=== PATIENT | female | born 1970 | race Caucasian/White ===

== ENCOUNTER → 2020-03-16 13:47 | Outpatient (CLI) | payer OTHER, SELFPAY ==
[2018-09-03 11:28] VITALS: BMI 31.0
--- NOTE | 2020-03-16 14:00 | US_ITS ---
STUDY: SUPERFICIAL ULTRASOUND - LEFT GROIN REASON FOR EXAM: Female, 49 years old. LEFT GROIN LYMPH NODE BIOPSY TECHNIQUE: A superficial ultrasound was performed with real-time and static angeles-scale imaging. COMPARISON: None. FINDINGS: The palpable abnormality corresponds to a 1.6 cm x 1.4 cm x 2.3 cm cyst. This may represent a postoperative seroma US/Ext Non Vasc Limited/Soft Tiss IMPRESSION: Findings suggest only 1.6 cm x 1.4 cm x 2.3 cm seroma at the operative site corresponding to the palpable abnormality. Electronically Signed: Anthony Jones, at 15:22 EDT , Service support ,
== END ==
PROVIDERS: PCP Family Medicine
DX: Z85.820 Personal history of malignant melanoma of skin (principal)
CPT/HCPCS: 76882

== ENCOUNTER 2020-05-28 19:18 | Emergency (ER) | payer OTHER, SELFPAY ==
[2018-09-03 11:28] VITALS: BMI 31.0
[2020-05-28 19:18] VITALS: BP 135/76; PULSE 87; RESP 18; TEMP 36.6; O2SAT 99; BMI 32.4
--- NOTE | 2020-05-28 19:25 | ED.DCSUM_ITS ---
History of Present Illness Chief Complaint: Laceration Informant: Patient Onset: Today Context: Sudden Onset Timing: Continuous Current Severity: Moderate Maximum Severity: Moderate Narrative: The patient is a 49-year-old female who is right-hand dominant that presents to the emergency department laceration to her right index finger. The patient was using a rock. She states with holding, she ended up incising the finger over the dorsal aspect of the right PIP joint. She went to urgent care, but due to concern for tendon injury, she was sent here for further evaluation. The patient is unsure of her last tetanus. She is otherwise been in her normal state of health. Prior similar symptoms: No Recent Illness/Hospitalization: No Past Medical History - Allergies and Home Meds Allergies/Adverse Reactions: Allergies benzoyl peroxide Allergy (Verified 05/28/20 19:20) Swelling clindamycin Allergy (Verified 05/28/20 19:20) Hives Sulfa (Sulfonamide Antibiotics) Allergy (Verified 05/28/20 19:20) Hives ferrous sulfate Adverse Reaction (Verified 05/28/20 19:20) Other NOT ABLE TO TAKE DUE TO GASTRIC BYPASS Primary Care Physician: Nancy Petty MD [NON-STAFF] - As soon as possible Prior records reviewed: Yes Surgical History: noncontributory Smoking Status: Never smoker Review of Systems General: Denies: Chills, Fever, Sweats Eyes: Denies: Visual changes - bilaterally, Diplopia ENT: Denies: Rhinorrhea, Sore throat Cardiovascular: Denies: Chest pain, Palpitations Respiratory: Denies: Dyspnea, Cough, Dyspnea on exertion Gastrointestinal: Denies: Abdominal pain, Nausea, Vomiting, Diarrhea, Melena, Hematochezia Genitourinary: Denies: Dysuria, Hematuria, Frequency Musculoskeletal: Denies: Back pain, Extremity Pain Skin: Denies: Rash, Wounds Neurological: Denies: Headache, Weakness, Numbness Physical Exam Vital Signs/Narrative: Vital Signs Temp Pulse Resp BP Pulse Ox 05/28/20 19:18 97.9 F 87 18 135/76 H 99 Inital Vital Signs reviewed: Yes General: Well nourished, Well developed, No Acute Distress Head: Normocephalic, Atraumatic Eyes: Perrl, EOMI ENT: Moist mucous membranes, No rhinorrhea Cardiovascular: Regular rate, Regular rhythm, No murmurs Respiratory: No distress Abdomen: Soft, Nontender, Nondistended Extremities: No edema, Tenderness - Patient has a 2 cm C shaped laceration over the DIP of the right index. She does have weakness with full extension. Two- point discrimination is preserved. Skin: Normal color, No rash Neurological: Alert, Oriented x3, Cranial nerves II-XII grossly intact, Normal Strength, Normal Sensation Psychological: Normal affect, Normal Mood Diagnostic/Tx/Re-eval - Medical Decision Making The patient presents with laceration on the dorsum of the right index. Her extension is limited. Plain films were obtained. There is no evidence of bony disruption. Digital block was performed with a total of 8 cc of bupivacaine under sterile conditions. Turnicot was applied to the finger. The laceration was copiously irrigated and cleaned with chlorhexidine. Under bloodless field, I could see the distal end of the tendon, but the proximal end was retracted. I cannot see the end of the tendon in order to bring it into the field. There is no evidence of vascular injury. I did close the skin loosely with 3 simple 6-0 interrupted suture and the wound was dressed with bacitracin dressing. The patient has seen Dr. Moreno in the past. I was able to speak with her physician assistant signal maintainer, but he was not definitively sure that she would be able to follow-up for operative fixation. The patient is also been established with [facility]. I have reached out to ensure follow-up with hand specialist Dr. Maynard. The patient will be placed on doxycycline and kept in an extension splint. She will follow-up with [facility] as soon as possible. Impression 1. 2 cm right index finger laceration with extensor tendon disruption ED Disposition - Plan for ED Patient: Disposition: Home or Assisted Living Instructions: ED Laceration Hand, ED TENDON LACERATION Prescriptions: Doxycycline 100 mg PO BID #20 cap Prescription Printed Referrals: Nancy Petty MD [NON-STAFF] - As soon as possible
--- NOTE | 2020-05-28 19:45 | RAD_ITS ---
STUDY: X-RAY - RIGHT HAND REASON FOR EXAM: Female, 49 years old. SLICED RIGHT INDEX FINGER ON A VEGETABLE SLICER, LACERATION TECHNIQUE: 3 view(s) of the hand. COMPARISON: None. FINDINGS: Normal radiocarpal articulation. Normal distal radioulnar joint. Normal visualized carpal bones. Normal carpal articulations Normal carpometacarpal articulation of the thumb. Normal second through fifth carpometacarpal joints. Normal metacarpi. Normal metacarpophalangeal joint of the thumb. Normal interphalangeal joint of the thumb. Normal proximal and distal phalanges of the thumb. Normal metacarpophalangeal joints of the second through fifth fingers. Normal proximal and distal interphalangeal joints of the second through fifth fingers. Normal phalanges of the second through fifth fingers. The soft tissue structures are unremarkable. RAD/Hand Min 3 Views IMPRESSION: Normal x-ray examination of the hand. Electronically Signed: Shelly Rice MD at 20:54 EDT Tel , Service support ,
[2020-05-28] MEDS: Bupivacaine Mpf 0.5% 30 ML VIAL INFILT (19:53)
[2020-05-28] MEDS: Diphth,Pertuss(Acell),Tet Vac 0.5 ML Vial IM (19:53)
[2020-05-28] MEDS: Doxycycline 100 MG CAPSULE PO (20:57)
[2020-05-28 21:05] VITALS: RESP 18
== END 2020-05-28 21:05 | disposition home or self-care (01) ==
LOC: ED 19:41
PROVIDERS: Emergency Provider Emergency Medicine; PCP Family Medicine
DX: S66.320A Laceration of extensor muscle, fascia and tendon of right index finger at wrist and hand level, initial encounter (principal); S61.210A Laceration without foreign body of right index finger without damage to nail, initial encounter; W27.4XXA Contact with kitchen utensil, initial encounter; Y93.9 Activity, unspecified; Y92.9 Unspecified place or not applicable; Y99.9 Unspecified external cause status
CPT/HCPCS: 12001; 73130; 90715; 99284

== ENCOUNTER → 2021-07-18 09:59 | Outpatient (CLI) | payer OTHER, SELFPAY ==
--- NOTE | 2021-07-18 10:02 | US_ITS ---
STUDY: SUPERFICIAL ULTRASOUND - LEFT GROIN. REASON FOR EXAM: Female, 50 years old. LEFT GROIN -- HX CA . History of prior biopsy of the left groin lymph nodes. TECHNIQUE: A superficial ultrasound was performed with real-time and static angeles-scale imaging. COMPARISON: Comparison is made with prior study 03/16/2020. FINDINGS: There are 3 benign appearing lymph nodes in the left groin. The largest measures 1.5 cm x 0.6 cm x 0.3 cm. US/Ext Non Vasc Limited/Soft Tiss IMPRESSION: 3 small benign-appearing lymph nodes are seen in the left groin. Electronically Signed: Anthony Jones MD at 14:31 EST , Service support ,
== END ==
PROVIDERS: PCP Nurse Practitioner Family
DX: C43.72 Malignant melanoma of left lower limb, including hip (principal)
CPT/HCPCS: 76882

== ENCOUNTER → 2025-05-01 | Outpatient (CLI) | payer OTHER, SELFPAY ==
--- NOTE | 2025-05-01 15:19 | US_ITS ---
PROCEDURE: PELVIC W/ TRANSVAGINAL 05/01/2025 REASON FOR EXAM: PELVIC AND PERINEAL PAIN TECHNIQUE: PELVIC W/ TRANSVAGINAL COMPARISON: none FINDINGS: Uterus is surgically removed. Bilateral ovaries are not well seen. No free fluid within the cul de sac. Distended urinary bladder to 480mL. US/Pelvic w/ Transvaginal IMPRESSION: Uterus is surgically removed. Bilateral ovaries are not well seen. No acute process. Reading Location: [facility]
--- OUTSIDE RECORDS SUMMARY | 2025-05-01 17:11 | XMS RPT_ITS | CCD ---
Author Organization [facility] Care Team Providers Care Esthetician Makeup Artist Name Role Phone Unavailable Primary Care Provider Unavailabl e Perry CLINICAL TRANSFORMATION SPECIALIST.RECORDS ANALYSIS MANAGER, [facility] Primary Care Provider Perry CLINICAL TRANSFORMATION SPECIALIST.RECORDS ANALYSIS MANAGER, [facility] Primary Care Provider Perry CLINICAL TRANSFORMATION SPECIALIST.RECORDS ANALYSIS MANAGER, [facility] Primary Care Provider Perry CLINICAL TRANSFORMATION SPECIALIST.[facility], [facility] Primary Care Provider Perry CLINICAL TRANSFORMATION SPECIALIST.[facility], [facility] Primary Care Provider PERRY, LENY Referring Unavailable PERRY, LENY Primary Care Unavailable PERRY, LENY Referring Unavailable PERRY, LENY Primary Care Unavailable PERRY, LENY Primary Care Unavailable PERRY, LENY Referring Unavailable ELEUTERIO MONREAL~[id number], ELEUTERIO ROWE V Admitting Unavailable ELEUTERIO MONREAL~[id number], ELEUTERIO ROWE V Attending Unavailable NONE, NONE Primary Care Unavailable NONE, NONE Consulting Unavailable NONE, NONE Consulting Unavailable JAE MCCLELLAN MD, V Consulting Unavailable JAE MCCLELLAN MD, V Consulting Unavailable Flex CLINICAL TRANSFORMATION SPECIALIST.RECORDS ANALYSIS MANAGER, Cara Govea Unavailable Hayden Romero DO Unavailable PERRY, LENY Primary Care Unavailable TESTRARONAN PETERSENEW Attending Unavailable PERRY, LENY Primary Care Unavailable TESTMAGNUS MARY Referring Unavailable PERRY, LENY Attending Unavailable PERRY, LENY Primary Care Unavailable PERRY, LENY Referring Unavailable PERRY, LENY Primary Care Unavailable PERRY, LENY Referring Unavailable PERRY, LENY Primary Care Unavailable PERRY, LENY Attending Unavailable PERRY, LENY Primary Care Unavailable ARYA ROSALES JR Referring Unavailable PERRY, LENY Primary Care Unavailable MICHEAL JOHNSON Attending Unavailable PERRY, LENY Primary Care Unavailable TESTRANICOLA, MARY Referring Unavailable MICHEAL JOHNSON Attending Unavailable PERRY, LENY Primary Care Unavailable TESTMARY AGUDELO Referring Unavailable PERRY, LENY Primary Care Unavailable MICHEAL JOHNSON Attending Unavailable MARY NEVILLE Referring Unavailable ARYA ROSALES JR Attending Unavailable PERRY, LENY Primary Care Unavailable Assessment, Health Risk Referring Unavaila ble Assessment, Health Risk Attending Unavaila ble Perry AGRICULTURAL EXTENSION AGENT, Leny Primary Care Unavailable Perry AGRICULTURAL EXTENSION AGENT, Leny Primary Care Unavailable Perry AGRICULTURAL EXTENSION AGENT, Leny Referring Unavailable Perry AGRICULTURAL EXTENSION AGENT, Leny Attending Unavailable Allergies Allergy Classification Reported Allergen(s) Allergy Type Date of Onset Reaction(s) Facility (20 sources) Clindamycin; Translations: [CLINDAMYCIN] Drug Allergy 5 [facility] Work Phone: (20 sources) Sulfonamides (Antibiotic); Translations: [SULFA (SULFONAMIDE ANTIBIOTICS)] Propensity to adverse reactions 5 Hives [facility] Work Phone: (20 sources) benzoil peroxide [Other] Propensity to adverse reactions 5 Intolerance [facility] Work Phone: (20 sources) Benzoyl Peroxide; Translations: [BENZOYL PEROXIDE] Drug Allergy 4 [facility] (1 source) Benzoyl Peroxide Drug Allergy 0 [facility] (1 source) Clindamycin Drug Allergy 0 [facility] (1 source) ferrous sulfate Drug Allergy 0 [facility] (1 source) Sulfonamides (Antibiotic) Drug allergy (disorder) 0 [facility] Medications Current Medications Medication Drug Class(es) Dates Sig (Normalized) Sig (Original) acetaminophen 500 mg oral tablet (20 sources) Start: 05-05-2018 take 2 tablets by mouth every eight hours for pain acetaminophen (TYLENOL) 500 mg tablet take 2 tablets by mouth every 8 hours if needed for pain OR FEVER 100 tablet 2 05/05/2018 Active Comment on above: take 2 tablets by mo [facility] every 8 hours if needed for pain OR FEVER amoxicillin 875 mg / clavulanate 125 mg oral tablet (1 source) Penicillin-class Antibacterial Start: 10-09-2022 End: 10-19-2022 take 1 tablet by mouth twice daily amoxicillin-clavul anic acid (AUGMENTIN) 875-125 mg per tablet Indications: Bacterial sinusitis Take 1 tablet by mouth twice daily for 10 days. 20 tablet 0 10/09/2022 10/19/2022 Active Comment on above: [facility]. armodafinil 250 mg oral tablet (20 sources) Start: 09-28-2023 End: 01-09-2025 armodafinil (NUVIGIL) 250 mg tab Indications: Hypersomnia Take 1/2 to 1 tab in AM as directed. 90 tablet 1 10/10/2024 Active Start: 05-08-2022 End: 04-05-2023 armodafinil (NUVIGIL) 250 mg tab Indications: Hypersomnia due to medical condition , Shift work sleep disorder Take 1/2 to 1 tab in AM as directed. 90 tablet 1 05/08/2022 10/06/2022 Discontinued Start: 08-13-2021 End: 05-08-2022 take 1 tablet by mouth once daily armodafinil (NUVIGIL) 150 mg tab Indications: Hypersomnia due to medical condition Take 1 tablet by mouth once daily for 90 days. 30 tablet 2 08/13/2021 05/08/2022 Discontinued Comment on above: Take 1 tablet by [facility] once daily for 90 days. Take 1/2 to 1 tab in AM as directed. 60 actuat budesonide 0.09 mg/actuat dry powder inhaler (20 sources) Corticosteroid Start: 2020 End: 2024 take 2 puff(s) by inhalation twice daily as needed budesonide (PULMICORT FLEXHALER) 90 mcg/actuation aepb Inhale 2 puffs as instructed two times a day as needed. 1 each 3 02/15/2025 05/16/2025 Active Comment on above: Inhale 2 Puffs as in structed twice daily as needed. 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 TAKE 1/2 TABLET BY M OUTH EVERY THURSDAY AND THURSDAY Take 1 tablet by maría elena th every Thursday and Thursday. clobetasol propionate 0.5 mg/ml topical solution (20 sources) Corticosteroid Clobetasol Propi diogo (TEMOVATE) 0.05 % external solution Apply to affected area twice daily. Active Comment on above: Apply to affected ar ea twice daily. COMPOUNDED PRESCRIPTION (20 sources) Start: COMPOUNDED PRESCRIPTION Journey 3+3 Bariatric Multivitamin Take 3 capsules in am and Take 3 capsules in PM 180 capsule 11 10/26/2017 Active Comment on above: Journey 3+3 Bariatri c Multivitamin Take 3 capsules in am and Take 3 capsules in PM enteric contrast (will be provided with radiology test) (4 sources) Start: End: enteric contrast (will be provided with radiology test) Indications: Gastroesophageal reflux disease, unspecified whether esophagitis present , Epigastric pain , Nausea , Decreased appetite , Acute LUQ pain , Hx of gastric bypass , Jaw pain For CT ABD/PEL W IVCON Routine order Administer, As Directed One Time Only, via Oral, Rectal, both Oral and Rectal, Enteric Tube, Stoma or Indwelling Catheter, Enteric Contrast as designated per enteric contrast guidelines 1 Each 0 03/30/2024 03/31/2024 Active estradiol 1 mg oral tablet (20 sources) Estrogen Start: End: take 1 tablet by mouth once daily estradiol (ESTRACE) 1 mg tablet Take 1 tablet by mouth once daily. 90 tablet 1 01/19/2025 Active Comment on above: TAKE 1 TABLET BY MARÍA ELENA TH EVERY DAY Take 1 tablet by maría elena th once daily. ferrous sulfate (20 sources) FERROUS SULFATE ORAL Take by mouth. Active FERROUS SULFATE ORAL Take by mouth. 0 Active Comment on above: Take by mouth. FLUoxetine 40 mg oral capsule (20 sources) Serotonin Reuptake Inhibitor Start: 05-06-2023 End: 06-13-2025 take 1 capsule by mouth once daily FLUoxetine (PROZAC) 40 mg capsule Indications: Depression with anxiety Take 1 capsule by mouth once daily. 90 capsule 1 12/15/2024 06/13/2025 Active Start: 04-07-2022 End: 05-06-2023 take 1 capsule by mouth once daily FLUoxetine (PROZAC) 20 mg capsule Indications: Depression with anxiety TAKE 1 CAPSULE BY MOUTH ONCE DAILY 90 capsule 1 05/28/2022 11/17/2022 Discontinued Comment on above: Take 1 capsule by mo uth once daily. TAKE 1 CAPSULE BY MO UTH ONCE DAILY Take 1 capsule by mo uth once daily. Patient taking 40 mg daily gabapentin 300 mg oral capsule (11 sources) Anti-epileptic Agent Start: 02-06-2025 End: 05-07-2025 take 1 capsule by mouth twice daily gabapentin (NEURONTIN) 300 mg capsule Indications: Spinal stenosis of cervical region , Cervicalgia , Pain in both upper extremities , Paresthesia of skin Take 1 capsule by mouth two times a day for 90 days. 60 capsule 2 02/06/2025 05/07/2025 Active Start: 10-10-2024 End: 01-08-2025 take 1 capsule by mouth twice daily gabapentin (NEURONTIN) 300 mg capsule Indications: Spinal stenosis of cervical region , Cervicalgia , Pain in both upper extremities , Paresthesia of skin Take 1 capsule by mouth two times a day for 90 days. 60 capsule 2 10/10/2024 Active GEMTESA 75 mg tablet (20 sources) Start: 12-16-2024 take 1 tablet by mouth once GEMTESA 75 mg tablet Indications: OAB (overactive bladder) Take 1 tablet by mouth every afternoon. 12/16/2024 Active Start: 07-20-2023 End: 12-16-2024 take 1 tablet by mouth once GEMTESA 75 mg tablet Take 1 tablet by mouth every afternoon. 07/20/2023 12/16/2024 Discontinued Start: 07-20-2023 take 1 tablet by mouth once GE MTESA 75 mg tablet Take 1 tablet by mouth every afternoon. 07/20/2023 Active Start: 07-20-2023 take 1 tablet by mouth once GE MTESA 75 mg tablet Take 1 tablet by mouth every afternoon. 0 07/20/2023 Active Comment on above: Take 1 tablet by maría elena every afternoon. iv contrast (will be provided with radiology test) (4 sources) Start: 03-30-2024 End: 03-31-2024 iv contrast (will be provided with radiology test) Indications: Gastroesophageal reflux disease, unspecified whether esophagitis present , Epigastric pain , Nausea , Decreased appetite , Acute LUQ pain , Hx of gastric bypass , Jaw pain CT ABD/PEL -Inject, intravenously, once for 1 dose.No IV access, insert saline lock prior to the beginning of sedation, infusion, injection of imaging exam. Discontinue saline lock post exam. If Pt. has a central line or IVAD, may access for administration according to line specific nursing protocol. Once exam is complete flush line and de-access according to line specific nursing protocol in the CT contrast administration guidelines link. 1 Each 0 03/30/2024 03/31/2024 Active ketoconazole 20 mg/ml medicated shampoo (20 sources) Azole Antifungal Start: 05-19-2022 ketoconazole (NIZORAL) 2 % shampoo Apply 1 application to affected area once daily as needed. 120 mL 3 05/19/2022 Active Start: 08-22-2021 End: 05-16-2022 ketoconazole (NIZORAL) 2 % s hampoo Apply 1 application to affected area once daily as needed. 120 mL 3 08/22/2021 05/16/2022 Discontinued Comment on above: Apply 1 application to affected area once daily as needed. loratadine 10 mg oral tablet (20 sources) Start: 1 End: 5 take 1 tablet by mouth once daily loratadine (CLARITIN) 10 mg tablet Indications: Well adult exam Take 1 tablet by mouth once daily. 30 tablet 02/15/2025 Active Comment on above: Take 1 tablet by maría elena once daily. mometasone furoate 1 mg/ml topical cream (20 sources) Corticosteroid Start: End: 5 mometasone (ELOCON) 0.1 % cream Indications: Eczema, unspecified type apply bid prn 45 g 1 02/15/2025 Active Comment on above: apply bid prn OTC PRODUCT (20 sources) OTC PRODUCT Immu ne Defend - 2 capsules daily Active OTC PRODUCT Immu ne Defend - 2 capsules daily 0 Active Comment on above: Immune Defend - 2 ca psules daily pantoprazole 40 mg delayed release oral tablet (20 sources) Proton Pump Inhibitor Start: 11-03-19 End: 12-15-19 take 1 tablet by mouth once daily before breakfast pantoprazole DR (PROTONIX) 40 mg tablet Indications: GERD with esophagitis Take 1 tablet by mouth daily before breakfast. Take on empty stomach, 1/2 hr before meal. 30 tablet 11 12/14/2024 Active Comment on above: Take 1 tablet by maría elena th daily before breakfast. Take on empty stomach, 1/2 hr before meal. sucralfate 1000 mg oral tablet (13 sources) Aluminum Complex Start: 05-03-20 End: 06-02-20 take 1 tablet by mouth at bedtime sucralfate (CARAFATE) 1 gram tablet Indications: Gastroesophageal reflux disease, unspecified whether esophagitis present , Epigastric pain , Nausea , Decreased appetite , Acute LUQ pain , Hx of gastric bypass Take 1 tablet by mouth before meals and at bedtime. 120 tablet 05/03/2024 06/02/2024 Active Start: 03-30-2024 End: 04-29-2024 take 1 tablet by mouth at bedtime sucralfate (CARAFATE) 1 gram tablet Indications: Gastroesophageal reflux disease, unspecified whether esophagitis present , Epigastric pain , Nausea , Decreased appetite , Acute LUQ pain , Hx of gastric bypass Take 1 tablet by mouth before meals and at bedtime. 120 tablet 0 03/30/2024 04/29/2024 Active ubidecarenone 100 mg oral tablet (20 sources) ubidecarenone (C OENZYME Q10) 100 mg tab Take by mouth once daily. Active Comment on above: Take by mouth once d aily. Completed/Discontinued Medications Medication Drug Class(es) Dates Sig (Normalized) Sig (Original) 24 hr mirabegron 50 mg extended release oral tablet (1 source) beta3-Adrenergic Agonist Start: 11-04-2024 End: 12-16-2024 take 1 tablet by mouth once daily mirabegron (MYRBETRIQ) 50 mg Tb24 Take 1 tablet by mouth once daily. 11/04/2024 12/16/2024 Discontinued valACYclovir 1000 mg oral tablet (1 source) Herpesvirus Nucleoside Analog DNA Polymerase Inhibitor, Herpes Simplex Virus Nucleoside Analog DNA Polymerase Inhibitor, Herpes Zoster Virus Nucleoside Analog DNA Polymerase Inhibitor Start: 12-08-2024 End: 12-16-2024 valACYclovir (VALTREX) 1 gram tablet Take 1,000 mg by mouth three times a day. 12/08/2024 12/16/2024 Discontinued Problems Active Problems Problem Classification Problem Date Documented Date Episodic/Chronic Abdominal pain (20 sources) Epigastric pain; Translations: [Epigastric pain] Onset: 6 Resolved: 7 03-30-2024 Episodic Adjustment disorders (20 sources) Mixed anxiety and depressive disorder; Translations: [Adjustment disorder with mixed anxiety and depressed mood] Onset: 7 02-05-2017 Chronic Administrative/socia l admission (3 sources) Encounter for pre-employment examination; Translations: [ENCOUNTER FOR PRE-EMPLOYMENT EXAM] Onset: Episodic Allergic reactions (1 source) Eczema; Translations: [Dermatitis, unspecified] 02-14-2025 Episodic Attention-deficit, conduct, and disruptive behavior disorders (20 sources) Adult attention deficit hyperactivity disorder ; Translations: [Attention-deficit hyperactivity disorder, unspecified type] Onset: 1 09-27-2020 Chronic Disorders of lipid metabolism (20 sources) Hyperlipidemia; Translations: [Hyperlipidemia, unspecified] Onset: 1 09-27-2020 Chronic Disorders of teeth and jaw (3 sources) Jaw pain; Translations: [Jaw pain] Onset: 4 03-30-2024 Episodic Esophageal disorders (20 sources) Gastro-esophageal reflux disease with esophagitis; Translations: [GERD with esophagitis] Onset: 0 11-01-2019 Chronic Genitourinary symptoms and ill-defined conditions (20 sources) Mixed urinary incontinence; Translations: [Mixed incontinence] Onset: 8 09-27-2020 Chronic Immunizations and screening for infectious disease (1 source) Contact with and (suspected) exposure to other viral communicable diseases; Translations: [Contact with or exposure to other viral diseases] 10-14-2023 Episodic Influenza (1 source) Influenza-like illness; Translations: [Influenza due to unidentified influenza virus with other respiratory manifestations] 10-14-2023 Episodic Intestinal obstruction without hernia (2 sources) Intussusception of intestine; Translations: [Intussusception] 04-06-2024 Episodic Melanomas of skin (20 sources) Malignant melanoma of lower limb ; Translations: [Malignant melanoma of left lower limb, including hip] Onset: 0 12-15-2019 Chronic Mood disorders (20 sources) Depressive disorder; Translations: [Depression] Onset: 2 01-29-2012 Chronic Nausea and vomiting (10 sources) Nausea; Translations: [Nausea] Onset: 4 03-30-2024 Episodic Nutritional deficiencies (1 source) Vitamin D deficiency; Translations: [Vitamin D deficiency, unspecified] 05-04-2023 Chronic Other aftercare (1 source) Long-term current use of stimulant; Translations: [Other penitentiary (current) drug therapy] 10-10-2024 Episodic Other connective tissue disease (2 sources) Pain in right foot; Translations: [Pain in right foot] 06-03-2024 Episodic Other connective tissue disease (2 sources) Pain of bilateral upper limbs; Translations: [Pain in right arm] 10-10-2024 Episodic Other diseases of bladder and urethra (1 source) Overactive bladder; Translations: [Overactive bladder] 12-16-2024 Chronic Other endocrine disorders (20 sources) 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; Translations: [Hyperprolactinemia] Onset: 4 12-27-2013 Chronic Other infections; including parasitic (5 sources) 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; Translations: [[id number] syndrome] Onset: 1 09-27-2020 Chronic Other infections; including parasitic (20 sources) Post-viral disorder; Translations: [[id number] syndrome] Onset: 1 09-27-2020 Chronic Other liver diseases (20 sources) Steatosis of liver; Translations: [Fatty (change of) liver, not elsewhere classified] Onset: 0 02-07-2010 Chronic Other nervous system disorders (1 source) Circadian rhythm sleep disorder of shift work type; Translations: [Circadian rhythm sleep disorder, shift work type] Chronic Other nervous system disorders (2 sources) Paresthesia; Translations: [Paresthesia of skin] 10-10-2024 Episodic Other non-traumatic joint disorders (4 sources) Joint pain; Translations: [Pain in unspecified joint] 12-16-2024 Episodic Other nutritional; endocrine; and metabolic disorders (20 sources) Obese class I; Translations: [Obesity, unspecified] Onset: 4 09-16-2023 Chronic Other nutritional; endocrine; and metabolic disorders (8 sources) Decrease in appetite; Translations: [Anorexia] 03-30-2024 Episodic Other nutritional; endocrine; and metabolic disorders (1 source) Anorexia; Translations: [Decreased appetite] Onset: 4 Episodic Other upper respiratory infections (1 source) Bacterial sinusitis; Translations: [Chronic sinusitis, unspecified] Chronic Residual codes; unclassified (20 sources) Hypersomnia disorder related to a known organic factor; Translations: [Hypersomnia due to medical condition] Onset: 4 Chronic Residual codes; unclassified (20 sources) Upper airway resistance syndrome; Translations: [Other sleep disorders] Onset: 4 Chronic Residual codes; unclassified (1 source) Hypersomnia; Translations: [Hypersomnia, unspecified] 10-10-2024 Chronic Residual codes; unclassified (1 source) Hypersomnia, unspecified; Translations: [Hypersomnia] Onset: 5 Chronic Residual codes; unclassified (1 source) Other sleep disorders; Translations: [UARS (upper airway resistance syndrome)] Onset: 4 Chronic Residual codes; unclassified (4 sources) Generalized acute body pains; Translations: [Pain, unspecified] 12-16-2024 Episodic Past or Other Problems Problem Classification Problem Date Documented Da te Episodic/Chronic Deficiency and other anemia (20 sources) Acquired pancytopenia; Translations: [Other pancytopenia] Onset: 12-27-2013 Resolved: 03-23-2017 03-23-2017 Chronic Deficiency and other anemia (20 sources) Iron deficiency anemia due to dietary causes; Translations: [Other iron deficiency anemias] Onset: 12-27-2013 Resolved: 03-23-2017 03-23-2017 Episodic Malaise and fatigue (5 sources) Asthenia; Translations: [Weakness] Onset: 01-20-2025 12-16-2024 Episodic Nutritional deficiencies (20 sources) Iron deficiency; Translations: [Iron deficiency] Onset: 01-11-2014 Resolved: 02-15-2014 02-15-2014 Episodic Other aftercare (1 source) Other penitentiary (current) drug therapy; Translations: [Long-term current use of stimulant] Onset: 10-10-2024 Episodic Other and unspecified benign neoplasm (20 sources) Prolactinoma; Translations: [Benign neoplasm of pituitary gland] Onset: 02-09-2018 02-09-2018 Episodic Other connective tissue disease (20 sources) Right achilles tendonitis; Translations: [Achilles tendinitis, right leg] Onset: 06-28-2024 06-07-2024 Episodic Other connective tissue disease (1 source) Pain in right arm; Translations: [Pain in both upper extremities] Onset: 10-10-2024 Episodic Other connective tissue disease (1 source) Pain in left arm; Translations: [Pain in both upper extremities] Onset: 10-10-2024 Episodic Other connective tissue disease (1 source) Achilles tendinitis, right leg; Translations: [Tendonitis, Achilles, right] Onset: 06-27-2024 Episodic Other connective tissue disease (1 source) Pain in right foot; Translations: [Pain in right foot] Onset: 06-07-2024 Episodic Other gastrointestinal disorders (20 sources) History of bypass of stomach; Translations: [Bariatric surgery status] Onset: 03-18-2017 03-18-2017 Episodic Other gastrointestinal disorders (2 sources) Bariatric surgery status; Translations: [Hx of gastric bypass] Onset: 03-30-2024 Episodic Other nervous system disorders (1 source) Paresthesia of skin; Translations: [Paresthesia of skin] Onset: 10-10-2024 Episodic Other non-traumatic joint disorders (1 source) Pain in unspecified joint; Translations: [Arthralgia, unspecified joint] Onset: 01-20-2025 Episodic Other nutritional; endocrine; and metabolic disorders (20 sources) Morbid obesity; Translations: [Morbid (severe) obesity due to excess calories] Onset: 09-28-2008 Resolved: 01-29-2012 01-29-2012 Chronic Other and delivery including normal (20 sources) Normal ; Translations: [Encounter for supervision of other normal , unspecified trimester] Onset: 03-19-2007 Resolved: 11-06-2007 03-17-2024 Episodic Other screening for suspected conditions (not mental disorders or infectious disease) (18 sources) Patient encounter status; Translations: [Encounter for screening mammogram for malignant neoplasm of breast] Onset: 12-24-2024 Episodic Residual codes; unclassified (1 source) Pain, unspecified; Translations: [Acute generalized body pain] Onset: 01-20-2025 Episodic Spondylosis; intervertebral disc disorders; other back problems (20 sources) Left cervical root neuropathy; Translations: [Radiculopathy, cervical region] Onset: 01-24-2013 01-24-2013 Episodic Sprains and strains (20 sources) Strain of neck muscle; Translations: [Strain of muscle, fascia and tendon at neck level, initial encounter] Onset: 01-24-2013 01-24-2013 Episodic Superficial injury; contusion (20 sources) Contusion of head; Translations: [Contusion of unspecified part of head, initial encounter] Onset: 01-24-2013 Resolved: 03-29-2014 03-29-2014 Episodic Unclassified (5 sources) Patient encounter status 10-25-2024 Unclassified (2 sources) 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 Performed By: #### L 3100.3400, L509.4006, L3400.1750 #### [facility] [address] [place] [address], [address] [facility] EMP Rubeola Titeron 06-0 RUBEOLA Ab, IgG 77.3 AU/mL Normal Immune >16.4 [facility] Comment on above: Result Comment: Nega tive <13.5 Equivocal 13.5 - 16.4 Positive >16.4 Presence of antibodies to Rubeola is presumptive evidence of immunity except when acute infection is suspected. Performed at: [address] [id number] [employer] Supervisor: Jose Hou PhD, Phone: [phone] Performed By: #### L 3100.3400, L509.4006, L3400.1750 #### [facility] [address] [place], [address] Hepatitis B Surface Antibody on 02-10-2025 HEP B Surf Ab REAC Normal [facility] Comment on above: Result Comment: <8.5 mIU/mL: Non-Reactive 8.5<= x <11.5 mIU/mL: Indeterminate >=11.5 mIU/mL: Reactive Non Reactive: Inconsistent with immunity less than <10 mIU/mL Reactive: Consistent with immunity greater than or equal to 10 mIU/mL Performed By: #### L 3890.6202 #### [facility] [address] [place] [place], [address] L509.4006on 02-10-2025 Rubella IgG REAC Normal Nonreactive [facility] Comment on above: Result Comment: Anti body Result: Interpretation Non-Reactive: Non-Immune Reactive: Immune The following results were obtained with the [employer] Rubella IgG assay. Results from assays of other manufacturers cannot be used interchangeably. Performed By: #### L 3100.3400, L509.4006, L3400.1750 #### [facility] [address] [place], [address] BD DXA - AXIAL SKELETONon BD DXA - AXIAL SKELETON * * *Final Report* * * DATE OF EXAM: Jan 20 2025 8:07AM [facility] 0804 - BD DXA - AXIAL SKELETON / PROCEDURE REASON: multiple diagnoses * * * * Physician Interpretation * * * * EXAMINATION: DXA BONE DENSITOMETRY BD DXA - AXIAL SKELETON PATIENT DEMOGRAPHICS: Age: 54 years, Gender: Female SCANNER INFORMATION: DXA Model: [employer] C [id number] Date Scanned: 01/20/2025 8:07 AM CLINICAL HISTORY: DIAGNOSTIC Encounter for screening for osteoporosis Generalized weakness Acute generalized body pain Arthralgia, unspecified joint. RISK FACTORS FOR OSTEOPOROSIS AND ASSOCIATED FRACTURES REPORTED BY THIS PATIENT: Please refer to Bone Health Questionnaire in the EMR CURRENT THERAPY: Please refer to Bone Health Questionnaire in the EMR TECHNICAL LIMITATIONS: None RESULTS: Lumbar spine (L1, L2, L3, L4): 0.934 g/cm2, T-score -1.0, Z-score 0.1 Left Femoral Neck: 0.740 g/cm2, T-score -1.0, Z-score 0.1 Left Total Hip: 1.035 g/cm2, T-score 0.8, Z-score 1.5 No comparison data - the patient has not had a previous bone density in the [facility] or the previous bone density was performed on a different DXA machine (new, updated model or different location) within the [facility]. VERTEBRAL FRACTURE ASSESSMENT Not performed. IMPRESSION: THE LOWEST T-SCORE IS -1.0 IN THE SPINE AND LEFT HIP 1) DIAGNOSIS (based on BMD alone): OSTEOPENIA Caution: Medical conditions other than osteoporosis may cause low bone density, such as osteomalacia or renal osteodystrophy. Clinical correlation is necessary. 2) FRACTURE RISK (based on FRAX): 10-year absolute fracture risk: - major osteoporotic fracture = 9.7 % - hip fracture = 0.5 % - A diagnosis of Osteoporosis, a 10 year probability of hip fracture greater than or equal to 3% or a 10 year probability of any major osteoporosis-related fracture greater than or equal to 20% should be considered for treatment. - DXA scanner generated FRAX calculations may slightly differ from online FRAX calculations due to differences in software versions. - All recommendations and calculations are to be considered as guidelines and should not replace sound clinical judgement - Caution: Fracture risk may be increased independent of BMD in patients with corticosteroid use, age greater than 65 years, or a history of prior fragility fracture. RECOMMENDATIONS: Follow-up in 2 years or as clinically indicated. Patients that are taking corticosteroids, are transplant recipients or have hyperparathyroidism should have annual follow-up. Follow-up scans should always be done on the same machine for accurate comparison. FOR MORE INFORMATION ABOUT DIAGNOSIS AND TREATMENT: [facility] Center for Osteoporosis and Metabolic Bone Disease:? www.ccf.org/arthritis/ osteo National Osteoporosis Foundation:? www.nof.org International Society of Clinical Densitometry www.iscd.org Ob Gyn Physician Assistant: KATHIE Transcribe Date/Time: Jan 20 2025 1:15P Dictated by : MARISELA REILLY MD This examination was interpreted and the report reviewed and electronically signed by: MARISELA REILLY MD on Jan 20 2025 1:17PM EST [id number] -1.0 Normal [facility] DXA Skeletal system.axial Vi ews for bone densityOrdered By: Ccf Provider on 01-20-2025 LOWEST T-SCORE -1 [facility] DXA Skeletal system.axial Vi ews for bone densityon 01-20-2025 IMPRESSION: THE LOWEST T-SCORE IS -1.0 IN THE SPINE AND LEFT HIP 1) DIAGNOSIS (based on BMD alone): OSTEOPENIA Caution: Medical conditions other than osteoporosis may cause low bone density, such as osteomalacia or renal osteodystrophy. Clinical correlation is necessary. 2) FRACTURE RISK (based on FRAX): 10-year absolute fracture risk: - major osteoporotic fracture = 9.7 % - hip fracture = 0.5 % - A diagnosis of Osteoporosis, a 10 year probability of hip fracture greater than or equal to 3% or a 10 year probability of any major osteoporosis-related fracture greater than or equal to 20% should be considered for treatment. - DXA scanner generated FRAX calculations may slightly differ from online FRAX calculations due to differences in software versions. - All recommendations and calculations are to be considered as guidelines and should not replace sound clinical judgement - Caution: Fracture risk may be increased independent of BMD in patients with corticosteroid use, age greater than 65 years, or a history of prior fragility fracture. RECOMMENDATIONS: Follow-up in 2 years or as clinically indicated. Patients that are taking corticosteroids, are transplant recipients or have hyperparathyroidism should have annual follow-up. Follow-up scans should always be done on the same machine for accurate comparison. FOR MORE INFORMATION ABOUT DIAGNOSIS AND TREATMENT: [facility] Center for Osteoporosis and Metabolic Bone Disease:? www.ccf.org/arthritis/ osteo National Osteoporosis Foundation:? www.nof.org International Society of Clinical Densitometry www.iscd.org Ob Gyn Physician Assistant: PSCB Transcribe Date/Time: Jan 20 2025 1:15P Dictated by : MARISELA REILLY MD This examination was interpreted and the report reviewed and electronically signed by: MARISELA REILLY MD on Jan 20 2025 1:17PM EST DIVISION OF RADIOLOGY * * *Final Report* * * DATE OF EXAM: Jan 20 2025 8:07AM [facility] 0804 - BD DXA - AXIAL SKELETON / PROCEDURE REASON: multiple diagnoses * * * * Physician Interpretation * * * * EXAMINATION: DXA BONE DENSITOMETRY BD DXA - AXIAL SKELETON PATIENT DEMOGRAPHICS: Age: 54 years, Gender: Female SCANNER INFORMATION: DXA Model: [employer] C [id number] Date Scanned: 01/20/2025 8:07 AM CLINICAL HISTORY: DIAGNOSTIC Encounter for screening for osteoporosis Generalized weakness Acute generalized body pain Arthralgia, unspecified joint. RISK FACTORS FOR OSTEOPOROSIS AND ASSOCIATED FRACTURES REPORTED BY THIS PATIENT: Please refer to Bone Health Questionnaire in the EMR CURRENT THERAPY: Please refer to Bone Health Questionnaire in the EMR TECHNICAL LIMITATIONS: None RESULTS: Lumbar spine (L1, L2, L3, L4): 0.934 g/cm2, T-score -1.0, Z-score 0.1 Left Femoral Neck: 0.740 g/cm2, T-score -1.0, Z-score 0.1 Left Total Hip: 1.035 g/cm2, T-score 0.8, Z-score 1.5 No comparison data - the patient has not had a previous bone density in the [facility] or the previous bone density was performed on a different DXA machine (new, updated model or different location) within the [facility]. VERTEBRAL FRACTURE ASSESSMENT Not performed. DIVISION OF RADIOLOGY Provider, [facility] - 01/20/2025 * * *Final Report* * * DATE OF EXAM: Jan 20 2025 8:07AM [facility] 0804 - BD DXA - AXIAL SKELETON / PROCEDURE REASON: multiple diagnoses * * * * Physician Interpretation * * * * EXAMINATION: DXA BONE DENSITOMETRY BD DXA - AXIAL SKELETON PATIENT DEMOGRAPHICS: Age: 54 years, Gender: Female SCANNER INFORMATION: DXA Model: [employer] C 22178 Date Scanned: 01/20/2025 8:07 AM CLINICAL HISTORY: DIAGNOSTIC Encounter for screening for osteoporosis Generalized weakness Acute generalized body pain Arthralgia, unspecified joint. RISK FACTORS FOR OSTEOPOROSIS AND ASSOCIATED FRACTURES REPORTED BY THIS PATIENT: Please refer to Bone Health Questionnaire in the EMR CURRENT THERAPY: Please refer to Bone Health Questionnaire in the EMR TECHNICAL LIMITATIONS: None RESULTS: Lumbar spine (L1, L2, L3, L4): 0.934 g/cm2, T-score -1.0, Z-score 0.1 Left Femoral Neck: 0.740 g/cm2, T-score -1.0, Z-score 0.1 Left Total Hip: 1.035 g/cm2, T-score 0.8, Z-score 1.5 No comparison data - the patient has not had a previous bone density in the [facility] or the previous bone density was performed on a different DXA machine (new, updated model or different location) within the [facility]. VERTEBRAL FRACTURE ASSESSMENT Not performed. IMPRESSION IMPRESSION: THE LOWEST T-SCORE IS -1.0 IN THE SPINE AND LEFT HIP 1) DIAGNOSIS (based on BMD alone): OSTEOPENIA Caution: Medical conditions other than osteoporosis may cause low bone density, such as osteomalacia or renal osteodystrophy. Clinical correlation is necessary. 2) FRACTURE RISK (based on FRAX): 10-year absolute fracture risk: - major osteoporotic fracture = 9.7 % - hip fracture = 0.5 % - A diagnosis of Osteoporosis, a 10 year probability of hip fracture greater than or equal to 3% or a 10 year probability of any major osteoporosis-related fracture greater than or equal to 20% should be considered for treatment. - DXA scanner generated FRAX calculations may slightly differ from online FRAX calculations due to differences in software versions. - All recommendations and calculations are to be considered as guidelines and should not replace sound clinical judgement - Caution: Fracture risk may be increased independent of BMD in patients with corticosteroid use, age greater than 65 years, or a history of prior fragility fracture. RECOMMENDATIONS: Follow-up in 2 years or as clinically indicated. Patients that are taking corticosteroids, are transplant recipients or have hyperparathyroidism should have annual follow-up. Follow-up scans should always be done on the same machine for accurate comparison. FOR MORE INFORMATION ABOUT DIAGNOSIS AND TREATMENT: [facility] Center for Osteoporosis and Metabolic Bone Disease:? www.ccf.org/arthritis/ osteo National Osteoporosis Foundation:? www.nof.org International Society of Clinical Densitometry www.iscd.org Ob Gyn Physician Assistant: KATHIE Transcribe Date/Time: Jan 20 2025 1:15P Dictated by : MARISELA REILLY MD This examination was interpreted and the report reviewed and electronically signed by: MARISELA REILLY MD on Jan 20 2025 1:17PM EST [facility] Radiology Study observation (narrative) [facility] CBC panel Auto (Bld)on 12-24 Erythrocyte distribution width (RBC) [Ratio] 13.5 % Normal 11.5-15.0 [facility] Comment on above: Order Comment: Speci men Type: BLOOD SPECIMENOrdering Facility: [facility] Address: [address] [place] [address] Performed By: #### 5 8410-2 ####[facility] LABCLIA [id number] [place] [address] [place] [facility] Hematocrit (Bld) [Volume fraction] 40.3 % Normal 36.0-46.0 [facility] Comment on above: Order Comment: Speci men Type: BLOOD SPECIMENOrdering Facility: [facility] Address: [address] [place] [address] Performed By: #### 5 8410-2 ####[facility] LABIA [id number] [address] [place] Hemoglobin (Bld) [Mass/Vol] 13.0 g/dL Normal 11.5-15.5 [facility] Comment on above: Order Comment: Speci men Type: BLOOD SPECIMENOrdering Facility: [facility] Address: [address] [place] [address] Performed By: #### 5 8410-2 ####[facility] LABIA [id number] [place] [address] [place] MCH (RBC) [Entitic mass] 31.6 pg Normal 26.0-34.0 [facility] Comment on above: Order Comment: Speci men Type: BLOOD SPECIMENOrdering Facility: [facility] Address: [address] [place] [address] Performed By: #### 5 8410-2 ####[facility] LABIA [id number] [place] [address] [place] MCHC (RBC) [Mass/Vol] 32.3 g/dL Normal 30.5-36.0 [facility] Comment on above: Order Comment: Speci men Type: BLOOD SPECIMENOrdering Facility: [facility] Address: [address] [place] [address] Performed By: #### 5 8410-2 ####[facility] [id number] [address] [address] [place] MCV (RBC) [Entitic vol] 98.1 fL Normal 80.0-100.0 [facility] Comment on above: Order Comment: Speci men Type: BLOOD SPECIMENOrdering Facility: [facility] Address: [address] [place] [address] Performed By: #### 5 8410-2 ####[facility] [id number] [place] [address] [place] Nucleated RBC (Bld) [#/Vol] 10*3/uL Normal <0.01 [facility] Comment on above: Order Comment: Speci men Type: BLOOD SPECIMENOrdering Facility: [facility] Address: [address] [place] [address] Performed By: #### 5 8410-2 ####[facility] [id number] [place] [address] [place] Platelet mean volume (Bld) [Entitic vol] 11.7 fL Normal 9.0-12.7 [facility] Comment on above: Order Comment: Speci men Type: BLOOD SPECIMENOrdering Facility: [facility] Address: [address] [place] [address] Performed By: #### 5 8410-2 ####[facility] LABIA [id number] [place] [id number] [place] Platelets (Bld) [#/Vol] 167 10*3/uL Normal 150-400 [facility] Comment on above: Order Comment: Speci men Type: BLOOD SPECIMENOrdering Facility: [facility] Address: [address] [place] [address] Performed By: #### 5 8410-2 ####[facility] LABCLIA [id number] [address] [address] [place] RBC (Bld) [#/Vol] 4.11 10*6/uL Normal 3.90-5.20 [facility] Comment on above: Order Comment: Speci men Type: BLOOD SPECIMENOrdering Facility: [facility] Address: [address] [place] [address] Performed By: #### 5 8410-2 ####[facility] LABCLIA [id number] [address] [address] [place] WBC (Bld) [#/Vol] 4.98 10*3/uL Normal 3.70-11.00 [facility] Comment on above: Order Comment: Speci men Type: BLOOD SPECIMENOrdering Facility: [facility] Address: [address] [place] [address] Performed By: #### 5 8410-2 ####[facility] LABCLIA [id number] [place] [id number] [place] Comprehensive metabolic 2000 panelon 12-24-2024 Albumin [Mass/Vol] 4.4 g/dL Normal 3.9-4.9 [facility] Comment on above: Order Comment: Speci men Type: BLOOD SPECIMENOrdering Facility: [facility] Address: [address] [place] [address] Performed By: #### 2 4331-1, 3015-3, 79676-7 ####[facility] LABCLIA [id number] [place] [id number] [place] ALP [Catalytic activity/Vol] 63 U/L Normal 34-123 [facility] Comment on above: Order Comment: Speci men Type: BLOOD SPECIMENOrdering Facility: [facility] Address: [address] [place] [address] Performed By: #### 2 4331-1, 3015-3, 85755-2 ####[facility] LABCLIA [id number] [facility] [address] [place] [address] [place] ALT [Catalytic activity/Vol] 56 U/L High 7-38 [facility] Comment on above: Order Comment: Speci men Type: BLOOD SPECIMENOrdering Facility: [facility] Address: [address] [place] [address] Performed By: #### 2 4331-1, 3015-3, 85902-8 ####[facility] LABCLIA [id number] [address] [address] [place] Anion gap [Moles/Vol] 7 mmol/L Low 8-15 [facility] Comment on above: Order Comment: Speci men Type: BLOOD SPECIMENOrdering Facility: [facility] Address: [address] [place] [address] Performed By: #### 2 4331-1, 3015-3, 24891-5 ####[facility] LABCLIA [id number] [place] [address] [place] AST [Catalytic activity/Vol] 44 U/L High 13-35 [facility] Comment on above: Order Comment: Speci men Type: BLOOD SPECIMENOrdering Facility: [facility] Address: [address] [place] [address] Performed By: #### 2 4331-1, 3015-3, 79979-2 ####[facility] LABCLIA [id number] [place] [id number] [place] Bilirubin [Mass/Vol] 0.3 mg/dL Normal 0.2-1.3 [facility] Comment on above: Order Comment: Speci men Type: BLOOD SPECIMENOrdering Facility: [facility] Address: [address] [place] [address] Performed By: #### 2 4331-1, 6-3, 57275-8 ####[facility] LABCLIA [id number] [address] [address] [place] Calcium [Mass/Vol] 9.4 mg/dL Normal 8.5-10.2 [facility] Comment on above: Order Comment: Speci men Type: BLOOD SPECIMENOrdering Facility: [facility] Address: [address] [place] [address] Performed By: #### 2 4331-1, 3015-3, ####[facility] LABCLIA [id number] [facility] [address] [address] [place] Chloride [Moles/Vol] 104 mmol/L Normal 98-107 [facility] Comment on above: Order Comment: Speci men Type: BLOOD SPECIMENOrdering Facility: [facility] Address: [address] [place] [address] Performed By: #### 2 4331-1, 3, ####[facility] LABCLIA [id number] [place] [id number] [place] CO2 [Moles/Vol] 26 mmol/L Normal 22-30 [facility] Comment on above: Order Comment: Speci men Type: BLOOD SPECIMENOrdering Facility: [facility] Address: [address] [place] [address] Performed By: #### 2 4331-1, 3, ####[facility] LABCLIA [id number] [address] [address] [place] Creatinine [Mass/Vol] 0.77 mg/dL Normal 0.58-0.96 [facility] Comment on above: Order Comment: Speci men Type: BLOOD SPECIMENOrdering Facility: [facility] Address: [address] [place] [address] Performed By: #### 2 4331-1, 3, 00679-5 ####[facility] LABCLIA [id number] [facility] [address] [address] [place] Creatinine and Glomerular filtration rate.predicted panel (S/P/Bld) 91 mL/min/1.73m??? Normal >=60 [facility] Comment on above: Order Comment: Stefano membreno Type: BLOOD SPECIMENOrdering Facility: [facility] Address: [address] [place] [address] Result Comment: Darlene mated Glomerular Filtration Rate (eGFR) is calculated using the 2020 CKD-EPI creatinine equation. This equation utilizes serum creatinine, sex, and age as parameters. The creatinine assay has traceable calibration to isotope dilution-mass spectrometry. Refer to KDIGO guidelines for clinical interpretation. In patients with unstable renal function, e.g. those with acute kidney injury, the eGFR may not accurately reflect actual GFR. Performed By: #### 2 4331-1, 3016-3, 20786-2 ####[facility] [id number] [address] [address] [place] Glucose [Mass/Vol] 108 mg/dL High 74-99 [facility] Comment on above: Order Comment: Stefano membreno Type: BLOOD SPECIMENOrdering Facility: [facility] Address: [address] [place] [address] Result Comment: The [place] [employer] (ADA) provides guidance for cutoff values for fasting glucose and random glucose. The ADA defines fasting as no caloric intake for at least 8 hours. Fasting plasma glucose results between 100 to 125 mg/dL indicate increased risk for diabetes (prediabetes). Fasting plasma glucose results greater than or equal to 126 mg/dL meet the criteria for diagnosis of diabetes. In the absence of unequivocal hyperglycemia, results should be confirmed by repeat testing. In a patient with classic symptoms of hyperglycemia or hyperglycemic crisis, random plasma glucose results greater than or equal to 200 mg/dL meet the criteria for diagnosis of diabetes. Reference: Standards of Medical Care in Diabetes 2016, [place] [employer]. Diabetes Care. 2016.39(Suppl 1). Performed By: #### 2 4331-1, 3016-3, 05281-6 ####[facility] LABIA [id number] [address] [address] [place] Potassium [Moles/Vol] 5.0 mmol/L Normal 3.7-5.1 [facility] Comment on above: Order Comment: Speci men Type: BLOOD SPECIMENOrdering Facility: [facility] Address: [address] [place] [address] Performed By: #### 2 4331-1, 3015-11, ####[facility] LABCLIA [id number] [facility] [address] [place] [address] [place] Protein [Mass/Vol] 7.0 g/dL Normal 6.3-8.0 [facility] Comment on above: Order Comment: Speci men Type: BLOOD SPECIMENOrdering Facility: [facility] Address: [address] [place], [place] [address] Performed By: #### 2 4331-1, 3015-11, ####[facility] LABCLIA [id number] [address] [address] [place] Sodium [Moles/Vol] 137 mmol/L Normal 136-144 [facility] Comment on above: Order Comment: Speci men Type: BLOOD SPECIMENOrdering Facility: [facility] Address: [address] [place] [address] Performed By: #### 2 4331-1, 3015-11, ####[facility] LABCLIA [id number] [address] [address] [place] Urea nitrogen [Mass/Vol] 14 mg/dL Normal 7-21 [facility] Comment on above: Order Comment: Speci men Type: BLOOD SPECIMENOrdering Facility: [facility] Address: [address] [place] [address] Performed By: #### 2 4331-1, 3015-11, ####[facility] LABCLIA [id number] [facility] [address] [address] [place] HbA1c (Bld)on 12-24-2024 Average glucose Estimated from glycated hemoglobin (Bld) [Mass/Vol] 111 mg/dL Normal [facility] Comment on above: Order Comment: Speci men Type: BLOOD SPECIMENOrdering Facility: [facility] Address: [address] [place] [address] Result Comment: eAG: (Estimated average glucose) is a calculated value from HgbA1c and is field service representative of the average blood glucose level in the last 2-3 month period. Performed By: #### 5 5454-3 ####[facility] LABCLIA [id number] [address] [address] [place] HbA1c (Bld) [Mass fraction] 5.5 % Normal 4.3-5.6 [facility] Comment on above: Order Comment: Speci men Type: BLOOD SPECIMENOrdering Facility: [facility] Address: [address] [place] [address] Result Comment: Amer ican Diabetes Association guidelines indicate that patients with HgbA1c in the range 5.7-6.4% are at increased risk for development of diabetes, and intervention by lifestyle modification may be beneficial. HgbA1c greater or equal to 6.5% is considered diagnostic of diabetes. Performed By: #### 5 5454-3 ####[facility] LABIA [id number] [place] [id number] [place] Lipid 1996 panelon 5 Cholesterol [Mass/Vol] 198 mg/dL Normal <200 [facility] Comment on above: Order Comment: Speci men Type: BLOOD SPECIMENOrdering Facility: [facility] Address: [address] [place] [address] Result Comment: <200 mg/dL, Desirable 200-239 mg/dL, Borderline high >239 mg/dL, High Performed By: #### 2 4331-1, 3016-3, 94350-3 ####[facility] LABIA [id number] [place] [id number] [place] Cholesterol in HDL [Mass/Vol] 103 mg/dL Normal >39 [facility] Comment on above: Order Comment: Speci men Type: BLOOD SPECIMENOrdering Facility: [facility] Address: [address] [place] [address] Result Comment: 40-5 9 mg/dL, Acceptable >59 mg/dL, High: Negative risk factor for coronary heart disease <40 mg/dL, Low: Positive risk factor for coronary heart disease Performed By: #### 2 4331-1, 3015-3, ####[facility] LABCLIA [id number] [facility] [place] [id number] [address] [place] Cholesterol in LDL [Mass/Vol] 69 mg/dL Normal <100 [facility] Comment on above: Order Comment: Speci men Type: BLOOD SPECIMENOrdering Facility: [facility] Address: [address] [place] [address] Result Comment: <100 mg/dL, Optimal 100-129 mg/dL, Near optimal/above optimal 130-159 mg/dL, Borderline high 160-189 mg/dL, High >189 mg/dL, Very high Secondary prevention optimal LDL Cholesterol levels are recommended to be < 70 mg/dL Performed By: #### 2 4331-1, 3, ####[facility] LABCLIA [id number] [address] [place] [address] [place] Cholesterol in LDL/Cholesterol in HDL [Mass ratio] 0.67 {ratio} Normal <2.54 [facility] Comment on above: Order Comment: Speci men Type: BLOOD SPECIMENOrdering Facility: [facility] Address: [address] [place] [address] Result Comment: Raymond burnett: 1. National Cholesterol Education Program ATP III Guideline At-A-Glance Quick Desk Reference: National Heart, Lung, and Blood [place]. National Institutes of Health. 2001: NIH Publication No. 01-3305. 2. An International Atherosclerosis Society position paper: global recommendations for the management of dyslipidemia: executive summary, Atherosclerosis. 2014: 232(2):410-413. Performed By: #### 2 4331-1, 3015-3, ####[facility] LABCLIA [id number] [address] [address] [place] Cholesterol in VLDL [Mass/Vol] 26 mg/dL Normal <30 [facility] Comment on above: Order Comment: Speci men Type: BLOOD SPECIMENOrdering Facility: [facility] Address: [address] [place] [id number] Performed By: #### 2 4331-1, 3, ####[facility] LABCLIA [id number] [facility] [address] [address] [place] Cholesterol non HDL [Mass/Vol] 95 mg/dL Normal <130 [facility] Comment on above: Order Comment: Speci men Type: BLOOD SPECIMENOrdering Facility: [facility] Address: [address] [place] [address] Result Comment: <130 mg/dL, Optimal 130-159 mg/dL, Near optimal/above optimal 160-189 mg/dL, Borderline high 190-219 mg/dL, High >219 mg/dL, Very high Secondary prevention optimal non HDL Cholesterol levels are recommended to be <100 mg/dL Performed By: #### 2 4331-1, 3015-11, ####[facility] LABCLIA [id number] [address] [address] [place] Cholesterol.total/Chol esterol in HDL [Mass ratio] 1.92 {ratio} Normal <5.10 [facility] Comment on above: Order Comment: Speci men Type: BLOOD SPECIMENOrdering Facility: [facility] Address: [address] [place] [address] Performed By: #### 2 4331-1, 3015-11, ####[facility] LABCLIA [id number] [facility] [address] [address] [place] FASTING TIME 12 hrs Normal [facility] Comment on above: Order Comment: Speci men Type: BLOOD SPECIMENOrdering Facility: [facility] Address: [address] [place] [address] Performed By: #### 2 4331-1, 3, ####[facility] LABCLIA [id number] [place] [id number] [place] Triglyceride [Mass/Vol] 132 mg/dL Normal <150 [facility] Comment on above: Order Comment: Speci men Type: BLOOD SPECIMENOrdering Facility: [facility] Address: [address] [place] [address] Result Comment: <150 mg/dL, Normal 150-199 mg/dL, Borderline high 200-499 mg/dL, High >499 mg/dL, Very high Performed By: #### 2 4331-1, 3016-3, 38830-6 ####[facility] LABCLIA [id number] [place] [address] [place] TSH SerPl-aCncon 12-24-2024 TSH Qn 1.960 m[IU]/L Normal 0.270-4.200 [facility] Comment on above: Order Comment: Speci men Type: BLOOD SPECIMENOrdering Facility: [facility] Address: [address] [place] [address] Performed By: #### 2 4331-1, 3016-3, 80689-3 ####[facility] LABCLIA [id number] [place] [id number] [place] [facility] DEEDEE MAR[facility] ([id number]) 1970 F Date Time Provider Department 12/19/24 JOSEFA ROMERO During your visit today, we recorded the following information about you: Josefa Romero, APPLICATIONS DEVELOPER 12/19/2024 2:28 PM Signed Sw spoke with patient regarding [employer] cost for medication. Patient notes that her new job the [employer] is not on the formulary. Sw did locate a [employer] Savings and Support number for savings card. Not sure how much it will be able to assist with cost, patient notes that she is open to calling and checking in to savings. [employer]is provided patient with the [employer] Savings Support ph. [phone]. Patient thanked [employer] for info and noted that she will give program a call. Patient notes that she will let LUIS Shi and or [employer] know if further assistance is needed. Leny Amador APRN.RECORDS ANALYSIS MANAGER 12/20/2024 7:43 AM Signed Noted, thank you. Leny Amador APRN.RECORDS ANALYSIS MANAGER Allergies As of Date: 12/19/2024 Noted Allergy Reaction BENZOYL PEROXIDE 09/16/2023 2 - Rash CLINDAMYCIN 08/21/2005 2 - Rash SULFA (SULFONAMIDE ANTIBIOTICS) 08/08/2005 4 - Hives Date Reviewed: 12/16/2024 Reviewed by: Leny Amador APRN.RECORDS ANALYSIS MANAGER - Fully Assessed Reason for Visit: Medication Problem [65] Prescriptions as of 12/20/2024 - GEMTESA 75 mg tablet Take 1 tablet by mouth every afternoon. - FLUoxetine (PROZAC) 40 mg capsule Take 1 capsule by mouth once daily. - loratadine (CLARITIN) 10 mg tablet Take 1 tablet by mouth once daily. - pantoprazole DR (PROTONIX) 40 mg tablet Take 1 tablet by mouth daily before breakfast. Take on empty stomach, 1/2 hr before meal. - cabergoline (DOSTINEX) 0.5 mg tablet Take 1 tablet by mouth every Thursday and Thursday. - gabapentin (NEURONTIN) 300 mg capsule Take 1 capsule by mouth two times a day for 90 days. - armodafinil (NUVIGIL) 250 mg tab Take 1/2 to 1 tab in AM as directed. - estradiol (ESTRACE) 1 mg tablet Take 1 tablet by mouth once daily. - ketoconazole (NIZORAL) 2 % shampoo Apply 1 application to affected area once daily as needed. - ubidecarenone (COENZYME Q10) 100 mg tab Take by mouth once daily. - OTC PRODUCT Immune Defend - 2 capsules daily - FERROUS SULFATE ORAL Take by mouth. - Clobetasol Propionate (TEMOVATE) 0.05 % external solution Apply to affected area twice daily. - mometasone (ELOCON) 0.1 % cream apply bid prn - budesonide (PULMICORT FLEXHALER) 90 mcg/actuation aepb Inhale 2 Puffs as instructed twice daily as needed. - acetaminophen (TYLENOL) 500 mg tablet take 2 tablets by mouth every 8 hours if needed for pain OR FEVER - COMPOUNDED PRESCRIPTION Journey 3+3 Bariatric Multivitamin Take 3 capsules in am and Take 3 capsules in PM Meds Comments as of 08/22/2021: Daily immune support-started with COVID pandemic Problem List As Of Date 12/19/2024 Noted Resolved Abdominal pain, unspecified site [R10.9] 07/04/2006 03/18/2017 SUPERVIS OTHER NORMAL PREG [Z34.80] 03/19/2007 11/06/2007 Morbid obesity [E66.01] 09/28/2008 01/29/2012 Hepatic Steatosis [K76.0] 02/07/2010 Depression [F32.A] 01/29/2012 Head contusion [S00.93XA] 01/24/2013 03/29/2014 Cervical muscle strain [S16.1XXA] 01/24/2013 Left cervical radiculopathy [M54.12] 01/24/2013 Secondary hyperprolactinemia due to prolactin-s*12/27/2013 Iron deficiency anemia due to dietary causes [D*12/27/2013 03/23/2017 Acquired pancytopenia (HCC) [D61.818] 12/27/2013 03/23/2017 Iron deficiency [E61.1] 01/11/2014 02/15/2014 Situational mixed anxiety and depressive disord*02/05/2017 History of gastric bypass [Z98.84] 03/18/2017 Prolactin secreting pituitary adenoma (HCC) [D3*02/09/2018 Mixed stress and urge urinary incontinence [N39*06/03/2018 GERD with esophagitis [K21.00] 11/01/2019 Malignant melanoma of left lower extremity incl*12/15/2019 Adult ADHD [F90.9] 09/27/2020 Hyperlipidemia with target LDL less than 130 [E*09/27/2020 Lumbar radiculopathy [M54.16] 09/27/2020 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] 09/27/2020 Encounter for gynecological examination (genera*11/05/2021 11/05/2021 Obesity, Class I, BMI 30-34.9 [E66.811] 09/16/2023 Hypersomnia due to medical condition [G47.14] 09/28/2023 UARS (upper airway resistance syndrome) [G47.8] 09/28/2023 Tendonitis, Achilles, right [M76.61] 06/28/2024 Encounter Status:Closed by JOSEFA ROMERO on 12/19/24 Normal [facility] CNCOon 12-16-2024 CNCO Letter Text Normal [facility] CNOVon 12-16-2024 CNOV Office Visit (XAVIWS ) DEEDEE MARKS ([id number]) 1970 F Date Time Provider Department 12/16/24 12:40 PM LENY AMADOR During your visit today, we recorded the following information about you: Pulse Respiration Blood pressure Weight 65/minute 16/minute 126/74 94.8 kg Leny Amador APRN.CNP 12/16/2024 3:21 PM Signed Chief Complaint Patient presents with: Release to return to work post Shingles: [facility] in urgent care 12/08/24 [facility] Deedee Hunt is a 54 year old female who presents here today for Above Complaints.. Was diagnosed with shingles 11/08/24 at workplace [facility] - has been taking valocyclovir. Lesion has crusted over, is still painful, tylenol and ibuprofen helps. Needs return to work form. All over body and joint aching has been going on for a long time. Patient has concern for bone density. Is worried she is not able to absorb nutrients well since having gastric bypass surgery. [employer] is the only thing that works for her OAB but her insurance stopped paying for it. She didn't tolerate Mirbitriq. Other OAB medications haven't been effective in the past. Past medical history, appointments, medications, allergies reviewed. Previous Medical History PAST MEDICAL HISTORY Diagnosis Date Acquired pancytopenia (HCC) 12/27/2013 Anemia Depression 01/29/2012 Hepatic steatosis 11/05/09 Iron deficiency anemia Morbid obesity (HCC) Pituitary tumor PMH - PAST MEDICAL HISTORY OF VARICOSE VEINS Prolactin secreting pituitary adenoma (HCC) 02/09/2018 diagnosed in 2010 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) 12/27/2013 Previous Surgical History PAST SURGICAL HISTORY Procedure Laterality Date DELIVERY ONLY 07/09/2005 DELIVERY ONLY 11/04/07 COLONOSCOPY FLX DX W/COLLJ SPEC WHEN PFRMD 04/10/14 Colonoscopy ESOPHAGOGASTRODUODENOS COPY TRANSORAL DIAGNOSTIC 04/10/14 EGD laproscopic roue-en-y gastric bypass 11/05/09 LAPS W/VAG HYSTERECT 250 GM/ANDRMVL TUBEAND/OVARIES 04/27/14 LAVH, bilateral salpingectomy, HMB, anemia LIG/TRNSXJ FLP TUBE ABDL/VAG APPR UNI/BI 11/04/07 done at PAST SURGICAL HISTORY OF 2002 [facility] cyst on back PAST SURGICAL HISTORY OF 2001 [facility] ABSESS OF FACE PAST SURGICAL HISTORY OF 2004 [facility] CYST ON POSTERIOR THIGH PAST SURGICAL HISTORY OF CRYOCAUTERY OF VAGINAL LESIONS PAST SURGICAL HISTORY OF Melanoma excision with LN biopsy TONSILLECTOMY PRIMARY/SECONDARY Family History FAMILY HISTORY Problem Relation Age of Onset Hypertension Mother Heart Mother other (lymphoma) Mother other (Melanoma) Mother Hypertension Father Heart Father COPD Father Emphysema Father other (congestive heart failure) Father other (pvd) Father Cancer Maternal Grandmother RECTAL Patient Allergies ALLERGIES Allergen Reactions Benzoyl Peroxide Rash Clindamycin Rash Sulfa (Sulfonamide * Hives Current Medications Current Outpatient Medications on File Prior to Visit Medication Sig FLUoxetine (PROZAC) 40 mg capsule Take 1 capsule by mouth once daily. loratadine (CLARITIN) 10 mg tablet Take 1 tablet by mouth once daily. pantoprazole DR (PROTONIX) 40 mg tablet Take 1 tablet by mouth daily before breakfast. Take on empty stomach, 1/2 hr before meal. cabergoline (DOSTINEX) 0.5 mg tablet Take 1 tablet by mouth every Thursday and Thursday. gabapentin (NEURONTIN) 300 mg capsule Take 1 capsule by mouth two times a day for 90 days. armodafinil (NUVIGIL) 250 mg tab Take 1/2 to 1 tab in AM as directed. estradiol (ESTRACE) 1 mg tablet Take 1 tablet by mouth once daily. GEMTESA 75 mg tablet Take 1 tablet by mouth every afternoon. ketoconazole (NIZORAL) 2 % shampoo Apply 1 application to affected area once daily as needed. ubidecarenone (COENZYME Q10) 100 mg tab Take by mouth once daily. OTC PRODUCT Immune Defend - 2 capsules daily FERROUS SULFATE ORAL Take by mouth. Clobetasol Propionate (TEMOVATE) 0.05 % external solution Apply to affected area twice daily. mometasone (ELOCON) 0.1 % cream apply bid prn budesonide (PULMICORT FLEXHALER) 90 mcg/actuation aepb Inhale 2 Puffs as instructed twice daily as needed. acetaminophen (TYLENOL) 500 mg tablet take 2 tablets by mouth every 8 hours if needed for pain OR FEVER COMPOUNDED PRESCRIPTION Journey 3+3 Bariatric Multivitamin Take 3 capsules in am and Take 3 capsules in PM No current facility-administered medications on file prior to visit. Social History Social History Tobacco Use Smoking status: Never Smokeless tobacco: Never Vaping Use Vaping status: Never Used Substance Use Topics Alcohol use: Yes Comment: OCCASIONALLY, NOT WHILE Drug use: No Review of Symptoms REVIEW OF SYSTEMS See HPI, otherwise negative EXAM: LMP 03/31/2014 General Appearance: Well appearing, aler (more content not included)... Normal [facility] CNOVon 10-10-2024 CNOV Office Visit (LYNNT ) DEEDEE MARKS ([id number]) 1970 F Date Time Provider Department 10/10/24 10:20 AM ROSALES JR, ARYA J SLEWST During your visit today, we recorded the following information about you: Pulse Blood pressure Weight 77/minute 137/84 95 kg Dajuan Hurst LPN 10/10/2024 11:14 AM Signed 10/08/2024 PROMIS Global Health Physical Health Summary Physical health: Fair Everyday physical activity, ability: Mostly Fatigue: Moderate Pain level: 7 General health: Good Social activities/roles, ability: Good Physical Health T-Score 37.4 (Fair) Physical Health Percentile 10 PROMIS Global Health Mental Health Summary Quality of life: Good Mental health (mood,thinking): Good Social satisfaction: Good Emotional problems (anxious,depressed): Sometimes Mental Health T-Score 43.5 (Good) Mental Health Percentile 26 PHQ-9 Score: 5(Mild Depression) PHQ-9 Self-Harm: Not at all Percentiles provide an indication of how a patient's score ranks in relation to the [place] general population. > 31st percentile is within normal limits or better *< 31st percentile is at least ? SD worse than population, which may be clinically relevant < 16th percentile is at least 1 SD worse than population and warrants attention Arya Rosales Jr., MD 10/10/2024 11:14 AM Signed ESTABLISHED PATIENT VISIT CHIEF COMPLAINT: Follow Up HISTORY OF PRESENT ILLNESS: Deedee Hunt is a 53 year old female, BMI 36.64 kg/m2 with a PMH significant for and per last visit with Mark Pryor on 03/2624 (distance visit): Hypersomnia due to medical condition (primary encounter diagnosis) Uars (upper airway resistance syndrome) Deedee Hunt is a 53 year old female with hypersomnia, UARS. 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 Armodafinil is effective at managing her excessive daytime sleepiness. Has UARS, sleeps on her side. PMH of obesity, hx gastric bypass, anxiety, depression, melanoma, mixed incontinence, GERD, hyperlipidemia. PLAN: - Continue taking armodafinil as directed. - Avoid driving when drowsy. - recovery collector for short naps (20-30 minutes) and use of caffeine if needed to help stay awake when driving. - Try to get at least 7-9 hours of sleep in a 24 hour period. Healthy diet and exercise can also promote better sleep. Patient has changed jobs and not really working shifts anymore - typical work schedule is 8-430AM. Has to drive 1 hour to get there - [facility]. Still taking Armodafinil daily - but only taking 250mg 3 times per week and 125mg the other 4 days of the week. ESS is improving. Biggest problem with sleep at present is chronic cervical spine issue that is progressively worsening. When lies down at night, the raoul UEs can go numb. Also notices discomfort in arms and fingers when typing on a computer. But both activities are associate with neck pain (posterior cervical that patient feels radiate into the arm as well as C3-4. Symptoms progressively worsening since trauma over 10 years ago. No recent imaging. Patient has undergone stints of physical therapy with no improvement. Pt also knows history of CTS. History of UARS - pt trying to sleep off-supine. No new symptoms to suggest worsening of disease. PHQ 9 Data More data exists 10/08/2024 04/01/2024 03/25/2024 PHQ-9 All Questions Little interest or pleasure in doing things: 0 0 0 Feeling down, depressed, or hopeless: 0 0 0 Trouble falling or staying asleep, or sleeping too much 1 2 2 Feeling tired or having little energy 3 3 3 Poor appetite or overeating 0 2 2 Feeling bad about yourself - or that you are a failure or have let yourself or your family down 0 0 0 Trouble concentrating on things, such as reading the newspaper or watching television 1 1 1 Moving or speaking so slowly that other people could have noticed. Or the opposite - being so fidgety or restless that you have been moving around a lot more than usual 0 1 1 Thoughts that you would be better off , or of hurting yourself in some way 0 0 0 PHQ-9 Score 5 9 9 Details KOLE 7 Data 05/03/2023 KOLE-7 All Questions Feeling nervous, anxious, or on edge Several days Not being able to stop or control worrying Nearly Everyday Worrying too much about different things More than half the days Trouble relaxing Several days Being so restless that it is hard to sit still Not at all Becoming easily annoyed or irritable Several days Feeling afraid, as if something awful might happen Several days KOLE-7 Score 9 Details PROMIS-10 More data exists PROMIS Global Health - (T-Scores - the mean of general population = 50. Five points is a clinically meaningful difference.) Physical T-Score Mental T-Score 10/08/2024 37.4 43.5 06/27/2024 47.7 45.8 04/01/2024 44.9 41.1 [address] [place] [address] (more content not included)... Normal [facility] FIL11da 10-10-2024 ECG01 Ventricular Rate : 7 3 BPM Atrial Rate : 73 BPM P-R Interval : 130 ms QRS Duration : 76 ms Q-T Interval : 396 ms QTC Calculation(Bazett) : 436 ms Calculated P [place] : 37 degrees Calculated R [place] : 5 degrees Calculated T [place] : 31 degrees NORMAL SINUS RHYTHM NORMAL ECG Confirmed by MD GRAY QARAB ([id number]) on 10/11/2024 11:50:57 AM NAME : DEEDEE MARKS PID : [id number] : 1970 Gender : Female Race : ORD : Procedure Date : Oct 10 2024 11:18:00 Edit Date : Oct 11 2024 11:51:01 Diagnosis: NORMAL SINUS RHYTHM NORMAL ECG Confirmed by MD GRAY QARAB ([id number]) on 10/11/2024 11:50:57 AM Test Reason : Location : 136 : [facility] Overread By : MD GRAY QARAB Edited By : MD GRAY QARAB Referred By : , Acquired by : Dajuan Hurst LPN, Normal [facility] TOXICOLOGY SCREEN, ROUTINE U RINEon 10-10-2024 Amphetamines Confirm (U) [Mass/Vol] Negative Normal Negative [facility] Comment on above: Order Comment: Speci men Type: URINE SPECIMENOrdering Facility: [facility] Address: [address] [place] [address] Result Comment: Cuto ff threshold at 1000 ng/mL. Performed By: #### U TOX2 ####[facility] LABCLIA [id number] [place] [address] [place] BARBITURATES, URINE Negative Normal Negative [facility] Comment on above: Order Comment: Speci men Type: URINE SPECIMENOrdering Facility: [facility] Address: [address] [place] [address] Result Comment: Cuto ff threshold at 200 ng/mL. Performed By: #### U TOX2 ####[facility] LABIA [id number] [place] [address] [place] BENZODIAZEPINES, UR Negative Normal Negative [facility] Comment on above: Order Comment: Speci men Type: URINE SPECIMENOrdering Facility: [facility] Address: [address] [place] [address] Result Comment: Cuto ff threshold at 200 ng/mL. Performed By: #### U TOX2 ####[facility] LABIA [id number] [place] [address] [place] Cannabinoids Screen Ql (U) Negative Normal Negative [facility] Comment on above: Order Comment: Speci men Type: URINE SPECIMENOrdering Facility: [facility] Address: [address] [place] [address] Result Comment: Cuto ff threshold at 50 ng/mL. Performed By: #### U TOX2 ####[facility] LABIA [id number] [place] [address] [place] Cocaine Ql (U) Negative Normal Negative [facility] Comment on above: Order Comment: Speci men Type: URINE SPECIMENOrdering Facility: [facility] Address: [address] [place] [address] Result Comment: Cuto ff threshold at 300 ng/mL. Performed By: #### U TOX2 ####[facility] LABCLIA [id number] [place] [address] [place] Ethanol (U) [Mass/Vol] <11 Normal <11 [facility] Comment on above: Order Comment: Speci men Type: URINE SPECIMENOrdering Facility: [facility] Address: [address] [place] [address] Performed By: #### U TOX2 ####[facility] LABIA [id number] [place] Opiates Screen Ql (U) Negative Normal Negative [facility] Comment on above: Order Comment: Speci men Type: URINE SPECIMENOrdering Facility: [facility] Address: [address] [place] [address] Result Comment: Cuto ff threshold at 300 ng/mL. Performed By: #### U TOX2 ####[facility] LABIA [id number] [address] OF [facility] oxyCODONE cutoff Screen (U) [Mass/Vol] Negative Normal Negative [facility] Comment on above: Order Comment: Speci men Type: URINE SPECIMENOrdering Facility: [facility] Address: [address] [place] [address] Result Comment: Cuto ff threshold at 100 ng/mL. Performed By: #### U TOX2 ####[facility] [id number] [address] [place] Phencyclidine Ql (U) Negative Normal Negative [facility] Comment on above: Order Comment: Speci men Type: URINE SPECIMENOrdering Facility: [facility] Address: [address] [place] [address] Result Comment: Cuto ff threshold at 25 ng/mL. Performed By: #### U TOX2 ####[facility] LABIA [id number] [address] [place] CNTHERAPYon 07-21-2024 CNTHERAPY OT/PT/Speech Visit (PTWS) DEEDEE MARKS ([id number]) 1970 F Date Time Provider Department 07/21/24 6:00 PM MICHEAL JOHNSON PTWS Date Time Provider Department Center 07/21/2024 6:00 PM [id number], COLIN PTWS Kenny Mayes Reason for Visit: Physical Therapy [503] PT Discharge [752] Primary Visit Diagnosis:Tendonitis, Achilles, right [M76.61] Allergies As of Date: 07/21/2024 Noted Allergy Reaction BENZOYL PEROXIDE 09/16/2023 2 - Rash CLINDAMYCIN 08/21/2005 2 - Rash SULFA (SULFONAMIDE ANTIBIOTICS) 08/08/2005 4 - Hives Date Reviewed: 06/07/2024 Reviewed by: Charlene Pearce LPN - Fully Assessed Prescriptions as of 09/12/2024 - estradiol (ESTRACE) 1 mg tablet Take 1 tablet by mouth once daily. - FLUoxetine (PROZAC) 40 mg capsule Take 1 capsule by mouth once daily. - armodafinil (NUVIGIL) 250 mg tab Take 1/2 to 1 tab in AM as directed. Do not start before May 08, 2024. - GEMTESA 75 mg tablet Take 1 tablet by mouth every afternoon. - cabergoline (DOSTINEX) 0.5 mg tablet Take 1 tablet by mouth every Thursday and Thursday. - ketoconazole (NIZORAL) 2 % shampoo Apply 1 application to affected area once daily as needed. - ubidecarenone (COENZYME Q10) 100 mg tab Take by mouth once daily. - OTC PRODUCT Immune Defend - 2 capsules daily - FERROUS SULFATE ORAL Take by mouth. - Clobetasol Propionate (TEMOVATE) 0.05 % external solution Apply to affected area twice daily. - mometasone (ELOCON) 0.1 % cream apply bid prn - budesonide (PULMICORT FLEXHALER) 90 mcg/actuation aepb Inhale 2 Puffs as instructed twice daily as needed. - loratadine (CLARITIN) 10 mg tablet Take 1 tablet by mouth once daily. - pantoprazole DR (PROTONIX) 40 mg tablet Take 1 tablet by mouth daily before breakfast. Take on empty stomach, 1/2 hr before meal. - acetaminophen (TYLENOL) 500 mg tablet take 2 tablets by mouth every 8 hours if needed for pain OR FEVER - COMPOUNDED PRESCRIPTION Journey 3+3 Bariatric Multivitamin Take 3 capsules in am and Take 3 capsules in PM Meds Comments as of 08/22/2021: Daily immune support-started with COVID pandemic Normal [facility] CNTHERAPYon 07-14-2024 CNTHERAPY OT/PT/Speech Visit (PTWS) DEEDEE MARKS ([id number]) 1970 F Date Time Provider Department 07/14/24 6:00 PM MICHEAL JOHNSON PTWS Date Time Provider Department Center 07/14/2024 6:00 PM [id number], COLIN PTWS Kenny Mayes Reason for Visit: Physical Therapy [503] Primary Visit Diagnosis:Tendonitis, Achilles, right [M76.61] Allergies As of Date: 07/14/2024 Noted Allergy Reaction BENZOYL PEROXIDE 09/16/2023 2 - Rash CLINDAMYCIN 08/21/2005 2 - Rash SULFA (SULFONAMIDE ANTIBIOTICS) 08/08/2005 4 - Hives Date Reviewed: 06/07/2024 Reviewed by: Charlene Pearce LPN - Fully Assessed Prescriptions as of 07/14/2024 - estradiol (ESTRACE) 1 mg tablet Take 1 tablet by mouth once daily. - FLUoxetine (PROZAC) 40 mg capsule Take 1 capsule by mouth once daily. - armodafinil (NUVIGIL) 250 mg tab Take 1/2 to 1 tab in AM as directed. Do not start before May 08, 2024. - GEMTESA 75 mg tablet Take 1 tablet by mouth every afternoon. - cabergoline (DOSTINEX) 0.5 mg tablet Take 1 tablet by mouth every Thursday and Thursday. - ketoconazole (NIZORAL) 2 % shampoo Apply 1 application to affected area once daily as needed. - ubidecarenone (COENZYME Q10) 100 mg tab Take by mouth once daily. - OTC PRODUCT Immune Defend - 2 capsules daily - FERROUS SULFATE ORAL Take by mouth. - Clobetasol Propionate (TEMOVATE) 0.05 % external solution Apply to affected area twice daily. - mometasone (ELOCON) 0.1 % cream apply bid prn - budesonide (PULMICORT FLEXHALER) 90 mcg/actuation aepb Inhale 2 Puffs as instructed twice daily as needed. - loratadine (CLARITIN) 10 mg tablet Take 1 tablet by mouth once daily. - pantoprazole DR (PROTONIX) 40 mg tablet Take 1 tablet by mouth daily before breakfast. Take on empty stomach, 1/2 hr before meal. - acetaminophen (TYLENOL) 500 mg tablet take 2 tablets by mouth every 8 hours if needed for pain OR FEVER - COMPOUNDED PRESCRIPTION Journey 3+3 Bariatric Multivitamin Take 3 capsules in am and Take 3 capsules in PM Meds Comments as of 08/22/2021: Daily immune support-started with COVID pandemic Normal [facility] CNTHERAPYon 06-27-2024 CNTHERAPY OT/PT/Speech Visit (PTWS) DEEDEE MARKS ([id number]) 1970 F Date Time Provider Department 06/27/24 3:45 PM MICHEAL JOHNSON PTWS Date Time Provider Department Center 06/27/2024 3:45 PM [id number], COLIN PTWS Kenny Mayes Reason for Visit: PT Eval [747] Primary Visit Diagnosis:Tendonitis, Achilles, right [M76.61] Allergies As of Date: 06/27/2024 Noted Allergy Reaction BENZOYL PEROXIDE 09/16/2023 2 - Rash CLINDAMYCIN 08/21/2005 2 - Rash SULFA (SULFONAMIDE ANTIBIOTICS) 08/08/2005 4 - Hives Date Reviewed: 06/07/2024 Reviewed by: Charlene Pearce LPN - Fully Assessed Prescriptions as of 06/28/2024 - estradiol (ESTRACE) 1 mg tablet Take 1 tablet by mouth once daily. - FLUoxetine (PROZAC) 40 mg capsule Take 1 capsule by mouth once daily. - armodafinil (NUVIGIL) 250 mg tab Take 1/2 to 1 tab in AM as directed. Do not start before May 08, 2024. - GEMTESA 75 mg tablet Take 1 tablet by mouth every afternoon. - cabergoline (DOSTINEX) 0.5 mg tablet Take 1 tablet by mouth every Thursday and Thursday. - ketoconazole (NIZORAL) 2 % shampoo Apply 1 application to affected area once daily as needed. - ubidecarenone (COENZYME Q10) 100 mg tab Take by mouth once daily. - OTC PRODUCT Immune Defend - 2 capsules daily - FERROUS SULFATE ORAL Take by mouth. - Clobetasol Propionate (TEMOVATE) 0.05 % external solution Apply to affected area twice daily. - mometasone (ELOCON) 0.1 % cream apply bid prn - budesonide (PULMICORT FLEXHALER) 90 mcg/actuation aepb Inhale 2 Puffs as instructed twice daily as needed. - loratadine (CLARITIN) 10 mg tablet Take 1 tablet by mouth once daily. - pantoprazole DR (PROTONIX) 40 mg tablet Take 1 tablet by mouth daily before breakfast. Take on empty stomach, 1/2 hr before meal. 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: Therapy (PT/OT/Speech/Resp) ID: [id number] 06/27/2024 4:25 PM Author: MICHEAL JOHNSON Signed by MICHEAL JOHNSON PT on 06/27/2024 at 4:26 PM Document text: Program_ID:[id number] Access Code: [email or web address] URL: [email or web address] Date: 06-27-2024 Prepared By: Micheal Johnson Program Notes Exercises - Standing Eccentric Heel Raise - 2 x daily - 7 x weekly - 2-3 sets - 10 reps - Long Sitting Calf Stretch with Strap - 2 x daily - 7 x weekly - 3-5 sets - reps - Long Sitting Soleus Stretch on Bolster with Strap - 2 x daily - 7 x weekly - 3-5 sets - reps - Isometric Heel Raise at Wall - 2 x daily - 7 x weekly - 2-3 sets - 10 reps -- Normal [facility] THERAPY NTon 06-27-2024 THERAPY NT HNO ID: [id number] Author: MICHEAL JOHNSON PT Service: ? Author Type: Physical Therapist Type: Therapy (PT/OT/Speech/Resp) Filed: 06/27/2024 16:26 Note Text: Program_ID:[id number] Access Code: [email or web address] URL: [email or web address]/ Date: 06-27-2024 Prepared By: Micheal Johnson Program Notes Exercises - Standing Eccentric Heel Raise - 2 x daily - 7 x weekly - 2-3 sets - 10 reps - Long Sitting Calf Stretch with Strap - 2 x daily - 7 x weekly - 3-5 sets - reps - Long Sitting Soleus Stretch on Bolster with Strap - 2 x daily - 7 x weekly - 3-5 sets - reps - Isometric Heel Raise at Wall - 2 x daily - 7 x weekly - 2-3 sets - 10 reps Normal [facility] CNOVon 06-07-2024 CNOV Office Visit (PODIWS ) DEEDEE MARKS ([id number]) 1970 F Date Time Provider Department 06/07/24 8:00 AM KELIN MARY CARREON During your visit today, we recorded the following information about you: Charlene Pearce LPN 06/07/2024 8:39 AM Signed AMB ROOMING INTAKE FLOWSHEET DATA Pain Pain Level: 8 Pain Location: Ankle-Right Description: Aching, Sharp, Stiffness Duration Amount of Time: 6 Duration Units: Months Frequency: Intermittent Intervention/Comfort measure: Relaxation, Other: See comment Comments: Kinetic tape Patient presents with: Right Foot - New, Pain, Swelling Charlene PearceCARL Mary Neville 06/07/2024 8:39 AM Signed Initial Podiatric Office Visit: Chief Complaint: This 53 year old female who presents with chief complaint:right achilles tendon pain HPI Patient presents to clinic for evaluation of right heel Complains of on/off pain to right posterior heel/achilles tendon. Complains of burning sensation to the heel. Has treated with rest, tylenol, taping. Had injections in the past by Dr. Case Patient is starting a new job where she will be more active. 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 FLUoxetine (PROZAC) 40 mg capsule Take 1 capsule by mouth once daily. armodafinil (NUVIGIL) 250 mg tab Take 1/2 to 1 tab in AM as directed. Do not start before May 08, 2024. GEMTESA 75 mg tablet Take 1 tablet by mouth every afternoon. cabergoline (DOSTINEX) 0.5 mg tablet Take 1 tablet by mouth every Thursday and Thursday. ketoconazole (NIZORAL) 2 % shampoo Apply 1 application to affected area once daily as needed. ubidecarenone (COENZYME Q10) 100 mg tab Take by mouth once daily. OTC PRODUCT Immune Defend - 2 capsules daily FERROUS SULFATE ORAL Take by mouth. Clobetasol Propionate (TEMOVATE) 0.05 % external solution Apply to affected area twice daily. mometasone (ELOCON) 0.1 % cream apply bid prn budesonide (PULMICORT FLEXHALER) 90 mcg/actuation aepb Inhale 2 Puffs as instructed twice daily as needed. loratadine (CLARITIN) 10 mg tablet Take 1 tablet by mouth once daily. pantoprazole DR (PROTONIX) 40 mg tablet Take 1 tablet by mouth daily before breakfast. Take on empty stomach, 1/2 hr before meal. acetaminophen (TYLENOL) 500 mg tablet take 2 tablets by mouth every 8 hours if needed for pain OR FEVER COMPOUNDED PRESCRIPTION Journey 3+3 Bariatric Multivitamin Take 3 capsules in am and Take 3 capsules in PM No current facility-administered medications for this visit. ALLERGIES Allergen Reactions Benzoyl Peroxide Rash Clindamycin Rash Sulfa (Sulfonamide * Hives PAST SURGICAL HISTORY Procedure Laterality Date DELIVERY ONLY 07/09/2005 DELIVERY ONLY 11/04/07 COLONOSCOPY FLX DX W/COLLJ SPEC WHEN PFRMD 04/10/14 Colonoscopy ESOPHAGOGASTRODUODENOS COPY TRANSORAL DIAGNOSTIC 04/10/14 EGD laproscopic roue-en-y gastric bypass 11/05/09 LAPS W/VAG HYSTERECT 250 GM/ANDRMVL TUBEAND/OVARIES 04/27/14 LAVH, bilateral salpingectomy, HMB, anemia LIG/TRNSXJ FLP TUBE ABDL/VAG APPR UNI/BI 11/04/07 done at PAST SURGICAL HISTORY OF 2002 I[facility] cyst on back PAST SURGICAL HISTORY OF 2001 I[facility] ABSESS OF FACE PAST SURGICAL HISTORY OF 2004 IANDD CYST ON POSTERIOR THIGH PAST SURGICAL HISTORY OF CRYOCAUTERY OF VAGINAL LESIONS PAST SURGICAL HISTORY OF Melanoma excision with LN biopsy TONSILLECTOMY PRIMARY/SECONDARY FAMILY HISTORY Problem Relation Age of Onset Hypertension Mother Heart Mother other (lymphoma) Mother other (Melanoma) Mother Hypertension Father Heart Father COPD Father Emphysema Father other (congestive heart failure) Father other (pvd) Father Cancer Maternal Grandmother RECTAL Social History Tobacco Use Smoking status: Never Smokeless tobacco: Never Vaping Use Vaping status: Never Used Substance Use Topics Alcohol use: Yes Comment: OCCASIONALLY, NOT WHILE Drug use: No REVIEW OF SYSTEMS GENERAL: Negative for Malaise, significant weight loss, fever (more content not included)... Normal [facility] XR FOOT 3V AP/LAT/OBL RTon 1 XR FOOT 3V AP/LAT/OBL RT * * *Final Report* * * DATE OF EXAM: Jun 07 2024 8:23AM WRX [id number] - XR FOOT 3V AP/LAT/OBL RT / PROCEDURE REASON: Pain in right foot * * * * Physician Interpretation * * * * PROCEDURE: Right foot INDICATION: Pain in right foot .PT STATES RIGHT HEEL PAIN FOR SEVERAL MONTHS TECHNIQUE: XR FOOT 3V AP/LAT/OBL RT COMPARISON: None FINDINGS: Partially threaded screw within the 5th metatarsal. No residual fracture. No acute fracture or dislocation. Joint spaces are maintained. Tiny plantar calcaneal spur. IMPRESSION: No acute abnormality Ob Gyn Physician Assistant: KATHIE Transcribe Date/Time: Jun 10 2024 7:10P Dictated by : DENNIS HAHN MD This examination was interpreted and the report reviewed and electronically signed by: DENNIS HAHN MD on Jun 10 2024 7:11PM EST [id number] Normal [facility] HEP B SURFACE Ab POST VACCIN Ned 05-12-2024 Hep B Surface Ab 27.3 mIU/mL Normal Immunity>10 [facility] Comment on above: Result Comment: Stat us of Immunity Anti-HBs Level Inconsistent with Immunity 0.0 - 10.0 Consistent with Immunity >10.0 Performed By: #### H BVSAB #### Performed for [facility] [address] [place], [place] [address] QUANTIFERON FOR TUBERCULOSIS INCUBATEDon 05-12-2024 QuantiFERON Criteria Comment Normal [facility] Comment on above: Result Comment: Farhan tiFERON-TB Gold Plus is a qualitative indirect test for M tuberculosis infection (including disease) and is intended for use in conjunction with risk assessment, radiography, and other medical and diagnostic evaluations. The QuantiFERON-TB Gold Plus result is determined by subtracting the Nil value from either TB antigen (Ag) value. The Mitogen tube serves as a control for the test. Performed By: #### Q UANT #### Performed for [facility] [address] [place], [place] [address] QuantiFERON Mitogen Value >10.00 Normal [facility] Comment on above: Performed By: #### Q UANT #### Performed for [facility] [address] [place], [place] [address] QuantiFERON Nil Value 0.00 IU/mL Normal [facility] Comment on above: Performed By: #### Q UANT #### Performed for [facility] [address] [place], [place] [address] QuantiFERON TB1 Ag Value 0.01 IU/mL Normal [facility] Comment on above: Performed By: #### Q UANT #### Performed for [facility] [address] [place], [place] [address] QuantiFERON TB2 Ag Value 0.06 IU/mL Normal [facility] Comment on above: Performed By: #### Q UANT #### Performed for [facility] [address] [place], [place] [address] QuantiFERON-TB Gold Plus Negative Normal Negative [facility] Comment on above: Result Comment: No r esponse to M tuberculosis antigens detected. Infection with M tuberculosis is unlikely, but high risk individuals should be considered for additional testing (ATS/IDSA/CDC Clinical Practice Guidelines, 2017). The reference range is an Antigen minus Nil result of <0.35 IU/mL. The specimen received for QuantiFERON testing was incubated by the ordering institution. Specific procedures outlined in our Directory of Services and in the package insert for the QuantiFERON Gold (In Tube) test must be followed to enable for proper stimulation of cells for the production of interferon gamma. Chemiluminescence immunoassay methodology Performed By: #### Q UANT #### Performed for [facility] [address] [place], [place] [address] MEASLES IgGon 05-10-2024 HMEASLES MEASLES IgG INTERPRETATION < 0.50 Negative >/= 0.50 to < 0.70 Equivocal >/= 0.[address] [facility] Comment on above: Performed By: #### M NITHYA EMMANUELPS, VARZOSG #### [facility] [address] [place] [address] Rail Car Repairer - [facility] CLIA [id number] MEASLES IgG 0.66 IU/mL Normal [facility] Comment on above: Performed By: #### M LIEN MUMPS, VARZOSG #### [facility] [address] [place] [address] [employer] Car [employer]r [facility] [id number] MUMPS IgGon 05-10-2024 HMUMPS MUMPS IgG INTERPRETATION < 0.35 Negative >/= 0.35 to < 0.50 Equivocal >/= 0.[address] [facility] Comment on above: Performed By: #### M ODALYS EMMANUEL, VARZOSG #### [facility] [address] [place] [address] [employer] Car [employer]r [facility] CLIA [id number] MUMPS IgG 0.21 IU/mL [facility] Comment on above: Performed By: #### M NITHYA EMMANUELPS, VARZOSG #### [facility] [address] [place] [address] [employer] Car Rep[employer]r - [facility] [id number] RUBELLA Ab IgGon 05-10-2024 Rubella virus IgG IA Ql 76.5 IU/mL [facility] Comment on above: Performed By: #### 4 0667-8 #### [facility] [address] [place] [address] Rail Car Repairer - [facility] CLIA [id number] Rubella virus IgG IA Qlon HRUBELLA RUBELLA IgG INTERPRETATION <5.0 IU/mL Non-immune 5.0-9.9 IU/mL Equivocal >10.0 IU/mL Immune [facility] Comment on above: Performed By: #### 4 0667-8 #### [facility] [address] [place], [place] [address] Rail Car Repairer - [employer] OBDULIA [id number] VARICELLA-ZOSTER IgGon 05-10 HVARZOSG VARICELLA-ZOSTER IgG INTERPRETATION TV < 0.60 Negative 0.60 /= 0.90 Positive Normal [facility] Comment on above: Performed By: #### M ODALYS EMMANUEL VARZOSG #### [facility] [address] [place] [address] Rail Car Repairer [facility] [id number] VARICELLA-ZOSTER IgG 2.03 IU/mL Normal [facility] Comment on above: Performed By: #### M ODALYS EMMANUEL VARZOSG #### [facility] [address] [place] [address] Rail Car Repairer - [facility] [id number] NM Biliary ducts and Gallbla dder Views for patency of biliary structures and ejection fraction W sincalide and W radionuclide Yunier 04-21-2024 IMPRESSION: Normal gallbladder ejection fraction. Patent cystic and common bile ducts. Ob Gyn Physician Assistant: KATHIE Transcribe Date/Time: Apr 21 2024 2:48P Dictated by : TODD PATEL MD This examination was interpreted and the report reviewed and electronically signed by: CHER DE JESUS MD on Apr 21 2024 2:57PM [facility] DIVISION OF RADIOLOGY * * *Final Report* * * DATE OF EXAM: Apr 21 2024 2:48PM WON 0021 - NM HEPATOBILIARY W EF AND/OR RX / PROCEDURE REASON: multiple diagnoses * * * * Physician Interpretation * * * * EXAM: HEPATOBILIARY SCAN WITH GALLBLADDER EJECTION FRACTION HISTORY: Right upper quadrant abdominal pain, nausea, decreased appetite. TECHNIQUE: 5.2 mCi Tc-99m Choletec administered IV followed by 60 minutes of dynamic abdominal imaging. CORRELATION: Right upper quadrant ultrasound 04/07/2024, CT abdomen/pelvis 03/30/2024 RESULTS: Liver: Prompt, homogeneous uptake with activity in the major bile ducts. Gallbladder: * Gallbladder activity present within 60 minutes, indicating cystic duct patency. * Ejection fraction: 71% (normal > 35% and < 80%) CBD: Proximal small bowel activity within 60 minutes, indicating patency. Other: No duodenogastric reflux. DIVISION OF RADIOLOGY Provider, Ector Velasquez [facility] - 04/21/2024 * * *Final Report* * * DATE OF EXAM: Apr 21 2024 2:48PM WON 0021 - NM HEPATOBILIARY W EF AND/OR RX / PROCEDURE REASON: multiple diagnoses * * * * Physician Interpretation * * * * EXAM: HEPATOBILIARY SCAN WITH GALLBLADDER EJECTION FRACTION HISTORY: Right upper quadrant abdominal pain, nausea, decreased appetite. TECHNIQUE: 5.2 mCi Tc-99m Choletec administered IV followed by 60 minutes of dynamic abdominal imaging. CORRELATION: Right upper quadrant ultrasound 04/07/2024, CT abdomen/pelvis 03/30/2024 RESULTS: Liver: Prompt, homogeneous uptake with activity in the major bile ducts. Gallbladder: * Gallbladder activity present within 60 minutes, indicating cystic duct patency. * Ejection fraction: 71% (normal > 35% and < 80%) CBD: Proximal small bowel activity within 60 minutes, indicating patency. Other: No duodenogastric reflux. IMPRESSION IMPRESSION: Normal gallbladder ejection fraction. Patent cystic and common bile ducts. Ob Gyn Physician Assistant: PSCB Transcribe Date/Time: Apr 21 2024 2:48P Dictated by : TODD PATEL MD This examination was interpreted and the report reviewed and electronically signed by: CHER DE JESUS MD on Apr 21 2024 2:57PM EST [facility] Radiology Study observation (narrative) [facility] NM Biliary ducts and Gallbla dder Views for patency of biliary structures and ejection fraction W sincalide and W radionuclide IVOrdered By: [facility] Provider on 04-21-2024 [facility] US ABD RIGHT UPPER QUADRANTo n 04-07-2024 US ABD RIGHT UPPER QUADRANT * * *Final Report* * * DATE OF EXAM: Apr 07 2024 10:30AM LDU 1032 - US ABD RIGHT UPPER QUADRANT / PROCEDURE REASON: multiple diagnoses * * * * Physician Interpretation * * * * EXAMINATION: RIGHT UPPER QUADRANT ULTRASOUND CLINICAL HISTORY: Right upper quadrant pain TECHNIQUE: Sonography of the right upper quadrant was performed. Images were obtained and stored in a permanent archive. MQ: [id number] COMPARISON: CT abdomen 03/30/2024 RESULT: Pancreas: Normal sonographic appearance. Portions obscured: tail Liver: Echotexture: Normal, homogeneous. Echogenicity: Normal Surface contour: Smooth Lesions: None. Main portal vein appears patent. Biliary: No intrahepatic biliary duct dilation. CBD: 0.5 cm at the hilum. Gallbladder: Gallbladder is mildly distended but otherwise unremarkable. No evidence of calculi or wall thickening. Right Kidney: No hydronephrosis. Ascites: None. IMPRESSION: 1. Mild distention of the gallbladder, nonspecific. No calculi, wall thickening or tenderness. The appearance is similar compared to CT from one week ago. 2. Otherwise unremarkable Ob Gyn Physician Assistant: [facility] Transcribe Date/Time: Apr 07 2024 10:42A Dictated by : BECK FERRER MD This examination was interpreted and the report reviewed and electronically signed by: BECK FERRER MD on Apr 07 2024 10:47AM EST [id number] Normal [facility] US Abdomen RUQon 04-07-2024 IMPRESSION: 1. Mild distention of the gallbladder, nonspecific. No calculi, wall thickening or tenderness. The appearance is similar compared to CT from one week ago. 2. Otherwise unremarkable Ob Gyn Physician Assistant: [facility] Transcribe Date/Time: Apr 07 2024 10:42A Dictated by : BECK FERRER MD This examination was interpreted and the report reviewed and electronically signed by: BECK FERRER MD on Apr 07 2024 10:47AM EST [facility] * * *Final Report* * * DATE OF EXAM: Apr 07 2024 10:30AM LDU 1032 - US ABD RIGHT UPPER QUADRANT / PROCEDURE REASON: multiple diagnoses * * * * Physician Interpretation * * * * EXAMINATION: RIGHT UPPER QUADRANT ULTRASOUND CLINICAL HISTORY: Right upper quadrant pain TECHNIQUE: Sonography of the right upper quadrant was performed. Images were obtained and stored in a permanent archive. MQ: URUQ_2 COMPARISON: CT abdomen 03/30/2024 RESULT: Pancreas: Normal sonographic appearance. Portions obscured: tail Liver: Echotexture: Normal, homogeneous. Echogenicity: Normal Surface contour: Smooth Lesions: None. Main portal vein appears patent. Biliary: No intrahepatic biliary duct dilation. CBD: 0.5 cm at the hilum. Gallbladder: Gallbladder is mildly distended but otherwise unremarkable. No evidence of calculi or wall thickening. Right Kidney: No hydronephrosis. Ascites: None. [facility] Provider, Ector Ron leong [place] - 04/07/2024 * * *Final Report* * * DATE OF EXAM: Apr 07 2024 10:30AM LDU 1032 - US ABD RIGHT UPPER QUADRANT / PROCEDURE REASON: multiple diagnoses * * * * Physician Interpretation * * * * EXAMINATION: RIGHT UPPER QUADRANT ULTRASOUND CLINICAL HISTORY: Right upper quadrant pain TECHNIQUE: Sonography of the right upper quadrant was performed. Images were obtained and stored in a permanent archive. MQ: URUQ_2 COMPARISON: CT abdomen 03/30/2024 RESULT: Pancreas: Normal sonographic appearance. Portions obscured: tail Liver: Echotexture: Normal, homogeneous. Echogenicity: Normal Surface contour: Smooth Lesions: None. Main portal vein appears patent. Biliary: No intrahepatic biliary duct dilation. CBD: 0.5 cm at the hilum. Gallbladder: Gallbladder is mildly distended but otherwise unremarkable. No evidence of calculi or wall thickening. Right Kidney: No hydronephrosis. Ascites: None. IMPRESSION IMPRESSION: 1. Mild distention of the gallbladder, nonspecific. No calculi, wall thickening or tenderness. The appearance is similar compared to CT from one week ago. 2. Otherwise unremarkable Ob Gyn Physician Assistant: [facility] Transcribe Date/Time: Apr 07 2024 10:42A Dictated by : BECK FERRER MD This examination was interpreted and the report reviewed and electronically signed by: BECK FERRER MD on Apr 07 2024 10:47AM EST [facility] Radiology Study observation (narrative) [facility] US Abdomen RUQOrdered By: Shirin f Provider on 04-07-2024 [facility] CBC panel Auto (Bld)on 03-30 Erythrocyte distribution width (RBC) [Ratio] 12.9 % 11.5 - 15.0 % [facility] Hematocrit (Bld) [Volume fraction] 43.3 % 36.0 - 46.0 % [facility] Hemoglobin (Bld) [Mass/Vol] 14.0 g/dL 11.5 - 15.5 g/dL [facility] Interpretation and review of laboratory results Normal [facility] MCH (RBC) [Entitic mass] 32.3 pg 26.0 - 34.0 pg [facility] MCHC (RBC) [Mass/Vol] 32.3 g/dL 30.5 - 36.0 g/dL [facility] MCV (RBC) [Entitic vol] 100.0 fL 80.0 - 100.0 fL [facility] Nucleated RBC (Bld) [#/Vol] NINF [facility] Platelet mean volume (Bld) [Entitic vol] 11.9 fL 9.0 - 12.7 fL [facility] Platelets (Bld) [#/Vol] 183 10*3/uL [facility] RBC (Bld) [#/Vol] 4.33 10*6/uL 3.90 - 5.2 0 m/uL [facility] WBC (Bld) [#/Vol] 6.52 10*3/uL [facility] CT ABD/PEL W IVCONon 24- 024 CT ABD/PEL W IVCON * * *Final Report* * * DATE OF EXAM: Mar 30 2024 4:20PM [facility] 0530 - CT ABD/PEL W IVCON / PROCEDURE REASON: multiple diagnoses * * * * Physician Interpretation * * * * EXAMINATION: CT ABDOMEN AND PELVIS WITH IV CONTRAST CLINICAL HISTORY: Abdominal pain TECHNIQUE: CT of the abdomen and pelvis was performed using standard technique, scanning from just above the dome of the diaphragm to the symphysis pubis. MQ: CTAP_3 Contrast: IV: 100 ml of Omnipaque 350 CT Radiation dose: Integrated Dose-length product (DLP) for this visit = 918.07 mGy*cm. CT Dose Reduction Employed: Automated exposure control(AEC) and iterative recon COMPARISON: CT abdomen/pelvis 10/26/2020 RESULT: Liver: No mass. Biliary: No bile duct dilation. Distended gallbladder, otherwise unremarkable. Spleen: No mass. No splenomegaly. Pancreas: No mass or duct dilation. Adrenals: No mass. Kidneys: Subcentimeter lesions that are too small to characterize. GI tract: Stable postsurgical changes of gastric bypass. No abnormally dilated small or large bowel. There is redemonstration of a short segment of jejunojejunal intussusception at the site of small bowel anastomosis. Normal appendix. Lymph nodes: No abdominal or pelvic lymphadenopathy. Mesentery/Peritoneum: No ascites or mass. Retroperitoneum: No mass. Vasculature: Unremarkable. Pelvis: No mass, ascites or fluid collection. Bones/Soft Tissues: No acute bony abnormality. Small fat-containing umbilical hernia. Lower thorax: Unremarkable. Localizer images: No additional findings. IMPRESSION: 1. No acute abnormality identified in the abdomen or pelvis. 2. Redemonstrated short segment of jejunojejunal intussusception at the site of small bowel anastomosis, indeterminate whether transient or fixed. No bowel obstruction. Ob Gyn Physician Assistant: [facility] Transcribe Date/Time: Mar 30 2024 5:13P Dictated by : JEAN PIERRE CARIAS MD This examination was interpreted and the report reviewed and electronically signed by: JEAN PIERRE CARIAS MD on Mar 30 2024 5:20PM EST [id number] Normal [facility] CT Abdomen and Pelvis W cont rast Yunier 03-30-2024 IMPRESSION: 1. No acute abnormality identified in the abdomen or pelvis. 2. Redemonstrated short segment of jejunojejunal intussusception at the site of small bowel anastomosis, indeterminate whether transient or fixed. No bowel obstruction. Ob Gyn Physician Assistant: [facility] Transcribe Date/Time: Mar 30 2024 5:13P Dictated by : JEAN PIERRE CARIAS MD This examination was interpreted and the report reviewed and electronically signed by: JEAN PIERRE CARIAS MD on Mar 30 2024 5:20PM EST [facility] * * *Final Report* * * DATE OF EXAM: Mar 30 2024 4:20PM [facility] 0530 - CT ABD/PEL W IVCON / PROCEDURE REASON: multiple diagnoses * * * * Physician Interpretation * * * * EXAMINATION: CT ABDOMEN AND PELVIS WITH IV CONTRAST CLINICAL HISTORY: Abdominal pain TECHNIQUE: CT of the abdomen and pelvis was performed using standard technique, scanning from just above the dome of the diaphragm to the symphysis pubis. MQ: CTAP_3 Contrast: IV: 100 ml of Omnipaque 350 CT Radiation dose: Integrated Dose-length product (DLP) for this visit = 918.07 mGy*cm. CT Dose Reduction Employed: Automated exposure control(AEC) and iterative recon COMPARISON: CT abdomen/pelvis 10/26/2020 RESULT: Liver: No mass. Biliary: No bile duct dilation. Distended gallbladder, otherwise unremarkable. Spleen: No mass. No splenomegaly. Pancreas: No mass or duct dilation. Adrenals: No mass. Kidneys: Subcentimeter lesions that are too small to characterize. GI tract: Stable postsurgical changes of gastric bypass. No abnormally dilated small or large bowel. There is redemonstration of a short segment of jejunojejunal intussusception at the site of small bowel anastomosis. Normal appendix. Lymph nodes: No abdominal or pelvic lymphadenopathy. Mesentery/Peritoneum: No ascites or mass. Retroperitoneum: No mass. Vasculature: Unremarkable. Pelvis: No mass, ascites or fluid collection. Bones/Soft Tissues: No acute bony abnormality. Small fat-containing umbilical hernia. Lower thorax: Unremarkable. Localizer images: No additional findings. [facility] Provider, [facility] - 03/30/2024 * * *Final Report* * * DATE OF EXAM: Mar 30 2024 4:20PM [facility] 0530 - CT ABD/PEL W IVCON / PROCEDURE REASON: multiple diagnoses * * * * Physician Interpretation * * * * EXAMINATION: CT ABDOMEN AND PELVIS WITH IV CONTRAST CLINICAL HISTORY: Abdominal pain TECHNIQUE: CT of the abdomen and pelvis was performed using standard technique, scanning from just above the dome of the diaphragm to the symphysis pubis. MQ: CTAP_3 Contrast: IV: 100 ml of Omnipaque 350 CT Radiation dose: Integrated Dose-length product (DLP) for this visit = 918.07 mGy*cm. CT Dose Reduction Employed: Automated exposure control(AEC) and iterative recon COMPARISON: CT abdomen/pelvis 10/26/2020 RESULT: Liver: No mass. Biliary: No bile duct dilation. Distended gallbladder, otherwise unremarkable. Spleen: No mass. No splenomegaly. Pancreas: No mass or duct dilation. Adrenals: No mass. Kidneys: Subcentimeter lesions that are too small to characterize. GI tract: Stable postsurgical changes of gastric bypass. No abnormally dilated small or large bowel. There is redemonstration of a short segment of jejunojejunal intussusception at the site of small bowel anastomosis. Normal appendix. Lymph nodes: No abdominal or pelvic lymphadenopathy. Mesentery/Peritoneum: No ascites or mass. Retroperitoneum: No mass. Vasculature: Unremarkable. Pelvis: No mass, ascites or fluid collection. Bones/Soft Tissues: No acute bony abnormality. Small fat-containing umbilical hernia. Lower thorax: Unremarkable. Localizer images: No additional findings. IMPRESSION IMPRESSION: 1. No acute abnormality identified in the abdomen or pelvis. 2. Redemonstrated short segment of jejunojejunal intussusception at the site of small bowel anastomosis, indeterminate whether transient or fixed. No bowel obstruction. Ob Gyn Physician Assistant: KATHIE Transcribe Date/Time: Mar 30 2024 5:13P Dictated by : JEAN PIERRE CARIAS MD This examination was interpreted and the report reviewed and electronically signed by: JEAN PIERRE CARIAS MD on Mar 30 2024 5:20PM EST [facility] Radiology Study observation (narrative) [facility] CT Abdomen and Pelvis W cont rast IVOrdered By: [facility] Provider on 03-30-2024 [facility] COVID & INFLUENZA A/B & RSV NAAT, ROUTINEon 10-14-2023 FLUAV RNA SAHARA+probe Ql (Unsp spec) Detected Abnormal Not Detected [facility] FLUBV RNA SAHARA+probe Ql (Unsp spec) Not detected Not Detected [facility] RSV A RNA SAHARA+probe Ql (Unsp spec) Not detected Not Detected [facility] SARS-CoV-2 (COVID-19) RNA SAHARA+probe Ql (Resp) Not detected See comment [facility] ACTH BLDon 05-05-2023 Corticotropin (P) [Mass/Vol] 4.7 pg/mL Low 7.2 - 63.3 pg/mL [facility] CBC panel Auto (Bld)on 05-05 Erythrocyte distribution width (RBC) [Ratio] 13.2 % 11.5 - 15.0 % [facility] Hematocrit (Bld) [Volume fraction] 41.4 % 36.0 - 46.0 % [facility] Hemoglobin (Bld) [Mass/Vol] 13.5 g/dL 11.5 - 15.5 g/dL [facility] MCH (RBC) [Entitic mass] 31.8 pg 26.0 - 34.0 pg [facility] MCHC (RBC) [Mass/Vol] 32.6 g/dL 30.5 - 36.0 g/dL [facility] MCV (RBC) [Entitic vol] 97.4 fL 80.0 - 100.0 fL [facility] Nucleated RBC (Bld) [#/Vol] <0.01 k/uL [facility] Platelet mean volume (Bld) [Entitic vol] 11.6 fL 9.0 - 12.7 fL [facility] Platelets (Bld) [#/Vol] 177 10*3/uL 150 - 400 k/uL [facility] RBC (Bld) [#/Vol] 4.25 10*6/uL 3.90 - 5.2 0 m/uL [facility] WBC (Bld) [#/Vol] 5.71 10*3/uL 3.70 - 11. 00 k/uL [facility] Comprehensive metabolic 2000 panelon 05-05-2023 Albumin [Mass/Vol] 4.6 g/dL 3.9 - 4.9 g/dL [facility] ALP [Catalytic activity/Vol] 65 U/L 34 - 123 U/L [facility] ALT [Catalytic activity/Vol] 37 U/L 7 - 38 U/L [facility] Anion gap [Moles/Vol] 9 mmol/L 9 - 18 mmol/L [facility] AST [Catalytic activity/Vol] 29 U/L 13 - 35 U/L [facility] Bilirubin [Mass/Vol] 0.4 mg/dL 0.2 - 1 .3 mg/dL [facility] Calcium [Mass/Vol] 9.8 mg/dL 8.5 - 10. 2 mg/dL [facility] Chloride [Moles/Vol] 104 mmol/L 97 - 10 5 mmol/L [facility] CO2 [Moles/Vol] 24 mmol/L 22 - 30 mmol/L [facility] Creatinine [Mass/Vol] 0.84 mg/dL 0.58 - 0.96 mg/dL [facility] Estimated Glomerular Filtration Rate 83 mL/min/1.73m >=60 mL/min/1.73m [facility] Glucose [Mass/Vol] 98 mg/dL 74 - 99 mg/dL [facility] Potassium [Moles/Vol] 4.2 mmol/L 3.7 - 5.1 mmol/L [facility] Protein [Mass/Vol] 6.7 g/dL 6.3 - 8.0 g/dL [facility] Sodium [Moles/Vol] 137 mmol/L 136 - 144 mmol/L [facility] Urea nitrogen [Mass/Vol] 18 mg/dL 7 - 21 mg/dL [facility] FERRITIN BLDon 05-05-2023 Ferritin [Mass/Vol] 187.0 ng/mL 14.7 - 2 05.1 ng/mL [facility] HbA1c (Bld)on 05-05-2023 Average glucose Estimated from glycated hemoglobin (Bld) [Mass/Vol] 108 mg/dL [facility] HbA1c (Bld) [Mass fraction] 5.4 % 4.3 - 5.6 % [facility] Iron and Iron binding [facility] 05-05-2023 Iron [Mass/Vol] 124 ug/dL 41 - 186 ug/dL [facility] Iron binding capacity [Mass/Vol] 356 ug/dL 232 - 386 ug/dL [facility] Iron/TIBC [Molar ratio] 34.8 % 15.0 - 57.0 % [facility] Lipid 1996 panelon Cholesterol [Mass/Vol] 188 mg/dL <200 mg/dL [facility] Cholesterol in HDL [Mass/Vol] 104 mg/dL >39 mg/dL [facility] Cholesterol in LDL [Mass/Vol] 50 mg/dL <100 mg/dL [facility] Cholesterol in LDL/Cholesterol in HDL [Mass ratio] 0.48 {ratio} <2.54 [facility] Cholesterol in VLDL [Mass/Vol] 34 mg/dL High <30 mg/dL [facility] Cholesterol non HDL [Mass/Vol] 84 mg/dL <130 mg/dL [facility] Cholesterol.total/Chol esterol in HDL [Mass ratio] 1.81 {ratio} <5.10 [facility] Fasting Time 12 hrs [facility] Triglyceride [Mass/Vol] 171 mg/dL High <150 mg/dL [facility] PROLACTIN [facility] 05-05-2023 Prolactin [Mass/Vol] 18.9 ng/mL 4.5 - 2 6.8 ng/mL [facility] TSH [facility] 05-05-2023 TSH Qn 1.440 m[IU]/L 0.270 - 4.200 mIU/L [facility] VITAMIN B12 BLOODon 05-05-20 Cobalamin (Vitamin B12) [Mass/Vol] 433 pg/mL 232 - 1,245 pg/mL [facility] VITAMIN D 25 HYDROXYon 05-05 25-hydroxyvitamin D3 [Mass/Vol] 39.9 ng/mL 31.0 - 80.0 ng/mL [facility] HONORIO DIAG W SADE LTon 022 [facility] US BREAST LTD LTon 2 [facility] NM LYMPHOSCINTIGRAMon 2019 Patient Name: EDEDEE MICHAEL ---Nuc Med--- Exam Date/Time 12/02/2019 08:51:32 EDT Exam NM Lymphatics - Lymph Glands Imaging Ordering Physician MD DELUCA LEWIS ARNOLD Accession Number [id number] CPT4 Codes 26885 () Reason For Exam melanoma lt calf Report Indication: Melanoma of the left lower extremity. The procedure, risks, benefits and alternatives were discussed with the patient. The area of biopsy on the left lower extremity was cleansed with alcohol. Under sterile technique, 4 intradermal injections were performed up to a total of 1 mCi of tech 99m sulfur colloid. Serial images over the pelvis and lower extremities were obtained for 30 minutes. Spot images of the pelvis were obtained at 30 minutes. There is a single focus of radiotracer migration into the left groin region. The patient tolerated the procedure well without immediate complications. Impression: 1. Successful sentinel node localization for melanoma of the left lower extremity. Report Dictated on --- Final --- Dictated: 12/02/2019 9:15 am Dictating Physician: DO SARAH ANTHONY Signed Date and Time: 12/02/2019 9:17 am Signed by: DO SARAH ANTHONY Transcribed Date and Time: 12/02/2019 9:15 [place], [place] Andrei, [facility] Radiology Results From [facility] - 12/02/2019 9:18 AM EDT Patient Name: DEEDEE MICHAEL ---Nuc Med--- Exam Date/Time 12/02/2019 08:51:32 EDT Exam NM Lymphatics - Lymph Glands Imaging Ordering Physician MD DELUCA LEWIS ARNOLD Accession Number [id number] CPT4 Codes 58467 () Reason For Exam melanoma lt calf Report Indication: Melanoma of the left lower extremity. The procedure, risks, benefits and alternatives were discussed with the patient. The area of biopsy on the left lower extremity was cleansed with alcohol. Under sterile technique, 4 intradermal injections were performed up to a total of 1 mCi of tech 99m sulfur colloid. Serial images over the pelvis and lower extremities were obtained for 30 minutes. Spot images of the pelvis were obtained at 30 minutes. There is a single focus of radiotracer migration into the left groin region. The patient tolerated the procedure well without immediate complications. Impression: 1. Successful sentinel node localization for melanoma of the left lower extremity. Report Dictated on --- Final --- Dictated: 12/02/2019 9:15 am Dictating Physician: DO SARAH ANTHONY Signed Date and Time: 12/02/2019 9:17 am Signed by: DO SARAH ANTHONY Transcribed Date and Time: 12/02/2019 9:15 [place], [place] NM Lymphatics - Lymph Glands Imagingon 12-02-2019 Lymphocytes (Bld) [#/Vol] Patient Name: DEEDEE MICHAEL Nuc Med Exam Date/Time 12/02/2019 08:51:32 EDT Exam NM Lymphatics - Lymph Glands Imaging Ordering Physician MD DELUCA LEWIS ARNOLD Accession Number [id number] CPT4 Codes 27776 () Reason For Exam melanoma lt calf Report Indication: Melanoma of the left lower extremity. The procedure, risks, benefits and alternatives were discussed with the patient. The area of biopsy on the left lower extremity was cleansed with alcohol. Under sterile technique, 4 intradermal injections were performed up to a total of 1 mCi of tech 99m sulfur colloid. Serial images over the pelvis and lower extremities were obtained for 30 minutes. Spot images of the pelvis were obtained at 30 minutes. There is a single focus of radiotracer migration into the left groin region. The patient tolerated the procedure well without immediate complications. Impression: 1. Successful sentinel node localization for melanoma of the left lower extremity. Report Dictated on Final Dictated: 12/02/2019 9:15 am Dictating Physician: DO SARAH ANTHONY Signed Date and Time: 12/02/2019 9:17 am Signed by: DO SARAH ANTHONY Transcribed Date and Time: 12/02/2019 9:15 [facility] Vital Signs Date Time Vital Sign Value Performing Clinician Faci lity 12-16-2024 13:09-0400 Body mass index (BMI) [Ratio] 36.57 kg/m2 Leny Perry CLINICAL TRANSFORMATION SPECIALIST.RECORDS ANALYSIS MANAGER Work Phone: [facility] 12-16-2024 13:09-0400 Body weight 94.8 kg Leny Perry CLINICAL TRANSFORMATION SPECIALIST.RECORDS ANALYSIS MANAGER Work Phone: [facility] 12-16-2024 13:09-0400 Diastolic blood pressure 74 mm[Hg] Leny Perry CLINICAL TRANSFORMATION SPECIALIST.RECORDS ANALYSIS MANAGER Work Phone: [facility] 12-16-2024 13:09-0400 Heart rate 65 /min Leny Perry CLINICAL TRANSFORMATION SPECIALIST.[facility] Work Phone: [facility] 12-16-2024 13:09-0400 Respiratory rate 16 /min Leny Perry CLINICAL TRANSFORMATION SPECIALIST.[facility] Work Phone: [facility] 12-16-2024 13:09-0400 SaO2% (BldA) [Mass fraction] 99 % Leny Perry CLINICAL TRANSFORMATION SPECIALIST.RECORDS ANALYSIS MANAGER Work Phone: [facility] 12-16-2024 13:09-0400 Systolic blood pressure 126 mm[Hg] Leny Perry CLINICAL TRANSFORMATION SPECIALIST.RECORDS ANALYSIS MANAGER Work Phone: [facility] 10-10-2024 10:24-0500 Body mass index (BMI) [Ratio] 36.64 kg/m2 Arya Rosales Jr., MD Work Phone: [facility] 10-10-2024 10:24-0500 Body weight 94.98 kg Arya Rosales Jr., MD Work Phone: [facility] 10-10-2024 10:24-0500 Diastolic blood pressure 84 mm[Hg] Arya Rosales Jr., MD Work Phone: [facility] 10-10-2024 10:24-0500 Heart rate 77 /min Arya Rosales Jr., MD Work Phone: [facility] 10-10-2024 10:24-0500 SaO2% (BldA) [Mass fraction] 99 % Arya Rosales Jr., MD Work Phone: [facility] 10-10-2024 10:24-0500 Systolic blood pressure 137 mm[Hg] Arya Rosales Jr., MD Work Phone: [facility] 04-06-2024 12:50-0400 Body mass index (BMI) [Ratio] 36.01 kg/m2 Leny Perry CLINICAL TRANSFORMATION SPECIALIST.RECORDS ANALYSIS MANAGER Work Phone: [facility] 04-06-2024 12:50-0400 Body temperature 98.29 [degF] Leny Perry CLINICAL TRANSFORMATION SPECIALIST.RECORDS ANALYSIS MANAGER Work Phone: [facility] 04-06-2024 12:50-0400 Body weight 93.35 kg Leny Perry CLINICAL TRANSFORMATION SPECIALIST.RECORDS ANALYSIS MANAGER Work Phone: [facility] 04-06-2024 12:50-0400 Diastolic blood pressure 76 mm[Hg] Leny Perry CLINICAL TRANSFORMATION SPECIALIST.RECORDS ANALYSIS MANAGER Work Phone: [facility] 04-06-2024 12:50-0400 Heart rate 74 /min Leny Perry CLINICAL TRANSFORMATION SPECIALIST.RECORDS ANALYSIS MANAGER Work Phone: [facility] 04-06-2024 12:50-0400 Respiratory rate 16 /min Leny Perry CLINICAL TRANSFORMATION SPECIALIST.RECORDS ANALYSIS MANAGER Work Phone: [facility] 04-06-2024 12:50-0400 SaO2% (BldA) [Mass fraction] 98 % Leny Perry CLINICAL TRANSFORMATION SPECIALIST.RECORDS ANALYSIS MANAGER Work Phone: [facility] 04-06-2024 12:50-0400 Systolic blood pressure 130 mm[Hg] Leny Perry CLINICAL TRANSFORMATION SPECIALIST.RECORDS ANALYSIS MANAGER Work Phone: [facility] 03-30-2024 12:09-0400 Body mass index (BMI) [Ratio] 35.42 kg/m2 Leny Perry CLINICAL TRANSFORMATION SPECIALIST.RECORDS ANALYSIS MANAGER Work Phone: [facility] 03-30-2024 12:09-0400 Body temperature 98.49 [degF] Leny Perry CLINICAL TRANSFORMATION SPECIALIST.RECORDS ANALYSIS MANAGER Work Phone: [facility] 03-30-2024 12:09-0400 Body weight 91.81 kg Leny Perry CLINICAL TRANSFORMATION SPECIALIST.RECORDS ANALYSIS MANAGER Work Phone: [facility] 03-30-2024 12:09-0400 Diastolic blood pressure 84 mm[Hg] Leny Perry CLINICAL TRANSFORMATION SPECIALIST.RECORDS ANALYSIS MANAGER Work Phone: [facility] 03-30-2024 12:09-0400 Heart rate 87 /min Leny Perry CLINICAL TRANSFORMATION SPECIALIST.RECORDS ANALYSIS MANAGER Work Phone: [facility] 03-30-2024 12:09-0400 Respiratory rate 16 /min Leny Perry CLINICAL TRANSFORMATION SPECIALIST.RECORDS ANALYSIS MANAGER Work Phone: [facility] 03-30-2024 12:09-0400 SaO2% (BldA) [Mass fraction] 100 % Leny Perry CLINICAL TRANSFORMATION SPECIALIST.RECORDS ANALYSIS MANAGER Work Phone: [facility] 03-30-2024 12:09-0400 Systolic blood pressure 126 mm[Hg] Leny Perry CLINICAL TRANSFORMATION SPECIALIST.RECORDS ANALYSIS MANAGER Work Phone: [facility] 10-14-2023 14:20-0500 Body temperature 100 [degF] Fred Miranda MD Work Phone: [facility] 10-14-2023 14:20-0500 Body weight 89.54 kg Fred Miranda MD Work Phone: [facility] 10-14-2023 14:20-0500 Diastolic blood pressure 80 mm[Hg] Fred Miranda MD Work Phone: [facility] 10-14-2023 14:20-0500 Heart rate 90 /min Fred Miranda MD Work Phone: [facility] 10-14-2023 14:20-0500 Respiratory rate 16 /min Fred Miranda MD Work Phone: [facility] 10-14-2023 14:20-0500 SaO2% (BldA) [Mass fraction] 98 % Fred Miranda MD Work Phone: [facility] 10-14-2023 14:20-0500 Systolic blood pressure 116 mm[Hg] Fred Miranda MD Work Phone: [facility] 05-04-2023 15:17-0400 Body height 161.5 cm Leny Perry CLINICAL TRANSFORMATION SPECIALIST.RECORDS ANALYSIS MANAGER Work Phone: [facility] 05-04-2023 15:17-0400 Body weight 91.9 kg Leny Perry CLINICAL TRANSFORMATION SPECIALIST.RECORDS ANALYSIS MANAGER Work Phone: [facility] 05-04-2023 15:17-0400 Diastolic blood pressure 76 mm[Hg] Leny Perry CLINICAL TRANSFORMATION SPECIALIST.RECORDS ANALYSIS MANAGER Work Phone: [facility] 05-04-2023 15:17-0400 Heart rate 76 /min Leny Perry CLINICAL TRANSFORMATION SPECIALIST.RECORDS ANALYSIS MANAGER Work Phone: [facility] 05-04-2023 15:17-0400 Respiratory rate 16 /min Leny Perry CLINICAL TRANSFORMATION SPECIALIST.RECORDS ANALYSIS MANAGER Work Phone: [facility] 05-04-2023 15:17-0400 SaO2% (BldA) [Mass fraction] 98 % Leny Perry CLINICAL TRANSFORMATION SPECIALIST.RECORDS ANALYSIS MANAGER Work Phone: [facility] 05-04-2023 15:17-0400 Systolic blood pressure 128 mm[Hg] Leny Perry CLINICAL TRANSFORMATION SPECIALIST.RECORDS ANALYSIS MANAGER Work Phone: [facility] 10-09-2022 12:48-0500 Body temperature 97.9 [degF] Cara Mccord CLINICAL TRANSFORMATION SPECIALIST.RECORDS ANALYSIS MANAGER Work Phone: [facility] 10-09-2022 12:48-0500 Body weight 93.62 kg Cara Mccord CLINICAL TRANSFORMATION SPECIALIST.RECORDS ANALYSIS MANAGER Work Phone: [facility] 10-09-2022 12:48-0500 Diastolic blood pressure 84 mm[Hg] Cara Mccord CLINICAL TRANSFORMATION SPECIALIST.RECORDS ANALYSIS MANAGER Work Phone: [facility] 10-09-2022 12:48-0500 Heart rate 70 /min Cara Mccord CLINICAL TRANSFORMATION SPECIALIST.RECORDS ANALYSIS MANAGER Work Phone: [facility] 10-09-2022 12:48-0500 SaO2% (BldA) [Mass fraction] 99 % Cara Mccord CLINICAL TRANSFORMATION SPECIALIST.RECORDS ANALYSIS MANAGER Work Phone: [facility] 10-09-2022 12:48-0500 Systolic blood pressure 132 mm[Hg] Cara Mccord CLINICAL TRANSFORMATION SPECIALIST.RECORDS ANALYSIS MANAGER Work Phone: [facility] 05-08-2022 15:48-0400 Body weight 89.81 kg Leny Perry CLINICAL TRANSFORMATION SPECIALIST.RECORDS ANALYSIS MANAGER Work Phone: [facility] 05-08-2022 15:48-0400 Diastolic blood pressure 78 mm[Hg] Leny Perry CLINICAL TRANSFORMATION SPECIALIST.RECORDS ANALYSIS MANAGER Work Phone: [facility] 05-08-2022 15:48-0400 Heart rate 77 /min Leny Perry CLINICAL TRANSFORMATION SPECIALIST.RECORDS ANALYSIS MANAGER Work Phone: [facility] 05-08-2022 15:48-0400 SaO2% (BldA) [Mass fraction] 98 % Leny Perry CLINICAL TRANSFORMATION SPECIALIST.RECORDS ANALYSIS MANAGER Work Phone: [facility] 05-08-2022 15:48-0400 Systolic blood pressure 122 mm[Hg] Leny Perry CLINICAL TRANSFORMATION SPECIALIST.RECORDS ANALYSIS MANAGER Work Phone: [facility] 05-08-2022 11:21-0400 Body weight 91.08 kg Arya Rosales Jr., MD Work Phone: [facility] 05-08-2022 11:21-0400 Diastolic blood pressure 79 mm[Hg] Arya Rosales Jr., MD Work Phone: [facility] 05-08-2022 11:21-0400 Heart rate 70 /min Arya Rosales Jr., MD Work Phone: [facility] 05-08-2022 11:21-0400 SaO2% (BldA) [Mass fraction] 98 % Arya Rosales Jr., MD Work Phone: [facility] 05-08-2022 11:21-0400 Systolic blood pressure 125 mm[Hg] Arya Rosales Jr., MD Work Phone: [facility] 04-07-2022 14:190400 Body weight 91.81 kg Leny Perry CLINICAL TRANSFORMATION SPECIALIST.RECORDS ANALYSIS MANAGER Work Phone: [facility] 04-07-2022 14:190400 Diastolic blood pressure 80 mm[Hg] Leny Perry CLINICAL TRANSFORMATION SPECIALIST.RECORDS ANALYSIS MANAGER Work Phone: [facility] 04-07-2022 14:190400 Heart rate 78 /min Leny Perry CLINICAL TRANSFORMATION SPECIALIST.RECORDS ANALYSIS MANAGER Work Phone: [facility] 04-07-2022 14:190400 Respiratory rate 16 /min Leny Perry CLINICAL TRANSFORMATION SPECIALIST.RECORDS ANALYSIS MANAGER Work Phone: [facility] 04-07-2022 14:190400 SaO2% (BldA) [Mass fraction] 98 % Leny Perry CLINICAL TRANSFORMATION SPECIALIST.RECORDS ANALYSIS MANAGER Work Phone: [facility] 04-07-2022 14:190400 Systolic blood pressure 118 mm[Hg] Leny Perry CLINICAL TRANSFORMATION SPECIALIST.RECORDS ANALYSIS MANAGER Work Phone: [facility] Encounters Encounter Date Encounter Type Care Provider Facility Start: 05-01-2025 ambulatory Leny Amador AGRICULTURAL EXTENSION AGENT Fac ility:[facility] Start: 04-27-2025 ambulatory LENYSHANTELLE AMADOR Facili ty:[facility] Start: 02-14-2025 End: 02-15-2025 Patient encounter status Leny Perry CLINICAL TRANSFORMATION SPECIALIST.RECORDS ANALYSIS MANAGER Work Phone: [facility] Start: 02-14-2025 End: 02-15-2025 Refill Leny Perry CLINICAL TRANSFORMATION SPECIALIST.RECORDS ANALYSIS MANAGER Work Phone: [facility] [place] Comment on above: Refill Request Start: 02-10-2025 ambulatory Health Risk Assessment Facility:[facility] Start: 02-05-2025 End: 02-06-2025 Refill Arya Rosales MD Work Phone: Neurology Comment on above: Refill Request Start: 01-20-2025 End: 03-22-2025 Follow-up encounter Roxanna Prescott APRN.RECORDS ANALYSIS MANAGER Work Phone: [facility] [place] Start: 01-20-2025 [facility] Start: 01-20-2025 Encounter for genera l adult medical examination without abnormal [facility] Start: 01-20-2025 End: 01-20-2025 Patient encounter status Bone Wstr Work Phone: [facility] Start: 01-20-2025 End: 01-20-2025 Subsequent hospital visit by physician Bone Density [facility] Work Phone: Radiology Comment on above: Encounter for screen ing for osteoporosis [Z13.820] Start: 01-18-2025 End: 01-19-2025 Refill Liyah Mooney MD Work Phone: OB/Gynecology Comment on above: Refill Request Start: 12-27-2024 End: 02-26-2025 Follow-up encounter Leny Amador APRN.RECORDS ANALYSIS MANAGER Work Phone: [facility] Start: 12-24-2024 End: 12-24-2024 ambulatory [facility] Facility:[facility] Start: 12-19-2024 End: 12-19-2024 Telephone encounter Josefa SAMUELS Navigation Comment on above: Medication Problem Start: 12-16-2024 End: 12-16-2024 ambulatory [facility] Facility:[facility] Start: 12-16-2024 End: 12-16-2024 Office outpatient visit 25 minutes Leny Amador APRN.RECORDS ANALYSIS MANAGER Work Phone: [facility] Comment on above: Encounter for screen ing for osteoporosis (Primary Dx); Generalized weakness; Acute generalized body pain; Arthralgia, unspecified joint; Well adult exam; Screening for diabetes mellitus; Screening for thyroid disorder; Screening for lipid disorders; Hx of gastric bypass; OAB (overactive bladder) Start: 12-16-2024 End: 12-16-2024 Patient encounter status Leny Amador CLINICAL TRANSFORMATION SPECIALIST.RECORDS ANALYSIS MANAGER Work Phone: [facility] Start: 12-15-2024 End: 12-15-2024 Refill Leny Amador CLINICAL TRANSFORMATION SPECIALIST.RECORDS ANALYSIS MANAGER Work Phone: [facility] Comment on above: Refill Request Start: 12-14-2024 End: 12-14-2024 Refill Lenyshantelle Norwoodman CLINICAL TRANSFORMATION SPECIALIST.RECORDS ANALYSIS MANAGER Work Phone: [facility] Comment on above: Refill Request Start: 12-13-2024 End: 12-14-2024 Patient encounter status Leny Amador CLINICAL TRANSFORMATION SPECIALIST.RECORDS ANALYSIS MANAGER Work Phone: [facility] Start: 12-13-2024 End: 12-14-2024 Refill Leny Amador CLINICAL TRANSFORMATION SPECIALIST.RECORDS ANALYSIS MANAGER Work Phone: [facility] Comment on above: Refill Request Start: 11-14-2024 End: 11-14-2024 Refill Liyah Mooney MD Work Phone: OB/Gynecology Comment on above: Refill Request Start: 10-25-2024 End: 11-25-2024 ambulatory Leny Amador CLINICAL TRANSFORMATION SPECIALIST.RECORDS ANALYSIS MANAGER Work Phone: [facility] Start: 10-10-2024 End: 10-10-2024 ambulatory ARYA ROSALES JR Facility:[facility] Start: 10-10-2024 End: 10-10-2024 ambulatory ARYA ROSALES JR Facility:[facility] Start: 10-10-2024 End: 10-10-2024 Patient encounter procedure Arya Rosales MD Work Phone: Neurology Comment on above: Hypersomnia (Primary Dx); UARS (upper airway resistance syndrome); Spinal stenosis of cervical region; Cervicalgia; Pain in both upper extremities; Paresthesia of skin; Long-term current use of stimulant Start: 07-21-2024 End: 07-22-2024 ambulatory Micheal Johnson PT Work Phone: [facility] Comment on above: Tendonitis, Achilles , right (Primary Dx) Start: 07-14-2024 End: 07-14-2024 ambulatory Micheal Johnson PT Work Phone: [facility] Comment on above: Tendonitis, Achilles , right (Primary Dx) Start: 06-27-2024 End: 06-27-2024 ambulatory Micheal Jackelyn PT Work Phone: [facility] Comment on above: Tendonitis, Achilles , right (Primary Dx) Start: 06-07-2024 End: 06-07-2024 ambulatory LENY AMADOR Facility:[facility] Start: 06-07-2024 End: 06-07-2024 Patient encounter procedure Mary Neville Work Phone: Podiatry Comment on above: Tendonitis, Achilles , right (Primary Dx) Start: 06-07-2024 End: 06-07-2024 Subsequent hospital visit by physician [facility] [place] Work Phone: Radiology Comment on above: Pain in right foot [ M79.671] Start: 06-03-2024 End: 06-03-2024 Orders Only Mary Kelin Work Phone: Podiatry Comment on above: Pain in right foot ( Primary Dx) Start: 05-10-2024 End: 05-10-2024 ambulatory ELEUTERIO MCCLELLAN MD~[id number] Facility:[facility] Start: 05-03-2024 End: 05-03-2024 Refill Leny Amador APRN.RECORDS ANALYSIS MANAGER Work Phone: [facility] [place] Comment on above: Refill Request Start: 04-30-2024 End: 05-02-2024 Refill Liyah Mooney MD Work Phone: OB/Gynecology Comment on above: Refill Request Start: 04-21-2024 Refill Leny bee CLINICAL TRANSFORMATION SPECIALIST.RECORDS ANALYSIS MANAGER Work Phone: [facility] [place] Comment on above: Med Change Request Start: 04-21-2024 Telephone encounter Leny Baxter APRN.RECORDS ANALYSIS MANAGER Work Phone: [facility] [place] Comment on above: Results Start: 04-21-2024 End: 04-21-2024 Subsequent hospital visit by physician [facility] Work Phone: Nuclear Medicine Comment on above: Right upper quadrant abdominal pain [R10.11] Start: 04-18-2024 Telephone encounter Leny Baxter RECORDS ANALYSIS MANAGER Work Phone: [facility] [place] Start: 04-12-2024 ambulatory Leny Douglas rohit CLINICAL TRANSFORMATION SPECIALIST.RECORDS ANALYSIS MANAGER Work Phone: [facility] [place] Comment on above: how are you feeling? Start: 04-12-2024 E-mail encounter fro m caregiver Leny Amador GONZALEZ.RECORDS ANALYSIS MANAGER Work Phone: [facility] [place] Start: 04-07-2024 ambulatory [facility]ELLE [facility] Start: 04-07-2024 End: 04-07-2024 Subsequent hospital visit by physician [facility] Comment on above: Right upper quadrant abdominal pain [R10.11] Start: 04-06-2024 End: 04-06-2024 Office outpatient visit 25 minutes Lenyshantelle Amador GONZALEZ.RECORDS ANALYSIS MANAGER Work Phone: [facility] [place] Comment on above: Right upper quadrant abdominal pain (Primary Dx); Gastroesophageal reflux disease, unspecified whether esophagitis present; Epigastric pain; Nausea; Decreased appetite; Acute LUQ pain; Hx of gastric bypass; Intussusception (HCC) Start: 04-01-2024 End: 04-01-2024 ambulatory Liyahmeenu Sanchezne CLINICAL TRANSFORMATION SPECIALIST.RECORDS ANALYSIS MANAGER Work Phone: Neurology Comment on above: 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); UARS (upper airway resistance syndrome) Start: 04-01-2024 End: 04-01-2024 Telemedicine consultation with patient Liyah Pryor GONZALEZ.ELIANE Work Phone: Neurology Start: 04-01-2024 Telephone encounter Liyah sarmiento APRN.RECORDS ANALYSIS MANAGER Work Phone: Neurology Start: 03-30-2024 End: 03-30-2024 ambulatory LENY PERRY Facility:[facility] Start: 03-30-2024 End: 03-30-2024 Subsequent hospital visit by physician [facility] Work Phone: [facility] Comment on above: Gastroesophageal ref lux disease, unspecified whether esophagitis present [K21.9] Arrived Start: 03-30-2024 Telephone encounter Lenynaomi Baxter CLINICAL TRANSFORMATION SPECIALIST.RECORDS ANALYSIS MANAGER Work Phone: [facility] [place] Comment on above: Results; Orders Start: 03-30-2024 End: 03-30-2024 Patient encounter procedure Lenynaomi Amador CLINICAL TRANSFORMATION SPECIALIST.RECORDS ANALYSIS MANAGER Work Phone: [facility] [place] Comment on above: Gastroesophageal ref lux disease, unspecified whether esophagitis present (Primary Dx); Epigastric pain; Nausea; Decreased appetite; Acute LUQ pain; Hx of gastric bypass; Jaw pain Start: 10-25-2023 Refill Leny bee CLINICAL TRANSFORMATION SPECIALIST.RECORDS ANALYSIS MANAGER Work Phone: [facility] [place] Comment on above: Refill Request Start: 10-15-2023 Telephone encounter Yanet SCHMIDT Work Phone: [place] [facility] Comment on above: Results Start: 10-14-2023 End: 10-14-2023 Patient encounter procedure Fred Miranda MD Work Phone: [place] [facility] Comment on above: Influenza-like illne ss (Primary Dx); Exposure to influenza Start: 06-16-2023 ambulatory Leny bee CLINICAL TRANSFORMATION SPECIALIST.RECORDS ANALYSIS MANAGER Work Phone: [facility] [place] Comment on above: Sinus symptoms Start: 05-08-2023 Telephone encounter Leny Baxter CLINICAL TRANSFORMATION SPECIALIST.RECORDS ANALYSIS MANAGER Work Phone: [facility] [place] Comment on above: Results Start: 05-06-2023 Refill Cara Mccord APRN.RECORDS ANALYSIS MANAGER Work Phone: [facility] [place] Comment on above: Med Change Request Start: 05-06-2023 Telephone encounter Leny Baxter CLINICAL TRANSFORMATION SPECIALIST.RECORDS ANALYSIS MANAGER Work Phone: [facility] Comment on above: Prescription Clarifi cation Request Start: 05-04-2023 End: 05-04-2023 Patient encounter procedure Leny Forteutzman CLINICAL TRANSFORMATION SPECIALIST.[facility] Work Phone: [facility] Comment on above: Well adult exam ([facility] Dx); 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); Prolactin secreting pituitary adenoma (HCC); Vitamin D deficiency; Screening for lipid disorders; Encounter for vitamin deficiency screening; Screening for thyroid disorder; Depression with anxiety Start: 05-04-2023 End: 05-04-2023 Patient encounter status Leny Foretutzman CLINICAL TRANSFORMATION SPECIALIST.[facility] Work Phone: [facility] Work Phone: Start: 05-04-2023 Refill Leny bee CLINICAL TRANSFORMATION SPECIALIST.[facility] Work Phone: [facility] Comment on above: Refill Request Start: 11-26-2022 Refill Leny bee CLINICAL TRANSFORMATION SPECIALIST.[facility] Work Phone: [facility] Comment on above: Med Change Request Start: 11-25-2022 Refill Leny bee CLINICAL TRANSFORMATION SPECIALIST.[facility] Work Phone: [facility] Comment on above: Refill Request Start: 11-17-2022 Refill Cara Mccord CLINICAL TRANSFORMATION SPECIALIST.[facility] Work Phone: [facility] Comment on above: Refill Request Start: 11-05-2022 Telephone encounter Arya Rosales MD Work Phone: Neurology Comment on above: Results Start: 10-09-2022 End: 10-09-2022 Patient encounter procedure Cara Mccord CLINICAL TRANSFORMATION SPECIALIST.[facility] Work Phone: [facility] Comment on above: Bacterial sinusitis (Primary Dx) Start: 07-08-2022 End: 07-08-2022 Subsequent hospital visit by physician Diagnostic Mammo [facility] Mammogram Comment on above: Abnormal mammogram [ R92.8] Start: 07-04-2022 Refill Liyah maki MD Work Phone: OB/Gynecology Comment on above: Refill Request Start: 05-27-2022 ambulatory Arya vick MD Work Phone: Neurology Comment on above: Prior Authorization for Nuvigil Start: 05-27-2022 Refill Cara Fongc k CLINICAL TRANSFORMATION SPECIALIST.RECORDS ANALYSIS MANAGER Work Phone: [facility] [place] Comment on above: Med Change Request Start: 05-16-2022 Refill Leny Stutzm an CLINICAL TRANSFORMATION SPECIALIST.RECORDS ANALYSIS MANAGER Work Phone: [facility] [place] Comment on above: Refill Request Start: 05-15-2022 Refill Leny Stutzm an CLINICAL TRANSFORMATION SPECIALIST.RECORDS ANALYSIS MANAGER Work Phone: [facility] [place] Comment on above: Refill Request Start: 05-08-2022 End: 05-08-2022 Patient encounter procedure Leny Perry CLINICAL TRANSFORMATION SPECIALIST.RECORDS ANALYSIS MANAGER Work Phone: [facility] Comment on above: Depression with anxi ety (Primary Dx) Start: 05-08-2022 End: 05-08-2022 Patient encounter procedure Arya Rosales MD Work Phone: Neurology Comment on above: 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); Shift work sleep disorder; Upper airway resistance syndrome Start: 05-02-2022 Refill Leny Stutzm an CLINICAL TRANSFORMATION SPECIALIST.RECORDS ANALYSIS MANAGER Work Phone: [facility] Comment on above: Refill Request Start: 04-25-2022 Documentation procedure Mammog aminah Coordinator [facility] Start: 04-25-2022 Letter encounter Mammography Coordinator [facility] Department Start: 04-25-2022 Orders Only Liyah maki MD Work Phone: OB/Gynecology Comment on above: Abnormal mammogram ( Primary Dx) Start: 04-24-2022 End: 04-24-2022 Subsequent hospital visit by physician Screen Mammo [facility] Mammogram Comment on above: Encounter for screen ing mammogram for malignant neoplasm of breast [Z12.31] Start: 04-07-2022 End: 04-07-2022 Office outpatient visit 15 minutes Leny Perry GONZALEZ.RECORDS ANALYSIS MANAGER Work Phone: [facility] [place] Comment on above: Depression with anxi ety (Primary Dx) Start: 01-29-2022 Refill Leny bee CLINICAL TRANSFORMATION SPECIALIST.RECORDS ANALYSIS MANAGER Work Phone: [facility] [place] Comment on above: Refill Request Start: 01-05-2022 Refill Leny Douglas rohit CLINICAL TRANSFORMATION SPECIALIST.RECORDS ANALYSIS MANAGER Work Phone: [facility] [place] Comment on above: Refill Request Start: 12-03-2021 ambulatory Arya vick Jr., MD Work Phone: [facility] Start: 12-03-2021 Patient encounter procedure Wi yesi Rosales MD Work Phone: Sleep Comment on above: Appointment reschedu le request Start: 12-02-2021 Refill Liyah maki MD Work Phone: OB/Gynecology Comment on above: Refill Request Start: 11-20-2021 Refill Arya vick MD Work Phone: Sleep Comment on above: Refill Request; Refi ll Request Start: 11-05-2021 End: 11-05-2021 Patient encounter status Leny Perry CLINICAL TRANSFORMATION SPECIALIST.RECORDS ANALYSIS MANAGER Work Phone: [facility] Start: 12-02-2019 End: 12-02-2019 Subsequent hospital visit by physician Shiva Deluca Work Phone: [facility] Nuclear Medicine Comment on above: Arrived Procedures Date Procedure Procedure Detail Performing Clinician Start: 01-20-2025 Dxa bone density suman dy 1/> sites axial skel Leny Amador CLINICAL TRANSFORMATION SPECIALIST.RECORDS ANALYSIS MANAGER Work Phone: Start: 12-24-2024 Lipid 1996 panel - S nayana or Plasma Liyah Mooney MD Work Phone: Start: 04-21-2024 Hepatobil syst imag inc gb w/pharma intervenj Leny Amador CLINICAL TRANSFORMATION SPECIALIST.RECORDS ANALYSIS MANAGER Work Phone: Start: 04-07-2024 Us abdominal real ti me w/image limited Leny Amador CLINICAL TRANSFORMATION SPECIALIST.RECORDS ANALYSIS MANAGER Work Phone: Start: 03-30-2024 Ct abdomen & pelvis w/contrast material Leny Amador CLINICAL TRANSFORMATION SPECIALIST.RECORDS ANALYSIS MANAGER Work Phone: Start: 10-14-2023 COVID & INFLUENZA A/ B & RSV NAAT, ROUTINE Fred Miranda MD Work Phone: Start: 05-05-2023 Lipid 1996 panel - S nayana or Plasma Leny Amador CLINICAL TRANSFORMATION SPECIALIST.RECORDS ANALYSIS MANAGER Work Phone: Start: 07-08-2022 Us breast uni real t heber with image limited Liyah Mooney MD Work Phone: Start: 07-08-2022 HONORIO DIAG W SADE LEFT Re acosta Mooney MD Work Phone: Start: 04-24-2022 Mammography Liyah whitehead MD Work Phone: Start: 04-20-2021 Mammography Liyah whitehead MD Work Phone: Start: 12-02-2019 Lymphatics & lymph n odes imaging Shiva Deluca Work Phone: Start: 04-10-2014 Colonoscopy Liyah whitehead MD Work Phone: Plan of Treatment Date Care Activity Detail Author Start: 12-24-2029 Lipid panel Lipid Screening [facility] Start: 05-05-2028 Lipid 1996 panel - Serum or Plasma Lipid Screening [facility] Start: 05-05-2028 Lipid panel Lipid Screening [facility] Start: 05-05-2028 LIPID SCREEN LIPID SCREEN [facility] Start: 12-25-2027 Diabetes Screening Diabetes Screening [facility] Start: 05-30-2027 LIPID SCREEN LIPID SCREEN [facility] Start: 03-30-2027 Diabetes Screening Diabetes Screening [facility] Start: 05-05-2026 DIABETES SCREEN DIABETES SCREEN [facility] Start: 05-05-2026 Diabetes Screening Diabetes Screening [facility] Start: 09-27-2025 LIPID SCREEN LIPID SCREEN [facility] Start: 06-26-2025 End: 06-26-2025 Patient encounter procedure 06/26/2025 10:20 AM EDT Office Visit Neurology [address] [place] [address] Arya Rosales Jr., MD [address] [facility] [place] [address] follow up Neurology Comment on above: follow up Start: 05-30-2025 DIABETES SCREEN DIABETES SCREEN [facility] Start: 05-08-2025 [facility] Start: 05-01-2025 End: 05-01-2025 Patient encounter procedure Neurology Comment on above: 6 month follow up Start: 01-20-2025 End: 01-20-2025 Patient encounter procedure 01/20/2025 7:45 AM EDT Appointment Radiology [address] [facility] [place] [id number] Encounter for screening for osteoporosis [Z13.820]; Generalized weakness [R53.1]; Acute generalized body pain [R52]; Arthralgia, unspecified joint [M25.50]; Well adult exam [Z00.00]; Hx of gastric bypass [Z98.84] Radiology Comment on above: Encounter for screening for osteoporosis [Z13.820]; Generalized weakness [R53.1]; Acute generalized body pain [R52]; Arthralgia, unspecified joint [M25.50]; Well adult exam [Z00.00]; Hx of gastric bypass [Z98.84] Start: 12-17-2024 End: 12-17-2024 ambulatory 12/17/2024 8:00 AM EDT Results Only [facility] [address] [facility] [place] [address] lab [facility] Comment on above: lab Start: 12-16-2024 End: 03-17-2025 CBC panel - Blood by Automated count COMPLETE BLOOD COUNT Lab Routine Well adult exam Expected: 12/16/2024, Expires: 03/17/2025 [facility] Comment on above: Expected: 12/16/2024, Expires: Start: 12-16-2024 End: 03-17-2025 Comprehensive metabolic 2000 panel - Serum or Plasma COMPREHENSIVE METABOLIC PANEL Lab Routine Well adult exam Screening for diabetes mellitus Expected: 12/16/2024, Expires: 03/17/2025 [facility] Comment on above: Expected: 12/16/2024, Expires: Start: 12-16-2024 End: 03-17-2025 Hemoglobin A1c in Blood HEMOGLOBIN A1C Lab Routine Well adult exam Screening for diabetes mellitus Expected: 12/16/2024, Expires: 03/17/2025 [facility] Comment on above: Expected: 12/16/2024, Expires: Start: 12-16-2024 End: 03-17-2025 Lipid 1996 panel - Serum or Plasma LIPID PANEL, FASTING Lab Routine Well adult exam Screening for lipid disorders Expected: 12/16/2024, Expires: 03/17/2025 [facility] Comment on above: Expected: 12/16/2024, Expires: Start: 12-16-2024 End: 03-17-2025 Thyrotropin [Units/volume] in Serum or Plasma THYROID STIMULATING HORMONE Lab Routine Well adult exam Screening for thyroid disorder Expected: 12/16/2024, Expires: 03/17/2025 [facility] Comment on above: Expected: 12/16/2024, Expires: Start: 12-16-2024 End: 12-16-2024 Patient encounter procedure 12/16/2024 12:40 PM EDT Office Visit Family [facility] [place] [address] [place] [address] Leny Amador APRN.RECORDS ANALYSIS MANAGER [address] [place] [address] Follow up and return to work for shingles via [facility] Comment on above: Follow up and return to work for shingle s via mychart Start: 10-10-2024 End: 01-09-2025 TOXICOLOGY SCREEN, ROUTINE URINE [facility] Comment on above: Expected: 10/10/2024, Expires: Start: 10-10-2024 End: 10-10-2024 Patient encounter procedure Neurology Comment on above: 6 month follow up Start: 09-16-2024 Screening for malignant neoplasm of breast Mammogram Screening [facility] Start: 08-01-2024 End: 08-01-2024 ambulatory 08/01/2024 6:00 PM EST OT/PT/Speech Visit [facility] [address] [place] [address] Micheal Johnson, PT [address] [facility] [place] [address] Associated Diagnoses [facility] Comment on above: Associated Diagnoses Start: 07-25-2024 End: 07-25-2024 ambulatory 07/25/2024 6:00 PM EST OT/PT/Speech Visit [facility] [address] [place] [address] Micheal Johnson, PT [address] [facility] [place] [address] Associated Diagnoses [facility] Comment on above: Associated Diagnoses Start: 07-21-2024 End: 07-21-2024 ambulatory 07/21/2024 6:00 PM EST OT/PT/Speech Visit [facility] [address] [place] [address] Micheal Johnson, PT [address] [facility] [place] [address] Associated Diagnoses [facility] Comment on above: Associated Diagnoses Start: 07-14-2024 End: 07-14-2024 ambulatory 07/14/2024 6:00 PM EST OT/PT/Speech Visit [facility] [address] [place] [address] Micheal Johnson, PT [address] [facility] [place] [address] Associated Diagnoses [facility] Comment on above: Associated Diagnoses Start: 06-27-2024 End: 06-27-2024 ambulatory 06/27/2024 3:45 PM EDT OT/PT/Speech Visit [facility] [address] [place], [place] [address] Micheal Johnson, PT [address] [facility] [place] [address] Tendonitis, Achilles, right [M76.61] [facility] Comment on above: Tendonitis, Achilles, right [M76.61] Start: 06-07-2024 End: 06-07-2024 Patient encounter procedure 06/07/2024 8:00 AM EDT Office Visit Podiatry [address] [place] [id number] Mary Neville [address] [place] [address] right foot pain Podiatry Comment on above: right foot pain Start: 05-08-2024 Covid-19 Vaccine ( season) Covid-19 Vaccine ( season) [facility] Start: 05-08-2024 Influenza vaccination Influenza Vaccine (#1) [facility] Start: 05-06-2024 COVID-19 VACCINE (4 - Pfizer series) COVID-19 VACCINE (4 - Pfizer series) [facility] Comment on above: Postponed from 08/13/2021 (Declined at t his time) Start: 04-21-2024 End: 04-21-2024 Patient encounter procedure 04/21/2024 1:00 PM EDT Appointment Nuclear Medicine [address] [place] [address] Right upper quadrant abdominal pain [R10.11] [facility] Medicine Comment on above: Right upper quadrant abdominal pain [R10 .11] Start: 04-10-2024 Colonoscopy COLONOSCOPY [facility] Start: 04-10-2024 COLORECTAL CANCER SCREENING COLORECTAL CANCER SCREENING [facility] Start: 04-10-2024 Screening for malignant neoplasm of colon [facility] Start: 04-07-2024 End: 04-07-2024 Patient encounter procedure 04/07/2024 10:00 AM EDT Appointment [facility] [address] [place] [address] Right upper quadrant abdominal pain [R10.11] [facility] Comment on above: Right upper quadrant abdominal pain [R10 .11] Start: 04-01-2024 End: 04-01-2024 Patient encounter procedure 04/01/2024 4:00 PM EDT Office Visit Neurology [address] [place] [address] Liyah Pryor, CLINICAL TRANSFORMATION SPECIALIST.RECORDS ANALYSIS MANAGER [address] [place] [address] 6 month follow up Neurology Comment on above: 6 month follow up Start: 03-30-2024 End: 06-29-2024 Comprehensive metabolic 2000 panel - Serum or Plasma [facility] Comment on above: Expected: 03/30/2024, Expires: Start: 03-30-2024 End: 06-29-2024 Lipase [Enzymatic activity/volume] in Serum or Plasma [facility] Comment on above: Expected: 03/30/2024, Expires: Start: 09-27-2023 DIABETES SCREEN DIABETES SCREEN [facility] Start: 06-07-2023 End: 08-07-2023 Corticotropin [Mass/volume] in Plasma ACTH BLD Lab Routine Prolactin secreting pituitary adenoma (HCC) 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) Low serum adrenocorticotrophic hormone (ACTH) Expected: 06/07/2023, Expires: 08/07/2023 [facility] Work Phone: Comment on above: Expected: 06/07/2023, Expires: 3 Start: 05-08-2023 Covid-19 Vaccine () Covid-19 Vaccine () [facility] Start: 05-08-2023 Influenza vaccination [facility] Start: 04-24-2023 Mammography [facility] Start: 08-22-2022 Urine microalbumin profile DTAP,TDAP,TD (1 - Tdap) [facility] Comment on above: Postponed from 12/10/1987 (Declined at t his time) Start: 05-08-2022 Influenza vaccination INFLUENZA (#1) [facility] Start: 04-20-2022 Mammography MAMMOGRAM [facility] Start: 10-19-2021 COVID-19 VACCINE (4 - Booster for Pfizer series) COVID-19 VACCINE (4 - Booster for Pfizer series) [facility] Start: 08-13-2021 COVID-19 VACCINE (4 - Booster for Pfizer series) COVID-19 VACCINE (4 - Booster for Pfizer series) [facility] Start: 08-13-2021 COVID-19 VACCINE (4 - Pfizer series) COVID-19 VACCINE (4 - Pfizer series) [facility] Start: 05-08-2019 Influenza vaccination Flu vaccine (#1) [place], [place] Start: 2018 Breast cancer screen Breast cancer screen [place], [place] Start: 2018 Colon cancer screen colonoscopy Colon cancer screen colonoscopy [place], [place] Start: 2018 Pneumococcal Vaccine: 50+ (1 of 1 - PCV) Pneumococcal Vaccine: 50+ (1 of 1 - PCV) [facility] Start: 2018 Shingles Vaccine (1 of 2) Shingles Vaccine (1 of 2) [place], [place] Start: 2018 SHINGRIX VACCINE (1 of 2) SHINGRIX VACCINE (1 of 2) [facility] Start: 2013 COLOGUARD (FIT-DNA) COLOGUARD (FIT-DNA) [facility] Start: [address] COLONOGRAPHY [facility] Start: 2013 FECAL OCCULT BLOOD FECAL OCCULT BLOOD [facility] Start: 2013 Screening for malignant neoplasm of colon [facility] Start: 2013 SIGMOIDOSCOPY SIGMOIDOSCOPY [facility] Start: 2008 Lipid screen Lipid screen [place], [place] Start: 1989 Cervical cancer screen Cervical cancer screen [place], [place] Start: 12-10-1987 ADULT PREVNAR-13 ADULT PREVNAR-13 [facility] Start: 12-10-1987 DTaP/Tdap/Td vaccine (1 - Tdap) DTaP/Tdap/Td vaccine (1 - Tdap) [place] Start: 12-10-1987 TWO PNEUMOVAX 5 YEARS APART PRIOR TO AGE 65 (#1) TWO PNEUMOVAX 5 YEARS APART PRIOR TO AGE 65 (#1) [facility] Start: 12-10-1987 Urine microalbumin profile [facility] Start: 12-10-1983 HIV screen HIV screen [place], [place] Start: 1974 PNEUMOCOCCAL (1 - PCV) PNEUMOCOCCAL (1 - PCV) [facility] End: 01-15-2026 BD DXA TRABECULAR BONE SCORE (TBS) BD DXA TRABECULAR BONE SCORE (TBS) Radiology Routine Encounter for screening for osteoporosis Generalized weakness Acute generalized body pain Arthralgia, unspecified joint Well adult exam Hx of gastric bypass 1 Occurrences starting 12/16/2024 until 01/15/2026 [facility] Comment on above: 1 Occurrences starting 12/16/2024 until 01/15/2026 End: 11-24-2025 DBT Breast - bilateral screening HONORIO SCREENING W SADE Radiology Routine Encounter for screening mammogram for breast cancer 1 Occurrences starting 10/25/2024 until 11/24/2025 [facility] Work Phone: Comment on above: 1 Occurrences starting 10/25/2024 until 11/24/2025 End: 05-25-2023 Diagnostic mammography computer-aided detcj uni HONORIO DIAGNOSTIC LT Radiology Routine Abnormal mammogram 1 Occurrences starting 04/25/2022 until 05/25/2023 [facility] Work Phone: Comment on above: 1 Occurrences starting 04/25/2022 until 05/25/2023 End: 01-15-2026 DXA Skeletal system.axial Views for bone density DXA-AXIAL SKELETON Radiology Routine Encounter for screening for osteoporosis Generalized weakness Acute generalized body pain Arthralgia, unspecified joint Well adult exam Hx of gastric bypass 1 Occurrences starting 12/16/2024 until 01/15/2026 [facility] Work Phone: Comment on above: 1 Occurrences starting 12/16/2024 until 01/15/2026 ECG COMPLETE ECG COMPLETE ECG Routine Gastroesophageal reflux disease, unspecified whether esophagitis present Epigastric pain Nausea Decreased appetite Acute LUQ pain Hx of gastric bypass Jaw pain Ordered: 03/30/2024 [facility] Work Phone: Comment on above: Ordered: 03/30/2024 Ecg routine ecg w/least 12 lds i&r only ECG INTERPRETATION & REPORT ONLY Cardiology Routine Hypersomnia Long-term current use of stimulant Ordered: 10/10/2024 [facility] Comment on above: Ordered: 10/10/2024 End: 04-24-2022 HONORIO SCREENING W SADE [facility] Work Phone: Comment on above: 1 Occurrences starting 04/24/2022 until 04/24/2022 End: 11-09-2025 MR Cervical spine WO contrast MRI CERVICAL SPINE WO IVCON Radiology Routine Spinal stenosis of cervical region Cervicalgia Pain in both upper extremities Paresthesia of skin 1 Occurrences starting 10/10/2024 until 11/09/2025 [facility] Work Phone: Comment on above: 1 Occurrences starting 10/10/2024 until 11/09/2025 End: 05-06-2025 NM Biliary ducts and Gallbladder Views for patency of biliary structures and ejection fraction W sincalide and W radionuclide IV NM HEPATOBILIARY W EF AND/OR RX Radiology Routine Right upper quadrant abdominal pain Gastroesophageal reflux disease, unspecified whether esophagitis present Epigastric pain Nausea Decreased appetite Acute LUQ pain Hx of gastric bypass 1 Occurrences starting 04/06/2024 until 05/06/2025 [facility] Comment on above: 1 Occurrences starting 04/06/2024 until 05/06/2025 End: 05-06-2025 US Abdomen RUQ US ABD RIGHT UPPER QUADRANT Radiology STAT Right upper quadrant abdominal pain Gastroesophageal reflux disease, unspecified whether esophagitis present Epigastric pain Nausea Decreased appetite Acute LUQ pain Hx of gastric bypass 1 Occurrences starting 04/06/2024 until 05/06/2025 [facility] Work Phone: Comment on above: 1 Occurrences starting 04/06/2024 until 05/06/2025 End: 05-25-2023 Us breast uni real time with image limited US BREAST LTD LT Radiology Routine Abnormal mammogram 1 Occurrences starting 04/25/2022 until 05/25/2023 [facility] Work Phone: Comment on above: 1 Occurrences starting 04/25/2022 until 05/25/2023 End: 07-03-2025 XR Foot - right AP and Lateral and oblique XR FOOT GENERAL 3V AP/LAT/OBL RIGHT Radiology Routine Pain in right foot 1 Occurrences starting 06/03/2024 until 07/03/2025 [facility] Work Phone: Comment on above: 1 Occurrences starting 06/03/2024 until 07/03/2025 XR Foot - right AP a nd Lateral and oblique XR FOOT GENERAL 3V AP/LAT/OBL RIGHT Radiology Routine Pain in right foot 06/07/2024 8:23 AM EDT [facility] Work Phone: [facility] Immunizations Immunization Date Immunization Notes Care Provider Fa [facility] 08-02-2024 influenza virus vacc ine, unspecified formulation Roxanna Prescott CLINICAL TRANSFORMATION SPECIALIST.RECORDS ANALYSIS MANAGER Work Phone: [facility] 07-07-2022 influenza virus vacc ine, unspecified formulation Leny Amador CLINICAL TRANSFORMATION SPECIALIST.RECORDS ANALYSIS MANAGER Work Phone: [facility] 06-07-2021 influenza, injectabl e, quadrivalent, preservative free Liyah Mooney MD Work Phone: [facility] 06-07-2021 influenza virus vacc ine, unspecified formulation Fred Miranda MD Work Phone: [facility] 09-19-2020 COVID-19 vaccine, ag e 12+ yr (PFIZER-BIONTECH - PURPLE TOP) Liyah Mooney MD Work Phone: [facility] 08-29-2020 COVID-19 vaccine, ag e 12+ yr (PFIZER-BIONTECH - PURPLE TOP) Liyah Mooney MD Work Phone: [facility] 05-14-2020 influenza, high dose seasonal, preservative-free Liyah Mooney MD Work Phone: [facility] 06-14-2019 influenza virus vacc ine, unspecified formulation Liyah Mooney MD Work Phone: [facility] 05-30-2018 influenza virus vacc ine, unspecified formulation Liyah Mooney MD Work Phone: [facility] 07-31-2015 influenza, injectabl e, quadrivalent, preservative free Liyah Mooney MD Work Phone: [facility] 07-06-2013 influenza, seasonal, injectable Liyah Mooney MD Work Phone: [facility] 07-01-2005 influenza virus vacc ine, whole virus Liyah Mooney MD Work Phone: [facility] 09-19-1992 hepatitis B vaccine, adult dosage Liyah Mooney MD Work Phone: [facility] 04-11-1992 hepatitis B vaccine, adult dosage Liyah Mooney MD Work Phone: [facility] 03-12-1992 hepatitis B vaccine, adult dosage Liyah Mooney MD Work Phone: [facility] Payers Date Payer Category Payer Private Health Insurance [id number] 2024 Private Health Insurance [id number] 2024 Unknown MMO MMO MHS [id number] 2024-Present [phone] [address] [place] [address] Indemnity [id number] 2024 Unknown [id number] 2023 Private Health Insurance [id number] 2018 Private Health Insurance AETNA AETNA CHOICE POS II [id number] 2018-Present [phone] [address] [place] [address] POS [id number] 2018 Private Health Insurance [id number] 1959 Self-pay Unknown [id number] Unknown [id number] Social History Date Type Detail Facility Tobacco smoking stat us NHIS Unknown if ever smoked [facility] Sex Assigned At Not on file [employer] [facility] Start: 01-11-2014 End: 05-08-2022 Tobacco smoking status NHIS Never smoked tobacco [facility] Start: 11-05-2021 End: 12-16-2024 Alcohol intake Current drinker of alcohol (finding) [facility] Start: 10-30-2019 End: 05-05-2022 History SDOH Alcohol Frequency 4 [facility] Start: 10-30-2019 End: 05-05-2022 History SDOH Alcohol Std Drinks 1 [facility] Start: 10-30-2019 End: 05-05-2022 History SDOH Alcohol Binge 3 [facility] Start: 03-19-2007 History SDOH Alcohol Comment OCCASIONALLY, NOT WHILE [facility] Start: 10-30-2019 History SDOH Social Connections Phone 5 [facility] Start: 10-30-2019 End: 05-05-2022 History SDOH Social Connections Get Together 2 [facility] Start: 10-30-2019 History SDOH Social Connections Anglican 98 [facility] Start: 10-29-2019 Education 16 [facility] Start: 1970 Sex Assigned At Female [facility] Start: 10-06-2021 End: 07-08-2022 Exposure to SARS-CoV-2 (event) Not sure [facility] Start: 01-11-2014 End: 05-08-2022 Tobacco use and exposure Smokeless tobacco non-user [facility] Start: 05-03-2023 End: 10-08-2024 History of Social function [facility] Start: 05-03-2023 End: 10-08-2024 Social connection and isolation panel [facility] Do you belong to any clubs or organizations such as zoroastrianism groups, unions, fraternal or athletic groups, or school groups? No [facility] Are you now , , , , never or living with a partner? [facility] How often to you hav e a drink containing alcohol? 2-3 time sa week [facility] How many standard dr inks containing alcohol do you have on a typical day? 3 or 4 [facility] How often do you hav e 6 or more drinks on 1 occasion? Weekly [facility] How hard is it for y ou to pay for the very basics like food, housing, medical care, and heating Not very hard [facility] Adult Depression Screening Assessment 2 [facility] Do you feel stress - tense, restless, nervous, or anxious, or unable to sleep at night because your mind is troubled all the time - these days [OSQ] Very much [facility] (I/We) worried christelle er (my/our) food would run out before (I/we) got money to buy more. Never true [facility] In the past 12 month s, was there a time when you were not able to pay the mortgage or rent on time? Yes [facility] Start: 10-10-2019 Gender identity Identifies as female gender (finding) [facility] Start: 10-10-2019 Sexual orientation Heterosexual (finding) [facility] How often do you hav e 6 or more drinks on 1 occasion? Less than monthly [facility] Do you feel stress - tense, restless, nervous, or anxious, or unable to sleep at night because your mind is troubled all the time - these days [OSQ] Rather much [facility] Functional Status Date Assessment Result Facility 11-05-2019 Are you deaf, or do you have serious difficulty hearing No 11/05/2019 4:12 PM Negro Ely III, MD No [facility] 11-05-2019 Are you blind, or do you have serious difficulty seeing, even when wearing glasses No 11/05/2019 4:12 PM Negro Ely III, MD No [facility] 11-05-2019 Do you have serious difficulty walking or climbing stairs No 11/05/2019 4:12 PM Negro Ely III, MD No [facility] 11-05-2019 Do you have difficul ty dressing or bathing No 11/05/2019 4:12 PM Negro Ely III, MD No [facility] 11-05-2019 Because of a physica l, mental, or emotional condition, do you have difficulty doing errands alone such as visiting a physician's office or shopping No 11/05/2019 4:12 PM Negro Ely III, MD No [facility] Mental Status Date Assessment Result Facility 11-05-2019 Because of a physica l, mental, or emotional condition, do you have serious difficulty concentrating, remembering, or making decisions No 11/05/2019 4:12 PM Negro Ely III, MD No [facility] Clinical Notes 05-15-2021 to 02-15-2025 Telephone Encounter - Cris Ware LPN - 02/15/2025 10:14 AM EDTTelephone Encounter - Cris Ware LPN - 02/15/2025 10:14 AM EDTCAnnita dietz RT(R) - 01/20/2025 7:45 AM EDT Note Date & Type Note Facility 02-15-2025 Telephone encounter Note Patient has been identified by name and date of : Patient phones for refill(s): Requested Prescriptions Pending Prescriptions Disp Refills mometasone (ELOCON) 0.1 % cream 45 g 1 Sig: apply bid prn budesonide (PULMICORT FLEXHALER) 90 mcg/actuation aepb Sig: Inhale 2 puffs as instructed two times a day as needed. loratadine (CLARITIN) 10 mg tablet 30 tablet 0 Sig: Take 1 tablet by mouth once daily. Date of last office visit in primary care: 12/16/2024 Date of next office visit in primary care: Visit date not found Please advise. Thank you. Cris Ware LPN. [facility] Work Phone: 02-15-2025 Miscellaneous Notes Patient has been identified by name and date of : Patient phones for refill(s): Requested Prescriptions Pending Prescriptions Disp Refills mometasone (ELOCON) 0.1 % cream 45 g 1 Sig: apply bid prn budesonide (PULMICORT FLEXHALER) 90 mcg/actuation aepb Sig: Inhale 2 puffs as instructed two times a day as needed. loratadine (CLARITIN) 10 mg tablet 30 tablet 0 Sig: Take 1 tablet by mouth once daily. Date of last office visit in primary care: 12/16/2024 Date of next office visit in primary care: Visit date not found Please advise. Thank you. Cris Ware LPN. documented in this encounter [facility] 02-06-2025 Telephone encounter Note PDMP website checked and validated. All prescriptions have been APPROPRIATELY filled. No suspicious activity was identified. 02/06/2025 by Arya Rosales MD [facility] 02-06-2025 Miscellaneous Notes PDMP website checked and validated. All prescriptions have been APPROPRIATELY filled. No suspicious activity was identified. 02/06/2025 by Arya Rosales MD Prescription Refill Information The patient has been identified by name and date of : Yes Caregiver verified no other encounters exist for this prescription request: Yes Caregiver confirmed with patient/requestor that no other refills are due, in the near future, with this provider at this time: Yes The last office visit in the department: 10/10/[address] Rosales Does the patient have a future office visit with this provider/department: Yes, 05/01/2025 Requested Prescriptions Pending Prescriptions Disp Refills gabapentin (NEURONTIN) 300 mg capsule [Pharmacy Med Name: gabapentin 300 mg capsule] 60 capsule 2 Sig: Take 1 capsule by mouth two times a day. CHARMAINE Eden February 06, 2025 8:14 AM documented in this encounter [facility] 02-06-2025 Telephone encounter Note Prescription Refill Information The patient has been identified by name and date of : Yes Caregiver verified no other encounters exist for this prescription request: Yes Caregiver confirmed with patient/requestor that no other refills are due, in the near future, with this provider at this time: Yes The last office visit in the department: 10/10/[address] Rosales Does the patient have a future office visit with this provider/department: Yes, 05/01/2025 Requested Prescriptions Pending Prescriptions Disp Refills gabapentin (NEURONTIN) 300 mg capsule [Pharmacy Med Name: gabapentin 300 mg capsule] 60 capsule 2 Sig: Take 1 capsule by mouth two times a day. CHARMAINE Eden February 06, 2025 8:14 AM [facility] 01-20-2025 History of Present illness Narrative Radiology Service Progress Note PATIENT NAME: Deedee Hunt DATE OF SERVICE: January 20, 2025 TIME: 7:50 AM PATIENT IDENTITY VERIFICATION COMPLETED USING TWO (2) IDENTIFIERS: Name and Date of confirmed by patient verbally. FALL SCREENING: Has the patient had 2 falls in the last year or 1 fall with injury or currently using an Ambulatory Assistive Device (Walker, Cane, Wheelchair, Crutches, etc.)? No PATIENT GENDER DATA: Assigned female at . status: : No status: NO. PATIENT RELEVANT IMPLANT DATA REVIEWED: Not Applicable PATIENT PRESENTS WITH AN IMPLANTABLE OR ATTACHED SENIOR LANDSCAPE ARCHITECT: No RADIOLOGY DEPARTMENT: Bone Density PERIPHERAL IV DATA: Not applicable SIGNED BY: AMANDA Chowdary) January 20, 2025 7:50 AM documented in this encounter [facility] 01-20-2025 Note HNO ID: [id number] Author: ANNITA WYATT RT(R) Service: ? Author Type: Technologist Type: Progress Notes Filed: 01/20/2025 07:59 Note Text: Radiology Service Progress Note PATIENT NAME: Deedee Hunt DATE OF SERVICE: January 20, 2025 TIME: 7:50 AM PATIENT IDENTITY VERIFICATION COMPLETED USING TWO (2) IDENTIFIERS: Name and Date of confirmed by patient verbally. FALL SCREENING: Has the patient had 2 falls in the last year or 1 fall with injury or currently using an Ambulatory Assistive Device (Walker, Cane, Wheelchair, Crutches, etc.)? No PATIENT GENDER DATA: Assigned female at . status: : No status: NO. PATIENT RELEVANT IMPLANT DATA REVIEWED: Not Applicable PATIENT PRESENTS WITH AN IMPLANTABLE OR ATTACHED SENIOR LANDSCAPE ARCHITECT: No RADIOLOGY DEPARTMENT: Bone Density PERIPHERAL IV DATA: Not applicable SIGNED BY: Annita Wyatt RT(R) January 20, 2025 7:50 AM [facility] 01-19-2025 Telephone encounter Note Last OV 09/16/23. [employer] message sent to Pt advising her to schedule an appt to be seen. Requested Prescriptions Pending Prescriptions Disp Refills estradiol (ESTRACE) 1 mg tablet 90 tablet 1 Sig: Take 1 tablet by mouth once daily. Kae Forman RN [facility] 01-19-2025 Miscellaneous Notes Last OV 09/16/23. [employer] message sent to Pt advising her to schedule an appt to be seen. Requested Prescriptions Pending Prescriptions Disp Refills estradiol (ESTRACE) 1 mg tablet 90 tablet 1 Sig: Take 1 tablet by mouth once daily. Kae Forman RN documented in this encounter [facility] 12-19-2024 Telephone encounter Note Ingris spoke with patient regarding [employer] cost for medication. Patient notes that her new job the [employer] is not on the formulary. Sw did locate a [employer] Savings and Support number for savings card. Not sure how much it will be able to assist with cost, patient notes that she is open to calling and checking in to savings. Ingris provided patient with the [employer] Savings Support ph. [phone]. Patient thanked Ingris for info and noted that she will give program a call. Patient notes that she will let LUIS Shi and or Ingris know if further assistance is needed. [facility] 12-19-2024 Miscellaneous Notes Sw spoke with patient regarding [employer] cost for medication. Patient notes that her new job the [employer] is not on the formulary. Sw did locate a [employer] Savings and Support number for savings card. Not sure how much it will be able to assist with cost, patient notes that she is open to calling and checking in to savings. Sw provided patient with the [employer] Savings Support ph. [phone]. Patient thanked Ingris for info and noted that she will give program a call. Patient notes that she will let LUIS Shi and or Ingr[employer] know if further assistance is needed. documented in this encounter [facility] 12-16-2024 Instructions Leny Amador APRN.RECORDS ANALYSIS MANAGER - 12/16/2024 1:49 PM EDT BONE MINERAL DENSITY PATIENT INSTRUCTIONS === Bone mineral density testing measures the amount of calcium in certain parts of your bones. This information determines how strong your bones are. The test is used to detect osteoporosis, a disease in which the bone's mineral content and density are low, increasing a person's risk of fractures. The lumbar spine (lower back) and the hip are the skeletal sites usually examined. For the test, remember that: 1. You cannot take this test if you are . 2. Eat a normal diet on the day of the test. 3. Take your medications as you normally would. 4. DO NOT take calcium supplements (such as Tums) for 24 hours before the test. 5. On the day of the test, leave valuables (jewelry or credit cards) at home. 6. The test should be performed prior to oral, rectal or IV contrast studies, or at least 7 days after any of these studies. For the test, you may be asked to wear a hospital gown. You will lie on your back, on a padded table, in a comfortable position. Generally, you can resume your usual activities immediately. documented in this encounter [facility] 12-16-2024 Note HNO ID: [id number] Author: LENY AMADOR APRN.RECORDS ANALYSIS MANAGER Service: ? Author Type: Nurse Practitioner Type: Progress Notes Filed: 12/16/2024 15:21 Note Text: Chief Complaint Patient presents with: Release to return to work post Shingles: [facility] in urgent care 12/08/24 HPI Deedee Hunt is a 54 year old female who presents here today for Above Complaints.. Was diagnosed with shingles 11/08/24 at workplace [facility] - has been taking valocyclovir. Lesion has crusted over, is still painful, tylenol and ibuprofen helps. Needs return to work form. All over body and joint aching has been going on for a long time. Patient has concern for bone density. Is worried she is not able to absorb nutrients well since having gastric bypass surgery. Gemtessa is the only thing that works for her OAB but her insurance stopped paying for it. She didn't tolerate Mirbitriq. Other OAB medications haven't been effective in the past. Past medical history, appointments, medications, allergies reviewed. Previous Medical History PAST MEDICAL HISTORY Diagnosis Date Acquired pancytopenia (HCC) 12/27/2013 Anemia Depression 01/29/2012 Hepatic steatosis 11/05/09 Iron deficiency anemia Morbid obesity (HCC) Pituitary tumor PMH - PAST MEDICAL HISTORY OF VARICOSE VEINS Prolactin secreting pituitary adenoma (HCC) 02/09/2018 diagnosed in 2010 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) 12/27/2013 Previous Surgical History PAST SURGICAL HISTORY Procedure Laterality Date DELIVERY ONLY 07/09/2005 DELIVERY ONLY 11/04/07 COLONOSCOPY FLX DX W/COLLJ SPEC WHEN PFRMD 04/10/14 Colonoscopy ESOPHAGOGASTRODUODENOSCOPY TRANSORAL DIAGNOSTIC 04/10/14 EGD laproscopic roue-en-y gastric bypass 11/05/09 LAPS W/VAG HYSTERECT 250 GM/ANDRMVL TUBEAND/OVARIES 04/27/14 LAVH, bilateral salpingectomy, HMB, anemia LIG/TRNSXJ FLP TUBE ABDL/VAG APPR UNI/BI 11/04/07 done at PAST SURGICAL HISTORY OF 2002 IANDD cyst on back PAST SURGICAL HISTORY OF 2001 IANDD ABSESS OF FACE PAST SURGICAL HISTORY OF 2004 IANDD CYST ON POSTERIOR THIGH PAST SURGICAL HISTORY OF CRYOCAUTERY OF VAGINAL LESIONS PAST SURGICAL HISTORY OF Melanoma excision with LN biopsy TONSILLECTOMY PRIMARY/SECONDARY Family History FAMILY HISTORY Problem Relation Age of Onset Hypertension Mother Heart Mother other (lymphoma) Mother other (Melanoma) Mother Hypertension Father Heart Father COPD Father Emphysema Father other (congestive heart failure) Father other (pvd) Father Cancer Maternal Grandmother RECTAL Patient Allergies ALLERGIES Allergen Reactions Benzoyl Peroxide Rash Clindamycin Rash Sulfa (Sulfonamide * Hives Current Medications Current Outpatient Medications on File Prior to Visit Medication Sig FLUoxetine (PROZAC) 40 mg capsule Take 1 capsule by mouth once daily. loratadine (CLARITIN) 10 mg tablet Take 1 tablet by mouth once daily. pantoprazole DR (PROTONIX) 40 mg tablet Take 1 tablet by mouth daily before breakfast. Take on empty stomach, 1/2 hr before meal. cabergoline (DOSTINEX) 0.5 mg tablet Take 1 tablet by mouth every Thursday and Thursday. gabapentin (NEURONTIN) 300 mg capsule Take 1 capsule by mouth two times a day for 90 days. armodafinil (NUVIGIL) 250 mg tab Take 1/2 to 1 tab in AM as directed. estradiol (ESTRACE) 1 mg tablet Take 1 tablet by mouth once daily. GEMTESA 75 mg tablet Take 1 tablet by mouth every afternoon. ketoconazole (NIZORAL) 2 % shampoo Apply 1 application to affected area once daily as needed. ubidecarenone (COENZYME Q10) 100 mg tab Take by mouth once daily. OTC PRODUCT Immune Defend - 2 capsules daily FERROUS SULFATE ORAL Take by mouth. Clobetasol Propionate (TEMOVATE) 0.05 % external solution Apply to affected area twice daily. mometasone (ELOCON) 0.1 % cream apply bid prn budesonide (PULMICORT FLEXHALER) 90 mcg/actuation aepb Inhale 2 Puffs as instructed twice daily as needed. acetaminophen (TYLENOL) 500 mg tablet take 2 tablets by mouth every 8 hours if needed for pain OR FEVER COMPOUNDED PRESCRIPTION Journey 3+3 Bariatric Multivitamin Take 3 capsules in am and Take 3 capsules in PM No current facility-administered medications on file prior to visit. Social History Social History Tobacco Use Smoking status: Never Smokeless tobacco: Never Vaping Use Vaping status: Never Used Substance Use Topics Alcohol use: Yes Comment: OCCASIONALLY, NOT WHILE Drug use: No Review of Symptoms REVIEW OF SYSTEMS See HPI, otherwise negative EXAM: LMP 03/31/2014 General Appearance: Well appearing, alert, in no acute distress, well-hydrated, well nourished.. Skin: lesion from shingles: left cheek dry, flaked lesion approximately [id number]. No break in skin or drainage noted. Lungs: Lungs clear to auscultation. No wheezing, rhonchi, rales.. Heart: RRR without mur (more content not included)... [facility] 12-16-2024 History of Present illness Narrative Chief Complaint Patient presents with: Release to return to work post Shingles: [facility] in urgent care 12/08/24 HPI Deedee Hunt is a 54 year old female who presents here today for Above Complaints.. Was diagnosed with shingles 11/08/24 at workplace [facility] - has been taking valocyclovir. Lesion has crusted over, is still painful, tylenol and ibuprofen helps. Needs return to work form. All over body and joint aching has been going on for a long time. Patient has concern for bone density. Is worried she is not able to absorb nutrients well since having gastric bypass surgery. [employer]essa is the only thing that works for her OAB but her insurance stopped paying for it. She didn't tolerate Mirbitriq. Other OAB medications haven't been effective in the past. Past medical history, appointments, medications, allergies reviewed. Previous Medical History PAST MEDICAL HISTORY Diagnosis Date Acquired pancytopenia (HCC) 12/27/2013 Anemia Depression 01/29/2012 Hepatic steatosis 11/05/09 Iron deficiency anemia Morbid obesity (HCC) Pituitary tumor PMH - PAST MEDICAL HISTORY OF VARICOSE VEINS Prolactin secreting pituitary adenoma (HCC) 02/09/2018 diagnosed in 2010 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) 12/27/2013 Previous Surgical History PAST SURGICAL HISTORY Procedure Laterality Date DELIVERY ONLY 07/09/2005 DELIVERY ONLY 11/04/07 COLONOSCOPY FLX DX W/COLLJ SPEC WHEN PFRMD 04/10/14 Colonoscopy ESOPHAGOGASTRODUODENOSCOPY TRANSORAL DIAGNOSTIC 04/10/14 EGD laproscopic roue-en-y gastric bypass 11/05/09 LAPS W/VAG HYSTERECT 250 GM/&RMVL TUBE&/OVARIES 04/27/14 LAVH, bilateral salpingectomy, HMB, anemia LIG/TRNSXJ FLP TUBE ABDL/VAG APPR UNI/BI 11/04/07 done at PAST SURGICAL HISTORY OF 2002 I&D cyst on back PAST SURGICAL HISTORY OF 2001 I&D ABSESS OF FACE PAST SURGICAL HISTORY OF 2004 I&D CYST ON POSTERIOR THIGH PAST SURGICAL HISTORY OF CRYOCAUTERY OF VAGINAL LESIONS PAST SURGICAL HISTORY OF Melanoma excision with LN biopsy TONSILLECTOMY PRIMARY/SECONDARY <AGE 10 1975 Family History FAMILY HISTORY Problem Relation Age of Onset Hypertension Mother Heart Mother other (lymphoma) Mother other (Melanoma) Mother Hypertension Father Heart Father COPD Father Emphysema Father other (congestive heart failure) Father other (pvd) Father Cancer Maternal Grandmother RECTAL Patient Allergies ALLERGIES Allergen Reactions Benzoyl Peroxide Rash Clindamycin Rash Sulfa (Sulfonamide * Hives Current Medications Current Outpatient Medications on File Prior to Visit Medication Sig FLUoxetine (PROZAC) 40 mg capsule Take 1 capsule by mouth once daily. loratadine (CLARITIN) 10 mg tablet Take 1 tablet by mouth once daily. pantoprazole DR (PROTONIX) 40 mg tablet Take 1 tablet by mouth daily before breakfast. Take on empty stomach, 1/2 hr before meal. cabergoline (DOSTINEX) 0.5 mg tablet Take 1 tablet by mouth every Thursday and Thursday. gabapentin (NEURONTIN) 300 mg capsule Take 1 capsule by mouth two times a day for 90 days. armodafinil (NUVIGIL) 250 mg tab Take 1/2 to 1 tab in AM as directed. estradiol (ESTRACE) 1 mg tablet Take 1 tablet by mouth once daily. GEMTESA 75 mg tablet Take 1 tablet by mouth every afternoon. ketoconazole (NIZORAL) 2 % shampoo Apply 1 application to affected area once daily as needed. ubidecarenone (COENZYME Q10) 100 mg tab Take by mouth once daily. OTC PRODUCT Immune Defend - 2 capsules daily FERROUS SULFATE ORAL Take by mouth. Clobetasol Propionate (TEMOVATE) 0.05 % external solution Apply to affected area twice daily. mometasone (ELOCON) 0.1 % cream apply bid prn budesonide (PULMICORT FLEXHALER) 90 mcg/actuation aepb Inhale 2 Puffs as instructed twice daily as needed. acetaminophen (TYLENOL) 500 mg tablet take 2 tablets by mouth every 8 hours if needed for pain OR FEVER COMPOUNDED PRESCRIPTION Journey 3+3 Bariatric Multivitamin Take 3 capsules in am and Take 3 capsules in PM No current facility-administered medications on file prior to visit. Social History Social History Tobacco Use Smoking status: Never Smokeless tobacco: Never Vaping Use Vaping status: Never Used Substance Use Topics Alcohol use: Yes Comment: OCCASIONALLY, NOT WHILE Drug use: No Review of Symptoms REVIEW OF SYSTEMS See HPI, otherwise negative EXAM: LMP 03/31/2014 General Appearance: Well appearing, alert, in no acute distress, well-hydrated, well nourished.. Skin: lesion from shingles: left cheek dry, flaked lesion approximately [id number]. No break in skin or drainage noted. Lungs: Lungs clear to auscultation. No wheezing, rhonchi, rales.. Heart: RRR without murmur, gallop, or rubs. No ectopy. Psychiatric: pleasant, cooperative Health Maintenance List DTaP,Tdap,Td Vaccine(1 - Tdap) Never done Shingrix Vaccine(1 of 2) Never done Pneumococcal Vaccine: 50+(1 of 1 - PCV) Never done Colorectal Cancer Screening due on 04/10/2024 Covid-19 Vaccine(2023- season) due on 05/08/2024 Mammogram Screening due on 09/16/2024 Diabetes Screening due on 03/30/2027 Lipid Screening due on 05/05/2028 Hepatitis B Vaccine Completed Influenza Vaccine Completed Hepatitis C Screening Completed HIV Screening Completed Cervical Cancer Screening Discontinued Data reviewed ASSESSMENT/PLAN: 1. Encounter for screening for osteoporosis - ICD9: V82.81, ICD10: Z13.820 (primary diagnosis) - encouraged her to take multivitamin with calcium /vitamin D3, and magnesium - DXA-AXIAL SKELETON - BD DXA TRABECULAR BONE SCORE (TBS) 2. Generalized weakness - ICD9: 780.79, ICD10: R53.1 - encouraged her to take multivitamin with calcium /vitamin D3, and magnesium - DXA-AXIAL SKELETON - BD DXA TRABECULAR BONE SCORE (TBS) 3. Acute generalized body pain - ICD9: 338.19, ICD10: R52 - encouraged her to take multivitamin with calcium /vitamin D3, and magnesium - DXA-AXIAL SKELETON - BD DXA TRABECULAR BONE SCORE (TBS) 4. Arthralgia, unspecified joint - ICD9: 719.40, ICD10: M25.50 - DXA-AXIAL SKELETON - BD DXA TRABECULAR BONE SCORE (TBS) 5. Well adult exam - ICD9: V70.0, ICD10: Z00.00 - Counseled on healthy diet and regular exercise - DXA-AXIAL SKELETON - BD DXA TRABECULAR BONE SCORE (TBS) - COMPLETE BLOOD COUNT - COMPREHENSIVE METABOLIC PANEL - HEMOGLOBIN A1C - THYROID STIMULATING HORMONE - LIPID PANEL, FASTING 6. Screening for diabetes mellitus - ICD9: V77.1, ICD10: Z13.1 - COMPREHENSIVE METABOLIC PANEL - HEMOGLOBIN A1C 7. Screening for thyroid disorder - ICD9: V77.0, ICD10: Z13.29 - THYROID STIMULATING HORMONE 8. Screening for lipid disorders - ICD9: V77.91, ICD10: Z13.220 - LIPID PANEL, FASTING 9. Hx of gastric bypass - ICD9: V45.86, ICD10: Z98.84 - DXA-AXIAL SKELETON - BD DXA TRABECULAR BONE SCORE (TBS) 10. OAB (overactive bladder) - ICD9: 596.51, ICD10: N32.81 - consult with social work coordinator to get gemtesa approved - GEMTESA 75 MG TABLET Follow-up as needed Bettie Molina Attending Note I have personally performed a face to face assessment of the patient and have reviewed the YANDY note and I agree. Other additions or changes: As edited Signature: Leny Amador Date: 12/16/2024 Time: 3:21 PM documented in this encounter [facility] 12-15-2024 Telephone encounter Note Prescription Refill Information The patient has been identified by name and date of : Yes Caregiver verified no other encounters exist for this prescription request: Yes Caregiver confirmed with patient/requestor that no other refills are due, in the near future, with this provider at this time: Yes The last office visit in the department: 04/06/24 Does the patient have a future office visit with this provider/department: Yes Requested Prescriptions Pending Prescriptions Disp Refills FLUoxetine (PROZAC) 40 mg capsule 90 capsule 1 Sig: Take 1 capsule by mouth once daily. Yenni Timmons LPN December 15, 2024 9:23 AM [facility] 12-15-2024 Miscellaneous Notes Prescription Refill Information The patient has been identified by name and date of : Yes Caregiver verified no other encounters exist for this prescription request: Yes Caregiver confirmed with patient/requestor that no other refills are due, in the near future, with this provider at this time: Yes The last office visit in the department: 04/06/24 Does the patient have a future office visit with this provider/department: Yes Requested Prescriptions Pending Prescriptions Disp Refills FLUoxetine (PROZAC) 40 mg capsule 90 capsule 1 Sig: Take 1 capsule by mouth once daily. Yenni Timmons LPN December 15, 2024 9:23 AM documented in this encounter [facility] 12-14-2024 Telephone encounter Note Prescription Refill Information The patient has been identified by name and date of : Yes Caregiver verified no other encounters exist for this prescription request: Yes Caregiver confirmed with patient/requestor that no other refills are due, in the near future, with this provider at this time: Yes The last office visit in the department: 04/06/2024 Does the patient have a future office visit with this provider/department: Yes Requested Prescriptions Pending Prescriptions Disp Refills pantoprazole DR (PROTONIX) 40 mg tablet 30 tablet 11 Sig: Take 1 tablet by mouth daily before breakfast. Take on empty stomach, 1/2 hr before meal. Evy Gomes MA December 14, 2024 7:36 AM [facility] 12-14-2024 Miscellaneous Notes Prescription Refill Information The patient has been identified by name and date of : Yes Caregiver verified no other encounters exist for this prescription request: Yes Caregiver confirmed with patient/requestor that no other refills are due, in the near future, with this provider at this time: Yes The last office visit in the department: 04/06/2024 Does the patient have a future office visit with this provider/department: Yes Requested Prescriptions Pending Prescriptions Disp Refills pantoprazole DR (PROTONIX) 40 mg tablet 30 tablet 11 Sig: Take 1 tablet by mouth daily before breakfast. Take on empty stomach, 1/2 hr before meal. Evy Gomes MA December 14, 2024 7:36 AM documented in this encounter [facility] 12-14-2024 Telephone encounter Note Prescription Refill Information The patient has been identified by name and date of : Yes Caregiver verified no other encounters exist for this prescription request: Yes Caregiver confirmed with patient/requestor that no other refills are due, in the near future, with this provider at this time: Yes The last office visit in the department: 04/06/2024 Does the patient have a future office visit with this provider/department: No Requested Prescriptions Pending Prescriptions Disp Refills loratadine (CLARITIN) 10 mg tablet 30 tablet 0 Sig: Take 1 tablet by mouth once daily. Evy Gomes MA December 14, 2024 7:31 AM [facility] 12-14-2024 Miscellaneous Notes Prescription Refill Information The patient has been identified by name and date of : Yes Caregiver verified no other encounters exist for this prescription request: Yes Caregiver confirmed with patient/requestor that no other refills are due, in the near future, with this provider at this time: Yes The last office visit in the department: 04/06/2024 Does the patient have a future office visit with this provider/department: No Requested Prescriptions Pending Prescriptions Disp Refills loratadine (CLARITIN) 10 mg tablet 30 tablet 0 Sig: Take 1 tablet by mouth once daily. Evy Gomse MA December 14, 2024 7:31 AM documented in this encounter [facility] 11-14-2024 Telephone encounter Note Last OV 09/16/23. Per last OV note with RR-continue cabergoline and consider trial off of it last year Requested Prescriptions Pending Prescriptions Disp Refills cabergoline (DOSTINEX) 0.5 mg tablet 16 tablet 1 Sig: Take 1 tablet by mouth every Thursday and Thursday. Kae Forman RN [facility] 11-14-2024 Miscellaneous Notes Last OV 09/16/23. Per last OV note with RR-continue cabergoline and consider trial off of it last year Requested Prescriptions Pending Prescriptions Disp Refills cabergoline (DOSTINEX) 0.5 mg tablet 16 tablet 1 Sig: Take 1 tablet by mouth every Thursday and Thursday. Kae Forman RN documented in this encounter [facility] 10-25-2024 Note Patient Outreach (FA MPWS) ---- DEEDEE MARKS ([id number]) 1970 F Date Time Provider Department 10/25/24 LENY AMADOR During your visit today, we recorded the following information about you: Allergies As of Date: 10/25/2024 Noted Allergy Reaction BENZOYL PEROXIDE 09/16/2023 2 - Rash CLINDAMYCIN 08/21/2005 2 - Rash SULFA (SULFONAMIDE ANTIBIOTICS) 08/08/2005 4 - Hives Date Reviewed: 10/10/2024 Reviewed by: Arya Rosales Jr., MD - Fully Assessed Visit Diagnosis:Encounter for screening mammogram for breast cancer [Z12.31] Order(s):[facility]CRE[facility] [[id number]] Order #: [id number] FUTURE Prescriptions as of 11/25/2024 - cabergoline (DOSTINEX) 0.5 mg tablet Take 1 tablet by mouth every Thursday and Thursday. - gabapentin (NEURONTIN) 300 mg capsule Take 1 capsule by mouth two times a day for 90 days. - armodafinil (NUVIGIL) 250 mg tab Take 1/2 to 1 tab in AM as directed. - estradiol (ESTRACE) 1 mg tablet Take 1 tablet by mouth once daily. - FLUoxetine (PROZAC) 40 mg capsule Take 1 capsule by mouth once daily. - GEMTESA 75 mg tablet Take 1 tablet by mouth every afternoon. - ketoconazole (NIZORAL) 2 % shampoo Apply 1 application to affected area once daily as needed. - ubidecarenone (COENZYME Q10) 100 mg tab Take by mouth once daily. - OTC PRODUCT Immune Defend - 2 capsules daily - FERROUS SULFATE ORAL Take by mouth. - Clobetasol Propionate (TEMOVATE) 0.05 % external solution Apply to affected area twice daily. - mometasone (ELOCON) 0.1 % cream apply bid prn - budesonide (PULMICORT FLEXHALER) 90 mcg/actuation aepb Inhale 2 Puffs as instructed twice daily as needed. - loratadine (CLARITIN) 10 mg tablet Take 1 tablet by mouth once daily. - pantoprazole DR (PROTONIX) 40 mg tablet Take 1 tablet by mouth daily before breakfast. Take on empty stomach, 1/2 hr before meal. - acetaminophen (TYLENOL) 500 mg tablet take 2 tablets by mouth every 8 hours if needed for pain OR FEVER - COMPOUNDED PRESCRIPTION Journey 3+3 Bariatric Multivitamin Take 3 capsules in am and Take 3 capsules in PM Meds Comments as of 08/22/2021: Daily immune support-started with COVID pandemic Problem List As Of Date 10/25/2024 Noted Resolved Abdominal pain, unspecified site [R10.9] 07/04/2006 03/18/2017 SUPERVIS OTHER NORMAL PREG [Z34.80] 03/19/2007 11/06/2007 Morbid obesity [E66.01] 09/28/2008 01/29/2012 Hepatic Steatosis [K76.0] 02/07/2010 Depression [F32.A] 01/29/2012 Head contusion [S00.93XA] 01/24/2013 03/29/2014 Cervical muscle strain [S16.1XXA] 01/24/2013 Left cervical radiculopathy [M54.12] 01/24/2013 Secondary hyperprolactinemia due to prolactin-s*12/27/2013 Iron deficiency anemia due to dietary causes [D*12/27/2013 03/23/2017 Acquired pancytopenia (HCC) [D61.818] 12/27/2013 03/23/2017 Iron deficiency [E61.1] 01/11/2014 02/15/2014 Situational mixed anxiety and depressive disord*02/05/2017 History of gastric bypass [Z98.84] 03/18/2017 Prolactin secreting pituitary adenoma (HCC) [D3*02/09/2018 Mixed stress and urge urinary incontinence [N39*06/03/2018 GERD with esophagitis [K21.00] 11/01/2019 Malignant melanoma of left lower extremity incl*12/15/2019 Adult ADHD [F90.9] 09/27/2020 Hyperlipidemia with target LDL less than 130 [E*09/27/2020 Lumbar radiculopathy [M54.16] 09/27/2020 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 Author Type: Physician Type: Progress Notes Filed: 10/10/2024 11:14 Note Text: ESTABLISHED PATIENT VISIT CHIEF COMPLAINT: Follow Up HISTORY OF PRESENT ILLNESS: Deedee Hunt is a 53 year old female, BMI 36.64 kg/m2 with a PMH significant for and per last visit with Mark Pryor on 03/2624 (distance visit): Hypersomnia due to medical condition (primary encounter diagnosis) Uars (upper airway resistance syndrome) Deedee Hunt is a 53 year old female with hypersomnia, UARS. 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 Armodafinil is effective at managing her excessive daytime sleepiness. Has UARS, sleeps on her side. PMH of obesity, hx gastric bypass, anxiety, depression, melanoma, mixed incontinence, GERD, hyperlipidemia. PLAN: - Continue taking armodafinil as directed. - Avoid driving when drowsy. - recovery collector for short naps (20-30 minutes) and use of caffeine if needed to help stay awake when driving. - Try to get at least 7-9 hours of sleep in a 24 hour period. Healthy diet and exercise can also promote better sleep. Patient has changed jobs and not really working shifts anymore - typical work schedule is 8-430AM. Has to drive 1 hour to get there - [facility]. Still taking Armodafinil daily - but only taking 250mg 3 times per week and 125mg the other 4 days of the week. ESS is improving. Biggest problem with sleep at present is chronic cervical spine issue that is progressively worsening. When lies down at night, the raoul UEs can go numb. Also notices discomfort in arms and fingers when typing on a computer. But both activities are associate with neck pain (posterior cervical that patient feels radiate into the arm as well as C3-4. Symptoms progressively worsening since trauma over 10 years ago. No recent imaging. Patient has undergone stints of physical therapy with no improvement. Pt also knows history of CTS. History of UARS - pt trying to sleep off-supine. No new symptoms to suggest worsening of disease. PHQ 9 Data More data exists 10/08/2024 04/01/2024 03/25/2024 PHQ-9 All Questions Little interest or pleasure in doing things: 0 0 0 Feeling down, depressed, or hopeless: 0 0 0 Trouble falling or staying asleep, or sleeping too much 1 2 2 Feeling tired or having little energy 3 3 3 Poor appetite or overeating 0 2 2 Feeling bad about yourself - or that you are a failure or have let yourself or your family down 0 0 0 Trouble concentrating on things, such as reading the newspaper or watching television 1 1 1 Moving or speaking so slowly that other people could have noticed. Or the opposite - being so fidgety or restless that you have been moving around a lot more than usual 0 1 1 Thoughts that you would be better off , or of hurting yourself in some way 0 0 0 PHQ-9 Score 5 9 9 Details KOLE 7 Data 05/03/2023 KOLE-7 All Questions Feeling nervous, anxious, or on edge Several days Not being able to stop or control worrying Nearly Everyday Worrying too much about different things More than half the days Trouble relaxing Several days Being so restless that it is hard to sit still Not at all Becoming easily annoyed or irritable Several days Feeling afraid, as if something awful might happen Several days KOLE-7 Score 9 Details PROMIS-10 More data exists PROMIS Global Health - (T-Scores - the mean of general population = 50. Five points is a clinically meaningful difference.) Physical T-Score Mental T-Score 10/08/2024 37.4 43.5 06/27/2024 47.7 45.8 04/01/2024 44.9 41.1 Details [place] Sleepiness Scale Scores More data exists 10/08/2024 04/01/2024 09/28/2023 [place] Sleepiness Scale Score 11 Abnormal 18 Abnormal 15 Abnormal Details Insomnia Severity Index Scores More data exists 10/08/2024 03/25/2024 10/02/2022 Insomnia Severity Index Score 12 12 12 REVIEW OF SYSTEMS GENERAL:No weight loss, malaise or fevers. HEENT:Negative for frequent or significant headaches, No changes in hearing or vision, no nose bleeds or other nasal problems NECK:Negative for lumps, goiter, pain and significant neck swelling RESPIRATORY: Negative for cough, wheezing or shortness of breath. CARDIOVASCULAR: Negative for chest pain, leg swelling or palpitations. GASTROINTESTINAL: Negative for abdominal discomfort, blood in stools or black stools or change in bowel habits GENITOURINARY: No history of dysuria, frequency or incontinence MUSCULOSKELETAL: Negative for joint pain or swelling, back pain or muscle pain. NEUROLOGIC:Negative for focal numbness or weakness, headaches and dizziness or syncope, vision changes, speech/languag changes - EXCEPT that as per HPI above. SKIN:Negative for lesions, rash, and itching. LAB/IMAGING: Those performed since patient's last visit have been reviewed. WBC (k/uL) Date Value (more content not included)... [facility] 10-10-2024 History of Present illness Narrative Images from the original note were not included. ESTABLISHED PATIENT VISIT CHIEF COMPLAINT: Follow Up HISTORY OF PRESENT ILLNESS: Deedee Hunt is a 53 year old female, BMI 36.64 kg/m2 with a PMH significant for and per last visit with Mark Pryor on 03/2624 (distance visit): Hypersomnia due to medical condition (primary encounter diagnosis) Uars (upper airway resistance syndrome) Deedee Hunt is a 53 year old female with hypersomnia, UARS. 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 Armodafinil is effective at managing her excessive daytime sleepiness. Has UARS, sleeps on her side. PMH of obesity, hx gastric bypass, anxiety, depression, melanoma, mixed incontinence, GERD, hyperlipidemia. PLAN: - Continue taking armodafinil as directed. - Avoid driving when drowsy. - recovery collector for short naps (20-30 minutes) and use of caffeine if needed to help stay awake when driving. - Try to get at least 7-9 hours of sleep in a 24 hour period. Healthy diet and exercise can also promote better sleep. Patient has changed jobs and not really working shifts anymore - typical work schedule is 8-430AM. Has to drive 1 hour to get there - [facility]. Still taking Armodafinil daily - but only taking 250mg 3 times per week and 125mg the other 4 days of the week. ESS is improving. Biggest problem with sleep at present is chronic cervical spine issue that is progressively worsening. When lies down at night, the raoul UEs can go numb. Also notices discomfort in arms and fingers when typing on a computer. But both activities are associate with neck pain (posterior cervical that patient feels radiate into the arm as well as C3-4. Symptoms progressively worsening since trauma over 10 years ago. No recent imaging. Patient has undergone stints of physical therapy with no improvement. Pt also knows history of CTS. History of UARS - pt trying to sleep off-supine. No new symptoms to suggest worsening of disease. PHQ 9 Data More data exists 10/08/2024 04/01/2024 03/25/2024 PHQ-9 All Questions Little interest or pleasure in doing things: 0 0 0 Feeling down, depressed, or hopeless: 0 0 0 Trouble falling or staying asleep, or sleeping too much 1 2 2 Feeling tired or having little energy 3 3 3 Poor appetite or overeating 0 2 2 Feeling bad about yourself - or that you are a failure or have let yourself or your family down 0 0 0 Trouble concentrating on things, such as reading the newspaper or watching television 1 1 1 Moving or speaking so slowly that other people could have noticed. Or the opposite - being so fidgety or restless that you have been moving around a lot more than usual 0 1 1 Thoughts that you would be better off , or of hurting yourself in some way 0 0 0 PHQ-9 Score 5 9 9 Details KOLE 7 Data 05/03/2023 KOLE-7 All Questions Feeling nervous, anxious, or on edge Several days Not being able to stop or control worrying Nearly Everyday Worrying too much about different things More than half the days Trouble relaxing Several days Being so restless that it is hard to sit still Not at all Becoming easily annoyed or irritable Several days Feeling afraid, as if something awful might happen Several days KOLE-7 Score 9 Details PROMIS-10 More data exists PROMIS Global Health - (T-Scores - the mean of general population = 50. Five points is a clinically meaningful difference.) Physical T-Score Mental T-Score 10/08/2024 37.4 43.5 06/27/2024 47.7 45.8 04/01/2024 44.9 41.1 Details [place] Sleepiness Scale Scores More data exists 10/08/2024 04/01/2024 09/28/2023 [place] Sleepiness Scale Score 11 Abnormal 18 Abnormal 15 Abnormal Details Insomnia Severity Index Scores More data exists 10/08/2024 03/25/2024 10/02/2022 Insomnia Severity Index Score 12 12 12 REVIEW OF SYSTEMS GENERAL:No weight loss, malaise or fevers. HEENT:Negative for frequent or significant headaches, No changes in hearing or vision, no nose bleeds or other nasal problems NECK:Negative for lumps, goiter, pain and significant neck swelling RESPIRATORY: Negative for cough, wheezing or shortness of breath. CARDIOVASCULAR: Negative for chest pain, leg swelling or palpitations. GASTROINTESTINAL: Negative for abdominal discomfort, blood in stools or black stools or change in bowel habits GENITOURINARY: No history of dysuria, frequency or incontinence MUSCULOSKELETAL: Negative for joint pain or swelling, back pain or muscle pain. NEUROLOGIC:Negative for focal numbness or weakness, headaches and dizziness or syncope, vision changes, speech/languag changes - EXCEPT that as per HPI above. SKIN:Negative for lesions, rash, and itching. LAB/IMAGING: Those performed since patient's last visit have been reviewed. WBC (k/uL) Date Value 03/30/2024 6.52 RBC (m/uL) Date Value 03/30/2024 4.33 Hemoglobin (g/dL) Date Value 03/30/2024 14.0 Hematocrit (%) Date Value 03/30/2024 43.3 MCV (fL) Date Value 03/30/2024 100.0 MCH (pg) Date Value 03/30/2024 32.3 MCHC (g/dL) Date Value 03/30/2024 32.3 RDW-CV (%) Date Value 03/30/2024 12.9 Platelet Count (k/uL) Date Value 03/30/2024 183 MPV (fL) Date Value 03/30/2024 11.9 Glucose (mg/dL) Date Value 03/30/2024 101 (H) BUN (mg/dL) Date Value 03/30/2024 14 Creatinine (mg/dL) Date Value 03/30/2024 0.86 Sodium (mmol/L) Date Value 03/30/2024 137 Potassium (mmol/L) Date Value 03/30/2024 4.5 Chloride (mmol/L) Date Value 03/30/2024 104 CO2 (mmol/L) Date Value 03/30/2024 26 Protein, Total (g/dL) Date Value 03/30/2024 6.8 Albumin (g/dL) Date Value 03/30/2024 4.6 Calcium, Total (mg/dL) Date Value 03/30/2024 9.6 Alkaline Phosphatase (U/L) Date Value 03/30/2024 60 Bilirubin, Total (mg/dL) Date Value 03/30/2024 0.4 AST (U/L) Date Value 03/30/2024 26 ALT (U/L) Date Value 03/30/2024 35 MEDICATIONS: estradiol (ESTRACE) 1 mg tablet Take 1 tablet by mouth once daily. FLUoxetine (PROZAC) 40 mg capsule Take 1 capsule by mouth once daily. armodafinil (NUVIGIL) 250 mg tab Take 1/2 to 1 tab in AM as directed. Do not start before May 08, 2024. GEMTESA 75 mg tablet Take 1 tablet by mouth every afternoon. cabergoline (DOSTINEX) 0.5 mg tablet Take 1 tablet by mouth every Thursday and Thursday. ketoconazole (NIZORAL) 2 % shampoo Apply 1 application to affected area once daily as needed. ubidecarenone (COENZYME Q10) 100 mg tab Take by mouth once daily. OTC PRODUCT Immune Defend - 2 capsules daily FERROUS SULFATE ORAL Take by mouth. Clobetasol Propionate (TEMOVATE) 0.05 % external solution Apply to affected area twice daily. mometasone (ELOCON) 0.1 % cream apply bid prn budesonide (PULMICORT FLEXHALER) 90 mcg/actuation aepb Inhale 2 Puffs as instructed twice daily as needed. loratadine (CLARITIN) 10 mg tablet Take 1 tablet by mouth once daily. pantoprazole DR (PROTONIX) 40 mg tablet Take 1 tablet by mouth daily before breakfast. Take on empty stomach, 1/2 hr before meal. 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) 12/27/2013 FAMILY HISTORY Problem Relation Age of Onset Hypertension Mother Heart Mother other (lymphoma) Mother other (Melanoma) Mother Hypertension Father Heart Father COPD Father Emphysema Father other (congestive heart failure) Father other (pvd) Father Cancer Maternal Grandmother RECTAL SOCIAL HISTORY Social History Tobacco Use Smoking status: Never Smokeless tobacco: Never Vaping Use Vaping status: Never Used Substance Use Topics Alcohol use: Yes Comment: OCCASIONALLY, NOT WHILE Drug use: No PHYSICAL EXAMINATION BP 137/84 (BP Site: Left Arm, BP Position: Sitting) Pulse 77 Wt 95 kg (209 lb 6.4 oz) LMP 03/31/2014 SpO2 99% BMI 36.64 kg/m GENERAL EXAM: General appearance: NAD, pleasant. HEENT: NC/AT, nasal congestion absent, no oral lesions, membranes moist. NECK: No masses, supple. Lungs: CTA bilaterally. CV: RRR nl S1, S2 Extr: No cyanosis, clubbing or edema. Skin: Cool to touch. NEUROLOGICAL EXAM: General: Awake, alert, oriented x3 (person,place,time), fluent, no dysarthria; comprehension, naming, repetition intact. Fund of knowledge grossly normal. CN: PERRL, EOMI and without nystagmus, VFF to confrontation, facial sensation and strength are normal and symmetric, hearing is intact to finger rub bilaterally, palate and tongue movements are intact and symmetric. SCM and trapezius strength normal. Motor: Normal tone, bulk and strength (5/5) bilaterally (throughout extremities x4). Coordination: FNF, RAEGAN, HTS intact. No tremors. Sensation: Light touch intact throughout. No evidence of neglect. Gait: Stable with normal stride and arm swing. Assessment and Plan: ASSESSMENT/PLAN: 1. Hypersomnia - ICD9: 780.54, ICD10: G47.10 (primary diagnosis) Stable as above, with change in work schedule and continued use of Armodafinil 125 to 250mg daily. No side effects or ADRs. Will continue meds given pt's perceived benefit. BP and HR stable. Does need ECG and UDS -- annual -- and will be ordered today. Advised pt not to drive or operate heavy machinery if sleepy. 2. UARS (upper airway resistance syndrome) - ICD9: 327.8, ICD10: G47.8 Stable with pt noting no change in symptoms. Continue to sleep in the off-supine position. Encouraged weight loss. 3. Spinal stenosis of cervical region - ICD9: 723.0, ICD10: M48.02 4. Cervicalgia - ICD9: 723.1, ICD10: M54.2 5. Pain in both upper extremities - ICD9: 729.5, ICD10: M79.601, M79.602 6. Paresthesia of skin - ICD9: 782.0, ICD10: R20.2 Chronic cervicalgia that is progressing over time and resulting in multiple awakenings at night with pain radiating into upper extremities with numbness as well. History of CTS but symptoms originating in neck and radiating distal to the hands. PT provided no relief in the past. No neck imaging in years. Will proceed with MRI C spine to evaluate for C spine stenosis. If MRI unremarkable, then to consider EMG/NCV for peripheral source (less likely based on history). For discomfort will place on trial of gabapentin 300mg BID. SE and ADRs d/w pt. 7. Long-term current use of stimulant/wake promoting agent - ICD9: V58.69, ICD10: Z79.899 - ECG INTERPRETATION & REPORT ONLY - TOXICOLOGY SCREEN, ROUTINE URINE Arya Rosales MD PDMP website checked and validated. All prescriptions have been APPROPRIATELY filled. No suspicious activity was identified. 10/10/2024 by Arya Rosales MD I spent a total of 35 minutes on the date of the service which included preparing to see the patient, [id number] patient care, completing clinical documentation, obtaining and/or reviewing separately obtained history, performing a medically appropriate examination, counseling and educating the patient/family/caregiver, ordering medications, tests, or procedures, and communicating results to the patient/family/caregiver. Medical Decision Making: Problems: Moderate: 2+ stable chronic illnesses and New problem with uncertain prognosis Data: Unique test result(s) reviewed: 2 Unique test(s) ordered: 3+ Risk: Moderate: Drug management Medical Decision Making Level: 4 - Moderate 10/08/2024 PROMIS Global Health Physical Health Summary Physical health: Fair Everyday physical activity, ability: Mostly Fatigue: Moderate Pain level: 7 General health: Good Social activities/roles, ability: Good Physical Health T-Score 37.4 (Fair) Physical Health Percentile 10 PROMIS Global Health Mental Health Summary Quality of life: Good Mental health (mood,thinking): Good Social satisfaction: Good Emotional problems (anxious,depressed): Sometimes Mental Health T-Score 43.5 (Good) Mental Health Percentile 26 PHQ-9 Score: 5(Mild Depression) PHQ-9 Self-Harm: Not at all Percentiles provide an indication of how a patient's score ranks in relation to the [place] general population. > 31st percentile is within normal limits or better *< 31st percentile is at least SD worse than population, which may be clinically relevant < 16th percentile is at least 1 SD worse than population and warrants attention documented in this encounter [facility] 10-10-2024 Note HNO ID: [id number] Author: DAJUAN HURST LPN Service: ? Author Type: LICENSED NURSE Type: Progress Notes Filed: 10/10/2024 11:14 Note Text: 10/08/2024 PROMIS Global Health Physical Health Summary Physical health: Fair Everyday physical activity, ability: Mostly Fatigue: Moderate Pain level: 7 General health: Good Social activities/roles, ability: Good Physical Health T-Score 37.4 (Fair) Physical Health Percentile 10 PROMIS Global Health Mental Health Summary Quality of life: Good Mental health (mood,thinking): Good Social satisfaction: Good Emotional problems (anxious,depressed): Sometimes Mental Health T-Score 43.5 (Good) Mental Health Percentile 26 PHQ-9 Score: 5(Mild Depression) PHQ-9 Self-Harm: Not at all Percentiles provide an indication of how a patient's score ranks in relation to the [place] general population. > 31st percentile is within normal limits or better *< 31st percentile is at least ? SD worse than population, which may be clinically relevant < 16th percentile is at least 1 SD worse than population and warrants attention [facility] 09-12-2024 Note HNO ID: [id number] Author: MICHEAL JOHNSON, PT Service: ? Author Type: Physical Therapist Type: Progress Notes Filed: 09/12/2024 10:18 Note Text: 09/12/2024 [facility]ER[facility] PHYSICAL THERAPY DISCONTINUANCE OF CARE Plan of Care Period: Start of Care Date: 06/27/24 Last Visit Date: 07/21/2024 Therapy Program: The following is a summary of the interventions provided for this episode of care; Therapeutic exercise and Manual therapy Assessment: Based on most recent visit, patient was progressing as expected toward functional goals based on home exercise program compliance, documented subjective information on progress, and appointment compliance. Unable to formally assess goal achievement, as patient has not returned to therapy or scheduled additional follow-up appointments. Reason for Discontinuation of Care: Patient has not returned to therapy or scheduled additional follow-up appointments. Micheal Johnson PT [facility] 07-21-2024 Note HNO ID: [id number] Author: MICHEAL JOHNSON PT Service: ? Author Type: Physical Therapist Type: Progress Notes Filed: 07/21/2024 18:45 Note Text: Episode Visit Count: 3 Therapist That Will Accept/Oversee The Plan Of Care: Micheal Johnson PT. Start of Care Date: 06/27/24 Onset Date: 06/28/23 Patient Identified by Name and Date of : Yes REHABILITATION AND SPORTS THERAPY PHYSICAL THERAPY TREATMENT NOTE ASSESSMENT: Deedee Hunt tolerated the session with expected muscle soreness. She demonstrated difficulty with Eccentric Calf Control. The patient will continue to benefit from ongoing skilled physical therapy to progress toward set goals. PLAN FOR NEXT VISIT: Progress strength as tolerated; MT PRN SUBJECTIVE: States weather can worsened sxs in the Foot. Comes in with light symptoms today. States calf soreness following last session. At least 1x a day. Pain: Pain Pain Level: 3 Pain Location: Ankle - Right Description: Sore Post Treatment Pain Post Treatment Pain Level: Better Post Treatment Pain Location: Ankle - Right OBJECTIVE MEASURES WITH LEVEL OF FUNCTION: Inc Difficulty with R SL Heel Raise Iso Holds TREATMENT: Therapeutic Exercise: 1: Prostretch Gastroc: 3x30 RLE. 2: Prostretch Soleus: 3x30. 3: R Heel Drop: 2x15, 6inch Step. 4: 2:1 R Ankle Eccentric Lowers: 2x10, 3-sec lower. 5: Seated B Soleus Raises: 2x15, BTB around thighs. 6: Seated B Soleus Raise Iso Hold, with ABD: 2x15, BTB around thighs. 7: Wall R Calf Raise Iso Hold: 1x15, 5-sec hold. Skilled Intervention: Patient was educated in proper exercise technique and purpose for exercises. Skilled judgment was used in selection of appropriate interventions. Manual Therapy: Soft Tissue Mobilization: IaSTM to R Achilles Tendon: Push to tolerance. Skilled Intervention: Manual skills to improve joint mobility, ROM, and decrease pain. Utilized anatomy knowledge of the therapist, and assessment of patient's response to intervention. Billing Therapeutic Exercise Treatment Minutes: 29 Manual TherapyTreatment Minutes: 10 Skilled Treatment Time Minutes (timed and untimed codes): 39 Total Session Time (minutes): 39 Session Start Time : 180 Session Stop Time : 1840 Micheal Johnson PT [facility] 07-21-2024 History of Present illness Narrative Episode Visit Count: 3 Therapist That Will Accept/Oversee The Plan Of Care: Micheal Johnson PT. Start of Care Date: 06/27/24 Onset Date: 06/28/23 Patient Identified by Name and Date of : Yes REHABILITATION AND SPORTS THERAPY PHYSICAL THERAPY TREATMENT NOTE ASSESSMENT: Deedee Hunt tolerated the session with expected muscle soreness. She demonstrated difficulty with Eccentric Calf Control. The patient will continue to benefit from ongoing skilled physical therapy to progress toward set goals. PLAN FOR NEXT VISIT: Progress strength as tolerated; MT PRN SUBJECTIVE: States weather can worsened sxs in the Foot. Comes in with light symptoms today. States calf soreness following last session. At least 1x a day. Pain: Pain Pain Level: 3 Pain Location: Ankle - Right Description: Sore Post Treatment Pain Post Treatment Pain Level: Better Post Treatment Pain Location: Ankle - Right OBJECTIVE MEASURES WITH LEVEL OF FUNCTION: Inc Difficulty with R SL Heel Raise Iso Holds TREATMENT: Therapeutic Exercise: 1: Prostretch Gastroc: 3x30 RLE. 2: Prostretch Soleus: 3x30. 3: R Heel Drop: 2x15, 6inch Step. 4: 2:1 R Ankle Eccentric Lowers: 2x10, 3-sec lower. 5: Seated B Soleus Raises: 2x15, BTB around thighs. 6: Seated B Soleus Raise Iso Hold, with ABD: 2x15, BTB around thighs. 7: Wall R Calf Raise Iso Hold: 1x15, 5-sec hold. Skilled Intervention: Patient was educated in proper exercise technique and purpose for exercises. Skilled judgment was used in selection of appropriate interventions. Manual Therapy: Soft Tissue Mobilization: IaSTM to R Achilles Tendon: Push to tolerance. Skilled Intervention: Manual skills to improve joint mobility, ROM, and decrease pain. Utilized anatomy knowledge of the therapist, and assessment of patient's response to intervention. Billing Therapeutic Exercise Treatment Minutes: 29 Manual TherapyTreatment Minutes: 10 Skilled Treatment Time Minutes (timed and untimed codes): 39 Total Session Time (minutes): 39 Session Start Time : 1801 Session Stop Time : 1840 Micheal Johnson PT documented in this encounter [facility] 07-14-2024 Note HNO ID: [id number] Author: MICHEAL JOHNSON PT Service: ? Author Type: Physical Therapist Type: Progress Notes Filed: 07/14/2024 18:45 Note Text: Episode Visit Count: 2 Therapist That Will Accept/Oversee The Plan Of Care: Micheal Johnson PT. Start of Care Date: 06/27/24 Onset Date: 06/28/23 Patient Identified by Name and Date of : Yes REHABILITATION AND SPORTS THERAPY PHYSICAL THERAPY TREATMENT NOTE ASSESSMENT: Deedee Hunt tolerated the session with decreased symptoms. She demonstrated improvements in eccentric control of R Achilles. The patient will continue to benefit from ongoing skilled physical therapy to progress toward set goals. PLAN FOR NEXT VISIT: Progress strength as tolerated; MT PRN SUBJECTIVE: Patient reports the R Ankle is about the same; states understanding it takes time. Pain is better tonight than this morning with loosening it during work. HEP stretching feels really good, benjamin. soleus. Pain: Pain Pain Level: 3 Pain Location: Ankle - Right Description: Sore Post Treatment Pain Post Treatment Pain Level: Better Post Treatment Pain Location: Ankle - Right OBJECTIVE MEASURES WITH LEVEL OF FUNCTION: Demonstrates ability to complete and control R Achilles Eccentrics. TREATMENT: Therapeutic Exercise: 1: Prostretch Gastroc: 3x30 RLE. 2: Prostretch Soleus: 3x30. 3: *R Heel Drop: 2x10, 6inch Step. 4: 2:1 R Ankle Eccentric Lowers: 2x10, 3-sec lower. (Light Pain with Full ROM (patient reports near heel spur); However doable with less ROM into heel rise.) 5: R Soleus Isometrics: 10 x 30. Skilled Intervention: Patient was educated in proper exercise technique and purpose for exercises. Skilled judgment was used in selection of appropriate interventions. Manual Therapy: Soft Tissue Mobilization: IaSTM to R Achilles Tendon: Push to tolerance. Skilled Intervention: Manual skills to improve joint mobility, ROM, and decrease pain. Utilized anatomy knowledge of the therapist, and assessment of patient's response to intervention. Billing Therapeutic Exercise Treatment Minutes: 28 Manual TherapyTreatment Minutes: 12 Skilled Treatment Time Minutes (timed and untimed codes): 40 Total Session Time (minutes): 40 Session Start Time : 1800 Session Stop Time : 1840 Micheal Johnson PT [facility] 07-14-2024 History of Present illness Narrative Episode Visit Count: 2 Therapist That Will Accept/Oversee The Plan Of Care: Micheal Johnson PT. Start of Care Date: 06/27/24 Onset Date: 06/28/23 Patient Identified by Name and Date of : Yes REHABILITATION AND SPORTS THERAPY PHYSICAL THERAPY TREATMENT NOTE ASSESSMENT: Deedee Hunt tolerated the session with decreased symptoms. She demonstrated improvements in eccentric control of R Achilles. The patient will continue to benefit from ongoing skilled physical therapy to progress toward set goals. PLAN FOR NEXT VISIT: Progress strength as tolerated; MT PRN SUBJECTIVE: Patient reports the R Ankle is about the same; states understanding it takes time. Pain is better tonight than this morning with loosening it during work. HEP stretching feels really good, benjamin. soleus. Pain: Pain Pain Level: 3 Pain Location: Ankle - Right Description: Sore Post Treatment Pain Post Treatment Pain Level: Better Post Treatment Pain Location: Ankle - Right OBJECTIVE MEASURES WITH LEVEL OF FUNCTION: Demonstrates ability to complete and control R Achilles Eccentrics. TREATMENT: Therapeutic Exercise: 1: Prostretch Gastroc: 3x30 RLE. 2: Prostretch Soleus: 3x30. 3: *R Heel Drop: 2x10, 6inch Step. 4: 2:1 R Ankle Eccentric Lowers: 2x10, 3-sec lower. (Light Pain with Full ROM (patient reports near heel spur); However doable with less ROM into heel rise.) 5: R Soleus Isometrics: 10 x 30. Skilled Intervention: Patient was educated in proper exercise technique and purpose for exercises. Skilled judgment was used in selection of appropriate interventions. Manual Therapy: Soft Tissue Mobilization: IaSTM to R Achilles Tendon: Push to tolerance. Skilled Intervention: Manual skills to improve joint mobility, ROM, and decrease pain. Utilized anatomy knowledge of the therapist, and assessment of patient's response to intervention. Billing Therapeutic Exercise Treatment Minutes: 28 Manual TherapyTreatment Minutes: 12 Skilled Treatment Time Minutes (timed and untimed codes): 40 Total Session Time (minutes): 40 Session Start Time : 1800 Session Stop Time : 1840 Micheal Johnson PT documented in this encounter [facility] 06-27-2024 History of Present illness Narrative Program_ID:[id number] Access Code: [email or web address] URL: [email or web address] Date: 06-27-2024 Prepared By: Micheal Johnson Program Notes Exercises - Standing Eccentric Heel Raise - 2 x daily - 7 x weekly - 2-3 sets - 10 reps - Long Sitting Calf Stretch with Strap - 2 x daily - 7 x weekly - 3-5 sets - reps - Long Sitting Soleus Stretch on Bolster with Strap - 2 x daily - 7 x weekly - 3-5 sets - reps - Isometric Heel Raise at Wall - 2 x daily - 7 x weekly - 2-3 sets - 10 reps Images from the original note were not included. Episode Visit Count: 1 Therapist That Will Accept/Oversee The Plan Of Care: Micheal Johnson PT. Start of Care Date: 06/27/24 Onset Date: 06/28/23 Patient Identified by Name and Date of : Yes REHABILITATION AND SPORTS THERAPY PHYSICAL THERAPY EVALUATION PLAN OF CARE: Assessment: Deedee Hunt presents with chief complaint of R posterior ankle/lower leg pain that interferes with standing, walking . The patient presents with impairments in ADL's, flexibility, independence in exercise, overall function, strength, symptom management, and tissue tenderness. PROMIS (Patient-Reported Outcomes Measurement Information System) scores were reviewed and identified as a rehabilitation concern. Prognosis for therapy is Good due to: current objective clinical presentation, good overall health status . The patient will benefit from skilled therapy services to meet the goals established for this plan of care as noted below. Goals for Episode of Care: established 06/27/24 Patient reported outcome of physical function will increase T-score by a minimum 5 points. [place] in home exercise program. Patient will decrease pain rating by 2 points to meet minimal clinical important difference for numeric pain rating scale. Perform walking / standing with decreased report of symptoms/pain in 6 weeks for increased occupation tolerance. Perform 25 SL heels raises on the R without pain to demonstrate increase strength. Patient Goals: Alleviate Pain. Time Frame for Goals and Treatment : 08/23/24 Planned Interventions, Frequency, and Duration: Current Frequency: 1x/week Duration: 4 weeks Total Number of Visits Planned: 4 Planned Treatment Interventions: Therapeutic exercise (11691), Neuromuscular re-education (71191), Manual therapy (24017), Therapeutic activities (01120), Self-long-term management (23917), Patient/Family/Caregiver Education PLAN FOR NEXT VISIT: Review, correct and progress HEP to tolerance. Assess Foot Structure without shoe on. Look for Mobility or Motor Control Objectives. MT to Achilles. Patient demonstrates good understanding of plan of care and treatment. The above goals and plan of care were discussed and agreed upon by patient/family. SUBJECTIVE: Pain for the last 8-9 months, states no KATHYA, I have put just enough weight on which may be a cause, states 23 lbs from sedentary previous job. Most of the pain is on the lateral outside of the heel, and midline distal achilles at the heel. Pain is worse walking and standing, flip flops. Got inserts from Dr., putting them in regular tennis shoes, not really helping. Pain is worse at end of the day. Cortisone Injections in the area > 5 years ago, thinks 2011. Pain in the past was mid-achilles. Patient Goals: Alleviate Pain. 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 Intake Information: Prescription present Previous Treatment: NSAIDs , Ice , Topicals Falls Interview: No positive findings with falls interview Pain: Pain Pain Level: 3 Pain Location: Ankle - Right Description: Aching, Sore Frequency: With movement Post Treatment Pain Post Treatment Pain Level: No Change PROMIS Scales 06/27/2024 Higher is Better Phys Func - Score 43 (mild dysfunction) Phys Func - Percentile 24 Self-Eff Symptom - Score 48 (Average) Self-Eff Symptom - Percentile 42 T-scores: mean of general population = 50. 5 points is clinically meaningfully difference Percentiles provide an indication of how the patient's score ranks in relation to the general population. Higher percentile rankings indicate better function/quality of life. 50th percentile is the average of the general population and indicates half of respondents had a worse score. OBJECTIVE MEASURES WITH LEVEL OF FUNCTION: Ankle Observations R Ankle Palpation Tenderness: Achilles tendon, Comments R Ankle Palpation Tenderness Comments: Painful on the Lateral side of the R Ankle, most likely the calcaneal spur picked up on imaging. LE AROM R LE AROM: WNL Bilat. L LE AROM: WNL Bilat. LE Strength R LE Strength: Grossly 5/5 Ankle. Deficit in SL Heel Rise. Functional Strength R Single Leg Heel Raise: 15 L Single Leg Heel Raise: 25 Gait Weight Bearing Status: FWB Gait Observation: No Observable Findings. Education: Education Learning Preferences: Demonstration, Explanation, Printed Materials Barriers: None Learning/educational needs: Procedure / Surgery, Home exercise program, Safety, Plan of Care, Gait Training Education Provided: Yes, see treatment interventions for education provided Education Provided To: Patient Education Mode/Type: Demonstration, Explanation/Discussion, Literature/Printed Materials Response to Education/Teach Back: States/Identifies TREATMENT: PT Treatment Interventions: Therapeutic Exercise Evaluation Therapeutic Exercise: 1: *Double Calf Raises: x10, emphasis on = weight distribution. 2: *R Ankle Calf Raise Iso Holds at Wall: x10, 5-sec. 3: *Gastroc Stretch Longsit: x30. 4: *Soleus Stretch Longsit: x30. 5: Trialed 2:1 R Ankle Eccentric Lowers: Difficult and cause light pain, held for now. 6: Patient educated on evaluation findings, rehabilitation process, timeframe for goals, and anatomy relevant to diagnosis.Discussed treatment options, purpose of the HEP, how to perform properly and the HEP handout was provided to the pt. Skilled Intervention: Patient was educated in proper exercise technique and purpose for exercises. Reviewed and educated patient on additions/changes for home exercise program as above (*). Skilled judgment was used in selection of appropriate interventions. Provided written instruction for home exercise program to facilitate proper performance and compliance. Correct performance of therapeutic exercises was facilitated with verbal cuing. Billing * Evaluation Low Complexity: 1 Unit Therapeutic Exercise Treatment Minutes: 17 Skilled Treatment Time Minutes (timed and untimed codes): 37 Total Session Time (minutes): 37 Session Start Time : 1557 Session Stop Time : 1634 Decreased visit time due to patient arriving late to appointment. Micheal Johnson PT documented in this encounter [facility] 06-27-2024 Note HNO ID: [id number] Author: MICHEAL JOHNSON PT Service: ? Author Type: Physical Therapist Type: Progress Notes Filed: 06/28/2024 11:25 Note Text: Episode Visit Count: 1 Therapist That Will Accept/Oversee The Plan Of Care: Micheal Johnson PT. Start of Care Date: 06/27/24 Onset Date: 06/28/23 Patient Identified by Name and Date of : Yes REHABILITATION AND SPORTS THERAPY PHYSICAL THERAPY EVALUATION PLAN OF CARE: Assessment: Deedee Hunt presents with chief complaint of R posterior ankle/lower leg pain that interferes with standing, walking . The patient presents with impairments in ADL's, flexibility, independence in exercise, overall function, strength, symptom management, and tissue tenderness. PROMIS? (Patient-Reported Outcomes Measurement Information System) scores were reviewed and identified as a rehabilitation concern. Prognosis for therapy is Good due to: current objective clinical presentation, good overall health status . The patient will benefit from skilled therapy services to meet the goals established for this plan of care as noted below. Goals for Episode of Care: established 06/27/24 Patient reported outcome of physical function will increase T-score by a minimum 5 points. [place] in home exercise program. Patient will decrease pain rating by 2 points to meet minimal clinical important difference for numeric pain rating scale. Perform walking / standing with decreased report of symptoms/pain in 6 weeks for increased occupation tolerance. Perform 25 SL heels raises on the R without pain to demonstrate increase strength. Patient Goals: Alleviate Pain. Time Frame for Goals and Treatment : 08/23/24 Planned Interventions, Frequency, and Duration: Current Frequency: 1x/week Duration: 4 weeks Total Number of Visits Planned: 4 Planned Treatment Interventions: Therapeutic exercise (04826), Neuromuscular re-education (52409), Manual therapy (33674), Therapeutic activities (62139), Self-long-term management (55794), Patient/Family/Caregiver Education PLAN FOR NEXT VISIT: Review, correct and progress HEP to tolerance. Assess Foot Structure without shoe on. Look for Mobility or Motor Control Objectives. MT to Achilles. Patient demonstrates good understanding of plan of care and treatment. The above goals and plan of care were discussed and agreed upon by patient/family. SUBJECTIVE: Pain for the last 8-9 months, states no KATHYA, I have put just enough weight on which may be a cause, states 23 lbs from sedentary previous job. Most of the pain is on the lateral outside of the heel, and midline distal achilles at the heel. Pain is worse walking and standing, flip flops. Got inserts from , putting them in regular tennis shoes, not really helping. Pain is worse at end of the day. Cortisone Injections in the area > 5 years ago, thinks 2011. Pain in the past was mid-achilles. Patient Goals: Alleviate Pain. 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 Intake Information: Prescription present Previous Treatment: NSAIDs , Ice , Topicals Falls Interview: No positive findings with falls interview Pain: Pain Pain Level: 3 Pain Location: Ankle - Right Description: Aching, Sore Frequency: With movement Post Treatment Pain Post Treatment Pain Level: No Change PROMIS Scales 06/27/2024 Higher is Better Phys Func - Score 43 (mild dysfunction) Phys Func - Percentile 24 Self-Eff Symptom - Score 48 (Average) Self-Eff Symptom - Percentile 42 T-scores: mean of general population = 50. 5 points is clinically meaningfully difference Percentiles provide an indication of how the patient's score ranks in relation to the general population. Higher percentile rankings indicate better function/quality of life. 50th percentile is the average of the general population and indicates half of respondents had a worse score. OBJECTIVE MEASURES WITH LEVEL OF FUNCTION: Ankle Observations R Ankle Palpation Tenderness: Achilles tendon, Comments R Ankle Palpation Tenderness Comments: Painful on the Lateral side of the R Ankle, most likely the calcaneal spur picked up on imaging. LE AROM R LE AROM: WNL Bilat. L LE AROM: WNL Bilat. LE Strength R LE Strength: Grossly 5/5 Ankle. Deficit in SL Heel Rise. Functional Strength R Single Leg Heel Raise: 15 L Single Leg Heel Raise: 25 Gait Weight Bearing Status: FWB Gait Observation: No Observable Findings. Education: Education Learning Preferences: Demonstration, Explanation, Printed Materials Barriers: None Learning/educational needs: Procedure / Surgery, Home exercise program, Safety, Plan of Care, Gait Training Education Provided: Yes, see treatment interventions for education provided (more content not included)... [facility] 06-07-2024 Note HNO ID: [id number] Author: CHARLENE PEARCE LPN Service: ? Author Type: LICENSED NURSE Type: Progress Notes Filed: 06/07/2024 08:41 Note Text: Per Deedee Monroy was provided with powerstep original inserts, size 8, and instructed/educated in its application, wear, and care. All questions were answered, and patient was able to demonstrate competence with the necessary skills to utilize the above equipment. Charlene Pearce LPN [facility] 06-07-2024 History of Present illness Narrative Per Deedee Monroy was provided with powerstep original inserts, size 8, and instructed/educated in its application, wear, and care. All questions were answered, and patient was able to demonstrate competence with the necessary skills to utilize the above equipment. Charlene Pearce LPN Images from the original note were not included. Initial Podiatric Office Visit: Chief Complaint: This 53 year old female who presents with chief complaint:right achilles tendon pain HPI Patient presents to clinic for evaluation of right heel Complains of on/off pain to right posterior heel/achilles tendon. Complains of burning sensation to the heel. Has treated with rest, tylenol, taping. Had injections in the past by Dr. Case Patient is starting a new job where she will be more active. PAIN EVALUATION 06/05/20242030 Pain Level: 8 Pain Location: Ankle-Right Description: Aching;Sharp;Stiffness Duration Amount of Time: 6 Duration Units: Months Frequency: Intermittent Intervention/Comfort measure: Relaxation;Other: See comment Comments: Kinetic tape Hemoglobin A1C (%) Date Value 05/05/2023 5.4 PCP: Leny Amador APRN.ELIANE PAST MEDICAL HISTORY Diagnosis Date Acquired pancytopenia (HCC) 12/27/2013 Anemia Depression 01/29/2012 Hepatic steatosis 11/05/09 Iron deficiency anemia Morbid obesity (HCC) Pituitary tumor PMH - PAST MEDICAL HISTORY OF VARICOSE VEINS Prolactin secreting pituitary adenoma (HCC) 02/09/2018 diagnosed in 2010 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) 12/27/2013 Current Outpatient Medications Medication Sig estradiol (ESTRACE) 1 mg tablet Take 1 tablet by mouth once daily. FLUoxetine (PROZAC) 40 mg capsule Take 1 capsule by mouth once daily. armodafinil (NUVIGIL) 250 mg tab Take 1/2 to 1 tab in AM as directed. Do not start before May 08, 2024. GEMTESA 75 mg tablet Take 1 tablet by mouth every afternoon. cabergoline (DOSTINEX) 0.5 mg tablet Take 1 tablet by mouth every Thursday and Thursday. ketoconazole (NIZORAL) 2 % shampoo Apply 1 application to affected area once daily as needed. ubidecarenone (COENZYME Q10) 100 mg tab Take by mouth once daily. OTC PRODUCT Immune Defend - 2 capsules daily FERROUS SULFATE ORAL Take by mouth. Clobetasol Propionate (TEMOVATE) 0.05 % external solution Apply to affected area twice daily. mometasone (ELOCON) 0.1 % cream apply bid prn budesonide (PULMICORT FLEXHALER) 90 mcg/actuation aepb Inhale 2 Puffs as instructed twice daily as needed. loratadine (CLARITIN) 10 mg tablet Take 1 tablet by mouth once daily. pantoprazole DR (PROTONIX) 40 mg tablet Take 1 tablet by mouth daily before breakfast. Take on empty stomach, 1/2 hr before meal. acetaminophen (TYLENOL) 500 mg tablet take 2 tablets by mouth every 8 hours if needed for pain OR FEVER COMPOUNDED PRESCRIPTION Journey 3+3 Bariatric Multivitamin Take 3 capsules in am and Take 3 capsules in PM No current facility-administered medications for this visit. ALLERGIES Allergen Reactions Benzoyl Peroxide Rash Clindamycin Rash Sulfa (Sulfonamide * Hives PAST SURGICAL HISTORY Procedure Laterality Date DELIVERY ONLY 07/09/2005 DELIVERY ONLY 11/04/07 COLONOSCOPY FLX DX W/COLLJ SPEC WHEN PFRMD 04/10/14 Colonoscopy ESOPHAGOGASTRODUODENOSCOPY TRANSORAL DIAGNOSTIC 04/10/14 EGD laproscopic roue-en-y gastric bypass 11/05/09 LAPS W/VAG HYSTERECT 250 GM/&RMVL TUBE&/OVARIES 04/27/14 LAVH, bilateral salpingectomy, HMB, anemia LIG/TRNSXJ FLP TUBE ABDL/VAG APPR UNI/BI 11/04/07 done at PAST SURGICAL HISTORY OF 2002 I&D cyst on back PAST SURGICAL HISTORY OF 2001 I&D ABSESS OF FACE PAST SURGICAL HISTORY OF 2004 I&D CYST ON POSTERIOR THIGH PAST SURGICAL HISTORY OF CRYOCAUTERY OF VAGINAL LESIONS PAST SURGICAL HISTORY OF Melanoma excision with LN biopsy TONSILLECTOMY PRIMARY/SECONDARY <AGE 10 1976 FAMILY HISTORY Problem Relation Age of Onset Hypertension Mother Heart Mother other (lymphoma) Mother other (Melanoma) Mother Hypertension Father Heart Father COPD Father Emphysema Father other (congestive heart failure) Father other (pvd) Father Cancer Maternal Grandmother RECTAL Social History Tobacco Use Smoking status: Never Smokeless tobacco: Never Vaping Use Vaping status: Never Used Substance Use Topics Alcohol use: Yes Comment: OCCASIONALLY, NOT WHILE Drug use: No REVIEW OF SYSTEMS GENERAL: Negative for Malaise, significant weight loss, fever RESPIRATORY: Negative for cough, wheezing and shortness of breath CARDIOVASCULAR: Negative for chest pain, leg swelling and palpitations GI: Negative for abdominal discomfort, blood in stools or black stools and change in bowel habits : Negative for dysuria, frequency and incontinence MUSCULOSKELETAL: Negative for joint pain or swelling, back pain, and muscle pain. SKIN: Negative for lesions, rash, and itching. HEMATOLOGY/LYMPHOLOGY Negative for prolonged bleeding, bruising easily, and swollen nodes. ENDOCRINE: Negative for cold or heat intolerance, polyuria, polydipsia and goiter. NEURO: negative Physical Exam: Constitutional: Pt is a well developed 53 year old female who is alert, oriented and cooperative Eyes: Following during examination. No redness or drainage. Respiratory: RR normal and nonlabored. Even breathing. No evidence of distress or shortness of breath. Psychology: Patient is engaged during conversation. Normal affect and mood. Does not appear depressed or anxious during encounter. Vascular: Dorsalis pedis and posterior tibial pulses palpable as b/l Capillary Fill time < 5 seconds to digits 1-5 b/l Skin temperature warm to warm proximal to distal b/l Hair growth present to digits Neurological: intact light touch/epicritic sensation b/l intact protective sensation no significant neurological deficits Dermatological: Nails 1-5 b/l appear normal. Webspaces clean and dry 1-4 b/l. Skin appears well hydrated and supple. good color, texture, turgor. No open lesions present. No callosities present. Musculoskeletal/Orthopaedic: Patient has pain to palpation of right achilles tendon just proximal to insertion Thopson test produces plantarflexion No thickening is noted Foot type is neutral structurally AJ ROM is full with knee extended and flexed 1st MPJ is full when loaded and no pain or crepitus are noted with ROM. MTJ, STJ are full and free of pain and crepitus. +5/5 muscle strength dorsiflexion, plantarflexion, inversion, eversion b/l Radiographs: 3 views right foot ordered June 07, 2024: I have personally reviewed and interpreted these XR myself: no acute fracture. Intramedullary screw is noted to right 5th metatarsal ASSESSMENT: (M76.61) Tendonitis, Achilles, right (primary encounter diagnosis) PLAN: 1. History and physical examination performed. 2. XR reviewed with patient and interpreted today 3. Discussed pain in right achilles. Recommend referral to physical therapy. Will provide her with powerstep insert. Recommend good supportive shoes. 4. If pain fails to improve, call for follow-up Mary Neville DPM Podiatry [address] [facility] [id number] Dept: [phone] Dept AMB ROOMING INTAKE FLOWSHEET DATA Pain Pain Level: 8 Pain Location: Ankle-Right Description: Aching, Sharp, Stiffness Duration Amount of Time: 6 Duration Units: Months Frequency: Intermittent Intervention/Comfort measure: Relaxation, Other: See comment Comments: Kinetic tape Patient presents with: Right Foot - New, Pain, Swelling Charlene Pearce LPN documented in this encounter [facility] 06-07-2024 Instructions Mary Neville - 06/07/2024 8:36 AM EDT Powerstep Original Full length. Can purchase at [employer] and boots,shoes and more here in [place], [employer] in [place] or [place]. Also can find in [place] in [facility]. Powersteps can also be purchased online, starting around $45.00 If you have a metatarsal or dancer pad for your feet apply the pad directly to the insole so you can interchange between your shoes. Find a shoe with a removable insole and take this out and replace with your powerstep insole. Always bring powersteps with you when shopping for shoes so that you can make sure that everything fits well together Recommend good supportive lace up shoe, ie rodney, calderon or asics documented in this encounter [facility] 06-07-2024 Note HNO ID: [id number] Author: MARY NEVILLE, ? Service: ? Author Type: Physician Type: Progress Notes Filed: 06/07/2024 08:39 Note Text: Initial Podiatric Office Visit: Chief Complaint: This 53 year old female who presents with chief complaint:right achilles tendon pain HPI Patient presents to clinic for evaluation of right heel Complains of on/off pain to right posterior heel/achilles tendon. Complains of burning sensation to the heel. Has treated with rest, tylenol, taping. Had injections in the past by Dr. Case Patient is starting a new job where she will be more active. 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 FLUoxetine (PROZAC) 40 mg capsule Take 1 capsule by mouth once daily. armodafinil (NUVIGIL) 250 mg tab Take 1/2 to 1 tab in AM as directed. Do not start before May 08, 2024. GEMTESA 75 mg tablet Take 1 tablet by mouth every afternoon. cabergoline (DOSTINEX) 0.5 mg tablet Take 1 tablet by mouth every Thursday and Thursday. ketoconazole (NIZORAL) 2 % shampoo Apply 1 application to affected area once daily as needed. ubidecarenone (COENZYME Q10) 100 mg tab Take by mouth once daily. OTC PRODUCT Immune Defend - 2 capsules daily FERROUS SULFATE ORAL Take by mouth. Clobetasol Propionate (TEMOVATE) 0.05 % external solution Apply to affected area twice daily. mometasone (ELOCON) 0.1 % cream apply bid prn budesonide (PULMICORT FLEXHALER) 90 mcg/actuation aepb Inhale 2 Puffs as instructed twice daily as needed. loratadine (CLARITIN) 10 mg tablet Take 1 tablet by mouth once daily. pantoprazole DR (PROTONIX) 40 mg tablet Take 1 tablet by mouth daily before breakfast. Take on empty stomach, 1/2 hr before meal. acetaminophen (TYLENOL) 500 mg tablet take 2 tablets by mouth every 8 hours if needed for pain OR FEVER COMPOUNDED PRESCRIPTION Journey 3+3 Bariatric Multivitamin Take 3 capsules in am and Take 3 capsules in PM No current facility-administered medications for this visit. ALLERGIES Allergen Reactions Benzoyl Peroxide Rash Clindamycin Rash Sulfa (Sulfonamide * Hives PAST SURGICAL HISTORY Procedure Laterality Date DELIVERY ONLY 07/09/2005 DELIVERY ONLY 11/04/07 COLONOSCOPY FLX DX W/COLLJ SPEC WHEN PFRMD 04/10/14 Colonoscopy ESOPHAGOGASTRODUODENOSCOPY TRANSORAL DIAGNOSTIC 04/10/14 EGD laproscopic roue-en-y gastric bypass 11/05/09 LAPS W/VAG HYSTERECT 250 GM/ANDRMVL TUBEAND/OVARIES 04/27/14 LAVH, bilateral salpingectomy, HMB, anemia LIG/TRNSXJ FLP TUBE ABDL/VAG APPR UNI/BI 11/04/07 done at PAST SURGICAL HISTORY OF 2002 IANDD cyst on back PAST SURGICAL HISTORY OF 2001 IANDD ABSESS OF FACE PAST SURGICAL HISTORY OF 2004 IANDD CYST ON POSTERIOR THIGH PAST SURGICAL HISTORY OF CRYOCAUTERY OF VAGINAL LESIONS PAST SURGICAL HISTORY OF Melanoma excision with LN biopsy TONSILLECTOMY PRIMARY/SECONDARY FAMILY HISTORY Problem Relation Age of Onset Hypertension Mother Heart Mother other (lymphoma) Mother other (Melanoma) Mother Hypertension Father Heart Father COPD Father Emphysema Father other (congestive heart failure) Father other (pvd) Father Cancer Maternal Grandmother RECTAL Social History Tobacco Use Smoking status: Never Smokeless tobacco: Never Vaping Use Vaping status: Never Used Substance Use Topics Alcohol use: Yes Comment: OCCASIONALLY, NOT WHILE Drug use: No REVIEW OF SYSTEMS GENERAL: Negative for Malaise, significant weight loss, fever RESPIRATORY: Negative for cough, wheezing and shortness of breath CARDIOVASCULAR: Negative for chest pain, leg swelling and palpitations GI: Negative for abdominal discomfort, blood in stools or black stools and change in bowel habits : Negative for dysuria, frequency and incontinence MUSCULOSKELETAL: Negative for joint pain or swelling, back pain, and muscle pain. SKIN: Negative for lesions, rash, and itching. HEMATOLOGY/LYMPHOLOGY Negative for prolonged bleeding, bruising easily, and swollen nodes. ENDOCRINE: Negative for cold or heat intolerance, polyuria, polydipsia and goiter. NEURO (more content not included)... [facility] 06-07-2024 Note HNO ID: [id number] Author: CHARLENE PEARCE LPN Service: ? Author Type: LICENSED NURSE Type: Progress Notes Filed: 06/07/2024 08:39 Note Text: AMB ROOMING INTAKE FLOWSHEET DATA Pain Pain Level: 8 Pain Location: Ankle-Right Description: Aching, Sharp, Stiffness Duration Amount of Time: 6 Duration Units: Months Frequency: Intermittent Intervention/Comfort measure: Relaxation, Other: See comment Comments: Kinetic tape Patient presents with: Right Foot - New, Pain, Swelling Charlene Pearce LPN [facility] 06-07-2024 History of Present illness Narrative Radiology Service Progress Note PATIENT NAME: Deedee Hunt DATE OF SERVICE: June 07, 2024 TIME: 11:28 AM PATIENT IDENTITY VERIFICATION COMPLETED USING TWO (2) IDENTIFIERS: Name and Date of confirmed by patient verbally. FALL SCREENING: Has the patient had 2 falls in the last year or 1 fall with injury or currently using an Ambulatory Assistive Device (Walker, Cane, Wheelchair, Crutches, etc.)? No PATIENT GENDER DATA: Female. status: : No status: NO. PATIENT RELEVANT IMPLANT DATA REVIEWED: Not Applicable PATIENT PRESENTS WITH AN IMPLANTABLE OR ATTACHED SENIOR LANDSCAPE ARCHITECT: No RADIOLOGY DEPARTMENT: General X-ray: Exam(s) Completed: Lower Extremity X-Ray(s): Foot, Right and Wt. Bearing PERIPHERAL IV DATA: Not applicable SIGNED BY: RT Domenic(Mark) June 07, 2024 11:28 AM documented in this encounter [facility] 06-07-2024 Note HNO ID: [id number] Author: LARISSA MCKNIGHT RT(Mark) Service: ? Author Type: Technologist Type: Progress Notes Filed: 06/07/2024 11:29 Note Text: Radiology Service Progress Note PATIENT NAME: Deedee Hunt DATE OF SERVICE: June 07, 2024 TIME: 11:28 AM PATIENT IDENTITY VERIFICATION COMPLETED USING TWO (2) IDENTIFIERS: Name and Date of confirmed by patient verbally. FALL SCREENING: Has the patient had 2 falls in the last year or 1 fall with injury or currently using an Ambulatory Assistive Device (Walker, Cane, Wheelchair, Crutches, etc.)? No PATIENT GENDER DATA: Female. status: : No status: NO. PATIENT RELEVANT IMPLANT DATA REVIEWED: Not Applicable PATIENT PRESENTS WITH AN IMPLANTABLE OR ATTACHED SENIOR LANDSCAPE ARCHITECT: No RADIOLOGY DEPARTMENT: General X-ray: Exam(s) Completed: Lower Extremity X-Ray(s): Foot, Right and Wt. Bearing PERIPHERAL IV DATA: Not applicable SIGNED BY: RT Domenic(R) June 07, 2024 11:28 AM [facility] 05-03-2024 Telephone encounter Note Prescription Refill Information The patient has been identified by name and date of : Yes Caregiver verified no other encounters exist for this prescription request: Yes Caregiver confirmed with patient/requestor that no other refills are due, in the near future, with this provider at this time: Yes The last office visit in the department: 04/06/2024 Does the patient have a future office visit with this provider/department: No Requested Prescriptions Pending Prescriptions Disp Refills sucralfate (CARAFATE) 1 gram tablet 120 tablet 0 Sig: Take 1 tablet by mouth before meals and at bedtime. Vane Ge LPN May 03, 2024 12:26 PM [facility] 05-03-2024 Miscellaneous Notes Prescription Refill Information The patient has been identified by name and date of : Yes Caregiver verified no other encounters exist for this prescription request: Yes Caregiver confirmed with patient/requestor that no other refills are due, in the near future, with this provider at this time: Yes The last office visit in the department: 04/06/2024 Does the patient have a future office visit with this provider/department: No Requested Prescriptions Pending Prescriptions Disp Refills sucralfate (CARAFATE) 1 gram tablet 120 tablet 0 Sig: Take 1 tablet by mouth before meals and at bedtime. Vane Ge LPN May 03, 2024 12:26 PM documented in this encounter [facility] 05-03-2024 Telephone encounter Note Prescription Refill Information The patient has been identified by name and date of : Yes Caregiver verified no other encounters exist for this prescription request: Yes Caregiver confirmed with patient/requestor that no other refills are due, in the near future, with this provider at this time: Yes The last office visit in the department: 04/06/2024 Does the patient have a future office visit with this provider/department: No Requested Prescriptions Pending Prescriptions Disp Refills FLUoxetine (PROZAC) 40 mg capsule 90 capsule 1 Sig: Take 1 capsule by mouth once daily. Vane Ge LPN May 03, 2024 12:25 PM . Vane Ge LPN. [facility] 05-03-2024 Miscellaneous Notes Prescription Refill Information The patient has been identified by name and date of : Yes Caregiver verified no other encounters exist for this prescription request: Yes Caregiver confirmed with patient/requestor that no other refills are due, in the near future, with this provider at this time: Yes The last office visit in the department: 04/06/2024 Does the patient have a future office visit with this provider/department: No Requested Prescriptions Pending Prescriptions Disp Refills FLUoxetine (PROZAC) 40 mg capsule 90 capsule 1 Sig: Take 1 capsule by mouth once daily. Vane Ge LPN May 03, 2024 12:25 PM . Vane Ge LPN. documented in this encounter [facility] 05-03-2024 Telephone encounter Note Last annual 09/16/23. Requested Prescriptions Pending Prescriptions Disp Refills estradiol (ESTRACE) 1 mg tablet 90 tablet 1 Sig: Take 1 tablet by mouth once daily. Bibi Sharp RN [facility] 05-03-2024 Miscellaneous Notes Last annual 09/16/23. Requested Prescriptions Pending Prescriptions Disp Refills estradiol (ESTRACE) 1 mg tablet 90 tablet 1 Sig: Take 1 tablet by mouth once daily. Bibi Sharp RN documented in this encounter [facility] 04-22-2024 Telephone encounter Note Pt informed via message Evy Gomes MA [facility] 04-22-2024 Miscellaneous Notes Pt informed via message Evy Gomes MA Please let her know that I received the results of her hida scan. Overall it is functioning well. Per Dr. Andino recommendation as we had discussed, he recommends she see a bariatric surgeon for further eval. Please assist her to schedule this appointment. Leny Amador APRN.CNP documented in this encounter [facility] 04-21-2024 Telephone encounter Note Please let her know that I received the results of her hida scan. Overall it is functioning well. Per Dr. Andino recommendation as we had discussed, he recommends she see a bariatric surgeon for further eval. Please assist her to schedule this appointment. Leny Amador APRN.CNP [facility] 04-21-2024 History of Present illness Narrative RADIOLOGY SERVICE PROGRESS NOTE SERVICE DATE: 04/21/2024 SERVICE TIME: 1:26 PM PATIENT IDENTITY VERIFICATION COMPLETED USING TWO (2) STANDARD IDENTIFIERS: Name and Date of confirmed by patient verbally FALL SCREENING: Has the patient had 2 falls in the last year or 1 fall with injury or currently using an Ambulatory Assistive Device (Walker, Cane, Wheelchair, Crutches, etc.)? No PATIENT GENDER DATA: .female : No ALLERGIES: Reviewed and unchanged MEDICATIONS REVIEWED: No PATIENT RELEVANT IMPLANT DATA REVIEWED: Not Applicable PATIENT PRESENTS WITH AN IMPLANTABLE OR ATTACHED SENIOR LANDSCAPE ARCHITECT: n/a CREATININE: Creatinine Date Value Ref Range Status 03/30/2024 0.86 0.58 - 0.96 mg/dL Final 05/05/2023 0.84 0.58 - 0.96 mg/dL Final 05/30/2022 0.94 0.58 - 0.96 mg/dL Final Estimated Glomerular Filtration Rate Date Value Ref Range Status 03/30/2024 80 >=60 mL/min/1.73m Final Comment: Estimated Glomerular Filtration Rate (eGFR) is calculated using the 2020 CKD-EPI creatinine equation. This equation utilizes serum creatinine, sex, and age as parameters. The creatinine assay has traceable calibration to isotope dilution-mass spectrometry. Refer to KDIGO guidelines for clinical interpretation. In patients with unstable renal function, e.g. those with acute kidney injury, the eGFR may not accurately reflect actual GFR. eGFR- Date Value Ref Range Status 09/27/2020 >60 Final P.O.C.T. RESULTS: N/A April 21, [address] PERFORMED: No IV SITE: Ambulatory: A peripheral IV was started in the Left antecubital site with a Angio cath: 22 gauge. POST EXAM PIV STATUS: Discontinued PROCEDURE TYPE: OK INJECT: HIDA. 5.2 mCi Tc99m CHOLETEC. CCK 1.9 micrograms intravenous at 1410. ADMINISTRATION TIME: 1320 PATIENT DISCHARGED TO: Ambulatory patient, left [place] department area. A Diagnostic radioactive procedure has taken place, with no further precautions necessary other than routine body substance precautions. More information regarding radiation safety can be found using this link: [email or web address] SIGNATURE: RT Sergio(R) PATIENT NAME: Deedee Hunt DATE: April 21, 2024 TIME: 1:26 PM PAGER/CONTACT #: documented in this encounter [facility] 04-19-2024 Telephone encounter Note FMLA faxed. Pt informed. Copy taken to med rec. Pt reports she will scrap picker tomorrow. Evy Gomes MA [facility] 04-19-2024 Miscellaneous Notes FMLA faxed. Pt informed. Copy taken to med rec. Pt reports she will scrap picker tomorrow. Evy Gomes MA Pt calls in stating FMLA paperwork needs faxed to her HR by tomorrow. [employer] message states it was placed in the office outbox, but there was a business card with the fax number. Please fax, then call pt when done and pt will scrap picker forms tomorrow morning (04/19). Thank you, Ivory Summers LPN documented in this encounter [facility] 04-18-2024 Telephone encounter Note Pt calls in stating FMLA paperwork needs faxed to her HR by tomorrow. [employer] message states it was placed in the office outbox, but there was a business card with the fax number. Please fax, then call pt when done and pt will scrap picker forms tomorrow morning (04/19). Thank you, Ivory Summers LPN [facility] 04-15-2024 Telephone encounter Note Completed and in the outbox in our office. Leny Amador APRN.RECORDS ANALYSIS MANAGER [facility] 04-15-2024 Miscellaneous Notes Completed and in the outbox in our office. Leny Amador APRN.CNP See pt update Evy Gomes MA documented in this encounter [facility] 04-15-2024 Telephone encounter Note See pt update Evy Gomes MA [facility] 04-07-2024 History of Present illness Narrative Radiology Service Progress Note PATIENT NAME: Deedee Hunt DATE OF SERVICE: April 07, 2024 TIME: 10:30 AM PATIENT IDENTITY VERIFICATION COMPLETED USING TWO (2) IDENTIFIERS: Name and Date of confirmed by patient verbally. FALL SCREENING: Has the patient had 2 falls in the last year or 1 fall with injury or currently using an Ambulatory Assistive Device (Walker, Cane, Wheelchair, Crutches, etc.)? No PATIENT GENDER DATA: Female. status: : No status: NO. PATIENT RELEVANT IMPLANT DATA REVIEWED: Yes PATIENT PRESENTS WITH AN IMPLANTABLE OR ATTACHED SENIOR LANDSCAPE ARCHITECT: No RADIOLOGY DEPARTMENT: Ultrasound PERIPHERAL IV DATA: Not applicable SIGNED BY: TECHNOLOGIST Solomon April 07, 2024 10:30 AM documented in this encounter [facility] 04-07-2024 Note HNO ID: [id number] Author: ANGELINE OGLESBY TECHNOLOGIST Service: ? Author Type: Technologist Type: Progress Notes Filed: 04/07/2024 10:30 Note Text: Radiology Service Progress Note PATIENT NAME: Deedee Hunt DATE OF SERVICE: April 07, 2024 TIME: 10:30 AM PATIENT IDENTITY VERIFICATION COMPLETED USING TWO (2) IDENTIFIERS: Name and Date of confirmed by patient verbally. FALL SCREENING: Has the patient had 2 falls in the last year or 1 fall with injury or currently using an Ambulatory Assistive Device (Walker, Cane, Wheelchair, Crutches, etc.)? No PATIENT GENDER DATA: Female. status: : No status: NO. PATIENT RELEVANT IMPLANT DATA REVIEWED: Yes PATIENT PRESENTS WITH AN IMPLANTABLE OR ATTACHED SENIOR LANDSCAPE ARCHITECT: No RADIOLOGY DEPARTMENT: Ultrasound PERIPHERAL IV DATA: Not applicable SIGNED BY: Angeline Oglesby, TECHNOLOGIST April 07, 2024 10:30 AM [facility] 04-06-2024 History of Present illness Narrative Chief Complaint Patient presents with: Follow Up: Abd pain, FMLA HPI Deedee Hunt is a 53 year old female who presents here today for Above Complaints. Per visit with myself on 03/30/2024: HPI Deedee Hunt is a 53 year old female who presents here today for Above Complaints. Epigastric pain intermittently for a while, but severe pain x4 days, moving into her left upper abdomen that is severe, sharp, doubles her over. Appetite is decreased. Is worse with eating. Is taking Prilosec which isn't helping. Some pain into her left jaw, but feels this is likely r/t reflux and some anxiety. Does have hx of gastric bypass in 2009. +nausea, no vomiting. General Appearance: ill-appearing, alert, in no acute distress, well-hydrated, well nourished. Lungs: Lungs clear to auscultation. No wheezing, rhonchi, rales.. Heart: RRR without murmur, gallop, or rubs. No ectopy. Abdomen: Abdomen soft bowel sounds normal. No masses, organomegaly. Painful with palpation of epigastric region and LUQ. Psychiatric: pleasant, cooperative. ASSESSMENT/PLAN: 1. Gastroesophageal reflux disease, unspecified whether esophagitis present - ICD9: 530.81, ICD10: K21.9 (primary diagnosis) - CT ABD/PEL W IVCON - IV CONTRAST (RADIOLOGY PROCEDURE) - ENTERIC CONTRAST (RADIOLOGY PROCEDURE) - ECG COMPLETE - COMPLETE BLOOD COUNT - COMPREHENSIVE METABOLIC PANEL - LIPASE 2. Epigastric pain - ICD9: 789.06, ICD10: R10.13 - CT ABD/PEL W IVCON - IV CONTRAST (RADIOLOGY PROCEDURE) - ENTERIC CONTRAST (RADIOLOGY PROCEDURE) - ECG COMPLETE - COMPLETE BLOOD COUNT - COMPREHENSIVE METABOLIC PANEL - LIPASE 3. Nausea - ICD9: 787.02, ICD10: R11.0 - CT ABD/PEL W IVCON - IV CONTRAST (RADIOLOGY PROCEDURE) - ENTERIC CONTRAST (RADIOLOGY PROCEDURE) - ECG COMPLETE - COMPLETE BLOOD COUNT - COMPREHENSIVE METABOLIC PANEL - LIPASE 4. Decreased appetite - ICD9: 783.0, ICD10: R63.0 - CT ABD/PEL W IVCON - IV CONTRAST (RADIOLOGY PROCEDURE) - ENTERIC CONTRAST (RADIOLOGY PROCEDURE) - ECG COMPLETE - COMPLETE BLOOD COUNT - COMPREHENSIVE METABOLIC PANEL - LIPASE 5. Acute LUQ pain - ICD9: 789.02, 338.19, ICD10: R10.12 - CT ABD/PEL W IVCON - IV CONTRAST (RADIOLOGY PROCEDURE) - ENTERIC CONTRAST (RADIOLOGY PROCEDURE) - ECG COMPLETE - COMPLETE BLOOD COUNT - COMPREHENSIVE METABOLIC PANEL - LIPASE 6. Hx of gastric bypass - ICD9: V45.86, ICD10: Z98.84 - CT ABD/PEL W IVCON - IV CONTRAST (RADIOLOGY PROCEDURE) - ENTERIC CONTRAST (RADIOLOGY PROCEDURE) - ECG COMPLETE - COMPLETE BLOOD COUNT - COMPREHENSIVE METABOLIC PANEL - LIPASE 7. Jaw pain - ICD9: 784.92, ICD10: R68.84 - CT ABD/PEL W IVCON - IV CONTRAST (RADIOLOGY PROCEDURE) - ENTERIC CONTRAST (RADIOLOGY PROCEDURE) - ECG COMPLETE - COMPLETE BLOOD COUNT - COMPREHENSIVE METABOLIC PANEL - LIPASE Leny Amador APRN.RECORDS ANALYSIS MANAGER 03/30/2024 CT abd/pelv w IV cont: IMPRESSION: 1. No acute abnormality identified in the abdomen or pelvis. 2. Redemonstrated short segment of jejunojejunal intussusception at the site of small bowel anastomosis, indeterminate whether transient or fixed. No bowel obstruction. Biliary: No bile duct dilation. Distended gallbladder, otherwise unremarkable. Currently: Epigastric pain has improved a bit with using the Carafate. Does have a little bit more of an appetite. Poking burning stabbing to left upper quadrant. Having RUQ pain and bloating worse following eating. Feels that the bloating pain pushes from right into her left upper abdomen and then causes the burning stabbing pain. Has had to miss a few days of work r/t this pain. Past medical history, appointments, medications, allergies reviewed. Previous Medical History PAST MEDICAL HISTORY 12/27/2013: Acquired pancytopenia (HCC) No date: Anemia 01/29/2012: Depression 11/05/09: Hepatic steatosis No date: Iron deficiency anemia No date: Morbid obesity (HCC) No date: Pituitary tumor No date: PMH - PAST MEDICAL HISTORY OF Comment: VARICOSE VEINS 02/09/2018: Prolactin secreting pituitary adenoma (HCC) Comment: diagnosed in 201012/27/2013: 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) Previous Surgical History PAST SURGICAL HISTORY 07/09/2005: DELIVERY ONLY 11/04/07: DELIVERY ONLY 04/10/14: COLONOSCOPY FLX DX W/COLLJ SPEC WHEN PFRMD Comment: Colonoscopy 04/10/14: ESOPHAGOGASTRODUODENOSCOPY TRANSORAL DIAGNOSTIC Comment: EGD 11/05/09: laproscopic roue-en-y gastric bypass 04/27/14: LAPS W/VAG HYSTERECT 250 GM/&RMVL TUBE&/OVARIES Comment: LAVH, bilateral salpingectomy, HMB, anemia 11/04/07: LIG/TRNSXJ FLP TUBE ABDL/VAG APPR UNI/BI Comment: done at 2003: PAST SURGICAL HISTORY OF Comment: I&D cyst on back 2002: PAST SURGICAL HISTORY OF Comment: I&D ABSESS OF FACE 2005: PAST SURGICAL HISTORY OF Comment: I&D CYST ON POSTERIOR THIGH No date: PAST SURGICAL HISTORY OF Comment: CRYOCAUTERY OF VAGINAL LESIONS No date: PAST SURGICAL HISTORY OF Comment: Melanoma excision with LN biopsy 1975: TONSILLECTOMY PRIMARY/SECONDARY <AGE 12 Family History FAMILY HISTORY Problem Relation Age of Onset Hypertension Mother Heart Mother other (lymphoma) Mother other (Melanoma) Mother Hypertension Father Heart Father COPD Father Emphysema Father other (congestive heart failure) Father other (pvd) Father Cancer Maternal Grandmother RECTAL Patient Allergies ALLERGIES Allergen Reactions Benzoyl Peroxide Rash Clindamycin Rash Sulfa (Sulfonamide * Hives Current Medications Current Outpatient Medications on File Prior to Visit Medication Sig [START ON 05/08/2024] armodafinil (NUVIGIL) 250 mg tab Take 1/2 to 1 tab in AM as directed. Do not start before May 08, 2024. sucralfate (CARAFATE) 1 gram tablet Take 1 tablet by mouth before meals and at bedtime. FLUoxetine (PROZAC) 40 mg capsule Take 1 capsule by mouth once daily. GEMTESA 75 mg tablet Take 1 tablet by mouth every afternoon. cabergoline (DOSTINEX) 0.5 mg tablet Take 1 tablet by mouth every Thursday and Thursday. estradiol (ESTRACE) 1 mg tablet TAKE 1 TABLET BY MOUTH EVERY DAY ketoconazole (NIZORAL) 2 % shampoo Apply 1 application to affected area once daily as needed. ubidecarenone (COENZYME Q10) 100 mg tab Take by mouth once daily. OTC PRODUCT Immune Defend - 2 capsules daily FERROUS SULFATE ORAL Take by mouth. Clobetasol Propionate (TEMOVATE) 0.05 % external solution Apply to affected area twice daily. mometasone (ELOCON) 0.1 % cream apply bid prn budesonide (PULMICORT FLEXHALER) 90 mcg/actuation aepb Inhale 2 Puffs as instructed twice daily as needed. loratadine (CLARITIN) 10 mg tablet Take 1 tablet by mouth once daily. pantoprazole DR (PROTONIX) 40 mg tablet Take 1 tablet by mouth daily before breakfast. Take on empty stomach, 1/2 hr before meal. acetaminophen (TYLENOL) 500 mg tablet take 2 tablets by mouth every 8 hours if needed for pain OR FEVER COMPOUNDED PRESCRIPTION Journey 3+3 Bariatric Multivitamin Take 3 capsules in am and Take 3 capsules in PM No current facility-administered medications on file prior to visit. Social History Social History Tobacco Use Smoking status: Never Smokeless tobacco: Never Vaping Use Vaping Use: Never used Substance Use Topics Alcohol use: Yes Comment: OCCASIONALLY, NOT WHILE Drug use: No Review of Symptoms REVIEW OF SYSTEMS See HPI, otherwise negative EXAM: BP 130/76 (BP Site: Left Arm, BP Position: Sitting, BP Cuff Size: Regular Adult) Pulse 74 Temp 36.8 C (98.3 F) Resp 16 Wt 93.4 kg (205 lb 12.8 oz) LMP 03/31/2014 SpO2 98% BMI 36.01 kg/m General Appearance: ill-appearing, alert, in no acute distress, well-hydrated, well nourished.. Lungs: Lungs clear to auscultation. No wheezing, rhonchi, rales.. Heart: RRR without murmur, gallop, or rubs. No ectopy. Abdomen: Abdomen soft bowel sounds normal. No masses, organomegaly. Painful with palpation of epigastric region, RUQ and LUQ.. Psychiatric: pleasant, cooperative. Health Maintenance List DTaP,Tdap,Td Vaccine(1 - Tdap) Never done Shingrix Vaccine(1 of 2) Never done Covid-19 Vaccine(4 - season) due on 05/08/2023 Colorectal Cancer Screening due on 04/10/2024 Mammogram Screening due on 09/16/2024 Influenza Vaccine(1) due on 05/08/2024 Diabetes Screening due on 03/30/2027 Lipid Screening due on 05/05/2028 Hepatitis B Vaccine Completed Hepatitis C Screening Completed HIV Screening Completed HPV Vaccine Aged Out Cervical Cancer Screening Discontinued Data reviewed Previous records, office notes ASSESSMENT/PLAN: 1. Right upper quadrant abdominal pain - ICD9: 789.01, ICD10: R10.11 (primary diagnosis) Concern for gallbladder etiology vs possible post-gastric bypass etiology. Concern for intussusception cause as well-patient states she had this in the past and was told that it may need to be surgically repaired. Patient requesting opinion from Dr. Vásquez as she has seen him in the past for EGD, colonoscopy. - US ABD RIGHT UPPER QUADRANT - NM HEPATOBILIARY W EF AND/OR RX 2. Gastroesophageal reflux disease, unspecified whether esophagitis present - ICD9: 530.81, ICD10: K21.9 Concern for gallbladder etiology vs possible post-gastric bypass etiology. Concern for intussusception cause as well-patient states she had this in the past and was told that it may need to be surgically repaired. Patient requesting opinion from Dr. Vásquez as she has seen him in the past for EGD, colonoscopy. - US ABD RIGHT UPPER QUADRANT - NM HEPATOBILIARY W EF AND/OR RX 3. Epigastric pain - ICD9: 789.06, ICD10: R10.13 Concern for gallbladder etiology vs possible post-gastric bypass etiology. Concern for intussusception cause as well-patient states she had this in the past and was told that it may need to be surgically repaired. Patient requesting opinion from Dr. Vásquez as she has seen him in the past for EGD, colonoscopy. - US ABD RIGHT UPPER QUADRANT - NM HEPATOBILIARY W EF AND/OR RX 4. Nausea - ICD9: 787.02, ICD10: R11.0 Concern for gallbladder etiology vs possible post-gastric bypass etiology. Concern for intussusception cause as well-patient states she had this in the past and was told that it may need to be surgically repaired. Patient requesting opinion from Dr. Vásquez as she has seen him in the past for EGD, colonoscopy. - US ABD RIGHT UPPER QUADRANT - NM HEPATOBILIARY W EF AND/OR RX 5. Decreased appetite - ICD9: 783.0, ICD10: R63.0 Concern for gallbladder etiology vs possible post-gastric bypass etiology. Concern for intussusception cause as well-patient states she had this in the past and was told that it may need to be surgically repaired. Patient requesting opinion from Dr. Vásquez as she has seen him in the past for EGD, colonoscopy. - US ABD RIGHT UPPER QUADRANT - NM HEPATOBILIARY W EF AND/OR RX 6. Acute LUQ pain - ICD9: 789.02, 338.19, ICD10: R10.12 Concern for gallbladder etiology vs possible post-gastric bypass etiology. Concern for intussusception cause as well-patient states she had this in the past and was told that it may need to be surgically repaired. Patient requesting opinion from Dr. Vásquez as she has seen him in the past for EGD, colonoscopy. - US ABD RIGHT UPPER QUADRANT - NM HEPATOBILIARY W EF AND/OR RX 7. Hx of gastric bypass - ICD9: V45.86, ICD10: Z98.84 Concern for gallbladder etiology vs possible post-gastric bypass etiology. Concern for intussusception cause as well-patient states she had this in the past and was told that it may need to be surgically repaired. Patient requesting opinion from Dr. Vásquez as she has seen him in the past for EGD, colonoscopy. - US ABD RIGHT UPPER QUADRANT - NM HEPATOBILIARY W EF AND/OR RX 8. Intussusception (HCC) - ICD9: 560.0, ICD10: K56.1 Concern for gallbladder etiology vs possible post-gastric bypass etiology. Concern for intussusception cause as well-patient states she had this in the past and was told that it may need to be surgically repaired. Patient requesting opinion from Dr. Vásquez as she has seen him in the past for EGD, colonoscopy. - US ABD RIGHT UPPER QUADRANT - NM HEPATOBILIARY W EF AND/OR RX Leny Amador APRN.CNP documented in this encounter [facility] 04-04-2024 Telephone encounter Note Patient scheduled and sent MC message to confirm appointment. Please leave encounter open until patient views message. CHARMAINE Eden [facility] 04-04-2024 Miscellaneous Notes Patient scheduled and sent MC message to confirm appointment. Please leave encounter open until patient views message. CHARMAINE Eden She needs a 6 month follow up in person with Dr Rosales please Liyah Pryor APRN.CNP documented in this encounter [facility] 04-01-2024 Telephone encounter Note She needs a 6 month follow up in person with Dr Rosales please Liyah Pryor APRN.CNP [facility] 04-01-2024 History of Present illness Narrative Images from the original note were not included. [facility] Follow up/ Established patient visit Date of last visit : 09/28/2023 The following Impression/Plan was copied and pasted from the patient's last [facility] visit on 09/28/23: IMPRESSION: Hypersomnia due to medical condition (primary encounter diagnosis) Uars (upper airway resistance syndrome) Deedee Hunt is a 52 year old female with hypersomnia, UARS. Works first shift at [employer] at [employer] but gets texts/calls in the night so sleep is disrupted. Armodafinil is effective at managing her excessive sleepiness. Has UARS, sleeps on her side. PMH of obesity, hx gastric bypass, anxiety, depression, melanoma, mixed incontinence, GERD, hyperlipidemia. PLAN: - Continue taking armodafinil as directed (takes 1/2 tab of 125 mg QAM). New insurance this year. - Avoid driving when drowsy. - recovery collector for short naps (20-30 minutes) and use of caffeine if needed to help stay awake when driving. - Try to get at least 7-9 hours of sleep in a 24 hour period. Healthy diet and exercise can also promote better sleep. - Follow up in 6 months Liyah Pryor APRN.ELIANE Here for follow up for hypersomnia, UARS. Her sleep disorders are stable, no concerns today. Armodafinil remains effective, takes 1/2 of a 250 mg pill every morning. Knows she needs to get more sleep, only getting about 6-6.5 hrs per night. Currently off work this week due to abd pain, GB is distended on CT. 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 Some days feels more sluggish than others but that can be related to stress. PDMP website checked and validated. All prescriptions have been APPROPRIATELY filled. No suspicious activity was identified. 04/01/2024 by Liyah Pryor APRN.ELIANE Treatment history: Adderall--not effective, still foggy No UTOX 03/30/24 ECG SLEEP HYGIENE QUESTIONS: Bedtime : 10:30 PM Wake up Time : 6 AM, needs multiple alarms, hard to awake in the morning Time it takes to fall sleep : quick Number of times patient wakes up per night : 1+ Reason (s) why patient wakes up during the night : urination, texts/calls from work Estimated total sleep time ( in a 24 hour period of time) : 6-6.5 Naps : sometimes on weekends, refreshing if only 30-40 minutes Sleeps in on weekends PATIENT-ENTERED QUESTIONNAIRE SLEEP SCORES 04/01/2024 Sleep Questions Reason for visit: Difficulty falling or staying asleep or poor sleep quality Excessive daytime sleepiness On average, hours of sleep in 24 hours: 6 Accidents or near accidents due to drowsy drivin 10/02/2022 09/28/2023 04/01/2024 [place] Sleepiness Scale Score 12 (Excessive daytime sleepiness present) 15 (Excessive daytime sleepiness present) 18 (Excessive daytime sleepiness present) 10/02/2022 09/28/2023 03/25/2024 PROMIS CAT Sleep Disturbance PROMIS Sleep Disturbance T-Score 59 (mild) 54 (within normal limits) 56 (mild) PROMIS Sleep Disturbance Percentile 18 34 27 08/13/2021 10/02/2022 03/25/2024 Insomnia Severity Index Score 9 12 12 05/03/2023 09/28/2023 03/25/2024 PHQ-9 Score 10 5 9 05/03/2023 09/28/2023 03/25/2024 PROMIS Global Health - (T-Scores - the mean of general population = 50. Five points is a clinically meaningful difference.) Physical T-Score 42.3 44.9 44.9 Mental T-Score 31.3 43.5 41.1 SLEEP RELATED ROS Review of Systems Constitutional: Negative for recent unintentional weight change. Cardiovascular: Negative for chest pain. Gastrointestinal: Positive for abdominal pain (being evaluated currently). Neurological: Positive for headaches (stress headaches). ALLERGIES Allergen Reactions Benzoyl Peroxide Rash Clindamycin Rash Sulfa (Sulfonamide * Hives CURRENT MEDICATIONS: sucralfate (CARAFATE) 1 gram tablet Take 1 tablet by mouth before meals and at bedtime. FLUoxetine (PROZAC) 40 mg capsule Take 1 capsule by mouth once daily. armodafinil (NUVIGIL) 250 mg tab Take 1/2 to 1 tab in AM as directed. GEMTESA 75 mg tablet Take 1 tablet by mouth every afternoon. cabergoline (DOSTINEX) 0.5 mg tablet Take 1 tablet by mouth every Thursday and Thursday. estradiol (ESTRACE) 1 mg tablet TAKE 1 TABLET BY MOUTH EVERY DAY ketoconazole (NIZORAL) 2 % shampoo Apply 1 application to affected area once daily as needed. ubidecarenone (COENZYME Q10) 100 mg tab Take by mouth once daily. OTC PRODUCT Immune Defend - 2 capsules daily FERROUS SULFATE ORAL Take by mouth. Clobetasol Propionate (TEMOVATE) 0.05 % external solution Apply to affected area twice daily. mometasone (ELOCON) 0.1 % cream apply bid prn budesonide (PULMICORT FLEXHALER) 90 mcg/actuation aepb Inhale 2 Puffs as instructed twice daily as needed. loratadine (CLARITIN) 10 mg tablet Take 1 tablet by mouth once daily. pantoprazole DR (PROTONIX) 40 mg tablet Take 1 tablet by mouth daily before breakfast. Take on empty stomach, 1/2 hr before meal. acetaminophen (TYLENOL) 500 mg tablet take 2 tablets by mouth every 8 hours if needed for pain OR FEVER COMPOUNDED PRESCRIPTION Journey 3+3 Bariatric Multivitamin Take 3 capsules in am and Take 3 capsules in PM PHYSICAL EXAMINATION: Vital Signs: Deferred due to virtual visit via Zoom. General appearance: NAD Mental status: awake and alert Constitutional: Well groomed Skin: Dry and intact Neuro: Speech fluent IMPRESSION: Hypersomnia due to medical condition (primary encounter diagnosis) Uars (upper airway resistance syndrome) Deedee Hunt is a 53 year old female with hypersomnia, UARS. 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 Armodafinil is effective at managing her excessive daytime sleepiness. Has UARS, sleeps on her side. PMH of obesity, hx gastric bypass, anxiety, depression, melanoma, mixed incontinence, GERD, hyperlipidemia. PLAN: - Continue taking armodafinil as directed. - Avoid driving when drowsy. - recovery collector for short naps (20-30 minutes) and use of caffeine if needed to help stay awake when driving. - Try to get at least 7-9 hours of sleep in a 24 hour period. Healthy diet and exercise can also promote better sleep. Follow up [address] Rosales Had ECG 03/30/24 No prior UTOX Liyah Pryor APRN.RECORDS ANALYSIS MANAGER documented in this encounter [facility] 03-30-2024 Telephone encounter Note Pt informed, verbalized understanding Evy Gomes MA [facility] 03-30-2024 Miscellaneous Notes Pt informed, verbalized understanding Evy Gomes MA Please let her know that her abdominal CT looks good, no concerns. We'll treat this as an ulcer as we discussed. I'm sending in Carafate for her to use. The following approved medication requests have been transmitted electronically. Requested Prescriptions Signed Prescriptions Disp Refills sucralfate (CARAFATE) 1 gram tablet 120 tablet 0 Sig: Take 1 tablet by mouth before meals and at bedtime. Authorizing Provider: LENY AMADOR APRN.CNP documented in this encounter [facility] 03-30-2024 Telephone encounter Note Please let her know that her abdominal CT looks good, no concerns. We'll treat this as an ulcer as we discussed. I'm sending in Carafate for her to use. The following approved medication requests have been transmitted electronically. Requested Prescriptions Signed Prescriptions Disp Refills sucralfate (CARAFATE) 1 gram tablet 120 tablet 0 Sig: Take 1 tablet by mouth before meals and at bedtime. Authorizing Provider: LENY AMADOR APRN.CNP [facility] 03-30-2024 History of Present illness Narrative Chief Complaint Patient presents with: Abdominal Pain: Mid upper burning, pain left side of abdomen, pain is worse after eating x couple days HPI Deedee Hunt is a 53 year old female who presents here today for Above Complaints. Epigastric pain intermittently for a while, but severe pain x4 days, moving into her left upper abdomen that is severe, sharp, doubles her over. Appetite is decreased. Is worse with eating. Is taking Prilosec which isn't helping. Some pain into her left jaw, but feels this is likely r/t reflux and some anxiety. Does have hx of gastric bypass in 2009. +nausea, no vomiting. Past medical history, appointments, medications, allergies reviewed. Previous Medical History PAST MEDICAL HISTORY Diagnosis Date Acquired pancytopenia (HCC) 12/27/2013 Anemia Depression 01/29/2012 Hepatic steatosis 11/05/09 Iron deficiency anemia Morbid obesity (HCC) Pituitary tumor PMH - PAST MEDICAL HISTORY OF VARICOSE VEINS Prolactin secreting pituitary adenoma (HCC) 02/09/2018 diagnosed in 2010 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) 12/27/2013 Previous Surgical History PAST SURGICAL HISTORY Procedure Laterality Date DELIVERY ONLY 07/09/2005 DELIVERY ONLY 11/04/07 COLONOSCOPY FLX DX W/COLLJ SPEC WHEN PFRMD 04/10/14 Colonoscopy ESOPHAGOGASTRODUODENOSCOPY TRANSORAL DIAGNOSTIC 04/10/14 EGD laproscopic roue-en-y gastric bypass 11/05/09 LAPS W/VAG HYSTERECT 250 GM/&RMVL TUBE&/OVARIES 04/27/14 LAVH, bilateral salpingectomy, HMB, anemia LIG/TRNSXJ FLP TUBE ABDL/VAG APPR UNI/BI 11/04/07 done at PAST SURGICAL HISTORY OF 2002 I&D cyst on back PAST SURGICAL HISTORY OF 2001 I&D ABSESS OF FACE PAST SURGICAL HISTORY OF 2004 I&D CYST ON POSTERIOR THIGH PAST SURGICAL HISTORY OF CRYOCAUTERY OF VAGINAL LESIONS PAST SURGICAL HISTORY OF Melanoma excision with LN biopsy TONSILLECTOMY PRIMARY/SECONDARY <AGE 10 1975 Family History FAMILY HISTORY Problem Relation Age of Onset Hypertension Mother Heart Mother other (lymphoma) Mother other (Melanoma) Mother Hypertension Father Heart Father COPD Father Emphysema Father other (congestive heart failure) Father other (pvd) Father Cancer Maternal Grandmother RECTAL Patient Allergies ALLERGIES Allergen Reactions Benzoyl Peroxide Rash Clindamycin Rash Sulfa (Sulfonamide * Hives Current Medications Current Outpatient Medications on File Prior to Visit Medication Sig FLUoxetine (PROZAC) 40 mg capsule Take 1 capsule by mouth once daily. armodafinil (NUVIGIL) 250 mg tab Take 1/2 to 1 tab in AM as directed. GEMTESA 75 mg tablet Take 1 tablet by mouth every afternoon. cabergoline (DOSTINEX) 0.5 mg tablet Take 1 tablet by mouth every Thursday and Thursday. estradiol (ESTRACE) 1 mg tablet TAKE 1 TABLET BY MOUTH EVERY DAY ketoconazole (NIZORAL) 2 % shampoo Apply 1 application to affected area once daily as needed. ubidecarenone (COENZYME Q10) 100 mg tab Take by mouth once daily. OTC PRODUCT Immune Defend - 2 capsules daily FERROUS SULFATE ORAL Take by mouth. Clobetasol Propionate (TEMOVATE) 0.05 % external solution Apply to affected area twice daily. mometasone (ELOCON) 0.1 % cream apply bid prn budesonide (PULMICORT FLEXHALER) 90 mcg/actuation aepb Inhale 2 Puffs as instructed twice daily as needed. loratadine (CLARITIN) 10 mg tablet Take 1 tablet by mouth once daily. pantoprazole DR (PROTONIX) 40 mg tablet Take 1 tablet by mouth daily before breakfast. Take on empty stomach, 1/2 hr before meal. acetaminophen (TYLENOL) 500 mg tablet take 2 tablets by mouth every 8 hours if needed for pain OR FEVER COMPOUNDED PRESCRIPTION Journey 3+3 Bariatric Multivitamin Take 3 capsules in am and Take 3 capsules in PM No current facility-administered medications on file prior to visit. Social History Social History Tobacco Use Smoking status: Never Smokeless tobacco: Never Vaping Use Vaping Use: Never used Substance Use Topics Alcohol use: Yes Comment: OCCASIONALLY, NOT WHILE Drug use: No Review of Symptoms REVIEW OF SYSTEMS See HPI, otherwise negative EXAM: BP 126/84 (BP Site: Left Arm, BP Position: Sitting, BP Cuff Size: Regular Adult) Pulse 87 Temp 36.9 C (98.5 F) Resp 16 Wt 91.8 kg (202 lb 6.4 oz) LMP 03/31/2014 SpO2 100% BMI 35.42 kg/m General Appearance: ill-appearing, alert, in no acute distress, well-hydrated, well nourished. Lungs: Lungs clear to auscultation. No wheezing, rhonchi, rales.. Heart: RRR without murmur, gallop, or rubs. No ectopy. Abdomen: Abdomen soft bowel sounds normal. No masses, organomegaly. Painful with palpation of epigastric region and LUQ. Psychiatric: pleasant, cooperative. Health Maintenance List DTaP,Tdap,Td Vaccine(1 - Tdap) Never done Shingrix Vaccine(1 of 2) Never done Covid-19 Vaccine(4 - season) due on 05/08/2023 Colorectal Cancer Screening due on 04/10/2024 Mammogram Screening due on 09/16/2024 Influenza Vaccine(1) due on 05/08/2024 Diabetes Screening due on 05/05/2026 Lipid Screening due on 05/05/2028 Hepatitis B Vaccine Completed Hepatitis C Screening Completed HIV Screening Completed HPV Vaccine Aged Out Cervical Cancer Screening Discontinued Data reviewed Previous records, office notes ASSESSMENT/PLAN: 1. Gastroesophageal reflux disease, unspecified whether esophagitis present - ICD9: 530.81, ICD10: K21.9 (primary diagnosis) - CT ABD/PEL W IVCON - IV CONTRAST (RADIOLOGY PROCEDURE) - ENTERIC CONTRAST (RADIOLOGY PROCEDURE) - ECG COMPLETE - COMPLETE BLOOD COUNT - COMPREHENSIVE METABOLIC PANEL - LIPASE 2. Epigastric pain - ICD9: 789.06, ICD10: R10.13 - CT ABD/PEL W IVCON - IV CONTRAST (RADIOLOGY PROCEDURE) - ENTERIC CONTRAST (RADIOLOGY PROCEDURE) - ECG COMPLETE - COMPLETE BLOOD COUNT - COMPREHENSIVE METABOLIC PANEL - LIPASE 3. Nausea - ICD9: 787.02, ICD10: R11.0 - CT ABD/PEL W IVCON - IV CONTRAST (RADIOLOGY PROCEDURE) - ENTERIC CONTRAST (RADIOLOGY PROCEDURE) - ECG COMPLETE - COMPLETE BLOOD COUNT - COMPREHENSIVE METABOLIC PANEL - LIPASE 4. Decreased appetite - ICD9: 783.0, ICD10: R63.0 - CT ABD/PEL W IVCON - IV CONTRAST (RADIOLOGY PROCEDURE) - ENTERIC CONTRAST (RADIOLOGY PROCEDURE) - ECG COMPLETE - COMPLETE BLOOD COUNT - COMPREHENSIVE METABOLIC PANEL - LIPASE 5. Acute LUQ pain - ICD9: 789.02, 338.19, ICD10: R10.12 - CT ABD/PEL W IVCON - IV CONTRAST (RADIOLOGY PROCEDURE) - ENTERIC CONTRAST (RADIOLOGY PROCEDURE) - ECG COMPLETE - COMPLETE BLOOD COUNT - COMPREHENSIVE METABOLIC PANEL - LIPASE 6. Hx of gastric bypass - ICD9: V45.86, ICD10: Z98.84 - CT ABD/PEL W IVCON - IV CONTRAST (RADIOLOGY PROCEDURE) - ENTERIC CONTRAST (RADIOLOGY PROCEDURE) - ECG COMPLETE - COMPLETE BLOOD COUNT - COMPREHENSIVE METABOLIC PANEL - LIPASE 7. Jaw pain - ICD9: 784.92, ICD10: R68.84 - CT ABD/PEL W IVCON - IV CONTRAST (RADIOLOGY PROCEDURE) - ENTERIC CONTRAST (RADIOLOGY PROCEDURE) - ECG COMPLETE - COMPLETE BLOOD COUNT - COMPREHENSIVE METABOLIC PANEL - LIPASE Leny Amadro APRN.RECORDS ANALYSIS MANAGER documented in this encounter [facility] 10-26-2023 Miscellaneous Notes Patient has been identified by name and date of : Yes, Provider Leny Amador APRN.RECORDS ANALYSIS MANAGER Date October 26, 2023 Time 9:56 AM Patient phones for refill(s): Requested Prescriptions Pending Prescriptions Disp Refills FLUoxetine (PROZAC) 40 mg capsule 90 capsule 1 Sig: Take 1 capsule by mouth once daily. Date of last office visit in primary care: 05/04/2023 Date of next office visit in primary care: none Please advise. Thank you. Amelia Feliciano Ma. documented in this encounter [facility] 10-15-2023 Miscellaneous Notes Pt notified of results & message from provider, pt voiced understanding. Deidra Saha LPN Please call patient let her know she tested positive for influenza A. She is out of the window for treatment with Tamiflu. Supportive treatment at home. documented in this encounter [facility] 10-14-2023 History of Present illness Narrative Patient presents with: Flu Like Symptoms HPI: Feeling sick for 4 days. Exposed to influenza at her [employer] where she works. Positive symptoms: Cough, Sore throat, Earache, head feels like it is going to pop, Rhinorrhea, Fever, Chills, Body Aches, Malaise, Fatigue, Headache, Nausea, Negative symptoms: Shortness of breath, Nasal Congestion, Vomiting, Diarrhea, OTC: Mucinex, Tylenol Negative rapid COVID test. MEDICATIONS: Current Outpatient Medications Medication Sig armodafinil (NUVIGIL) 250 mg tab Take 1/2 to 1 tab in AM as directed. GEMTESA 75 mg tablet Take 1 tablet by mouth every afternoon. cabergoline (DOSTINEX) 0.5 mg tablet Take 1 tablet by mouth every Thursday and Thursday. FLUoxetine (PROZAC) 40 mg capsule Take 1 capsule by mouth once daily. estradiol (ESTRACE) 1 mg tablet TAKE 1 TABLET BY MOUTH EVERY DAY ketoconazole (NIZORAL) 2 % shampoo Apply 1 application to affected area once daily as needed. ubidecarenone (COENZYME Q10) 100 mg tab Take by mouth once daily. OTC PRODUCT Immune Defend - 2 capsules daily FERROUS SULFATE ORAL Take by mouth. Clobetasol Propionate (TEMOVATE) 0.05 % external solution Apply to affected area twice daily. mometasone (ELOCON) 0.1 % cream apply bid prn budesonide (PULMICORT FLEXHALER) 90 mcg/actuation aepb Inhale 2 Puffs as instructed twice daily as needed. loratadine (CLARITIN) 10 mg tablet Take 1 tablet by mouth once daily. pantoprazole DR (PROTONIX) 40 mg tablet Take 1 tablet by mouth daily before breakfast. Take on empty stomach, 1/2 hr before meal. acetaminophen (TYLENOL) 500 mg tablet take 2 tablets by mouth every 8 hours if needed for pain OR FEVER COMPOUNDED PRESCRIPTION Journey 3+3 Bariatric Multivitamin Take 3 capsules in am and Take 3 capsules in PM No current facility-administered medications for this visit. ALLERGIES: ALLERGIES Allergen Reactions Benzoyl Peroxide Rash Clindamycin Rash Sulfa (Sulfonamide * Hives VITALS: BP 116/80 Pulse 90 Temp 37.8 C (100 F) (Left Tympanic) Resp 16 Wt 89.5 kg (197 lb 6.4 oz) LMP 03/31/2014 SpO2 98% BMI 34.54 kg/m PHYSICAL EXAM: GEN: mildly ill appearing HEENT: PERRL, EOMI, conjunctiva clear Ears: canals clear. TMs without erythema, bulge, or effusion Sinuses: non-tender frontal sinus, tender maxillary sinuses Throat: moist mucous membranes, mild erythema, no exudate Neck: supple, no thyromegaly, no lymphadenopathy HEART: regular rate and rhythm, no murmurs LUNGS: clear to auscultation, no wheezes or crackles, no increased WOB ASSESSMENT/PLAN: 1. Influenza-like illness - ICD9: 487.1, ICD10: J11.1 (primary diagnosis) 2. Exposure to influenza - ICD9: V01.79, ICD10: Z20.828 - suspect influenza; differential includes COVID-19 or other viral URI. - Discussed supportive care treatment with home isolation, rest, cold medicine, and analgesia. - Red flags to seek further treatment include chest pain, shortness of breath, and lethargy; in the ER if severe. - COVID & INFLUENZA A/B & RSV NAAT, ROUTINE - she is beyond the therapeutic window for tamiflu. Fred Miranda MD documented in this encounter [facility] 05-08-2023 Miscellaneous Notes Pt informed, verbalized understanding. Evy Gomes Please let Marcie know I received her lab results. Her ACTH level is a bit low. We'll repeat this lab again in a month. If it is still abnormal, I'll have her see an designer. Leny Amador APRN.ELIANE documented in this encounter [facility] 05-06-2023 Miscellaneous Notes Patient calling regarding most recent Fluoxetine prescription sent to her pharmacy today. Reports 20 mg script was sent today, and it was suppose to be a 40 mg script. Pt reports she has 20 mg dose now and would like a 40 mg script sent to equal the 60 mg, as discussed at last OV on 05/04. Patient asking if provider's office received a health form faxed from her employer, for provider to complete regarding pt's recent OV? Pt reports it was suppose to be faxed to Leny's office fax on 05/04. Please call patient with update. Thank you. documented in this encounter [facility] 05-06-2023 Miscellaneous Notes Patient phones requesting refills as follows: Pharmacy comment: Script Clarification:PLEASE CLARIFY THE SIG. UNABLE TO UNDERSTAND Requested Prescriptions Pending Prescriptions Disp Refills FLUoxetine (PROZAC) 20 mg capsule [Pharmacy Med Name: FLUOXETINE HCL 20 MG CAPSULE] 90 capsule 0 Sig: TAKE 1 CAPSULE BY MOUTH ONCE DAILY. PATIENT TAKING 40 MG DAILY Please review and advise. Va Page LPN documented in this encounter [facility] 05-04-2023 Miscellaneous Notes Pt had appt today with Leny Amador. Amelia Feliciano Ma' documented in this encounter [facility] 05-04-2023 Instructions Leny Amador APRN.CNP - 05/04/2023 3:49 PM EDT Have your labs drawn documented in this encounter [facility] 05-04-2023 History of Present illness Narrative Chief Complaint Patient presents with: Physical HPI Deedee Hunt is a 52 year old female who presents here today for Above Complaints. Today: Has recently increased her fluoxetine on her own from 20mg to 40mg daily. This has been helpful for her mood. Otherwise no concerns or complaints, needs form completed for work. Past medical history, appointments, medications, allergies reviewed. Previous Medical History PAST MEDICAL HISTORY Diagnosis Date Acquired pancytopenia (HCC) 12/27/2013 Anemia Depression 01/29/2012 Hepatic steatosis 11/05/09 Iron deficiency anemia Morbid obesity (HCC) Pituitary tumor PMH - PAST MEDICAL HISTORY OF VARICOSE VEINS Prolactin secreting pituitary adenoma (HCC) 02/09/2018 diagnosed in 2010 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) 12/27/2013 Previous Surgical History PAST SURGICAL HISTORY Procedure Laterality Date DELIVERY ONLY 07/09/2005 DELIVERY ONLY 11/04/07 COLONOSCOPY FLX DX W/COLLJ SPEC WHEN PFRMD 04/10/14 Colonoscopy ESOPHAGOGASTRODUODENOSCOPY TRANSORAL DIAGNOSTIC 04/10/14 EGD laproscopic roue-en-y gastric bypass 11/05/09 LAPS W/VAG HYSTERECT 250 GM/&RMVL TUBE&/OVARIES 04/27/14 LAVH, bilateral salpingectomy, HMB, anemia LIG/TRNSXJ FLP TUBE ABDL/VAG APPR UNI/BI 11/04/07 done at PAST SURGICAL HISTORY OF 2002 I&D cyst on back PAST SURGICAL HISTORY OF 2001 I&D ABSESS OF FACE PAST SURGICAL HISTORY OF 2004 I&D CYST ON POSTERIOR THIGH PAST SURGICAL HISTORY OF CRYOCAUTERY OF VAGINAL LESIONS PAST SURGICAL HISTORY OF Melanoma excision with LN biopsy TONSILLECTOMY PRIMARY/SECONDARY <AGE 12 1976 Family History FAMILY HISTORY Problem Relation Age of Onset Hypertension Mother Heart Mother other (lymphoma) Mother other (Melanoma) Mother Hypertension Father Heart Father COPD Father Emphysema Father other (congestive heart failure) Father other (pvd) Father Cancer Maternal Grandmother RECTAL Patient Allergies ALLERGIES Allergen Reactions Benzoil Peroxide [O* Intolerance bright red RASH Clindamycin Rash Sulfa (Sulfonamide * Hives Current Medications Current Outpatient Medications on File Prior to Visit Medication Sig cabergoline (DOSTINEX) 0.5 mg tablet Take 1 tablet by mouth every Thursday and Thursday. FLUoxetine (PROZAC) 20 mg capsule TAKE 1 CAPSULE BY MOUTH ONCE DAILY (Patient taking differently: Take 20 mg by mouth once daily. Patient taking 40 mg daily) estradiol (ESTRACE) 1 mg tablet TAKE 1 TABLET BY MOUTH EVERY DAY ketoconazole (NIZORAL) 2 % shampoo Apply 1 application to affected area once daily as needed. ubidecarenone (COENZYME Q10) 100 mg tab Take by mouth once daily. OTC PRODUCT Immune Defend - 2 capsules daily FERROUS SULFATE ORAL Take by mouth. Clobetasol Propionate (TEMOVATE) 0.05 % external solution Apply to affected area twice daily. mometasone (ELOCON) 0.1 % cream apply bid prn budesonide (PULMICORT FLEXHALER) 90 mcg/actuation aepb Inhale 2 Puffs as instructed twice daily as needed. loratadine (CLARITIN) 10 mg tablet Take 1 tablet by mouth once daily. pantoprazole DR (PROTONIX) 40 mg tablet Take 1 tablet by mouth daily before breakfast. Take on empty stomach, 1/2 hr before meal. acetaminophen (TYLENOL) 500 mg tablet take 2 tablets by mouth every 8 hours if needed for pain OR FEVER COMPOUNDED PRESCRIPTION Journey 3+3 Bariatric Multivitamin Take 3 capsules in am and Take 3 capsules in PM armodafinil (NUVIGIL) 250 mg tab Take 1/2 to 1 tab in AM as directed. No current facility-administered medications on file prior to visit. Social History Social History Tobacco Use Smoking status: Never Smokeless tobacco: Never Vaping Use Vaping Use: Never used Substance Use Topics Alcohol use: Yes Comment: OCCASIONALLY, NOT WHILE Drug use: No Review of Symptoms REVIEW OF SYSTEMS See HPI, otherwise negative EXAM: BP 128/76 Pulse 76 Resp 16 Ht 161.5 cm (5' 3.58) Wt 91.9 kg (202 lb 9.6 oz) LMP 03/31/2014 SpO2 98% BMI 35.23 kg/m General Appearance: Well appearing, alert, in no acute distress, well-hydrated, well nourished. and Obese. Skin: Skin color, texture, turgor normal, no suspicious rashes or lesions. Head: Normocephalic, no masses, lesions, tenderness or abnormalities. Eyes: Anicteric sclera. Pupils are equally round and reactive to light. Extraocular movements are intact. . Ears: External ears normal, canals clear. Nose/Sinuses: Nares normal, septum midline, mucosa normal, no drainage or sinus tenderness. Oropharynx: Lips, mucosa, and tongue normal, teeth and gums normal, oropharynx normal. Neck: Supple, no adenopathy; thyroid symmetric, normal size, no bruits. Back:no pain to palpation of vertebrae, good flexion and extension, good range of motion, no muscle tenderness, motor and sensory appear to be normal Lungs: Lungs clear to auscultation. No wheezing, rhonchi, rales.. Heart: RRR without murmur, gallop, or rubs. No ectopy. Abdomen: Normal abdominal exam, Abdomen soft, non-tender. Bowel sounds normal. No masses, organomegaly. Extremities: No deformities, edema, skin discoloration, clubbing or cyanosis. Good capillary refill. . Musculoskeletal: No joint swelling, deformity, or tenderness. Peripheral Pulses: Normal. Neurologic: Gait normal. Reflexes normal and symmetric. Sensation grossly intact.. Lymph Nodes: No cervical lymphadenopathy and No supraclavicular lymphadenopathy. Psychiatric: pleasant, cooperative. Health Maintenance List DTAP,TDAP,TD(1 - Tdap) Never done SHINGRIX VACCINE(1 of 2) Never done COVID-19 VACCINE(4 - Pfizer series) due on 08/13/2021 MAMMOGRAM due on 04/24/2023 INFLUENZA(1) due on 05/08/2023 COLORECTAL CANCER SCREENING due on 04/10/2024 DIABETES SCREEN due on 05/30/2025 LIPID SCREEN due on 05/30/2027 HEPATITIS B Completed HEPATITIS C SCREENING Completed HIV SCREENING Completed HPV VACCINE Aged Out PAP TESTING Discontinued HPV TESTING Discontinued Data reviewed Previous records, office notes ASSESSMENT/PLAN: 1. Well adult exam - ICD9: V70.0, ICD10: Z00.00 (primary diagnosis) - Counseled on healthy diet and regular exercise - Calcium intake with supplements or by diet of 1000 mg/day for under 50, 5171-4563 mg/day for 50+ - Follow up for annual exam in one year - LIPID PANEL BASIC - CBC - IRON + TIBC - FERRITIN BLD - VITAMIN D 25 HYDROXY - VITAMIN B12 BLOOD - ACTH BLD - PROLACTIN BLD - HGB A1C - COMP METABOLIC PANEL 2. 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) - ICD9: 253.1, ICD10: E22.1 - ACTH BLD - PROLACTIN BLD 3. Prolactin secreting pituitary adenoma (HCC) - ICD9: 227.3, ICD10: D35.2 - ACTH BLD - PROLACTIN BLD 4. Vitamin D deficiency - ICD9: 268.9, ICD10: E55.9 - VITAMIN D 25 HYDROXY 5. Screening for lipid disorders - ICD9: V77.91, ICD10: Z13.220 - LIPID PANEL BASIC 6. Encounter for vitamin deficiency screening - ICD9: V77.99, ICD10: Z13.21 - VITAMIN B12 BLOOD 7. Screening for thyroid disorder - ICD9: V77.0, ICD10: Z13.29 - TSH BLD Leny Amador APRN.ELIANE documented in this encounter [facility] 12-11-2022 Miscellaneous Notes When doing PA for 8 tablets its advising no PA is needed Called [facility] and advised insurance is still not approving 60 days Called Jazmin advises plan will not authorize more than 30 days at a time but explained per assistant manager trainee rx can not be broken up due to coming in package of 8 tablets. Jazmin submitted request to pharmacy to see if they will push quantity limit through. Next option is if still not approved we change instructions so patient will get 8 per 30 days but make sure patient is aware only to do half Cher Barriga Ma Can we do a PA for this? Leny Amador APRN.ELIANE Pharmacy comment: Script Clarification:INSURANCE IS PAYING FOR 4 TABS BUT COMES IN 8 TABS PER BOX AND CAN'T BREAK THE BOX. INSURANCE IS ASKING FOR A PA TO APPROVE THE 8 TABS. documented in this encounter [facility] 11-26-2022 Miscellaneous Notes Patient has been identified by name and date of : Yes Pharmacy phones for refill(s): Requested Prescriptions Pending Prescriptions Disp Refills cabergoline (DOSTINEX) 0.5 mg tablet [Pharmacy Med Name: CABERGOLINE 0.5 MG TABLET] 8 tablet 3 Sig: TAKE 1/2 TABLET BY MOUTH EVERY THURSDAY AND THURSDAY Date of last office visit in primary care: 10/09/2022 Please advise. Thank you. Vane Ge LPN documented in this encounter [facility] 11-17-2022 Miscellaneous Notes Last office visit: 10/09/22 F/u scheduled: none Amelia Feliciano Ma documented in this encounter [facility] 11-05-2022 Miscellaneous Notes Spoke with pt and gave her results. She will stop taking the medication prescribed for this. Will keep appt next Thursday. Pt was agreeable with results. Nena Kim LPN ----- Message from Arya Rosales Jr., MD sent at 11/05/2022 2:56 PM EST ----- No mass on the pituitary gland. documented in this encounter [facility] 10-09-2022 History of Present illness Narrative Chief Complaint Patient presents with: Sinus Problem: Headache, sinus pressure, teeth care achy, pressure in ears x 1.5 week, Neg home covid test this morning. HPI Deedee Hunt is a 51 year old female who presents here today for Above Complaints. Marcie is an established patient of Suzanne Amador CNP. She is a new patient to me today. Concerns today... Sinus infection? -- X 1.5 weeks of sinus pressure and tenderness to forehead and cheeks. Top teeth start hurting from pressure. Sinus drainage. Has tried Claritin, Mucinex, and boosting Vitamin C with little relief. Cough at night from constant drainage down throat. No coughing during day. Been sneezing a lot. Negative at home COVID test. No other concerns or complaints. Past medical history, appointments, medications, allergies reviewed. Previous Medical History PAST MEDICAL HISTORY Diagnosis Date Acquired pancytopenia (HCC) 12/27/2013 Anemia Depression 01/29/2012 Hepatic steatosis 11/05/09 Iron deficiency anemia Morbid obesity (HCC) Pituitary tumor PMH - PAST MEDICAL HISTORY OF VARICOSE VEINS Prolactin secreting pituitary adenoma (HCC) 02/09/2018 diagnosed in 2010 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) 12/27/2013 Previous Surgical History PAST SURGICAL HISTORY Procedure Laterality Date DELIVERY ONLY 07/09/2005 DELIVERY ONLY 11/04/07 COLONOSCOPY FLX DX W/COLLJ SPEC WHEN PFRMD 04/10/14 Colonoscopy ESOPHAGOGASTRODUODENOSCOPY TRANSORAL DIAGNOSTIC 04/10/14 EGD laproscopic roue-en-y gastric bypass 11/05/09 LAPS W/VAG HYSTERECT 250 GM/&RMVL TUBE&/OVARIES 04/27/14 LAVH, bilateral salpingectomy, HMB, anemia LIG/TRNSXJ FLP TUBE ABDL/VAG APPR UNI/BI 11/04/07 done at PAST SURGICAL HISTORY OF 2002 I&D cyst on back PAST SURGICAL HISTORY OF 2001 I&D ABSESS OF FACE PAST SURGICAL HISTORY OF 2004 I&D CYST ON POSTERIOR THIGH PAST SURGICAL HISTORY OF CRYOCAUTERY OF VAGINAL LESIONS PAST SURGICAL HISTORY OF Melanoma excision with LN biopsy TONSILLECTOMY PRIMARY/SECONDARY <AGE 10 1976 Family History FAMILY HISTORY Problem Relation Age of Onset Hypertension Mother Heart Mother other (lymphoma) Mother other (Melanoma) Mother Hypertension Father Heart Father COPD Father Emphysema Father other (congestive heart failure) Father other (pvd) Father Cancer Maternal Grandmother RECTAL Patient Allergies ALLERGIES Allergen Reactions Benzoil Peroxide [O* Intolerance bright red RASH Clindamycin Rash Sulfa (Sulfonamide * Hives Current Medications Current Outpatient Medications on File Prior to Visit Medication Sig armodafinil (NUVIGIL) 250 mg tab Take 1/2 to 1 tab in AM as directed. estradiol (ESTRACE) 1 mg tablet TAKE 1 TABLET BY MOUTH EVERY DAY FLUoxetine (PROZAC) 20 mg capsule TAKE 1 CAPSULE BY MOUTH ONCE DAILY ketoconazole (NIZORAL) 2 % shampoo Apply 1 application to affected area once daily as needed. ubidecarenone (COENZYME Q10) 100 mg tab Take by mouth once daily. OTC PRODUCT Immune Defend - 2 capsules daily cabergoline (DOSTINEX) 0.5 mg tablet TAKE 1/2 TABLET BY MOUTH EVERY THURSDAY AND THURSDAY FERROUS SULFATE ORAL Take by mouth. Clobetasol Propionate (TEMOVATE) 0.05 % external solution Apply to affected area twice daily. mometasone (ELOCON) 0.1 % cream apply bid prn budesonide (PULMICORT FLEXHALER) 90 mcg/actuation aepb Inhale 2 Puffs as instructed twice daily as needed. loratadine (CLARITIN) 10 mg tablet Take 1 tablet by mouth once daily. pantoprazole DR (PROTONIX) 40 mg tablet Take 1 tablet by mouth daily before breakfast. Take on empty stomach, 1/2 hr before meal. acetaminophen (TYLENOL) 500 mg tablet take 2 tablets by mouth every 8 hours if needed for pain OR FEVER COMPOUNDED PRESCRIPTION Journey 3+3 Bariatric Multivitamin Take 3 capsules in am and Take 3 capsules in PM No current facility-administered medications on file prior to visit. Social History Social History Tobacco Use Smoking status: Never Smokeless tobacco: Never Vaping Use Vaping Use: Never used Substance Use Topics Alcohol use: Yes Comment: OCCASIONALLY, NOT WHILE Drug use: No REVIEW OF SYSTEMS: as above Reviewed relevant PMHx, PSHx, Social Hx, current medications and allergies. Review of Symptoms REVIEW OF SYSTEMS See HPI. EXAM: BP 132/84 (BP Site: Left Arm, BP Position: Sitting, BP Cuff Size: Regular Adult) Pulse 70 Temp 36.6 C (97.9 F) Wt 93.6 kg (206 lb 6.4 oz) LMP 03/31/2014 SpO2 99% BMI 36.56 kg/m General Appearance: Well appearing, alert, in no acute distress, well-hydrated, well nourished.. Skin: Skin color, texture, turgor normal, no suspicious rashes or lesions. Head: Normocephalic, no masses, lesions, tenderness or abnormalities. Eyes: Anicteric sclera. Pupils are equally round and reactive to light. Extraocular movements are intact. . Ears: External ears normal, canals clear. Nose/Sinuses: Nares normal, septum midline, mucosa normal, no drainage or sinus tenderness. Oropharynx: Lips, mucosa, and tongue normal, teeth and gums normal, oropharynx normal. Neck: Supple, no adenopathy; thyroid symmetric, normal size, no bruits. Back:no pain to palpation of vertebrae, good flexion and extension, good range of motion, no muscle tenderness, reflexes are 2+ and symmetric, motor and sensory appear to be normal, negative SLR test, no evidence of scoliosis Lungs: Lungs clear to auscultation. No wheezing, rhonchi, rales.. Heart: RRR without murmur, gallop, or rubs. No ectopy. Health Maintenance List DTAP,TDAP,TD(1 - Tdap) Never done SHINGRIX VACCINE(1 of 2) Never done COVID-19 VACCINE(4 - Booster for Pfizer series) due on 08/13/2021 INFLUENZA(1) due on 05/08/2022 MAMMOGRAM due on 04/24/2023 COLORECTAL CANCER SCREENING due on 04/10/2024 DIABETES SCREEN due on 05/30/2025 LIPID SCREEN due on 05/30/2027 HEPATITIS B Completed HEPATITIS C SCREENING Completed HIV SCREENING Completed PAP TESTING Discontinued HPV TESTING Discontinued ASSESSMENT/PLAN: 1. Bacterial sinusitis - ICD9: 473.9, 041.9, ICD10: J32.9, B96.89 - Will begin treatment with Augmentin 875 mg PO BID for 10 days - The patient should also be given OTC decongestants prn, OTC cough and cold meds as needed, warm salt water gargles, throat lozenges and/or OTC throat spray as needed, and nasal saline gtts and suction prn for the first 5-7 days of treatment. - Supportive care with plenty of fluids, rest, and analgesia prn. - Follow up in 3-5 days if symptoms persist or worsen. - AMOXICILLIN 875 MG-POTASSIUM CLAVULANATE 125 MG TABLET Prescription instructions reviewed with patient as applicable. Potential red flag symptoms discussed with the patient. Reviewed appropriate action plan to take if red flag symptoms occur. Patient agreeable to treatment plan. Cara Marley APRN.ELIANE [address] [place] [address] documented in this encounter [facility] 07-08-2022 History of Present illness Narrative Radiology Service Progress Note PATIENT NAME: Deedee Hunt DATE OF SERVICE: July 08, 2022 TIME: 3:26 PM PATIENT IDENTITY VERIFICATION COMPLETED USING TWO (2) IDENTIFIERS: Name and Date of confirmed by patient verbally. FALL SCREENING: Has the patient had 2 falls in the last year or 1 fall with injury or currently using an Ambulatory Assistive Device (Walker, Cane, Wheelchair, Crutches, etc.)? No PATIENT GENDER DATA: Female. status: : No status: NO. PATIENT RELEVANT IMPLANT DATA REVIEWED: Not Applicable RADIOLOGY DEPARTMENT: Ultrasound PERIPHERAL IV DATA: Not applicable SIGNED BY: Nena Mejia RDMS RVT July 08, 2022 3:26 PM documented in this encounter [facility] 07-08-2022 History of Present illness Narrative Radiology Service Progress Note PATIENT NAME: Deedee Hunt DATE OF SERVICE: July 08, 2022 TIME: 9:25 AM PATIENT IDENTITY VERIFICATION COMPLETED USING TWO (2) IDENTIFIERS: Name and Date of confirmed by patient verbally. FALL SCREENING: Has the patient had 2 falls in the last year or 1 fall with injury or currently using an Ambulatory Assistive Device (Walker, Cane, Wheelchair, Crutches, etc.)? No PATIENT GENDER DATA: Female. status: : No status: NO. PATIENT RELEVANT IMPLANT DATA REVIEWED: Not Applicable RADIOLOGY DEPARTMENT: Mammography PERIPHERAL IV DATA: Not applicable SIGNED BY: Darya Torres July 08, 2022 9:25 AM documented in this encounter [facility] 07-04-2022 Miscellaneous Notes Refill request received from pharmacy. Patient last seen for annual exam on 11/05/21. Meme Govea RN documented in this encounter [facility] 05-27-2022 Miscellaneous Notes Patient has been identified by name and date of : Yes Patient phones for refill(s): Requested Prescriptions Pending Prescriptions Disp Refills FLUoxetine (PROZAC) 20 mg capsule [Pharmacy Med Name: FLUOXETINE HCL 20 MG CAPSULE] 90 capsule 1 Sig: TAKE 1 CAPSULE BY MOUTH ONCE DAILY Date of last office visit in primary care: 05/08/22 Last 2 Encounter Wt Readings: Date: Wt: 05/08/2022 91.1 kg (200 lb 12.8 oz) 05/08/2022 89.8 kg (198 lb) Previous labs/tests for medication: Not applicable Please advise. Thank you. Cris Ware LPN documented in this encounter [facility] 05-27-2022 Miscellaneous Notes ROXANA approved with PA Approval dates 05/23/2022-05/23/2023 Information updated on patient's med list with patient updated through [employer] message. PIO Eden documented in this encounter [facility] 05-17-2022 Miscellaneous Notes Patient phones requesting refills as follows: Requested Prescriptions Pending Prescriptions Disp Refills ketoconazole (NIZORAL) 2 % shampoo 120 mL 3 Sig: Apply 1 application to affected area once daily as needed. STEVEN 05/08/22 NOV no upcoming appt Please review and advise. Kt Lino LPN documented in this encounter [facility] 05-08-2022 History of Present illness Narrative Chief Complaint Patient presents with: Medication Follow-up HPI Deedee Hunt is a 51 year old female who presents here today for Above Complaints.. Today: Doing well with the Prozac. Anger has dissepated and she is able to talk herself down. Feels this is a good dose for her. Past medical history, appointments, medications, allergies reviewed. Previous Medical History PAST MEDICAL HISTORY Diagnosis Date Acquired pancytopenia (HCC) 12/27/2013 Anemia Depression 01/29/2012 Hepatic steatosis 11/05/09 Iron deficiency anemia Morbid obesity (HCC) Pituitary tumor PMH - PAST MEDICAL HISTORY OF VARICOSE VEINS Prolactin secreting pituitary adenoma (HCC) 02/09/2018 diagnosed in 2010 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) 12/27/2013 Previous Surgical History PAST SURGICAL HISTORY Procedure Laterality Date DELIVERY ONLY 07/09/2005 DELIVERY ONLY 11/04/07 COLONOSCOPY FLX DX W/COLLJ SPEC WHEN PFRMD 04/10/14 Colonoscopy ESOPHAGOGASTRODUODENOSCOPY TRANSORAL DIAGNOSTIC 04/10/14 EGD laproscopic roue-en-y gastric bypass 11/05/09 LAPS W/VAG HYSTERECT 250 GM/&RMVL TUBE&/OVARIES 04/27/14 LAVH, bilateral salpingectomy, HMB, anemia LIG/TRNSXJ FLP TUBE ABDL/VAG APPR UNI/BI 11/04/07 done at PAST SURGICAL HISTORY OF 2002 I&D cyst on back PAST SURGICAL HISTORY OF 2001 I&D ABSESS OF FACE PAST SURGICAL HISTORY OF 2004 I&D CYST ON POSTERIOR THIGH PAST SURGICAL HISTORY OF CRYOCAUTERY OF VAGINAL LESIONS PAST SURGICAL HISTORY OF Melanoma excision with LN biopsy TONSILLECTOMY PRIMARY/SECONDARY <AGE 12 1975 Family History FAMILY HISTORY Problem Relation Age of Onset Hypertension Mother Heart Mother other (lymphoma) Mother other (Melanoma) Mother Hypertension Father Heart Father COPD Father Emphysema Father other (congestive heart failure) Father other (pvd) Father Cancer Maternal Grandmother RECTAL Patient Allergies ALLERGIES Allergen Reactions Benzoil Peroxide [O* Intolerance bright red RASH Clindamycin Rash Sulfa (Sulfonamide * Hives Current Medications Current Outpatient Medications on File Prior to Visit Medication Sig FLUoxetine (PROZAC) 20 mg capsule TAKE 1 CAPSULE BY MOUTH ONCE DAILY cabergoline (DOSTINEX) 0.5 mg tablet TAKE 1/2 TABLET BY MOUTH EVERY THURSDAY AND THURSDAY estradiol (ESTRACE) 1 mg tablet TAKE 1 TABLET BY MOUTH EVERY DAY FERROUS SULFATE ORAL Take by mouth. Clobetasol Propionate (TEMOVATE) 0.05 % external solution Apply to affected area twice daily. ketoconazole (NIZORAL) 2 % shampoo Apply 1 application to affected area once daily as needed. mometasone (ELOCON) 0.1 % cream apply bid prn budesonide (PULMICORT FLEXHALER) 90 mcg/actuation aepb Inhale 2 Puffs as instructed twice daily as needed. loratadine (CLARITIN) 10 mg tablet Take 1 tablet by mouth once daily. pantoprazole DR (PROTONIX) 40 mg tablet Take 1 tablet by mouth daily before breakfast. Take on empty stomach, 1/2 hr before meal. acetaminophen (TYLENOL) 500 mg tablet take 2 tablets by mouth every 8 hours if needed for pain OR FEVER COMPOUNDED PRESCRIPTION Journey 3+3 Bariatric Multivitamin Take 3 capsules in am and Take 3 capsules in PM No current facility-administered medications on file prior to visit. Social History Social History Tobacco Use Smoking status: Never Smokeless tobacco: Never Vaping Use Vaping Use: Never used Substance Use Topics Alcohol use: Yes Comment: OCCASIONALLY, NOT WHILE Drug use: No Review of Symptoms REVIEW OF SYSTEMS See HPI, otherwise negative EXAM: BP 122/78 (BP Site: Left Arm, BP Position: Sitting, BP Cuff Size: Regular Adult) Pulse 77 Wt 89.8 kg (198 lb) LMP 03/31/2014 SpO2 98% BMI 35.07 kg/m General Appearance: Well appearing, alert, in no acute distress, well-hydrated, well nourished.. Heart: RRR without murmur, gallop, or rubs. No ectopy. Psychiatric: pleasant, cooperative, no SI/HI Health Maintenance List SHINGRIX VACCINE(1 of 2) Never done COVID-19 VACCINE(4 - Booster for Pfizer series) due on 10/19/2021 INFLUENZA(1) due on 05/08/2022 DTAP,TDAP,TD(1 - Tdap) due on 08/22/2022 MAMMOGRAM due on 04/24/2023 DIABETES SCREEN due on 09/27/2023 COLORECTAL CANCER SCREENING due on 04/10/2024 LIPID SCREEN due on 09/27/2025 HEPATITIS B Completed HEPATITIS C SCREENING Completed HIV SCREENING Completed PAP TESTING Discontinued HPV TESTING Discontinued Data reviewed Previous records, office notes ASSESSMENT/PLAN: 1. Depression with anxiety - ICD9: 300.4, ICD10: F41.8 Continue current Prozac dose. Follow up in 3 months, sooner if necessary. Leny Amador APRN.ELIANE documented in this encounter [facility] 05-08-2022 History of Present illness Narrative ESTABLISHED PATIENT VISIT CHIEF COMPLAINT: Follow Up HISTORY OF PRESENT ILLNESS: Deedee Hunt is a 51 year old female, BMI 35.57 kg/m2 with a PMH significant for and per last note of 08/13/21: 1. Hypersomnia due to medical condition - ICD9: 327.14, ICD10: G47.14 Patient with persistent daytime sleepiness and brain fog since last visit, despite sleeping adequate hours through the night. PSG was unremarkable for etiology of symptoms. I reviewed PSG results with patient. Possible that patient has developed a hypersomnia secondary to having had COVID. We discussed repeat sleep study with MSLT, but patient would not be able to do at this time. Given the significance of symptoms on her daily activities, I do feel appropriate to try on medication to see if improves wakefulness. We discussed options with focus on Provigil and Nuvigil. Will first try Nuvigil 150mg QAM. SE and ADRs d/w pt and pt expresses no contraindications. Pt will contact us in 4 weeks to let us know how she is doing. May still consider MSLT in the future. Follow up in 3 months. 2. Upper airway resistance syndrome - ICD9: 327.8, ICD10: G47.8 Mild. Advised pt to sleep in the off-supine position. Sleep Questionnaire Data Depression Screening 12/17/2021 12/18/2021 05/08/2022 PHQ-2 Score 0 - 1 PHQ-9 Score 6 - 10 PED PHQ-9 12/17/2021 12/18/2021 05/08/2022 Little interest or pleasure in doing things Not at all - Several days Feeling down, depressed, or hopeless Not at all - Not at all Trouble falling or staying asleep, or sleeping too much More than half the days - More than half the days Feeling tired or having little energy Nearly every day - Nearly every day Poor appetite or overeating Not at all - Several days Feeling bad about yourself - or that you are a failure or have let yourself or your family down Not at all - Not at all Trouble concentrating on things, such as reading the newspaper or watching television Several days - More than half the days Moving or speaking so slowly that other people could have noticed. Or the opposite - being so fidgety or restless that you have been moving around a lot more than usual Not at all - Several days Thoughts that you would be better off , or of hurting yourself in some way Not at all - Not at all If you checked off any problems, how difficult have these problems made it for you to do your work, take care of things at home, or get along with other people? Very difficult - Very difficult PHQ-9 Score 6 (Mild Depression) - 10 (Moderate Depression) [place] Sleepiness Scale 12/17/2021 12/18/2021 05/08/2022 Score 14 (present daytime sleepiness) 13 (present daytime sleepiness) 15 (present daytime sleepiness) States that when she was on Nuvigil initially for the first 2 months, felt it was working well and feeling better. No side effects. States her brain did not feel as foggy. [place] more alert. States has been up since 830 this AM and already feeling foggy and wanting to go home and go to sleep. Symptoms were at least 50% better on Nuvigil. Depression and stress elevated in past few months. Just restarted Prozac but does feel it kicking in already. No SI or HI. No weight changes. Sleeping on side. No BEA s/s. Getting 7 hours of sleep with a bedtime about 11PM and wake time about 830AM. No matter how long sleep still feels tired. Work schedule all over the place. Rarely needing 3rd shift. REVIEW OF SYSTEMS GENERAL:No weight loss, malaise or fevers. HEENT:Negative for frequent or significant headaches, No changes in hearing or vision, no nose bleeds or other nasal problems NECK:Negative for lumps, goiter, pain and significant neck swelling RESPIRATORY: Negative for cough, wheezing or shortness of breath. CARDIOVASCULAR: Negative for chest pain, leg swelling or palpitations. GASTROINTESTINAL: Negative for abdominal discomfort, blood in stools or black stools or change in bowel habits GENITOURINARY: No history of dysuria, frequency or incontinence MUSCULOSKELETAL: Negative for joint pain or swelling, back pain or muscle pain. NEUROLOGIC:Negative for focal numbness or weakness, headaches and dizziness or syncope, vision changes, speech/languag changes - EXCEPT that as per HPI above. SKIN:Negative for lesions, rash, and itching. PSYCHIATRIC: Negative for sleep disturbance, mood disorder and recent psychosocial stressors. HEMATOLOGIC/LYMPHATIC/IMMUNOLOGIC:Nega tive for prolonged bleeding, bruising easily or swollen nodes. ENDOCRINE: Negative for cold or heat intolerance, polyuria, polydipsia and goiter. The remainder of the ROS was reviewed and is negative. LAB/IMAGING: Those performed since patient's last visit have been reviewed. WBC (k/uL) Date Value 09/27/2020 4.15 RBC (m/uL) Date Value 09/27/2020 4.20 Hemoglobin (g/dL) Date Value 09/27/2020 13.5 Hematocrit (%) Date Value 09/27/2020 41.0 MCV (fL) Date Value 09/27/2020 97.6 MCH (pG) Date Value 09/27/2020 32.1 MCHC (g/dL) Date Value 09/27/2020 32.9 RDW-CV (%) Date Value 09/27/2020 13.0 Platelet Count (k/uL) Date Value 09/27/2020 151 MPV (fL) Date Value 09/27/2020 12.0 Glucose (mg/dL) Date Value 09/27/2020 94 BUN (mg/dL) Date Value 09/27/2020 17 Creatinine (mg/dL) Date Value 09/27/2020 0.85 Sodium (mmol/L) Date Value 09/27/2020 140 Potassium (mmol/L) Date Value 09/27/2020 4.7 Chloride (mmol/L) Date Value 09/27/2020 105 CO2 (mmol/L) Date Value 09/27/2020 25 Protein, Total (g/dL) Date Value 09/27/2020 7.1 Albumin (g/dL) Date Value 09/27/2020 4.5 Calcium (mg/dL) Date Value 09/27/2020 9.3 Alkaline Phosphatase (U/L) Date Value 09/27/2020 74 Bilirubin, Total (mg/dL) Date Value 09/27/2020 0.4 AST (U/L) Date Value 09/27/2020 38 (H) ALT (U/L) Date Value 09/27/2020 47 (H) MEDICATIONS: ubidecarenone (COENZYME Q10) 100 mg tab Take by mouth once daily. OTC PRODUCT Immune Defend - 2 capsules daily FLUoxetine (PROZAC) 20 mg capsule TAKE 1 CAPSULE BY MOUTH ONCE DAILY cabergoline (DOSTINEX) 0.5 mg tablet TAKE 1/2 TABLET BY MOUTH EVERY THURSDAY AND THURSDAY estradiol (ESTRACE) 1 mg tablet TAKE 1 TABLET BY MOUTH EVERY DAY FERROUS SULFATE ORAL Take by mouth. Clobetasol Propionate (TEMOVATE) 0.05 % external solution Apply to affected area twice daily. ketoconazole (NIZORAL) 2 % shampoo Apply 1 application to affected area once daily as needed. mometasone (ELOCON) 0.1 % cream apply bid prn budesonide (PULMICORT FLEXHALER) 90 mcg/actuation aepb Inhale 2 Puffs as instructed twice daily as needed. loratadine (CLARITIN) 10 mg tablet Take 1 tablet by mouth once daily. pantoprazole DR (PROTONIX) 40 mg tablet Take 1 tablet by mouth daily before breakfast. Take on empty stomach, 1/2 hr before meal. acetaminophen (TYLENOL) 500 mg tablet take 2 tablets by mouth every 8 hours if needed for pain OR FEVER COMPOUNDED PRESCRIPTION Journey 3+3 Bariatric Multivitamin Take 3 capsules in am and Take 3 capsules in PM armodafinil (NUVIGIL) 150 mg tab Take 1 tablet by mouth once daily for 90 days. HISTORIES PAST MEDICAL HISTORY Diagnosis Date Acquired pancytopenia (HCC) 12/27/2013 Anemia Depression 01/29/2012 Hepatic steatosis 11/05/09 Iron deficiency anemia Morbid obesity (HCC) Pituitary tumor PMH - PAST MEDICAL HISTORY OF VARICOSE VEINS Prolactin secreting pituitary adenoma (HCC) 02/09/2018 diagnosed in 2010 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) 12/27/2013 FAMILY HISTORY Problem Relation Age of Onset Hypertension Mother Heart Mother other (lymphoma) Mother other (Melanoma) Mother Hypertension Father Heart Father COPD Father Emphysema Father other (congestive heart failure) Father other (pvd) Father Cancer Maternal Grandmother RECTAL SOCIAL HISTORY Social History Tobacco Use Smoking status: Never Smokeless tobacco: Never Vaping Use Vaping Use: Never used Substance Use Topics Alcohol use: Yes Comment: OCCASIONALLY, NOT WHILE Drug use: No PHYSICAL EXAMINATION BP 125/79 Pulse 70 Wt 91.1 kg (200 lb 12.8 oz) LMP 03/31/2014 SpO2 98% BMI 35.57 kg/m GENERAL EXAM: General appearance: NAD, pleasant. HEENT: NC/AT, nasal congestion absent, no oral lesions, membranes moist. NECK: No masses, supple. Lungs: CTA bilaterally. CV: RRR nl S1, S2. No carotid bruits. Extr: No cyanosis, clubbing or edema. Skin: Cool to touch. NEUROLOGICAL EXAM: General: Awake, alert, oriented x3 (person,place,time), speech fluent, no dysarthria; comprehension, naming, repetition intact. CN: PERRL, EOMI and without nystagmus, VFF to confrontation, facial sensation and strength are normal and symmetric, hearing is intact to finger rub bilaterally, palate and tongue movements are intact and symmetric. SCM and trapezius strength normal. Motor: Normal tone, bulk and strength (5/5) bilaterally (throughout extremities x4). Coordination: FNF, RAEGAN, HTS intact. No tremors. Sensation: Light touch intact throughout. No evidence of neglect. Gait: Stable with normal stride and arm swing. Assessment and Plan: ASSESSMENT/PLAN: 1. Hypersomnia due to medical condition - ICD9: 327.14, ICD10: G47.14 (primary diagnosis) 2. Shift work sleep disorder - ICD9: 327.36, ICD10: G47.26 Patient with persistent daytime sleepiness since off of Nuvigil for past ~4-5 months. Did note at least 50% improvement in symptoms including sleepiness, brain fog and even depression while on 150mg daily. No SE or ADRs. Will restart patient on medication, but will provide Rx for 250mg -- requesting patient to first try 125mg in AM but if symptoms persist and no side effects can increase to 250mg in AM. Encouraged patient to get at least 7 hours of sleep nightly. Patient is trying to maintain a regular work schedule but at this time, has no control over when she would work 1st vs 2nd shift. Explained on days working second shift may want to hold on taking Nuvigil until 1 hour before the start of that work shift. 3. Upper airway resistance syndrome - ICD9: 327.8, ICD10: G47.8 Encouraged patient to continue sleeping on her side. 4. Will leave message with PCP regarding pituitary follow up. No headaches or visual changes. Last imaging 2+ years ago. Uncertain if still following with endocrinology. Arya Rosales MD I spent a total of 30+ minutes on the date of the service which included preparing to see the patient, [id number] patient care, completing clinical documentation, obtaining and/or reviewing separately obtained history, performing a medically appropriate examination, counseling and educating the patient/family/caregiver, and ordering medications, tests, or procedures. PDMP website checked and validated. All prescriptions have been APPROPRIATELY filled. No suspicious activity was identified. 05/08/2022 by Arya Rosales MD documented in this encounter [facility] 05-02-2022 Miscellaneous Notes Patient phones requesting refills as follows: Requested Prescriptions Pending Prescriptions Disp Refills FLUoxetine (PROZAC) 20 mg capsule [Pharmacy Med Name: FLUOXETINE HCL 20 MG CAPSULE] 30 capsule 1 Sig: TAKE 1 CAPSULE BY MOUTH ONCE DAILY STEVEN-04/07/22 Labs-09/27/20 NOV-05/08/22 med filled 04/07/22 Please review and advise. Va Page LPN documented in this encounter [facility] 04-25-2022 Miscellaneous Notes April 25, 2022 PID: [id number] Deedee Hunt [address] [place] [id number] Dear Ms. Sudha Hunt, Your recent breast imaging exam on 04/24/2022 showed a possible finding that requires additional imaging studies for a complete evaluation. Most such findings are probably benign (not cancer). If you have a healthcare provider who ordered/prescribed your screening mammogram: Please call [phone] or EXT: [phone] to schedule an appointment for your additional imaging (if you have not already done so). If you DO NOT have a healthcare provider (ie you did not have an order/prescription for your screening mammogram): Please call to schedule an appointment for your additional imaging (if you have not already done so). You must have an order/prescription from your physician when calling to schedule your appointment. If your order/prescription is not electronic, you must bring the hard copy with you on the day of your exam to avoid delays. Your imaging studies and reports are kept on file at [facility] as part of your permanent medical record, and are available for your continuing care. Thank you for allowing us to help in meeting your health care needs. Sincerely, Dr. Roland Interpreting Radiologist [facility] (Additional imaging) documented in this encounter [facility] 04-24-2022 History of Present illness Narrative Radiology Service Progress Note PATIENT NAME: Deedee Hunt DATE OF SERVICE: April 24, 2022 TIME: 2:37 PM PATIENT IDENTITY VERIFICATION COMPLETED USING TWO (2) IDENTIFIERS: Name and Date of confirmed by patient verbally. FALL SCREENING: Has the patient had 2 falls in the last year or 1 fall with injury or currently using an Ambulatory Assistive Device (Walker, Cane, Wheelchair, Crutches, etc.)? No PATIENT GENDER DATA: Female. status: : No status: NO. PATIENT RELEVANT IMPLANT DATA REVIEWED: Not Applicable RADIOLOGY DEPARTMENT: Mammography PERIPHERAL IV DATA: Not applicable SIGNED BY: Darya Torres April 24, 2022 2:37 PM documented in this encounter [facility] 04-07-2022 History of Present illness Narrative Chief Complaint Patient presents with: Depression HPI Deedee Hunt is a 51 year old female who presents here today for Above Complaints. Today: Frustrated and angry. For the past 5-6 months since of mother in law, multiple family dynamics with dealing with the . Going to work helps to an extent but feels trapped there. 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 Feels trapped in all angles of life. Aggression from . Does take Prozac, but wondering if this could possibly be increased or if she could add something else. Is not going to any counseling at this point. Past medical history, appointments, medications, allergies reviewed. Previous Medical History PAST MEDICAL HISTORY Diagnosis Date Acquired pancytopenia (HCC) 12/27/2013 Anemia Depression 01/29/2012 Hepatic steatosis 11/05/09 Iron deficiency anemia Morbid obesity (HCC) Pituitary tumor PMH - PAST MEDICAL HISTORY OF VARICOSE VEINS Prolactin secreting pituitary adenoma (HCC) 02/09/2018 diagnosed in 2010 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) 12/27/2013 Previous Surgical History PAST SURGICAL HISTORY Procedure Laterality Date DELIVERY ONLY 07/09/2005 DELIVERY ONLY 11/04/07 COLONOSCOPY FLX DX W/COLLJ SPEC WHEN PFRMD 04/10/14 Colonoscopy ESOPHAGOGASTRODUODENOSCOPY TRANSORAL DIAGNOSTIC 04/10/14 EGD laproscopic roue-en-y gastric bypass 11/05/09 LAPS W/VAG HYSTERECT 250 GM/&RMVL TUBE&/OVARIES 04/27/14 LAVH, bilateral salpingectomy, HMB, anemia LIG/TRNSXJ FLP TUBE ABDL/VAG APPR UNI/BI 11/04/07 done at PAST SURGICAL HISTORY OF 2002 I&D cyst on back PAST SURGICAL HISTORY OF 2001 I&D ABSESS OF FACE PAST SURGICAL HISTORY OF 2004 I&D CYST ON POSTERIOR THIGH PAST SURGICAL HISTORY OF CRYOCAUTERY OF VAGINAL LESIONS PAST SURGICAL HISTORY OF Melanoma excision with LN biopsy TONSILLECTOMY PRIMARY/SECONDARY <AGE 10 1976 Family History FAMILY HISTORY Problem Relation Age of Onset Hypertension Mother Heart Mother other (lymphoma) Mother other (Melanoma) Mother Hypertension Father Heart Father COPD Father Emphysema Father other (congestive heart failure) Father other (pvd) Father Cancer Maternal Grandmother RECTAL Patient Allergies ALLERGIES Allergen Reactions Benzoil Peroxide [O* Intolerance bright red RASH Clindamycin Rash Sulfa (Sulfonamide * Hives Current Medications Current Outpatient Medications on File Prior to Visit Medication Sig cabergoline (DOSTINEX) 0.5 mg tablet TAKE 1/2 TABLET BY MOUTH EVERY THURSDAY AND THURSDAY estradiol (ESTRACE) 1 mg tablet TAKE 1 TABLET BY MOUTH EVERY DAY FERROUS SULFATE ORAL Take by mouth. Clobetasol Propionate (TEMOVATE) 0.05 % external solution Apply to affected area twice daily. ketoconazole (NIZORAL) 2 % shampoo Apply 1 application to affected area once daily as needed. mometasone (ELOCON) 0.1 % cream apply bid prn budesonide (PULMICORT FLEXHALER) 90 mcg/actuation aepb Inhale 2 Puffs as instructed twice daily as needed. loratadine (CLARITIN) 10 mg tablet Take 1 tablet by mouth once daily. pantoprazole DR (PROTONIX) 40 mg tablet Take 1 tablet by mouth daily before breakfast. Take on empty stomach, 1/2 hr before meal. acetaminophen (TYLENOL) 500 mg tablet take 2 tablets by mouth every 8 hours if needed for pain OR FEVER COMPOUNDED PRESCRIPTION Journey 3+3 Bariatric Multivitamin Take 3 capsules in am and Take 3 capsules in PM armodafinil (NUVIGIL) 150 mg tab Take 1 tablet by mouth once daily for 90 days. No current facility-administered medications on file prior to visit. Social History Social History Tobacco Use Smoking status: Never Smoker Smokeless tobacco: Never Used Vaping Use Vaping Use: Never used Substance Use Topics Alcohol use: Yes Comment: OCCASIONALLY, NOT WHILE Drug use: No Review of Symptoms REVIEW OF SYSTEMS see HPI, otherwise negative EXAM: BP 118/80 (BP Site: Left Arm, BP Position: Sitting, BP Cuff Size: Regular Adult) Pulse 78 Resp 16 Wt 91.8 kg (202 lb 6.4 oz) LMP 03/31/2014 SpO2 98% BMI 35.85 kg/m General Appearance: Well appearing, alert, in no acute distress, well-hydrated, well nourished.. Lungs: Lungs clear to auscultation. No wheezing, rhonchi, rales.. Heart: RRR without murmur, gallop, or rubs. No ectopy. Psychiatric: pleasant, cooperative, denies SI/HI. Health Maintenance List SHINGRIX VACCINE(1 of 2) Never done COVID-19 VACCINE(4 - Booster for Pfizer series) due on 10/19/2021 MAMMOGRAM due on 04/20/2022 DTAP,TDAP,TD(1 - Tdap) due on 08/22/2022 INFLUENZA(1) due on 05/08/2022 DIABETES SCREEN due on 09/27/2023 COLORECTAL CANCER SCREENING due on 04/10/2024 LIPID SCREEN due on 09/27/2025 HEPATITIS C SCREENING Completed HIV SCREENING Completed PAP TESTING Discontinued HPV TESTING Discontinued Data reviewed Previous records, office notes ASSESSMENT/PLAN: 1. Depression with anxiety - ICD9: 300.4, ICD10: F41.8 Increase fluoxetine from 10mg to 20mg daily. Follow up again in 4-6 weeks, sooner if necessary. Recommend counseling. - FLUOXETINE 20 MG CAPSULE Leny Amador APRN.ELIANE documented in this encounter [facility] 01-29-2022 Miscellaneous Notes Patient has been identified by name and date of : Yes Pharmacy phones for refill(s): Pending Prescriptions Disp Refills CABERGOLINE 0.5 MG TABLET 8 tablet 3 Sig: TAKE 1/2 TABLET BY MOUTH EVERY THURSDAY AND THURSDAY DALILA: Yes Date of last office visit in primary care: 08/22/21 Last 2 Encounter Wt Readings: Date: Wt: 11/05/2021 90.8 kg (200 lb 3.2 oz) 08/22/2021 92.1 kg (203 lb) Previous labs/tests for medication: Not applicable Please advise. Thank you. Shelly Bentley LPN documented in this encounter [facility] 01-06-2022 Miscellaneous Notes Patient has been identified by name and date of : Yes Pharmacy phones for refill(s): Pending Prescriptions Disp Refills CABERGOLINE 0.5 MG TABLET 8 tablet 3 Sig: TAKE 1/2 TABLET BY MOUTH EVERY THURSDAY AND THURSDAY DALILA: Yes Date of last office visit in primary care: STEVEN 08/22/2021 No appointment scheduled Last 2 Encounter Wt Readings: Date: Wt: 11/05/2021 90.8 kg (200 lb 3.2 oz) 08/22/2021 92.1 kg (203 lb) Please advise. Thank you. PIO Eden documented in this encounter [facility] 12-05-2021 Miscellaneous Notes Please assist patient in scheduling follow up with sleep YANDY. Yara Bradley LPN documented in this encounter [facility] 12-02-2021 Miscellaneous Notes Request received from pharmacy for 90 day supply of Estrace Rx. Patient last seen for annual exam on 11/05/21. Meme Govea RN documented in this encounter [facility] 11-21-2021 Miscellaneous Notes Patient phones requesting refills as follows: Pending Prescriptions Disp Refills ARMODAFINIL 150 MG TABLET 30 tablet 2 Sig: TAKE 1 TABLET BY MOUTH EVERY DAY MAGO Class: C-IV DALILA: Yes Please review and advise. Ruben Bowles documented in this encounter [facility] 11-05-2021 History of Past i llness Narrative Problem Noted Date Resolved Date Encounter for gynecological examination (general) (routine) without abnormal findings 11/05/2021 11/05/2021 Iron deficiency 01/11/2014 02/15/2014 Iron deficiency anemia due to dietary causes 03/23/2017 Acquired pancytopenia 12/27/2013 03/23/2017 Head contusion 01/24/2013 03/29/2014 Morbid obesity 09/28/2008 01/29/2012 Supervision of other normal 03/19/2007 11/06/2007 Abdominal pain, unspecified site 07/04/2006 03/18/2017 documented as of this encounter (statuses as of 12/02/2021) [facility] History of Past illness Narrative* Problem Noted Date Resolved Date Encounter for gynecological examination (general) (routine) without abnormal findings 11/05/2021 11/05/2021 Iron deficiency 01/11/2014 02/15/2014 Iron deficiency anemia due to dietary causes 03/23/2017 Acquired pancytopenia 12/27/2013 03/23/2017 Head contusion 01/24/2013 03/29/2014 Morbid obesity 09/28/2008 01/29/2012 Supervision of other normal 03/19/2007 11/06/2007 Abdominal pain, unspecified site 07/04/2006 03/18/2017 documented as of this encounter (statuses as of 12/18/2021) [facility] History of Past illness Narrative* Problem Noted Date Resolved Date Encounter for gynecological examination (general) (routine) without abnormal findings 11/05/2021 11/05/2021 Iron deficiency 01/11/2014 02/15/2014 Iron deficiency anemia due to dietary causes 03/23/2017 Acquired pancytopenia 12/27/2013 03/23/2017 Head contusion 01/24/2013 03/29/2014 Morbid obesity 09/28/2008 01/29/2012 Supervision of other normal 03/19/2007 11/06/2007 Abdominal pain, unspecified site 07/04/2006 03/18/2017 documented as of this encounter (statuses as of 12/18/2021) [facility] History of Past illness Narrative* Problem Noted Date Resolved Date Encounter for gynecological examination (general) (routine) without abnormal findings 11/05/2021 11/05/2021 Iron deficiency 01/11/2014 02/15/2014 Iron deficiency anemia due to dietary causes 03/23/2017 Acquired pancytopenia 12/27/2013 03/23/2017 Head contusion 01/24/2013 03/29/2014 Morbid obesity 09/28/2008 01/29/2012 Supervision of other normal 03/19/2007 11/06/2007 Abdominal pain, unspecified site 07/04/2006 03/18/2017 documented as of this encounter (statuses as of 01/06/2022) [facility] History of Past illness Narrative* Problem Noted Date Resolved Date Encounter for gynecological examination (general) (routine) without abnormal findings 11/05/2021 11/05/2021 Iron deficiency 01/11/2014 02/15/2014 Iron deficiency anemia due to dietary causes 03/23/2017 Acquired pancytopenia 12/27/2013 03/23/2017 Head contusion 01/24/2013 03/29/2014 Morbid obesity 09/28/2008 01/29/2012 Supervision of other normal 03/19/2007 11/06/2007 Abdominal pain, unspecified site 07/04/2006 03/18/2017 documented as of this encounter (statuses as of 01/29/2022) [facility] History of Past illness Narrative* Problem Noted Date Resolved Date Encounter for gynecological examination (general) (routine) without abnormal findings 11/05/2021 11/05/2021 Iron deficiency 01/11/2014 02/15/2014 Iron deficiency anemia due to dietary causes 03/23/2017 Acquired pancytopenia 12/27/2013 03/23/2017 Head contusion 01/24/2013 03/29/2014 Morbid obesity 09/28/2008 01/29/2012 Supervision of other normal 03/19/2007 11/06/2007 Abdominal pain, unspecified site 07/04/2006 03/18/2017 documented as of this encounter (statuses as of 04/10/2022) [facility]22 History of Past illness Narrative* Problem Noted Date Resolved Date Encounter for gynecological examination (general) (routine) without abnormal findings 11/05/2021 11/05/2021 Iron deficiency 01/11/2014 02/15/2014 Iron deficiency anemia due to dietary causes 03/23/2017 Acquired pancytopenia 12/27/2013 03/23/2017 Head contusion 01/24/2013 03/29/2014 Morbid obesity 09/28/2008 01/29/2012 Supervision of other normal 03/19/2007 11/06/2007 Abdominal pain, unspecified site 07/04/2006 03/18/2017 documented as of this encounter (statuses as of 04/25/2022) [facility] History of Past illness Narrative* Problem Noted Date Resolved Date Encounter for gynecological examination (general) (routine) without abnormal findings 11/05/2021 11/05/2021 Iron deficiency 01/11/2014 02/15/2014 Iron deficiency anemia due to dietary causes 03/23/2017 Acquired pancytopenia 12/27/2013 03/23/2017 Head contusion 01/24/2013 03/29/2014 Morbid obesity 09/28/2008 01/29/2012 Supervision of other normal 03/19/2007 11/06/2007 Abdominal pain, unspecified site 07/04/2006 03/18/2017 documented as of this encounter (statuses as of 04/25/2022) [facility] History of Past illness Narrative* Problem Noted Date Resolved Date Encounter for gynecological examination (general) (routine) without abnormal findings 11/05/2021 11/05/2021 Iron deficiency 01/11/2014 02/15/2014 Iron deficiency anemia due to dietary causes 03/23/2017 Acquired pancytopenia 12/27/2013 03/23/2017 Head contusion 01/24/2013 03/29/2014 Morbid obesity 09/28/2008 01/29/2012 Supervision of other normal 03/19/2007 11/06/2007 Abdominal pain, unspecified site 07/04/2006 03/18/2017 documented as of this encounter (statuses as of 04/25/2022) [facility] History of Past illness Narrative* Problem Noted Date Resolved Date Encounter for gynecological examination (general) (routine) without abnormal findings 11/05/2021 11/05/2021 Iron deficiency 01/11/2014 02/15/2014 Iron deficiency anemia due to dietary causes 03/23/2017 Acquired pancytopenia 12/27/2013 03/23/2017 Head contusion 01/24/2013 03/29/2014 Morbid obesity 09/28/2008 01/29/2012 Supervision of other normal 03/19/2007 11/06/2007 Abdominal pain, unspecified site 07/04/2006 03/18/2017 documented as of this encounter (statuses as of 04/29/2022) [facility] History of Past illness Narrative* Problem Noted Date Resolved Date Encounter for gynecological examination (general) (routine) without abnormal findings 11/05/2021 11/05/2021 Iron deficiency 01/11/2014 02/15/2014 Iron deficiency anemia due to dietary causes 03/23/2017 Acquired pancytopenia 12/27/2013 03/23/2017 Head contusion 01/24/2013 03/29/2014 Morbid obesity 09/28/2008 01/29/2012 Supervision of other normal 03/19/2007 11/06/2007 Abdominal pain, unspecified site 07/04/2006 03/18/2017 documented as of this encounter (statuses as of 05/02/2022) [facility] History of Past illness Narrative* Problem Noted Date Resolved Date Encounter for gynecological examination (general) (routine) without abnormal findings 11/05/2021 11/05/2021 Iron deficiency 01/11/2014 02/15/2014 Iron deficiency anemia due to dietary causes 03/23/2017 Acquired pancytopenia 12/27/2013 03/23/2017 Head contusion 01/24/2013 03/29/2014 Morbid obesity 09/28/2008 01/29/2012 Supervision of other normal 03/19/2007 11/06/2007 Abdominal pain, unspecified site 07/04/2006 03/18/2017 documented as of this encounter (statuses as of 05/08/2022) [facility] History of Past illness Narrative* Problem Noted Date Resolved Date Encounter for gynecological examination (general) (routine) without abnormal findings 11/05/2021 11/05/2021 Iron deficiency 01/11/2014 02/15/2014 Iron deficiency anemia due to dietary causes 03/23/2017 Acquired pancytopenia 12/27/2013 03/23/2017 Head contusion 01/24/2013 03/29/2014 Morbid obesity 09/28/2008 01/29/2012 Supervision of other normal 03/19/2007 11/06/2007 Abdominal pain, unspecified site 07/04/2006 03/18/2017 documented as of this encounter (statuses as of 05/15/2022) [facility] History of Past illness Narrative* Problem Noted Date Resolved Date Encounter for gynecological examination (general) (routine) without abnormal findings 11/05/2021 11/05/2021 Iron deficiency 01/11/2014 02/15/2014 Iron deficiency anemia due to dietary causes 03/23/2017 Acquired pancytopenia 12/27/2013 03/23/2017 Head contusion 01/24/2013 03/29/2014 Morbid obesity 09/28/2008 01/29/2012 Supervision of other normal 03/19/2007 11/06/2007 Abdominal pain, unspecified site 07/04/2006 03/18/2017 documented as of this encounter (statuses as of 05/15/2022) [facility] History of Past illness Narrative* Problem Noted Date Resolved Date Encounter for gynecological examination (general) (routine) without abnormal findings 11/05/2021 11/05/2021 Iron deficiency 01/11/2014 02/15/2014 Iron deficiency anemia due to dietary causes 03/23/2017 Acquired pancytopenia 12/27/2013 03/23/2017 Head contusion 01/24/2013 03/29/2014 Morbid obesity 09/28/2008 01/29/2012 Supervision of other normal 03/19/2007 11/06/2007 Abdominal pain, unspecified site 07/04/2006 03/18/2017 documented as of this encounter (statuses as of 05/19/2022) [facility] History of Past illness Narrative* Problem Noted Date Resolved Date Encounter for gynecological examination (general) (routine) without abnormal findings 11/05/2021 11/05/2021 Iron deficiency 01/11/2014 02/15/2014 Iron deficiency anemia due to dietary causes 03/23/2017 Acquired pancytopenia 12/27/2013 03/23/2017 Head contusion 01/24/2013 03/29/2014 Morbid obesity 09/28/2008 01/29/2012 Supervision of other normal 03/19/2007 11/06/2007 Abdominal pain, unspecified site 07/04/2006 03/18/2017 documented as of this encounter (statuses as of 05/27/2022) [facility] History of Past illness Narrative* Problem Noted Date Resolved Date Encounter for gynecological examination (general) (routine) without abnormal findings 11/05/2021 11/05/2021 Iron deficiency 01/11/2014 02/15/2014 Iron deficiency anemia due to dietary causes 03/23/2017 Acquired pancytopenia 12/27/2013 03/23/2017 Head contusion 01/24/2013 03/29/2014 Morbid obesity 09/28/2008 01/29/2012 Supervision of other normal 03/19/2007 11/06/2007 Abdominal pain, unspecified site 07/04/2006 03/18/2017 documented as of this encounter (statuses as of 05/28/2022) [facility] History of Past illness Narrative* Problem Noted Date Resolved Date Encounter for gynecological examination (general) (routine) without abnormal findings 11/05/2021 11/05/2021 Iron deficiency 01/11/2014 02/15/2014 Iron deficiency anemia due to dietary causes 03/23/2017 Acquired pancytopenia 12/27/2013 03/23/2017 Head contusion 01/24/2013 03/29/2014 Morbid obesity 09/28/2008 01/29/2012 Supervision of other normal 03/19/2007 11/06/2007 Abdominal pain, unspecified site 07/04/2006 03/18/2017 documented as of this encounter (statuses as of 07/04/2022) [facility] History of Past illness Narrative* Problem Noted Date Resolved Date Encounter for gynecological examination (general) (routine) without abnormal findings 11/05/2021 11/05/2021 Iron deficiency 01/11/2014 02/15/2014 Iron deficiency anemia due to dietary causes 03/23/2017 Acquired pancytopenia 12/27/2013 03/23/2017 Head contusion 01/24/2013 03/29/2014 Morbid obesity 09/28/2008 01/29/2012 Supervision of other normal 03/19/2007 11/06/2007 Abdominal pain, unspecified site 07/04/2006 03/18/2017 documented as of this encounter (statuses as of 10/09/2022) [facility] History of Past illness Narrative* Problem Noted Date Resolved Date Encounter for gynecological examination (general) (routine) without abnormal findings 11/05/2021 11/05/2021 Iron deficiency 01/11/2014 02/15/2014 Iron deficiency anemia due to dietary causes 03/23/2017 Acquired pancytopenia 12/27/2013 03/23/2017 Head contusion 01/24/2013 03/29/2014 Morbid obesity 09/28/2008 01/29/2012 Supervision of other normal 03/19/2007 11/06/2007 Abdominal pain, unspecified site 07/04/2006 03/18/2017 documented as of this encounter (statuses as of 11/06/2022) [facility] History of Past illness Narrative* Problem Noted Date Resolved Date Encounter for gynecological examination (general) (routine) without abnormal findings 11/05/2021 11/05/2021 Iron deficiency 01/11/2014 02/15/2014 Iron deficiency anemia due to dietary causes 03/23/2017 Acquired pancytopenia 12/27/2013 03/23/2017 Head contusion 01/24/2013 03/29/2014 Morbid obesity 09/28/2008 01/29/2012 Supervision of other normal 03/19/2007 11/06/2007 Abdominal pain, unspecified site 07/04/2006 03/18/2017 documented as of this encounter (statuses as of 11/17/2022) [facility] History of Past illness Narrative* Problem Noted Date Resolved Date Encounter for gynecological examination (general) (routine) without abnormal findings 11/05/2021 11/05/2021 Iron deficiency 01/11/2014 02/15/2014 Iron deficiency anemia due to dietary causes 03/23/2017 Acquired pancytopenia 12/27/2013 03/23/2017 Head contusion 01/24/2013 03/29/2014 Morbid obesity 09/28/2008 01/29/2012 Supervision of other normal 03/19/2007 11/06/2007 Abdominal pain, unspecified site 07/04/2006 03/18/2017 documented as of this encounter (statuses as of 11/26/2022) [facility] History of Past illness Narrative* Problem Noted Date Resolved Date Encounter for gynecological examination (general) (routine) without abnormal findings 11/05/2021 11/05/2021 Iron deficiency 01/11/2014 02/15/2014 Iron deficiency anemia due to dietary causes 03/23/2017 Acquired pancytopenia 12/27/2013 03/23/2017 Head contusion 01/24/2013 03/29/2014 Morbid obesity 09/28/2008 01/29/2012 Supervision of other normal 03/19/2007 11/06/2007 Abdominal pain, unspecified site 07/04/2006 03/18/2017 documented as of this encounter (statuses as of 12/11/2022) [facility] History of Past illness Narrative* Problem Noted Date Diagnosed Date Resolved Date Encounter for gynecological examination (general) (routine) without abnormal findings 11/05/2021 11/05/2021 Iron deficiency 01/11/2014 02/15/2014 Iron deficiency anemia due to dietary causes 4 03/23/2017 Acquired pancytopenia 12/27/20132016 Head contusion 01/24/2013 03/29/2014 Morbid obesity 09/28/2008 01/29/2012 Supervision of other normal 03/19/2007 11/06/2007 Abdominal pain, unspecified site 07/04/2006 03/18/2017 documented as of this encounter (statuses as of 05/06/2023) [facility] History of Past illness Narrative* Problem Noted Date Diagnosed Date Resolved Date Encounter for gynecological examination (general) (routine) without abnormal findings 11/05/2021 11/05/2021 Iron deficiency 01/11/2014 02/15/2014 Iron deficiency anemia due to dietary causes 4 03/23/2017 Acquired pancytopenia 12/27/20132016 Head contusion 01/24/2013 03/29/2014 Morbid obesity 09/28/2008 01/29/2012 Supervision of other normal 03/19/2007 11/06/2007 Abdominal pain, unspecified site 07/04/2006 03/18/2017 documented as of this encounter (statuses as of 05/06/2023) [facility] History of Past illness Narrative* Problem Noted Date Diagnosed Date Resolved Date Encounter for gynecological examination (general) (routine) without abnormal findings 11/05/2021 11/05/2021 Iron deficiency 01/11/2014 02/15/2014 Iron deficiency anemia due to dietary causes 4 03/23/2017 Acquired pancytopenia 12/27/20132016 Head contusion 01/24/2013 03/29/2014 Morbid obesity 09/28/2008 01/29/2012 Supervision of other normal 03/19/2007 11/06/2007 Abdominal pain, unspecified site 07/04/2006 03/18/2017 documented as of this encounter (statuses as of 05/06/2023) [facility] History of Past illness Narrative* Problem Noted Date Diagnosed Date Resolved Date Encounter for gynecological examination (general) (routine) without abnormal findings 11/05/2021 11/05/2021 Iron deficiency 01/11/2014 02/15/2014 Iron deficiency anemia due to dietary causes 4 03/23/2017 Acquired pancytopenia 12/27/20132016 Head contusion 01/24/2013 03/29/2014 Morbid obesity 09/28/2008 01/29/2012 Supervision of other normal 03/19/2007 11/06/2007 Abdominal pain, unspecified site 07/04/2006 03/18/2017 documented as of this encounter (statuses as of 05/08/2023) [facility] History of Past illness Narrative* Problem Noted Date Diagnosed Date Resolved Date Encounter for gynecological examination (general) (routine) without abnormal findings 11/05/2021 11/05/2021 Iron deficiency 01/11/2014 02/15/2014 Iron deficiency anemia due to dietary causes 4 03/23/2017 Acquired pancytopenia 12/27/20132016 Head contusion 01/24/2013 03/29/2014 Morbid obesity 09/28/2008 01/29/2012 Supervision of other normal 03/19/2007 11/06/2007 Abdominal pain, unspecified site 07/04/2006 03/18/2017 documented as of this encounter (statuses as of 06/17/2023) [facility] History of Past illness Narrative* Problem Noted Date Diagnosed Date Resolved Date Encounter for gynecological examination (general) (routine) without abnormal findings 11/05/2021 11/05/2021 Iron deficiency 01/11/2014 02/15/2014 Iron deficiency anemia due to dietary causes 4 03/23/2017 Acquired pancytopenia 12/27/20132016 Head contusion 01/24/2013 03/29/2014 Morbid obesity 09/28/2008 01/29/2012 Supervision of other normal 03/19/2007 11/06/2007 Abdominal pain, unspecified site 07/04/2006 03/18/2017 documented as of this encounter (statuses as of 07/02/2023) [facility] History of Past illness Narrative* Problem Noted Date Diagnosed Date Resolved Date Encounter for gynecological examination (general) (routine) without abnormal findings 11/05/2021 11/05/2021 Iron deficiency 01/11/2014 02/15/2014 Iron deficiency anemia due to dietary causes 4 03/23/2017 Acquired pancytopenia 12/27/20132016 Head contusion 01/24/2013 03/29/2014 Morbid obesity 09/28/2008 01/29/2012 Supervision of other normal 03/19/2007 11/06/2007 Abdominal pain, unspecified site 07/04/2006 03/18/2017 documented as of this encounter (statuses as of 07/12/2023) [facility] History of Past illness Narrative* Problem Noted Date Diagnosed Date Resolved Date Encounter for gynecological examination (general) (routine) without abnormal findings 11/05/2021 11/05/2021 Iron deficiency 01/11/2014 02/15/2014 Iron deficiency anemia due to dietary causes 4 03/23/2017 Acquired pancytopenia 12/27/20132016 Head contusion 01/24/2013 03/29/2014 Morbid obesity 09/28/2008 01/29/2012 Supervision of other normal 03/19/2007 11/06/2007 Abdominal pain, unspecified site 07/04/2006 03/18/2017 documented as of this encounter (statuses as of 07/12/2023) [facility] History of Past illness Narrative* Problem Noted Date Diagnosed Date Resolved Date Encounter for gynecological examination (general) (routine) without abnormal findings 11/05/2021 11/05/2021 Iron deficiency 01/11/2014 02/15/2014 Iron deficiency anemia due to dietary causes 4 03/23/2017 Acquired pancytopenia 12/27/20132016 Head contusion 01/24/2013 03/29/2014 Morbid obesity 09/28/2008 01/29/2012 Supervision of other normal 03/19/2007 11/06/2007 Abdominal pain, unspecified site 07/04/2006 03/18/2017 documented as of this encounter (statuses as of 10/15/2023) [facility] History of Past illness Narrative* Problem Noted Date Diagnosed Date Resolved Date Encounter for gynecological examination (general) (routine) without abnormal findings 11/05/2021 11/05/2021 Iron deficiency 01/11/2014 02/15/2014 Iron deficiency anemia due to dietary causes 4 03/23/2017 Acquired pancytopenia 12/27/20132016 Head contusion 01/24/2013 03/29/2014 Morbid obesity 09/28/2008 01/29/2012 Supervision of other normal 03/19/2007 11/06/2007 Abdominal pain, unspecified site 07/04/2006 03/18/2017 documented as of this encounter (statuses as of 10/15/2023) [facility] History of Past illness Narrative* Problem Noted Date Diagnosed Date Resolved Date Encounter for gynecological examination (general) (routine) without abnormal findings 11/05/2021 11/05/2021 Iron deficiency 01/11/2014 02/15/2014 Iron deficiency anemia due to dietary causes 4 03/23/2017 Acquired pancytopenia 12/27/20132016 Head contusion 01/24/2013 03/29/2014 Morbid obesity 09/28/2008 01/29/2012 Supervision of other normal 03/19/2007 11/06/2007 Abdominal pain, unspecified site 07/04/2006 03/18/2017 documented as of this encounter (statuses as of 10/28/2023) [facility]09-[facility]2021 NoteHNO ID: [id number] Author: Dennis Gonzales Service: ? Author Type: ? Type: Progress Notes Filed: 05/15/2021 1:14 AM Note Text: Sleep Study Check-In Documentation Date: May 15, 2021 Name: Deedee Hunt Patient was accompanied by Self. Location: [place] Latex allergy: No Tape allergy: Yes Current medications were reviewed with the patient:Yes Sleep aid taken by patient for the sleep study: [place] of sleep aid: Not Applicable Procedure was explained to the patient and all questions were answered. PAP treatment discussed and shown to patient: Yes Knowledge Program (KP): KP was not completed in epic by patient and accepted Study type: Polysomnogram Adverse Event: No (If yes create a new abstract) SERS Event: No Comments: Patient was advised to follow up with their ordering provider regarding test results [facility] note* Diagnosis Hypersomnia due to medical condition Hypersomnia due to medical condition classified elsewhere documented in this encounter [facility] note* Diagnosis 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) Other and unspecified anterior pituitary hyperfunction Prolactin secreting pituitary adenoma (HCC) Benign neoplasm of pituitary gland and craniopharyngeal duct (pouch) documented in this encounter [facility]* Diagnosis 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) Other and unspecified anterior pituitary hyperfunction Prolactin secreting pituitary adenoma (HCC) Benign neoplasm of pituitary gland and craniopharyngeal duct (pouch) documented in this encounter [facility]* Diagnosis Depression with anxiety- Primary Dysthymic disorder documented in this encounter [facility] note* Diagnosis Encounter for screening mammogram for malignant neoplasm of breast Other screening mammogram documented in this encounter [facility]* Diagnosis Abnormal mammogram- Primary Abnormal mammogram, unspecified documented in this encounter [facility]* Diagnosis Depression with anxiety Dysthymic disorder documented in this encounter [facility]* Diagnosis Hypersomnia due to medical condition- Primary Hypersomnia due to medical condition classified elsewhere Shift work sleep disorder Circadian rhythm sleep disorder, shift work type Upper airway resistance syndrome Other organic sleep disorders documented in this encounter [facility]* Diagnosis Depression with anxiety- Primary Dysthymic disorder documented in this encounter [facility]* Diagnosis Depression with anxiety Dysthymic disorder documented in this encounter [facility]* Diagnosis Bacterial sinusitis- Primary Unspecified sinusitis (chronic) documented in this encounter [facility]* Diagnosis 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) Other and unspecified anterior pituitary hyperfunction Prolactin secreting pituitary adenoma (HCC) Benign neoplasm of pituitary gland and craniopharyngeal duct (pouch) documented in this encounter [facility]* Diagnosis 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) Other and unspecified anterior pituitary hyperfunction Prolactin secreting pituitary adenoma (HCC) Benign neoplasm of pituitary gland and craniopharyngeal duct (pouch) [facility] Diagnosis 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) Other and unspecified anterior pituitary hyperfunction Prolactin secreting pituitary adenoma (HCC) Benign neoplasm of pituitary gland and craniopharyngeal duct (pouch) [facility] Diagnosis Depression with anxiety Dysthymic disorder [facility] Diagnosis Well adult exam- Primary Routine general medical examination at a [facility] care facility 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) Other and unspecified anterior pituitary hyperfunction Prolactin secreting pituitary adenoma (HCC) Benign neoplasm of pituitary gland and craniopharyngeal duct (pouch) Vitamin D deficiency Unspecified vitamin D deficiency Screening for lipid disorders Encounter for vitamin deficiency screening Screening for other and unspecified endocrine, nutritional, metabolic, and immunity disorders Screening for thyroid disorder Depression with anxiety Dysthymic disorder [facility] Diagnosis Prolactin secreting pituitary adenoma (HCC)- Primary Benign neoplasm of pituitary gland and craniopharyngeal duct (pouch) 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) Other and unspecified anterior pituitary hyperfunction Low serum adrenocorticotrophic hormone (ACTH) [facility] Diagnosis Abnormal mammogram Abnormal mammogram, unspecified [facility] Diagnosis Abnormal mammogram Abnormal mammogram, unspecified [facility] Diagnosis Influenza-like illness- Primary Influenza with other respiratory manifestations Exposure to influenza Contact with or exposure to other viral diseases [facility] Diagnosis Depression with anxiety Dysthymic disorder [facility] Diagnosis Gastroesophageal reflux disease, unspecified whether esophagitis present- Primary Epigastric pain Abdominal pain, epigastric Nausea Nausea alone Decreased appetite Anorexia Acute LUQ pain Abdominal pain, left upper quadrant Hx of gastric bypass Bariatric surgery status Jaw pain Gastroesophageal reflux disease, unspecified whether esophagitis present Epigastric pain Abdominal pain, epigastric Nausea Nausea alone Decreased appetite Anorexia Acute LUQ pain Abdominal pain, left upper quadrant Hx of gastric bypass Bariatric surgery status Jaw pain [facility] Diagnosis Gastroesophageal reflux disease, unspecified whether esophagitis present- Primary Epigastric pain Abdominal pain, epigastric Nausea Nausea alone Decreased appetite Anorexia Acute LUQ pain Abdominal pain, left upper quadrant Hx of gastric bypass Bariatric surgery status documented in this encounter [facility] note* Diagnosis Gastroesophageal reflux disease, unspecified whether esophagitis present Epigastric pain Abdominal pain, epigastric Nausea Nausea alone Decreased appetite Anorexia Acute LUQ pain Abdominal pain, left upper quadrant Hx of gastric bypass Bariatric surgery status Jaw pain documented in this encounter [facility] note* Diagnosis Hypersomnia due to medical condition- Primary Hypersomnia due to medical condition classified elsewhere UARS (upper airway resistance syndrome) Other organic sleep disorders documented in this encounter [facility] note* Diagnosis Right upper quadrant abdominal pain- Primary Abdominal pain, right upper quadrant Gastroesophageal reflux disease, unspecified whether esophagitis present Epigastric pain Abdominal pain, epigastric Nausea Nausea alone Decreased appetite Anorexia Acute LUQ pain Abdominal pain, left upper quadrant Hx of gastric bypass Bariatric surgery status Intussusception (HCC) Intussusception documented in this encounter [facility] note* Diagnosis Right upper quadrant abdominal pain Abdominal pain, right upper quadrant Gastroesophageal reflux disease, unspecified whether esophagitis present Epigastric pain Abdominal pain, epigastric Nausea Nausea alone Decreased appetite Anorexia Acute LUQ pain Abdominal pain, left upper quadrant Hx of gastric bypass Bariatric surgery status documented in this encounter [facility] note* Diagnosis Gastroesophageal reflux disease, unspecified whether esophagitis present Epigastric pain Abdominal pain, epigastric Nausea Nausea alone Decreased appetite Anorexia Acute LUQ pain Abdominal pain, left upper quadrant Hx of gastric bypass Bariatric surgery status documented in this encounter [facility] note* Diagnosis Right upper quadrant abdominal pain Abdominal pain, right upper quadrant Gastroesophageal reflux disease, unspecified whether esophagitis present Epigastric pain Abdominal pain, epigastric Nausea Nausea alone Decreased appetite Anorexia Acute LUQ pain Abdominal pain, left upper quadrant Hx of gastric bypass Bariatric surgery status documented in this encounter [facility] note* Diagnosis Gastroesophageal reflux disease, unspecified whether esophagitis present- Primary Epigastric pain Abdominal pain, epigastric Nausea Nausea alone Acute LUQ pain Abdominal pain, left upper quadrant Hx of gastric bypass Bariatric surgery status Right upper quadrant abdominal pain Abdominal pain, right upper quadrant Intussusception (HCC) Intussusception documented in this encounter [facility] note* Diagnosis Gastroesophageal reflux disease, unspecified whether esophagitis present Epigastric pain Abdominal pain, epigastric Nausea Nausea alone Decreased appetite Anorexia Acute LUQ pain Abdominal pain, left upper quadrant Hx of gastric bypass Bariatric surgery status [facility] Diagnosis Depression with anxiety Dysthymic disorder [facility]* Diagnosis Pain in right foot- Primary Pain in limb [facility]* Diagnosis Tendonitis, Achilles, right- Primary Achilles bursitis or tendinitis [facility]* Diagnosis Pain in right foot Pain in limb [facility]* Diagnosis Tendonitis, Achilles, right- Primary Achilles bursitis or tendinitis [facility] Diagnosis Tendonitis, Achilles, right- Primary Achilles bursitis or tendinitis [facility]* Diagnosis Tendonitis, Achilles, right- Primary Achilles bursitis or tendinitis [facility]* Diagnosis Hypersomnia- Primary Hypersomnia, unspecified UARS (upper airway resistance syndrome) Other organic sleep disorders Spinal stenosis of cervical region Spinal stenosis in cervical region Cervicalgia Pain in both upper extremities Paresthesia of skin Disturbance of skin sensation Long-term current use of stimulant [facility]* Diagnosis 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) Other and unspecified anterior pituitary hyperfunction Prolactin secreting pituitary adenoma (HCC) Benign neoplasm of pituitary gland and craniopharyngeal duct (pouch) [facility]* Diagnosis Encounter for screening mammogram for breast cancer [facility] Diagnosis Well adult exam Routine general medical examination at a health care facility [facility]* Diagnosis GERD with esophagitis [facility]* Diagnosis Depression with anxiety Dysthymic disorder [facility]* Diagnosis Encounter for screening for osteoporosis- Primary Special screening for osteoporosis Generalized weakness Other malaise and fatigue Acute generalized body pain Arthralgia, unspecified joint Well adult exam Routine general medical examination at a health care facility Screening for diabetes mellitus Screening for thyroid disorder Screening for lipid disorders Hx of gastric bypass Bariatric surgery status OAB (overactive bladder) Hypertonicity of bladder [facility]* Diagnosis Encounter for screening for osteoporosis Special screening for osteoporosis Generalized weakness Other malaise and fatigue Acute generalized body pain Arthralgia, unspecified joint Well adult exam Routine general medical examination at a health care facility Hx of gastric bypass Bariatric surgery status [facility]* Diagnosis Spinal stenosis of cervical region Spinal stenosis in cervical region Cervicalgia Pain in both upper extremities Paresthesia of skin Disturbance of skin sensation documented in this encounter [facility] note* Diagnosis Eczema, unspecified type Well adult exam Routine general medical examination at a health care facility documented in this encounter [facility] for referral (narrative)* Diagnostic Procedure Only (Routine) - Closed Specialty Diagnoses / Procedures Referred By lEenita mckay Referred To Contact [facility] Diagnoses Encounter for screening mammogram for malignant neoplasm of breast Procedures HONORIO SCREENING W SADE SCREENING DIGITAL BREAST TOMOSYNTHESIS BI SCREENING MAMMOGRAPHY BI 2-VIEW BREAST INC CAD Liyah Mooney MD [address] [place] [address] [facility] [address] [address] Referral ID Status Reason Start Date Expiration Date V isits Requested Visits Authorized [id number] Closed Auto-Generate d Referral 11/05/2021 12/05/2022 1 1 [facility] for referral (narrative)* Diagnostic Procedure Only (Routine) - Pending Review Specialty Diagnoses / Procedures Referred By Elenita mckay Referred To Contact [facility] Diagnoses Abnormal mammogram Procedures US BREAST LTD LT US BREAST UNI REAL TIME WITH IMAGE LIMITED Liyah Mooney MD [address] [place] [address] [facility] [address] [address] Referral ID Status Reason Start Date Expiration Date Visits Requested Visits Authorized [id number] Pending Review Auto-Generat ed Referral 04/25/2022 05/25/2023 1 1 * Diagnostic Procedure Only (Routine) - Pending Review Specialty Diagnoses / Procedures Referred By Elenita mckay Referred To Contact [facility] Diagnoses Abnormal mammogram Procedures HONORIO DIAGNOSTIC LT DIAGNOSTIC MAMMOGRAPHY COMPUTER-AIDED DETCJ UNI Liyah Mooney MD [address] [place] [address] [facility] [address] [place] [address] Referral ID Status Reason Start Date Expiration Date Visits Requested Visits Authorized [id number] Pending Review Auto-Generat ed Referral 04/25/2022 05/25/2023 1 1 [facility] for referral (narrative)* Diagnostic Procedure Only (Routine) - Closed Specialty Diagnoses / Procedures Referred By Contac t Referred To Contact [facility] Diagnoses Abnormal mammogram Procedures US BREAST LTD LT US BREAST UNI REAL TIME WITH IMAGE LIMITED Liyah Mooney MD [address] [place] [address] [facility] [address] [place] [phone] Referral ID Status Reason Start Date Expiration Date V isits Requested Visits Authorized [id number] Closed Auto-Generate d Referral 04/25/2022 05/25/2023 1 1 [facility] for referral (narrative)* Outpatient Procedure (Routine) - New Request Specialty Diagnoses / Procedures Referred By Elenita mckay Referred To [facility] Diagnoses Gastroesophageal reflux disease, unspecified whether esophagitis present Epigastric pain Nausea Decreased appetite Acute LUQ pain Hx of gastric bypass Jaw pain Procedures ECG COMPLETE ECG ROUTINE ECG W/LEAST 12 LDS W/I&R Leny Amador, GONZALEZ.RECORDS ANALYSIS MANAGER [address] [place] [address] [facility] [place] [address] [place] [address] Referral ID Status Reason Start Date Expiration Date Visits Requested Visits Authorized [id number] New Request Auto-Generat ed Referral 03/30/2024 03/30/2025 1 1 Electronically signed by Leny Amador CLINICAL TRANSFORMATION SPECIALIST.RECORDS ANALYSIS MANAGER at 03/30/2024 12:41 PM EDT * MRI/CT (Urgent) - Closed Specialty Diagnoses / Procedures Referred By Elenita Referred To Contact CT IMAGING Diagnoses Gastroesophageal reflux disease, unspecified whether esophagitis present Epigastric pain Nausea Decreased appetite Acute LUQ pain Hx of gastric bypass Jaw pain Procedures CT ABD/PEL W IVCON CT ABD & PELVIS W/CONTRAST Leny Amador APRN.RECORDS ANALYSIS MANAGER [address] [place] [address] [facility] [place] [address] Referral ID Status Reason Start Date Expiration Date V isits Requested Visits Authorized [id number] Closed Patient Cleared - Admin/Chairm an/Director advise to proceed or did not respond 03/30/2024 09/06/2024 2 2 [facility] for referral (narrative)* Diagnostic Procedure Only (Routine) - Authorized Specialty Diagnoses / Procedures Referred By Elenita mckay Referred To Contact [facility] Diagnoses Right upper quadrant abdominal pain Gastroesophageal reflux disease, unspecified whether esophagitis present Epigastric pain Nausea Decreased appetite Acute LUQ pain Hx of gastric bypass Procedures NM HEPATOBILIARY W EF AND/OR RX HEPATOBIL SYST IMAG INC GB W/PHARMA INTERVENJ Leny Amador APRN.RECORDS ANALYSIS MANAGER [address] [place] [address] [facility] [address] [place] [address] Referral ID Status Reason Start Date Expiration Date Visits Requested Visits Authorized [id number] Authorized Auto-Generat ed Referral 04/06/2024 05/06/2025 1 1 * Diagnostic Procedure Only (Urgent) - Authorized Specialty Diagnoses / Procedures [facility] Referred To Contact [facility] Diagnoses Right upper quadrant abdominal pain Gastroesophageal reflux disease, unspecified whether esophagitis present Epigastric pain Nausea Decreased appetite Acute LUQ pain Hx of gastric bypass Procedures US ABD RIGHT UPPER QUADRANT US ABDOMINAL REAL TIME W/IMAGE LIMITED Leny Amador APRN.RECORDS ANALYSIS MANAGER [address] [place] [address] [place] [address] Referral ID Status Reason Start Date Expiration Date Visits Requested Visits Authorized [id number] Authorized Auto-Generat ed Referral 04/06/2024 05/06/2025 1 1 [facility] for referral (narrative)* Diagnostic Procedure Only (Urgent) - Closed Specialty Diagnoses / Procedures [facility] Referred To Contact [facility] Diagnoses Right upper quadrant abdominal pain Gastroesophageal reflux disease, unspecified whether esophagitis present Epigastric pain Nausea Decreased appetite Acute LUQ pain Hx of gastric bypass Procedures US ABD RIGHT UPPER QUADRANT US ABDOMINAL REAL TIME W/IMAGE LIMITED Leny Amador APRN.RECORDS ANALYSIS MANAGER [address] [place] [address] [facility] Referral ID Status Reason Start Date Expiration Date V isits Requested Visits Authorized [id number] Closed Auto-Generate d Referral 04/06/2024 05/06/2025 1 1 [facility] for referral (narrative)* Diagnostic Procedure Only (Routine) - Closed Specialty Diagnoses / Procedures [facility] Referred To Contact [facility] Diagnoses Right upper quadrant abdominal pain Gastroesophageal reflux disease, unspecified whether esophagitis present Epigastric pain Nausea Decreased appetite Acute LUQ pain Hx of gastric bypass Procedures NM HEPATOBILIARY W EF AND/OR RX HEPATOBIL SYST IMAG INC GB W/PHARMA INTERVENJ Leny Amador APRN.RECORDS ANALYSIS MANAGER [address] [place] [address] [facility] [address] [place] [address] Referral ID Status Reason Start Date Expiration Date V isits Requested Visits Authorized [id number] Closed Auto-Generate d Referral 04/06/2024 05/06/2025 1 1 [facility] for referral (narrative)* Diagnostic Procedure Only (Routine) - New Request Specialty Diagnoses / Procedures Referred By Elenita t Referred To Contact XR IMAGING Diagnoses Pain in right foot Procedures XR FOOT GENERAL 3V AP/LAT/OBL RIGHT RADEX FOOT COMPLETE MINIMUM 3 VIEWS Mary Neville [address] [place] [address] [place] [address] Referral ID Status Reason Start Date Expiration Date Visits Requested Visits Authorized [id number] New Request Auto-Generat ed Referral 06/03/2024 07/03/2025 1 1 [facility] for visit Narrative* Diagnostic Procedure Only (Routine) - Closed Specialty Diagnoses / Procedures Referred By Elenita mckay Referred To Contact [facility] Diagnoses Encounter for screening mammogram for malignant neoplasm of breast Procedures HONORIO SCREENING W SADE SCREENING DIGITAL BREAST TOMOSYNTHESIS BI SCREENING MAMMOGRAPHY BI 2-VIEW BREAST INC CAD Liyah Mooney MD [address] [place] [id number] [facility] [address] [place] [address] Referral ID Status Reason Start Date Expiration Date V isits Requested Visits Authorized [id number] Closed Auto-Generate d Referral 11/05/2021 12/05/2022 1 1 [facility] for visit Narrative* Diagnostic Procedure Only (Routine) - Closed Specialty Diagnoses / Procedures Referred By Elenita t Referred To Contact [facility] Diagnoses Abnormal mammogram Procedures HONORIO DIAGNOSTIC LT DIAGNOSTIC MAMMOGRAPHY COMPUTER-AIDED DETCJ UNI Liyah Mooney MD [address] [place] [address] [facility] [address] [place] [address] Referral ID Status Reason Start Date Expiration Date V isits Requested Visits Authorized [id number] Closed Auto-Generate d Referral 04/25/2022 05/25/2023 1 1 [facility] for visit Narrative* Diagnostic Procedure Only (Urgent) - Closed Specialty Diagnoses / Procedures Referred By Elenita t Referred To Contact US IMAGING Diagnoses Right upper quadrant abdominal pain Gastroesophageal reflux disease, unspecified whether esophagitis present Epigastric pain Nausea Decreased appetite Acute LUQ pain Hx of gastric bypass Procedures US ABD RIGHT UPPER QUADRANT US ABDOMINAL REAL TIME W/IMAGE LIMITED Leny Amador APRN.RECORDS ANALYSIS MANAGER [address] [place] [address] [place] [address] Referral ID Status Reason Start Date Expiration Date V isits Requested Visits Authorized [id number] Closed Auto-Generate d Referral 04/06/2024 05/06/2025 1 1 [facility] for visit Narrative* Diagnostic Procedure Only (Routine) - Closed Specialty Diagnoses / Procedures Referred By Contac t Referred To Contact XR IMAGING Diagnoses Pain in right foot Procedures XR FOOT GENERAL 3V AP/LAT/OBL RIGHT RADEX FOOT COMPLETE MINIMUM 3 VIEWS Mary Neville[address] [place] [address] [place] [address] Referral ID Status Reason Start Date Expiration Date V isits Requested Visits Authorized [id number] Closed Auto-Generate d Referral 06/03/2024 07/03/2025 1 1 [facility] for visit Narrative* Diagnostic Procedure Only (Routine) - Closed Specialty Diagnoses / Procedures Referred By Contac t Referred To Contact XR IMAGING Diagnoses Encounter for screening for osteoporosis Generalized weakness Acute generalized body pain Arthralgia, unspecified joint Well adult exam Hx of gastric bypass Procedures DXA-AXIAL SKELETON DXA BONE DENSITY STUDY / SITES AXIAL SKEL Leny Amador, GONZALEZ.RECORDS ANALYSIS MANAGER [address] [place] [address] Phone: tel: fax: [place] [address] Referral ID Status Reason Start Date Expiration Date V isits Requested Visits Authorized [id number] Closed Auto-Generate d Referral 12/16/2024 01/15/2026 1 1 [facility] Summary Purpose Family History No Family History Records FoundNo Family History Records FoundNo Family History Records FoundNo Family History Records FoundNo Family History Records FoundNo Family History Records Found Advance Directives No Advanced Directives Records FoundDocuments on File Type Date 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 Advance Directives and Living Will Power of Director Of Primary Health Concerns Infection Onset Date Last Indicated Resolved Time Influenza 10/14/2023 10/14/2023 Reason for Referral Specialty Diagnoses / Procedures Referred By Mehulac t Referred To Contact CT IMAGING Diagnoses Gastroesophageal reflux disease, unspecified whether esophagitis present Epigastric pain Nausea Decreased appetite Acute LUQ pain Hx of gastric bypass Jaw pain Procedures CT ABD/PEL W IVCON CT ABD & PELVIS W/CONTRAST Leny Amador, CLINICAL TRANSFORMATION SPECIALIST.RECORDS ANALYSIS MANAGER [address] [place] [address] [place] [address] Referral ID Status Reason Start Date Expiration Date V isits Requested Visits Authorized [id number] Closed Patient Cleared - Admin/Chairm an/Director advise to proceed or did not respond 03/30/2024 09/06/2024 2 2 Specialty Diagnoses / Procedures Referred By Mehulac t Referred To Contact Diagnoses Gastroesophageal reflux disease, unspecified whether esophagitis present Epigastric pain Nausea Acute LUQ pain Hx of gastric bypass Right upper quadrant abdominal pain Intussusception (HCC) Procedures CONSULT [facility] OFFICE[facility]OUTPATIENT [facility] 60 MINUTES Leny Amador, CLINICAL TRANSFORMATION SPECIALIST.RECORDS ANALYSIS MANAGER [address] [place] [address] Referral ID Status Reason Start Date Expiration Date Visits Requested Visits Authorized [id number] Authorized PCP Requested Referral 04/21/2024 04/21/2025 1 1 Specialty Diagnoses / Procedures Referred By Elenita t Referred To Contact [facility] Diagnoses Tendonitis, Achilles, right Procedures CONSULT TO PHYSICAL THERAPY PHYSICAL THERAPY EVALUATION [facility] 45 MINS Mary Neville[address] [place] [address] [facility] [place] [address] [place] [address] Referral ID Status Reason Start Date Expiration Date Visits Requested Visits Authorized [id number] Authorized Auto-Generat ed Referral 09/07/2023 09/06/2024 30 30 Specialty Diagnoses / Procedures Referred By Elenita t Referred To Contact MR IMAGING Diagnoses Spinal stenosis of cervical region Cervicalgia Pain in both upper extremities Paresthesia of skin Procedures MRI CERVICAL SPINE WO IVCON MRI SPINAL CANAL CERVICAL W/O CONTRAST Arya Rosario Jr., MD [facility] [place] [address] [place] [address] Referral ID Status Reason Start Date Expiration Date Visits Requested Visits Authorized [id number] New Request Auto-Generat ed Referral 10/10/2024 11/09/2025 1 1 Additional Source Comments INFORMATION SOURCE (unrecogn ized section and content) DATE CREATED AUTHOR 12/02/2019 [facility] DATE CREATED AUTHOR AUTHOR'S ORGANIZ ATION 05/19/2021 [facility] DATE CREATED AUTHOR AUTHOR'S ORGANIZ ATION 04/09/2024 [facility] DATE CREATED AUTHOR AUTHOR'S ORGANIZ ATION 05/13/2024 [facility] DATE CREATED AUTHOR AUTHOR'S ORGANIZ ATION 04/29/2025 [facility] DATE CREATED AUTHOR AUTHOR'S ORGANIZ ATION 04/29/2025 [facility] Source Comments (unrecognize d section and content) In the event this informatio n is protected by the Federal Confidentiality of Alcohol and Drug Abuse Patient Records regulations: The Federal rules restrict any use of the information to criminally investigate or prosecute any alcohol or drug abuse patient.[facility] Foundation[facility] the event this information is protected by the Federal Confidentiality of Alcohol and Drug Abuse Patient Records regulations: The Federal rules restrict any use of the information to criminally investigate or prosecute any alcohol or drug abuse patient.[facility] Foundation[facility] the event this information is protected by the Federal Confidentiality of Alcohol and Drug Abuse Patient Records regulations: The Federal rules restrict any use of the information to criminally investigate or prosecute any alcohol or drug abuse patient.[facility] Foundation[facility] the event this information is protected by the Federal Confidentiality of Alcohol and Drug Abuse Patient Records regulations: The Federal rules restrict any use of the information to criminally investigate or prosecute any alcohol or drug abuse patient.[facility] Foundation[facility] the event this information is protected by the Federal Confidentiality of Alcohol and Drug Abuse Patient Records regulations: The Federal rules restrict any use of the information to criminally investigate or prosecute any alcohol or drug abuse patient.[facility] FoundationIn the event this information is protected by the Federal Confidentiality of Alcohol and Drug Abuse Patient Records regulations: The Federal rules restrict any use of the information to criminally investigate or prosecute any alcohol or drug abuse patient.[facility] Foundation[facility] the event this information is protected by the Federal Confidentiality of Alcohol and Drug Abuse Patient Records regulations: The Federal rules restrict any use of the information to criminally investigate or prosecute any alcohol or drug abuse patient.[facility] FoundationIn the event this information is protected by the Federal Confidentiality of Alcohol and Drug Abuse Patient Records regulations: The Federal rules restrict any use of the information to criminally investigate or prosecute any alcohol or drug abuse patient.[facility] FoundationIn the event this information is protected by the Federal Confidentiality of Alcohol and Drug Abuse Patient Records regulations: The Federal rules restrict any use of the information to criminally investigate or prosecute any alcohol or drug abuse patient.[facility] FoundationIn the event this information is protected by the Federal Confidentiality of Alcohol and Drug Abuse Patient Records regulations: The Federal rules restrict any use of the information to criminally investigate or prosecute any alcohol or drug abuse patient.[facility] FoundationIn the event this information is protected by the Federal Confidentiality of Alcohol and Drug Abuse Patient Records regulations: The Federal rules restrict any use of the information to criminally investigate or prosecute any alcohol or drug abuse patient.[facility] FoundationIn the event this information is protected by the Federal Confidentiality of Alcohol and Drug Abuse Patient Records regulations: The Federal rules restrict any use of the information to criminally investigate or prosecute any alcohol or drug abuse patient.[facility] FoundationIn the event this information is protected by the Federal Confidentiality of Alcohol and Drug Abuse Patient Records regulations: The Federal rules restrict any use of the information to criminally investigate or prosecute any alcohol or drug abuse patient.[facility] FoundationIn the event this information is protected by the Federal Confidentiality of Alcohol and Drug Abuse Patient Records regulations: The Federal rules restrict any use of the information to criminally investigate or prosecute any alcohol or drug abuse patient.[facility] FoundationIn the event this information is protected by the Federal Confidentiality of Alcohol and Drug Abuse Patient Records regulations: The Federal rules restrict any use of the information to criminally investigate or prosecute any alcohol or drug abuse patient.[facility] FoundationIn the event this information is protected by the Federal Confidentiality of Alcohol and Drug Abuse Patient Records regulations: The Federal rules restrict any use of the information to criminally investigate or prosecute any alcohol or drug abuse patient.[facility] FoundationIn the event this information is protected by the Federal Confidentiality of Alcohol and Drug Abuse Patient Records regulations: The Federal rules restrict any use of the information to criminally investigate or prosecute any alcohol or drug abuse patient.[facility] FoundationIn the event this information is protected by the Federal Confidentiality of Alcohol and Drug Abuse Patient Records regulations: The Federal rules restrict any use of the information to criminally investigate or prosecute any alcohol or drug abuse patient.[facility] FoundationIn the event this information is protected by the Federal Confidentiality of Alcohol and Drug Abuse Patient Records regulations: The Federal rules restrict any use of the information to criminally investigate or prosecute any alcohol or drug abuse patient.[facility] FoundationIn the event this information is protected by the Federal Confidentiality of Alcohol and Drug Abuse Patient Records regulations: The Federal rules restrict any use of the information to criminally investigate or prosecute any alcohol or drug abuse patient.[facility] FoundationIn the event this information is protected by the Federal Confidentiality of Alcohol and Drug Abuse Patient Records regulations: The Federal rules restrict any use of the information to criminally investigate or prosecute any alcohol or drug abuse patient.[facility] FoundationIn the event this information is protected by the Federal Confidentiality of Alcohol and Drug Abuse Patient Records regulations: The Federal rules restrict any use of the information to criminally investigate or prosecute any alcohol or drug abuse patient.[facility] FoundationIn the event this information is protected by the Federal Confidentiality of Alcohol and Drug Abuse Patient Records regulations: The Federal rules restrict any use of the information to criminally investigate or prosecute any alcohol or drug abuse patient.[facility] FoundationIn the event this information is protected by the Federal Confidentiality of Alcohol and Drug Abuse Patient Records regulations: The Federal rules restrict any use of the information to criminally investigate or prosecute any alcohol or drug abuse patient.[facility] FoundationIn the event this information is protected by the Federal Confidentiality of Alcohol and Drug Abuse Patient Records regulations: The Federal rules restrict any use of the information to criminally investigate or prosecute any alcohol or drug abuse patient.[facility] FoundationIn the event this information is protected by the Federal Confidentiality of Alcohol and Drug Abuse Patient Records regulations: The Federal rules restrict any use of the information to criminally investigate or prosecute any alcohol or drug abuse patient.[facility] FoundationIn the event this information is protected by the Federal Confidentiality of Alcohol and Drug Abuse Patient Records regulations: The Federal rules restrict any use of the information to criminally investigate or prosecute any alcohol or drug abuse patient.[facility] FoundationIn the event this information is protected by the Federal Confidentiality of Alcohol and Drug Abuse Patient Records regulations: The Federal rules restrict any use of the information to criminally investigate or prosecute any alcohol or drug abuse patient.[facility] FoundationIn the event this information is protected by the Federal Confidentiality of Alcohol and Drug Abuse Patient Records regulations: The Federal rules restrict any use of the information to criminally investigate or prosecute any alcohol or drug abuse patient.[facility] FoundationIn the event this information is protected by the Federal Confidentiality of Alcohol and Drug Abuse Patient Records regulations: The Federal rules restrict any use of the information to criminally investigate or prosecute any alcohol or drug abuse patient.[facility] FoundationIn the event this information is protected by the Federal Confidentiality of Alcohol and Drug Abuse Patient Records regulations: The Federal rules restrict any use of the information to criminally investigate or prosecute any alcohol or drug abuse patient.[facility] FoundationIn the event this information is protected by the Federal Confidentiality of Alcohol and Drug Abuse Patient Records regulations: The Federal rules restrict any use of the information to criminally investigate or prosecute any alcohol or drug abuse patient.[facility] FoundationIn the event this information is protected by the Federal Confidentiality of Alcohol and Drug Abuse Patient Records regulations: The Federal rules restrict any use of the information to criminally investigate or prosecute any alcohol or drug abuse patient.[facility] FoundationIn the event this information is protected by the Federal Confidentiality of Alcohol and Drug Abuse Patient Records regulations: The Federal rules restrict any use of the information to criminally investigate or prosecute any alcohol or drug abuse patient.[facility] FoundationIn the event this information is protected by the Federal Confidentiality of Alcohol and Drug Abuse Patient Records regulations: The Federal rules restrict any use of the information to criminally investigate or prosecute any alcohol or drug abuse patient.[facility] FoundationIn the event this information is protected by the Federal Confidentiality of Alcohol and Drug Abuse Patient Records regulations: The Federal rules restrict any use of the information to criminally investigate or prosecute any alcohol or drug abuse patient.[facility] FoundationIn the event this information is protected by the Federal Confidentiality of Alcohol and Drug Abuse Patient Records regulations: The Federal rules restrict any use of the information to criminally investigate or prosecute any alcohol or drug abuse patient.[facility] FoundationIn the event this information is protected by the Federal Confidentiality of Alcohol and Drug Abuse Patient Records regulations: The Federal rules restrict any use of the information to criminally investigate or prosecute any alcohol or drug abuse patient.[facility] FoundationIn the event this information is protected by the Federal Confidentiality of Alcohol and Drug Abuse Patient Records regulations: The Federal rules restrict any use of the information to criminally investigate or prosecute any alcohol or drug abuse patient.[facility] FoundationIn the event this information is protected by the Federal Confidentiality of Alcohol and Drug Abuse Patient Records regulations: The Federal rules restrict any use of the information to criminally investigate or prosecute any alcohol or drug abuse patient.[facility] FoundationIn the event this information is protected by the Federal Confidentiality of Alcohol and Drug Abuse Patient Records regulations: The Federal rules restrict any use of the information to criminally investigate or prosecute any alcohol or drug abuse patient.[facility] FoundationIn the event this information is protected by the Federal Confidentiality of Alcohol and Drug Abuse Patient Records regulations: The Federal rules restrict any use of the information to criminally investigate or prosecute any alcohol or drug abuse patient.[facility] FoundationIn the event this information is protected by the Federal Confidentiality of Alcohol and Drug Abuse Patient Records regulations: The Federal rules restrict any use of the information to criminally investigate or prosecute any alcohol or drug abuse patient.[facility] FoundationIn the event this information is protected by the Federal Confidentiality of Alcohol and Drug Abuse Patient Records regulations: The Federal rules restrict any use of the information to criminally investigate or prosecute any alcohol or drug abuse patient.[facility] FoundationIn the event this information is protected by the Federal Confidentiality of Alcohol and Drug Abuse Patient Records regulations: The Federal rules restrict any use of the information to criminally investigate or prosecute any alcohol or drug abuse patient.[facility] FoundationIn the event this information is protected by the Federal Confidentiality of Alcohol and Drug Abuse Patient Records regulations: The Federal rules restrict any use of the information to criminally investigate or prosecute any alcohol or drug abuse patient.[facility] FoundationIn the event this information is protected by the Federal Confidentiality of Alcohol and Drug Abuse Patient Records regulations: The Federal rules restrict any use of the information to criminally investigate or prosecute any alcohol or drug abuse patient.[facility] FoundationIn the event this information is protected by the Federal Confidentiality of Alcohol and Drug Abuse Patient Records regulations: The Federal rules restrict any use of the information to criminally investigate or prosecute any alcohol or drug abuse patient.[facility] FoundationIn the event this information is protected by the Federal Confidentiality of Alcohol and Drug Abuse Patient Records regulations: The Federal rules restrict any use of the information to criminally investigate or prosecute any alcohol or drug abuse patient.[facility] the event this information is protected by the Federal Confidentiality of Alcohol and Drug Abuse Patient Records regulations: The Federal rules restrict any use of the information to criminally investigate or prosecute any alcohol or drug abuse patient.[facility] FoundationIn the event this information is protected by the Federal Confidentiality of Alcohol and Drug Abuse Patient Records regulations: The Federal rules restrict any use of the information to criminally investigate or prosecute any alcohol or drug abuse patient.[facility] FoundationIn the event this information is protected by the Federal Confidentiality of Alcohol and Drug Abuse Patient Records regulations: The Federal rules restrict any use of the information to criminally investigate or prosecute any alcohol or drug abuse patient.[facility] FoundationIn the event this information is protected by the Federal Confidentiality of Alcohol and Drug Abuse Patient Records regulations: The Federal rules restrict any use of the information to criminally investigate or prosecute any alcohol or drug abuse patient.[facility] FoundationIn the event this information is protected by the Federal Confidentiality of Alcohol and Drug Abuse Patient Records regulations: The Federal rules restrict any use of the information to criminally investigate or prosecute any alcohol or drug abuse patient.[facility] FoundationIn the event this information is protected by the Federal Confidentiality of Alcohol and Drug Abuse Patient Records regulations: The Federal rules restrict any use of the information to criminally investigate or prosecute any alcohol or drug abuse patient.[facility] FoundationIn the event this information is protected by the Federal Confidentiality of Alcohol and Drug Abuse Patient Records regulations: The Federal rules restrict any use of the information to criminally investigate or prosecute any alcohol or drug abuse patient.[facility] FoundationIn the event this information is protected by the Federal Confidentiality of Alcohol and Drug Abuse Patient Records regulations: The Federal rules restrict any use of the information to criminally investigate or prosecute any alcohol or drug abuse patient.[facility] FoundationIn the event this information is protected by the Federal Confidentiality of Alcohol and Drug Abuse Patient Records regulations: The Federal rules restrict any use of the information to criminally investigate or prosecute any alcohol or drug abuse patient.[facility] FoundationIn the event this information is protected by the Federal Confidentiality of Alcohol and Drug Abuse Patient Records regulations: The Federal rules restrict any use of the information to criminally investigate or prosecute any alcohol or drug abuse patient.[facility] FoundationIn the event this information is protected by the Federal Confidentiality of Alcohol and Drug Abuse Patient Records regulations: The Federal rules restrict any use of the information to criminally investigate or prosecute any alcohol or drug abuse patient.[facility] FoundationIn the event this information is protected by the Federal Confidentiality of Alcohol and Drug Abuse Patient Records regulations: The Federal rules restrict any use of the information to criminally investigate or prosecute any alcohol or drug abuse patient.[facility] FoundationIn the event this information is protected by the Federal Confidentiality of Alcohol and Drug Abuse Patient Records regulations: The Federal rules restrict any use of the information to criminally investigate or prosecute any alcohol or drug abuse patient.[facility] FoundationIn the event this information is protected by the Federal Confidentiality of Alcohol and Drug Abuse Patient Records regulations: The Federal rules restrict any use of the information to criminally investigate or prosecute any alcohol or drug abuse patient.[facility] FoundationIn the event this information is protected by the Federal Confidentiality of Alcohol and Drug Abuse Patient Records regulations: The Federal rules restrict any use of the information to criminally investigate or prosecute any alcohol or drug abuse patient.[facility] FoundationIn the event this information is protected by the Federal Confidentiality of Alcohol and Drug Abuse Patient Records regulations: The Federal rules restrict any use of the information to criminally investigate or prosecute any alcohol or drug abuse patient.[facility] FoundationIn the event this information is protected by the Federal Confidentiality of Alcohol and Drug Abuse Patient Records regulations: The Federal rules restrict any use of the information to criminally investigate or prosecute any alcohol or drug abuse patient.[facility] FoundationIn the event this information is protected by the Federal Confidentiality of Alcohol and Drug Abuse Patient Records regulations: The Federal rules restrict any use of the information to criminally investigate or prosecute any alcohol or drug abuse patient.[facility] FoundationIn the event this information is protected by the Federal Confidentiality of Alcohol and Drug Abuse Patient Records regulations: The Federal rules restrict any use of the information to criminally investigate or prosecute any alcohol or drug abuse patient.[facility] FoundationIn the event this information is protected by the Federal Confidentiality of Alcohol and Drug Abuse Patient Records regulations: The Federal rules restrict any use of the information to criminally investigate or prosecute any alcohol or drug abuse patient.[facility] FoundationIn the event this information is protected by the Federal Confidentiality of Alcohol and Drug Abuse Patient Records regulations: The Federal rules restrict any use of the information to criminally investigate or prosecute any alcohol or drug abuse patient.[facility] FoundationIn the event this information is protected by the Federal Confidentiality of Alcohol and Drug Abuse Patient Records regulations: The Federal rules restrict any use of the information to criminally investigate or prosecute any alcohol or drug abuse patient.[facility] Reason for Visit (unrecogniz ed section and content) Reason Comments Physical Therapy Specialty Diagnoses / Procedures Referred By Contac t Referred To Contact [facility] Diagnoses Tendonitis, Achilles, right Procedures CONSULT TO PHYSICAL THERAPY PHYSICAL THERAPY EVALUATION HIGH COMPLEX 45 MINS Testrake, Mary [address] [place] [address] [facility] [address] [place] [id number] Referral ID Status Reason Start Date Expiration Date Visits Requested Visits Authorized [id number] Authorized Auto-Generat ed Referral 09/07/2023 09/06/2024 30 30 Reason Comments Refill Request Reason Onset Date Comments Refill Request Refill Request 12/18/2021 Reason Comments Depression Reason Onset Date Comments Radiology Mammogram 04/25/2022 at [facility] Reason Onset Date Comments Radiology Mammogram 04/25/2022 at [facility] Reason Comments Rx Refills Reason Comments Medication Follow-up Reason Onset Date Comments Refill Request 05/16/2022 Reason Comments Med Change Request Reason Comments Sinus Problem Headache, sinus pres sure, teeth care achy, pressure in ears x 1.5 week, Neg home covid test this morning. Reason Comments Results Reason Comments Physical Reason Comments Prescription Clarification Request Reason Comments Radiology US Specialty Diagnoses / Procedures Referred By Elenita mckay Referred To Contact [facility] Diagnoses Abnormal mammogram Procedures US BREAST LTD LT US BREAST UNI REAL TIME WITH IMAGE LIMITED Liyah Mooney MD [address] [place] [address] [facility] [address] [place] [address] Referral ID Status Reason Start Date Expiration Date V isits Requested Visits Authorized [id number] Closed Auto-Generate d Referral 04/25/2022 05/25/2023 1 1 Reason Comments Flu Like Symptoms Reason Onset Date Comments Refill Request 10/25/2023 Reason Comments Abdominal Pain Mid upper burning, p ain left side of abdomen, pain is worse after eating x couple days Reason Comments Results Orders Specialty Diagnoses / Procedures Referred By Elenita mckay Referred To Contact [facility] Diagnoses Gastroesophageal reflux disease, unspecified whether esophagitis present Epigastric pain Nausea Decreased appetite Acute LUQ pain Hx of gastric bypass Jaw pain Procedures CT ABD/PEL W IVCON CT ABD & PELVIS W/CONTRAST Leny Amador, GONZALEZ.RECORDS ANALYSIS MANAGER [address] [place] [address] [place] [address] Referral ID Status Reason Start Date Expiration Date V isits Requested Visits Authorized [id number] Closed Patient Cleared - Admin/Chairm an/Director advise to proceed or did not respond 03/30/2024 09/06/2024 2 2 Reason Comments Follow Up Reason Comments Follow Up Abd pain, FMLA Reason Comments Radiology NM Specialty Diagnoses / Procedures Referred By Contac t Referred To Contact [facility] Diagnoses Right upper quadrant abdominal pain Gastroesophageal reflux disease, unspecified whether esophagitis present Epigastric pain Nausea Decreased appetite Acute LUQ pain Hx of gastric bypass Procedures NM HEPATOBILIARY W EF AND/OR RX HEPATOBIL SYST IMAG INC GB W/PHARMA INTERVENJ Leny Amador, GONZALEZ.RECORDS ANALYSIS MANAGER [address] [place] [address] [facility] [address] [place] [address] Referral ID Status Reason Start Date Expiration Date V isits Requested Visits Authorized [id number] Closed Auto-Generate d Referral 04/06/2024 05/06/2025 1 1 Reason Comments Results Reason Onset Date Comments Refill Request 05/03/2024 Reason Comments New Pain Swelling Reason Comments PT Eval Reason Comments Established Patient Hypersomnia- c/o cer vical issues getting worse, tingling and numbness Reason Onset Date Comments Refill Request 11/14/2024 Reason Onset Date Comments Refill Request 12/13/2024 Reason Onset Date Comments Refill Request 12/15/2024 Reason Comments Release to return to work post [facility] 12/08/24 Reason Comments Medication Problem Reason Onset Date Comments Refill Request 01/18/2025 Reason Onset Date Comments Refill Request 02/14/2025 Care Teams (unrecognized sec tion and content) Esthetician Makeup Artist Relationship Specialty Start Date End Date Leny Amador, GONZALEZ.RECORDS ANALYSIS MANAGER [address] [place], [place] [id number] PCP - General Family Practice 06/12/21 Esthetician Makeup Artist Relationship Specialty Start Date End Date Leny Amador APRN.RECORDS ANALYSIS MANAGER [address] [place] [address] PCP - General Family Practice 06/12/21 Esthetician Makeup Artist Relationship Specialty Start Date End Date Leny Amador, CLINICAL TRANSFORMATION SPECIALIST.RECORDS ANALYSIS MANAGER [address] [place] [address] PCP - General Family Practice 06/12/21 Esthetician Makeup Artist Relationship Specialty Start Date End Date Leny Amador, CLINICAL TRANSFORMATION SPECIALIST.RECORDS ANALYSIS MANAGER [address] [place] [address] PCP - General Family Practice 06/12/21 Esthetician Makeup Artist Relationship Specialty Start Date End Date Leny Amador, CLINICAL TRANSFORMATION SPECIALIST.RECORDS ANALYSIS MANAGER [address] [place] [address] PCP - General Family Practice 06/12/21 Esthetician Makeup Artist Relationship Specialty Start Date End Date Leny Amador, CLINICAL TRANSFORMATION SPECIALIST.RECORDS ANALYSIS MANAGER [address] [place] [address] PCP - General Family Practice 06/12/21 Esthetician Makeup Artist Relationship Specialty Start Date End Date Leny Amador, CLINICAL TRANSFORMATION SPECIALIST.RECORDS ANALYSIS MANAGER [address] [place] [address] PCP - General Family Practice 06/12/21 Esthetician Makeup Artist Relationship Specialty Start Date End Date Leny Amador, CLINICAL TRANSFORMATION SPECIALIST.RECORDS ANALYSIS MANAGER [address] [place] [address] PCP - General Family Practice 06/12/21 Esthetician Makeup Artist Relationship Specialty Start Date End Date Leny Amador, CLINICAL TRANSFORMATION SPECIALIST.RECORDS ANALYSIS MANAGER [address] [place] [address] PCP - General Family Practice 06/12/21 Esthetician Makeup Artist Relationship Specialty Start Date End Date Leny Amador, CLINICAL TRANSFORMATION SPECIALIST.RECORDS ANALYSIS MANAGER [address] [place] [address] PCP - General Family Practice 06/12/21 Esthetician Makeup Artist Relationship Specialty Start Date End Date Leny Amador, CLINICAL TRANSFORMATION SPECIALIST.RECORDS ANALYSIS MANAGER [address] [place] [address] PCP - General Family Medicine 06/12/21 Esthetician Makeup Artist Relationship Specialty Start Date End Date Leny Amador, CLINICAL TRANSFORMATION SPECIALIST.RECORDS ANALYSIS MANAGER [address] [place] [address] PCP - General Family Medicine 06/12/21 Esthetician Makeup Artist Relationship Specialty Start Date End Date PerryLeny, CLINICAL TRANSFORMATION SPECIALIST.RECORDS ANALYSIS MANAGER [address] [place] [address] PCP - General Family Medicine 06/12/21 Esthetician Makeup Artist Relationship Specialty Start Date End Date PerryLeny, CLINICAL TRANSFORMATION SPECIALIST.RECORDS ANALYSIS MANAGER [address] [place] [address] PCP - General Family Medicine 06/12/21 Esthetician Makeup Artist Relationship Specialty Start Date End Date Leny Amador, CLINICAL TRANSFORMATION SPECIALIST.RECORDS ANALYSIS MANAGER [address] [place] [address] PCP - General Family Medicine 06/12/21 Esthetician Makeup Artist Relationship Specialty Start Date End Date PerryLeny, CLINICAL TRANSFORMATION SPECIALIST.RECORDS ANALYSIS MANAGER [address] [place] [address] PCP - General Family Medicine 06/12/21 Esthetician Makeup Artist Relationship Specialty Start Date End Date PerryLeny, CLINICAL TRANSFORMATION SPECIALIST.RECORDS ANALYSIS MANAGER [address] [place] [address] PCP - General Family Medicine 06/12/21 Esthetician Makeup Artist Relationship Specialty Start Date End Date PerryLeny, CLINICAL TRANSFORMATION SPECIALIST.RECORDS ANALYSIS MANAGER [address] [place] [address] PCP - General Family Medicine 06/12/21 Esthetician Makeup Artist Relationship Specialty Start Date End Date [facility] CLINICAL TRANSFORMATION SPECIALIST.RECORDS ANALYSIS MANAGER [address] [facility] [address] PCP - General Family Medicine 06/12/21 Esthetician Makeup Artist Relationship Specialty Start Date End Date [facility], CLINICAL TRANSFORMATION SPECIALIST.RECORDS ANALYSIS MANAGER [address] [facility] [place] [address] PCP - General Family Medicine 06/12/21 Esthetician Makeup Artist Relationship Specialty Start Date End Date [facility], CLINICAL TRANSFORMATION SPECIALIST.RECORDS ANALYSIS MANAGER [address] [facility] [place] [address] PCP - General Family Medicine 06/12/21 Esthetician Makeup Artist Relationship Specialty Start Date End Date [facility], CLINICAL TRANSFORMATION SPECIALIST.RECORDS ANALYSIS MANAGER [address] [facility] [place] [address] PCP - General Family Medicine 06/12/21 Esthetician Makeup Artist Relationship Specialty Start Date End Date [facility], CLINICAL TRANSFORMATION SPECIALIST.RECORDS ANALYSIS MANAGER [address] [facility] [address] PCP - General Family Medicine 06/12/21 Esthetician Makeup Artist Relationship Specialty Start Date End Date [facility], CLINICAL TRANSFORMATION SPECIALIST.RECORDS ANALYSIS MANAGER [address] [facility] [place] [address] PCP - General Family Medicine 06/12/21 Esthetician Makeup Artist Relationship Specialty Start Date End Date [facility], CLINICAL TRANSFORMATION SPECIALIST.RECORDS ANALYSIS MANAGER [address] [facility] [place] [address] PCP - General Family Medicine 06/12/21 Esthetician Makeup Artist Relationship Specialty Start Date End Date PerryLeny, CLINICAL TRANSFORMATION SPECIALIST.RECORDS ANALYSIS MANAGER [address] [facility] [address] PCP - General Family Medicine 06/12/21 Esthetician Makeup Artist Relationship Specialty Start Date End Date PerryLeny, CLINICAL TRANSFORMATION SPECIALIST.RECORDS ANALYSIS MANAGER [address] [facility] [address] PCP - General Family Medicine 06/12/21 Esthetician Makeup Artist Relationship Specialty Start Date End Date PerryLeny, CLINICAL TRANSFORMATION SPECIALIST.RECORDS ANALYSIS MANAGER [address] [facility] [address] PCP - General Family Medicine 06/12/21 Esthetician Makeup Artist Relationship Specialty Start Date End Date PerryLeny, CLINICAL TRANSFORMATION SPECIALIST.RECORDS ANALYSIS MANAGER [address] [facility] [address] PCP - General Family Medicine 06/12/21 Esthetician Makeup Artist Relationship Specialty Start Date End Date PerryLeny, CLINICAL TRANSFORMATION SPECIALIST.RECORDS ANALYSIS MANAGER [address] [facility] [address] PCP - General Family Medicine 06/12/21 Esthetician Makeup Artist Relationship Specialty Start Date End Date [facility], CLINICAL TRANSFORMATION SPECIALIST.RECORDS ANALYSIS MANAGER [address] [facility] [address] PCP - General Family Medicine 06/12/21 Esthetician Makeup Artist Relationship Specialty Start Date End Date PerryLeny, CLINICAL TRANSFORMATION SPECIALIST.RECORDS ANALYSIS MANAGER [address] [facility] [address] PCP - General Family Medicine 06/12/21 Esthetician Makeup Artist Relationship Specialty Start Date End Date PerryLeny, CLINICAL TRANSFORMATION SPECIALIST.RECORDS ANALYSIS MANAGER [address] [facility] [address] PCP - General Family Medicine 06/12/21 Esthetician Makeup Artist Relationship Specialty Start Date End Date [facility], CLINICAL TRANSFORMATION SPECIALIST.RECORDS ANALYSIS MANAGER [address] [facility] [address] PCP - General Family Medicine 06/12/21 Esthetician Makeup Artist Relationship Specialty Start Date End Date [facility], CLINICAL TRANSFORMATION SPECIALIST.RECORDS ANALYSIS MANAGER [address] [facility] [address] PCP - General Family Medicine 06/12/21 Esthetician Makeup Artist Relationship Specialty Start Date End Date [facility], CLINICAL TRANSFORMATION SPECIALIST.RECORDS ANALYSIS MANAGER [address] [facility] [address] PCP - General Family Medicine 06/12/21 Esthetician Makeup Artist Relationship Specialty Start Date End Date [facility], CLINICAL TRANSFORMATION SPECIALIST.RECORDS ANALYSIS MANAGER [address] [facility] [address] PCP - General Family Medicine 06/12/21 Esthetician Makeup Artist Relationship Specialty Start Date End Date [facility], CLINICAL TRANSFORMATION SPECIALIST.RECORDS ANALYSIS MANAGER [address] [facility] [address] PCP - General Family Medicine 06/12/21 Esthetician Makeup Artist Relationship Specialty Start Date End Date [facility], CLINICAL TRANSFORMATION SPECIALIST.RECORDS ANALYSIS MANAGER [address] [facility] [address] PCP - General Family Medicine 06/12/21 Esthetician Makeup Artist Relationship Specialty Start Date End Date [facility], CLINICAL TRANSFORMATION SPECIALIST.RECORDS ANALYSIS MANAGER [address] [facility] [address] PCP - General Family Medicine 06/12/21 Cara Mccord, CLINICAL TRANSFORMATION SPECIALIST.RECORDS ANALYSIS MANAGER [address] [place] [address] Quality Control Director Family Medicine 08/15/24 Hayden Romero DO [address] [place] [address] Quality Control Director Family Medicine 08/15/24 Esthetician Makeup Artist Relationship Specialty Start Date End Date Leny Amador, CLINICAL TRANSFORMATION SPECIALIST.RECORDS ANALYSIS MANAGER [address] [place] [address] PCP - General Family Medicine 06/12/21 Cara Mccord, CLINICAL TRANSFORMATION SPECIALIST.RECORDS ANALYSIS MANAGER [address] [place] [address] Quality Control Director Family Medicine 08/15/24 Hayden Romero DO [address] [place] [address] [facility] 08/15/24 Esthetician Makeup Artist Relationship Specialty Start Date End Date Leny Amador, CLINICAL TRANSFORMATION SPECIALIST.RECORDS ANALYSIS MANAGER [address] [place] [address] PCP - General Family Medicine 06/12/21 Cara Mccord, CLINICAL TRANSFORMATION SPECIALIST.RECORDS ANALYSIS MANAGER [address] [place] [address] Quality Control Director Family Medicine 08/15/24 Hayden Romero DO [address] [place] [address] Quality Control [facility] [place] [facility] 08/15/24 Esthetician Makeup Artist Relationship Specialty Start Date End Date Leny Amador, CLINICAL TRANSFORMATION SPECIALIST.RECORDS ANALYSIS MANAGER [address] [place] [address] PCP - General Family Medicine 06/12/21 Cara Mccord, CLINICAL TRANSFORMATION SPECIALIST.RECORDS ANALYSIS MANAGER [address] [place] [address] Quality Control Director Family Medicine 08/15/24 Hayden Romero DO [address] [place] [address] Quality Control Director Family Medicine 08/15/24 Esthetician Makeup Artist Relationship Specialty Start Date End Date PerryLeny, CLINICAL TRANSFORMATION SPECIALIST.RECORDS ANALYSIS MANAGER [address] [place] [address] PCP - General Family Medicine 06/12/21 Cara Mccord, CLINICAL TRANSFORMATION SPECIALIST.RECORDS ANALYSIS MANAGER [address] [place] [address] Quality Control Director Family Medicine 08/15/24 Hayden Romero DO [address] [place] [address] Quality Control Director Family Medicine 08/15/24 Esthetician Makeup Artist Relationship Specialty Start Date End Date [facility], CLINICAL TRANSFORMATION SPECIALIST.RECORDS ANALYSIS MANAGER [address] [place] [address] PCP - General Family Medicine 06/12/21 Cara Mccord, CLINICAL TRANSFORMATION SPECIALIST.RECORDS ANALYSIS MANAGER [address] [place] [address] Quality Control Director Family Medicine 08/15/24 Hayden Romero DO [address] [facility] [address] Quality Control Director Family Medicine 08/15/24 Esthetician Makeup Artist Relationship Specialty Start Date End Date Leny Amador, CLINICAL TRANSFORMATION SPECIALIST.RECORDS ANALYSIS MANAGER [address] [place] [address] PCP - General Family Medicine 06/12/21 Cara Mccord, CLINICAL TRANSFORMATION SPECIALIST.RECORDS ANALYSIS MANAGER [address] [place] [address] Quality Control Director Family Medicine 08/15/24 Hayden Romero DO [address] [place] [address] Quality Control Director Family Medicine 08/15/24 Esthetician Makeup Artist Relationship Specialty Start Date End Date Leny Amador, CLINICAL TRANSFORMATION SPECIALIST.RECORDS ANALYSIS MANAGER [address] [place] [address] PCP - General Family Medicine 06/12/21 Cara Mccord, CLINICAL TRANSFORMATION SPECIALIST.RECORDS ANALYSIS MANAGER [address] [place] [address] Quality Control Director Family Medicine 08/15/24 Hayden Romero DO [address] [facility] [place] [address] Quality Control Director Family Medicine 08/15/24 Esthetician Makeup Artist Relationship Specialty Start Date End Date Leny Amador, CLINICAL TRANSFORMATION SPECIALIST.RECORDS ANALYSIS MANAGER [address] [facility] [place] [address] PCP - General Family Medicine 06/12/21 Cara Mccord, CLINICAL TRANSFORMATION SPECIALIST.RECORDS ANALYSIS MANAGER [address] [place] [address] [facility] 08/15/24 Hayden Romero DO [address] [place], [place] [address] [facility] 08/15/24 Esthetician Makeup Artist Relationship Specialty Start Date End Date Leny Amador, CLINICAL TRANSFORMATION SPECIALIST.RECORDS ANALYSIS MANAGER [address] [place], [place] [address] PCP - General Family Medicine 06/12/21 Cara Mccord, CLINICAL TRANSFORMATION SPECIALIST.RECORDS ANALYSIS MANAGER [address] [place], [place] [id number] [facility] 08/15/24 Hayden Romero DO [address] [place], [place] [id number] [facility] 08/15/24 FOR RECORDS PERTAINING TO PATIENTS WHO ARE OR HAVE BEEN ENROLLED IN A CHEMICAL DEPENDENCY/SUBSTANCEABUSE PROGRAM, SOME INFORMATION MAY BE OMITTED. This clinical summary was aggregated from multiple sources. Caution should be exercised in using it in the provision of clinical care. This summary normalizes information from multiple sources, and as a consequence, information in this document may materially change the coding, format and clinical context of patient data. In addition, data may be omitted in some cases. CLINICAL DECISIONS SHOULD BE BASED ON THE PRIMARY CLINICAL RECORDS. [employer] [facility]. provides no warranty or guarantee of the accuracy or completeness of information in this document.
== END | disposition home or self-care (01) ==
LOC: US 15:17
PROVIDERS: PCP Nurse Practitioner Family; Referring Provider Nurse Practitioner Family; Visit Provider Nurse Practitioner Family
DX: R10.2 Pelvic and perineal pain (principal); R19.00 Intra-abdominal and pelvic swelling, mass and lump, unspecified site
CPT/HCPCS: 76830; 76856